=== PATIENT | male | born 2000 | race Caucasian/White ===

== ENCOUNTER 2024-06-15 20:06 | Inpatient (IN) | payer BC, SELFPAY ==
[2024-06-15] VITALS (35 sets, daily range): BP systolic 100–150; BP diastolic 53–93; PULSE 97–115; RESP 14–30; TEMP 36.6–37.1; O2SAT 92–100
--- NOTE | 2024-06-15 20:15 | DI.RAD_ITS ---
Exam(s) XR CHEST 1V IN DI DEPT EXAM: XR CHEST 1V IN DI DEPT CLINICAL HISTORY: DKA, eval PNA. TECHNIQUE: 2D digital imaging was performed. COMPARISON: No exams were available for comparison FINDINGS: Single AP portable view. Heart size is upper normal. The mediastinum is not widened. Lungs are clear. No infiltrates nor obvious pleural effusions. IMPRESSION: No acute pulmonary findings on this single AP portable view of the chest. DATA REPOSITORY: RADIATION DOSE DELIVERED:
--- NOTE | 2024-06-15 20:15 | DI.CT_ITS ---
Exam(s) CT ABDOMEN PELVIS W EXAM: CT ABDOMEN PELVIS W CLINICAL HISTORY: Eval pancreatitis TECHNIQUE: Imaging Protocol: Axial computed tomography images with coronal and sagittal reformatted images were created and reviewed. CONTRAST MATERIAL: Intravenous: Omnipaque 350 Contrast volume:100 mL Oral: No COMPARISON: No exams were available for comparison FINDINGS: ABDOMEN: Lung Bases: Normal where visualized. Liver: Normal density. No measurable mass. Portal, Superior Mesenteric, and Splenic Veins: Unremarkable. Gallbladder and Biliary Tract: No radiodense calculus or dilation. Pancreas: Normal density, no abnormal calcifications or inflammatory process. Spleen: Normal. Adrenals: No masses seen. Kidneys: Normal size, contour and axis. No radiodense stones or obstructive uropathy. No masses seen. Abdominal Aorta: Abdominal portion non-dilated. Bowel: There is wall thickening seen in the distal stomach which may represent gastritis. This may a lso be due to underdistention. There is no evidence of bowel obstruction. No evidence of appendicit is. Peritoneal Cavity: No ascites, collection or mesenteric inflammatory response. No free air. Lymph Nodes: Within normal limits. Bones: Within normal limits for the patient's age. Soft Tissues: Unremarkable. PELVIS: Bladder: Symmetric distention, no gross wall thickening. Reproductive Organs: Unremarkable as visualized. Lymph Nodes: Within normal limits. Bones: Within normal limits for the patient's age. IMPRESSION: 1. No CT evidence to suggest acute pancreatitis. The pancreas appears unremarkable. No peripancreat ic fluid collections are seen. 2. No CT evidence of cholelithiasis or biliary ductal dilatation. 3. Mild wall thickening seen in the distal stomach. This may be due to underdistention. Gastritis s hould also be considered. Please correlate clinically. RADIATION DOSE DELIVERED: 194.44mGy.cm Total DLP DATA REPOSITORY: All CT scans at this facility are submitted to the National Radiology Data Registry (NRDR) Dose Index Registry (DIR) with the [employer] ([employer]). RADIATION OPTIMIZATION: All CT scans at this facility use at least one of these dose optimization te chniques: automated exposure control; mA and/or kV adjustment per patient size (includes targeted exa ms where dose is matched to clinical indication); or iterative reconstruction.
--- NOTE | 2024-06-15 20:30 | ED.GENADUL_ITS ---
Discharge Plan Disposition Patient Disposition: Admit to [facility] Condition: Fair Discharge Details Chief Complaint: Abd Prob Clinical Impression: DKA (diabetic ketoacidosis), Acute alcoholic pancreatitis Primary Care Provider: Unknown,Unknown ED Provider: Susan Ocampo Home Meds and New Rx's Prescriptions: No Action insulin lispro [Humalog KwikPen Insulin] 100 unit/mL insulin pen 1 sliding scale dose subcut USEASDIRECTD albuterol sulfate 90 mcg/actuation aerosol powdr breath activated 1 inh inhalation Q6H escitalopram oxalate [Lexapro] 10 mg tablet 10 mg PO DAILY HPI General Mode of arrival: ambulatory . Date/Time Provider Initiated Documentation: 06/15/24 20:17 . Limitations to Documentation: no limitations . Information obtained by: patient, family and old records reviewed . HPI Narrative: HPI: This is a 23-year-old male patient with a past medical history significant for type 1 diabetes on an insulin pump with a history of DKA, history of alcohol use and alcoholic pancreatitis, presenting for evaluation of abdominal pain, nausea and vomiting, and a concern for DKA and dehydration. Patient reports that he drank several alcoholic beverages last night, states that he drinks occasionally but has not had an episode like this in the last several months. Today he started to feel unwell with epigastric abdominal pain, nonbloody emesis, and decreased p.o. intake. The patient reports that he has not made any adjustments to his insulin pump, states that this feels similar to previous episodes of pancreatitis and DKA. The patient has otherwise been in his normal state of health. He denies chest pain, shortness of breath, cough. Has not had diarrhea or dysuria. Exam: Gen: Awake and alert, appears acutely ill HEENT: Non-icteric sclera Neck: Supple, no meningismus. Mucous membranes are dry Lungs: No apparent respiratory distress, normal respiratory effort. Lung sounds are clear and equal bilaterally, tachypnea present CV: Appears well perfused, heart with tachycardic rate but regular rhythm Abdomen: Non-distended, soft, tender to palpation in the epigastric and periumbilical region without rigidity, rebound, or guarding this is a 23-year-old male patient presenting for evaluation of epigastric abdominal pain, MSK: Moves 4 extremities without apparent limitation in ROM Skin: Visualized skin without rashes, cyanosis. Neuro: Normal Gait, no obvious focal deficits or facial asymmetry. Speaks in full, clear sentences. Psych: Appropriate for situation. MDM: Vomiting, and dehydration. My differential includes but is not limited to DKA, euglycemic DKA, HHS. Considered pancreatitis, cholecystitis, gastritis, no history of physical exam evidence concerning for perforation, bowel obstruction, urinary tract infection. Metabolic and electrolyte derangement was considered, as well as kidney injury, liver dysfunction. Will provide the patient with 2 L of lactated Ringer's for rehydration, obtain a broad laboratory workup to include CBC, CMP, lipase, urinalysis, blood cultures, and obtain chest x-ray and CT of the abdomen and pelvis with contrast. I will provide the patient with medication for management of pain and nausea to include Dilaudid and Zofran. ED Course: I reviewed the patient's laboratory studies, which show a leukocytosis to 26 with hemoconcentration and a hemoglobin of 19.9, no thrombocytopenia. Chemistry panel with a mild REINA, no significant electrolyte derangements with the patient is noted to have an anion gap and decrease in his bicarb. Lipase is greater than 375, no associated liver enzyme abnormalities or bilirubin increase. Urinalysis noninfectious but with ketonuria and hematuria. VBG with mild acidosis to 7.2, pCO2 35. DKA protocol was initiated, with dextrose containing fluids given the patient's blood glucose less than 200. Insulin drip started and the patient's insulin pump was turned off. CT imaging was independently interpreted by myself, as well as the chest x-ray. Radiology read also reviewed, no acute abnormalities on the studies to account for the patient's symptoms, though his clinical examination and lipase is still concerning for alcoholic pancreatitis. The patient was admitted to the hospitalist service for ongoing management of his DKA and pancreatitis. Remained hemodynamically appropriate/improved while under my care, transferred from this department without incident. Susan Ocampo MD Related Data Home Medications ?Medication ?Instructions ?Recorded ?Confirmed albuterol sulfate 90 mcg/actuation 1 inh inhalation Q6H 06/15/24 06/15/24 breath activated powder inhaler escitalopram oxalate 10 mg tablet 10 mg PO DAILY 06/15/24 06/15/24 (Lexapro) insulin lispro 100 unit/mL 1 sliding scale dose subcut 06/15/24 06/15/24 subcutaneous pen (Humalog KwikPen USEASDIRECTD (U-100) Insulin) Allergies Allergy/AdvReac Type Severity Reaction Status Date / Time Sulfa (Sulfonamide Allergy Itching Verified 06/15/24 20:17 Antibiotics) General Stated Complaint: Abd Prob NIRMAL: 3 Course Vital Signs Vital signs: Vital Signs Temperature 37.1 C 06/15/24 20:12 Pulse 115 H 06/15/24 20:12 Respiratory Rate 16 06/15/24 20:12 Blood Pressure 133/85 06/15/24 20:12 Pulse Oximetry 99 06/15/24 20:12 Temperature 37.1 C 06/15/24 20:12 Pulse 115 H 06/15/24 20:12 Respiratory Rate 16 06/15/24 20:12 Respiratory Effort Normal 06/15/24 20:16 Blood Pressure 133/85 06/15/24 20:12 Pulse Oximetry 99 06/15/24 20:12 Pain Level 10 06/15/24 20:12 Lab/Test Results Lab/Test Results: 06/15/24 20:24 Blood Blood Culture - Pending 06/15/24 20:24 Blood Blood Culture - Pending Medical Decision Making Quality:SDOH Health Related Social Needs: No Data to Display Critical Care Time Critical Care Time Critical Care Time: Yes Total Critical Care Time: 40 Attestation: Upon my evaluation, this patient had a high probability of imminent or life- threatening deterioration due to DKA, which required my direct attention, intervention, and personal management. I have personally provided 40 minutes of critical care time exclusive of time spent on separately billable procedures. Time includes review of laboratory data, radiology results, discussion with consultants, and monitoring for potential decompensation. Interventions were performed as documented above. Susan Ocampo MD [facility] All Active Problems (Updated 06/15/24 @ 23:36 by Susan Ocampo MD) Acute alcoholic pancreatitis (Acute) DKA (diabetic ketoacidosis) (Acute) Social History Smoking/Tobacco Use Status: Current every day Tobacco Type: e-cigarettes Smoking risk assessment performed?: Yes Alcohol Intake: current Alcohol Intake frequency: a few times a week Drug use: Never Substance use type: does not use Do you feel safe at home: Yes Do you feel safe in your relationship?: Yes
[2024-06-15 20:31] LABS: Bilirubin Moderate (Negative); Blood Moderate (Negative); Clarity Clear (Clear); Glucose 100 mg/dL (Negative); Ketones 80 mg/dL (Negative); Leukocyte Esterase Negative (Negative); Nitrite Negative (Negative); Specific Gravity >= 1.030 (1.005-1.025); Urobilinogen 0.2 mg/dL (Up to 0.2); pH 5.5 (5-8)
[2024-06-15 20:38] LABS: Bacteria Few HPF (Negative); C & S Indicated? No; Casts 0-2 Hyaline LPF (Negative); Crystals Negative HPF (Negative); Epithelial Cells Few HPF (Negative); Mucus Negative (Negative); WBC Negative HPF (0-5)
[2024-06-15 20:53] LABS: Abs Immature Grans 0.64 10^3/uL (0.0-0.06); MCH 29.2 pg (27.0-33.0); MCHC 33.8 % (32.0-36.0); MCV 87 fL (80-95); RBC 6.81 10^6/uL (4.36-5.78); RDW 12.7 % (11.8-14.1); RDW-SD 38.8 fL
[2024-06-15] MEDS: Lactated Ringers 1,000 ML 2000 ML IV (21:00)
[2024-06-15] MEDS: HYDROmorphone 2 MG/ML SYR 0.5 MG IVP (21:09)
[2024-06-15] MEDS: Ondansetron 4 MG/2 ML VIAL IVP (21:10)
[2024-06-15 21:16] LABS: HCT 58.9 % (40.0-50.0); HGB 19.9 g/dL (13.5-17.5); Lipase > 375 U/L (16-77); WBC 26.88 10^3/uL (4.4-10.8)
[2024-06-15 21:17] LABS: ALT 33 U/L (16-63); AST 26 U/L (15-37); Albumin 5.3 g/dL (3.4-5.0); Alkaline Phosphatase 147 U/L (46-116); Anion Gap 31.2 mmol/L (3-11); BUN 28 mg/dL (7-18); Bilirubin, Total 0.62 mg/dL (0.2-1.0); CO2 12.8 mmol/L (21.0-32.0); CREATININE 1.6 mg/dL (0.70-1.30); Calcium 10.3 mg/dL (8.5-10.1); Chloride 95 mmol/L (98-107); Estimated GFR 62.48 (mL/min/1.73m2); Glucose 235 mg/dL (74-106); Magnesium 2.6 mg/dL (1.8-2.4); Potassium 5.1 mmol/L (3.5-5.1); Sodium 139 mmol/L (136-145); Total Protein 10.4 g/dL (6.4-8.2)
[2024-06-15 21:19] LABS: Absolute Lymphocyte Count 2.69 10^3/uL (1.2-3.4); Absolute Monocyte Count 1.08 10^3/uL (0.1-0.8); Absolute Neutrophil Count 22.85 10^3/uL (1.2-6.7)
[2024-06-15 21:20] LABS: Diff Comment Manual Differential; Myelocytes % 1; RBC Morphology Normal
[2024-06-15] MEDS: Omnipaque 350 MG/ML 100 ML BTL IJ (21:35)
[2024-06-15] MEDS: Normal Saline - Diluent 50 ML VIAL IV (21:52)
[2024-06-15] MEDS: Normal Saline Flush 10 ML SYR IVP (21:53)
[2024-06-15 22:19] LABS: BE (Venous) -14 mmol/L (-2-3); HCO3 (Venous) 14 mmol/L (23-28); O2 Sat (Venous) 88 %; TCO2 (Venous) 13 mmol/L (24-29); pCO2 (Venous) 34 mmHg (41-51); pH (Venous) 7.22 (7.31-7.41); pO2 (Venous) 54 mmHg
[2024-06-15] MEDS: PIPERACILLIN/TAZO 3.375 GM in Normal Saline 50 ML IVPB (22:38)
--- OUTSIDE RECORDS SUMMARY | 2024-06-15 22:53 | XMS_ITS | Summary of Care ---
Author Organization [facility] Address [address] [place] [address]- Care Team Providers Care Content Publisher Name Role Phone JOAQUÍN SIMON MD Primary Care Physician [phone] Encounter CHB_CSN [id number] Date(s): 01/21/20 - 01/21/[address] [address]- [facility] Encounter Diagnosis Type I diabetes mellitus uncontrolled(Discharge Diagnosis) - 01/21/20 Attending Physician: MARBIN ROCA, ALEXEI G Referring Physician: JOAQUÍN SIMON MD Allergies, Adverse Reactions, Alerts Substance Reaction Severity Status amoxicillin Rash Active penicillins Rash Active sulfa drugs Rash Active Immunizations Given and Recorded Vaccine Date Status Refusal Reason Influenza, injectable 06/23/19 Recorded Influenza, injectable 1 07/19/17 Recorded Influenza, injectable 07/24/16 Recorded Influenza, injectable 07/24/16 Recorded Influenza, injectable 2 07/08/15 Recorded Influenza, injectable 3 06/30/15 Recorded Influenza, injectable 07/02/14 Recorded 1Location History: PCP 2Location History: PCP 3Location History: PCP Medications Adderall 10 mg oral tablet Dose: 10 mg, Dose Amount: 1 tab, PO, QAM, Special Instructions: ADHD, Dispense Quantity: 30 tab, Refills: 0, Entered: 09/14/19 15:35:17 EST, [facility]/pharmacy #[id number] Start Date: 09/14/19 Stop Date: 10/28/19 Status: Discontinued Adderall 10 mg oral tablet Dose: 10 mg, Dose Amount: 1 tab, PO, QAM, Special Instructions: Please put 20 tab in a separate bottle to be administered by school nurse, Dispense Quantity: 30 tab, Refills: 0, Entered: 01/29/19 16:23:32 EDT Start Date: 01/29/19 Stop Date: 02/23/19 Status: Discontinued Adderall 10 mg oral tablet Dose: 10 mg, Dose Amount: 1 tab, PO, QAM, Take for 30 day, Dispense Quantity: 30 tab, Refills: 0, Entered: 02/23/19 16:12:54 EDT, Stop: 02/23/19 16:13:29 EDT Start Date: 02/23/19 Stop Date: 02/23/19 Status: Completed Adderall 10 mg oral tablet Dose: 10 mg, Dose Amount: 1 tab, PO, QAM, Special Instructions: Do not fill until March 25, 2019, Dispense Quantity: 30 tab, Refills: 0, Entered: 02/23/19 16:13:29 EDT Start Date: 02/23/19 Stop Date: 04/23/19 Status: Discontinued Adderall 10 mg oral tablet Dose: 10 mg, Dose Amount: 1 tab, PO, QAM, Special Instructions: ADHD, Dispense Quantity: 30 tab, Refills: 0, Entered: 07/06/19 11:37:00 EDT Start Date: 07/06/19 Stop Date: 09/14/19 Status: Discontinued Adderall 10 mg oral tablet Dose: 10 mg, Dose Amount: 1 tab, PO, QAM, Take for 30 day, Dispense Quantity: 30 tab, Refills: 0, Entered: 04/23/19 16:15:18 EDT, Stop: 04/23/19 16:16:04 EDT Start Date: 04/23/19 Stop Date: 04/23/19 Status: Completed Adderall 10 mg oral tablet Dose: 10 mg, Dose Amount: 1 tab, PO, QAM, Special Instructions: DO not fill until May 24, Dispense Quantity: 30 tab, Refills: 0, Entered: 04/23/19 16:16:04 EDT Start Date: 04/23/19 Stop Date: 08/03/19 Status: Discontinued Adderall 10 mg oral tablet Dose: 10 mg, Dose Amount: 1 tab, PO, QAM, Special Instructions: ADHD, Dispense Quantity: 30 tab, Refills: 0, Entered: 10/28/19 9:11:37 EST, [facility]/pharmacy #[id number] Start Date: 10/28/19 Stop Date: 11/27/19 Status: Ordered Adderall XR 10 mg oral capsule, extended release Dose: 10 mg, Dose Amount: 1 cap, PO, QAM, Dispense Quantity: 30 cap, Refills: 0, Entered: 11/20/18 16:03:23 EST Start Date: 11/20/18 Stop Date: 12/18/18 Status: Discontinued Adderall XR 20 mg oral capsule, extended release Dose: 20 mg, Dose Amount: 1 cap, PO, QAM, Special Instructions: ADHD, Dispense Quantity: 30 cap, Refills: 0, Entered: 09/14/19 15:35:18 EST, [facility]/pharmacy #[id number] Start Date: 09/14/19 Stop Date: 10/28/19 Status: Discontinued Adderall XR 20 mg oral capsule, extended release Dose: 20 mg, Dose Amount: 1 cap, PO, QAM, Dispense Quantity: 30 cap, Refills: 0, Entered: 01/29/19 16:17:03 EDT Start Date: 01/29/19 Stop Date: 02/23/19 Status: Discontinued Adderall XR 20 mg oral capsule, extended release Dose: 20 mg, Dose Amount: 1 cap, PO, QAM, Dispense Quantity: 30 cap, Refills: 0, Entered: 02/23/19 16:12:49 EDT, Stop: 02/23/19 16:13:53 EDT Start Date: 02/23/19 Stop Date: 02/23/19 Status: Completed Adderall XR 20 mg oral capsule, extended release Dose: 20 mg, Dose Amount: 1 cap, PO, QAM, Special Instructions: Do not fill until March 25, Dispense Quantity: 30 cap, Refills: 0, Entered: 02/23/19 16:13:53 EDT Start Date: 02/23/19 Stop Date: 04/23/19 Status: Discontinued Adderall XR 20 mg oral capsule, extended release Dose: 20 mg, Dose Amount: 1 cap, PO, QAM, Special Instructions: ADHD, Dispense Quantity: 30 cap, Refills: 0, Entered: 08/18/19 12:05:00 EST, [facility]/pharmacy #[id number] Start Date: 08/18/19 Stop Date: 09/14/19 Status: Discontinued Adderall XR 20 mg oral capsule, extended release Dose: 20 mg, Dose Amount: 1 cap, PO, QAM, Special Instructions: ADHD, Dispense Quantity: 30 cap, Refills: 0, Entered: 07/06/19 11:37:00 EDT Start Date: 07/06/19 Stop Date: 07/06/19 Status: Discontinued Adderall XR 20 mg oral capsule, extended release Dose: 20 mg, Dose Amount: 1 cap, PO, QAM, Take for 30 day, Special Instructions: ADHD, Dispense Quantity: 30 cap, Refills: 0, Entered: 07/06/19 12:58:47 EDT, Stop: 08/05/19 12:58:47 EST Start Date: 07/06/19 Stop Date: 08/18/19 Status: Completed Adderall XR 20 mg oral capsule, extended release Dose: 20 mg, Dose Amount: 1 cap, PO, QAM, Dispense Quantity: 30 cap, Refills: 0, Entered: 04/23/19 16:15:42 EDT, Stop: 04/23/19 16:16:10 EDT Start Date: 04/23/19 Stop Date: 04/23/19 Status: Completed Adderall XR 20 mg oral capsule, extended release Dose: 20 mg, Dose Amount: 1 cap, PO, QAM, Special Instructions: Do not fill until May 24, Dispense Quantity: 30 cap, Refills: 0, Entered: 04/23/19 16:16:10 EDT, Stop: 07/06/19 11:33:12 EDT Start Date: 04/23/19 Stop Date: 07/06/19 Status: Completed Adderall XR 20 mg oral capsule, extended release Dose: 20 mg, Dose Amount: 1 cap, PO, QAM, Special Instructions: ADHD, Dispense Quantity: 30 cap, Refills: 0, Entered: 01/06/20 15:03:00 EDT, [facility]/pharmacy #[id number] Start Date: 01/06/20 Stop Date: 02/05/20 Status: Ordered Adderall XR 20 mg oral capsule, extended release Dose: 20 mg, Dose Amount: 1 cap, PO, QAM, Take for 30 day, Special Instructions: ADHD, Dispense Quantity: 30 cap, Refills: 0, Entered: 10/28/19 9:11:41 EST, Stop: 11/11/19 18:00:21 EST, [facility]/pharmacy #[id number] Start Date: 2/5/20 Stop Date: 11/11/19 Status: Completed Adderall XR 20 mg oral capsule, extended release Dose: 20 mg, Dose Amount: 1 cap, PO, QAM, Dispense Quantity: 30 cap, Refills: 0, Entered: 12/18/18 13:44:12 EDT Start Date: 12/18/18 Stop Date: 01/29/19 Status: Discontinued Adderall XR 20 mg oral capsule, extended release Dose: 20 mg, Dose Amount: 1 cap, PO, QAM, Take for 30 day, Special Instructions: ADHD, Dispense Quantity: 30 cap, Refills: 0, Entered: 11/11/19 18:00:21 EST, Stop: 12/11/19 18:00:21 EDT, [facility]/pharmacy#[id number] Start Date: 11/11/19 Stop Date: 01/06/20 Status: Completed albuterol Entered: 09/29/12 15:58:34 EST, Therapy Acute Start Date: 09/29/12 Stop Date: 03/18/13 Status: Discontinued albuterol PRN as needed for wheezing, Entered: 05/13/14 16:20:37 EDT, Therapy Maintenance Start Date: 05/13/14 Stop Date: 04/21/18 Status: Discontinued albuterol CFC free 90 mcg/inh inhalation aerosol Dose: 180 mcg, Dose Amount: 2 puff, INH, Q4hr, PRN Respiratory Distress, Entered: 05/14/18 10:50:48EDT Start Date: 05/14/18 Status: Ordered Camden One Touch Ping insulin pump Camden One Touch Ping insulin pump Special Instructions: Use as directed to deliver continuous subcutaneous insulin infusion Dispense Quantity: 1 EA Refills: 0 Stop: 07/02/11 23:59:00 EDT See Instructions Start Date: 06/24/11 Stop Date: 07/02/11 Status: Completed Camden One Touch Ping insulin pump Camden One Touch Ping insulin pump Special Instructions: Use as directed to deliver continuous subcutaneous insulin infusion Dispense Quantity: 1 EA Refills: 0 Stop: 10/19/11 23:59:00 EST See Instructions Start Date: 10/11/11 Stop Date: 10/19/11 Status: Completed Camden One Touch Ping Insulin infusion catheters and reservoirs. Camden One Touch Ping Insulin infusion catheters and reservoirs. Special Instructions: Change with infusion set every 2-3 days Refills: 4 Stop: 07/02/11 23:59:00 EDT See Instructions Dispense Supply:3 month Start Date: 06/24/11 Stop Date: 07/02/11 Status: Completed Camden One Touch Ping Insulin infusion catheters and reservoirs. Camden One Touch Ping Insulin infusion catheters and reservoirs. Special Instructions: Change with infusion set every 2-3 days Refills: 4 Stop: 10/19/11 23:59:00 EST See Instructions Dispense Supply:3 month Start Date: 10/11/11 Stop Date: 10/19/11 Status: Completed Ativan 0.5 mg oral tablet Dose: 0.5 mg, Dose Amount: 1 tab, PO, BID, PRN Agitation, Take for 7 day, Dispense Quantity: 12 tab, Refills: 0, Entered: 09/08/18 16:44:48 EST, Stop: 09/15/18 16:44:48 EST Start Date: 09/08/18 Stop Date: 09/15/18 Status: Completed Ativan 0.5 mg oral tablet Dose: 0.5 mg, Dose Amount: 1 tab, PO, BID, PRN Agitation, Take for 7 day, Dispense Quantity: 12 tab, Refills: 0, Entered: 04/28/19 16:22:49 EDT, Stop: 05/05/19 16:22:49 EDT Start Date: 04/28/19 Stop Date: 05/05/19 Status: Completed Baqsimi 3 mg nasal glucagon Baqsimi 3 mg nasal glucagon See Instructions, Special Instructions: Use as directed for severe hypoglycemia, Dispense Quantity: 2 EA, Refills: 11, Entered: 05/18/19 12:35:00 EDT, [facility]/pharmacy #[id number] Start Date: 05/18/19 Stop Date: 07/03/19 Status: Discontinued Basaglar KwikPen 100 units/mL subcutaneous solution See Instructions, Special Instructions: Use as directed up to 50 units daily in case of pump failure, Dispense Quantity: 15 mL, Refills: 11, Entered: 02/06/18 9:29:00 EDT, [facility]/pharmacy #[id number] Start Date: 02/06/18 Stop Date: 05/14/18 Status: Discontinued Basaglar KwikPen 100 units/mL subcutaneous solution See Instructions, Special Instructions: Use as directed up to 66 units daily., Dispense Quantity: 15 mL, Refills: 11, Entered: 05/18/19 12:35:00 EDT, [facility]/pharmacy #[id number] Start Date: 05/18/19 Status: Ordered Basaglar KwikPen 100 units/mL subcutaneous solution See Instructions, Special Instructions: Up to 40 units daily SC prn pump failure, Dispense Quantity: 15 mL, Refills: 1, Entered: 01/02/19 16:50:51 EDT, [facility]/pharmacy #[id number] Start Date: 01/02/19 Stop Date: 07/03/19 Status: Discontinued Basaglar KwikPen 100 units/mL subcutaneous solution See Instructions, Special Instructions: Use as directed up to 50 units daily in case of pump failure, Dispense Quantity: 15 mL, Refills: 11, Entered: 05/17/17 16:42:19 EDT, Stop: 02/06/18 9:24:31 EDT, [facility]/pharmacy #[id number] Start Date: 05/17/17 Stop Date: 02/06/18 Status: Completed BD Glucose 5 g oral tablet, chewable See Instructions, PRN Hypoglycemia Symptoms, Special Instructions: 1 tab Chewed QID, Dispense Quantity: 2 bottle, Refills: 11, Entered: 01/03/12 16:03:36 EDT, Therapy Maintenance, [facility]/pharmacy #[id number] Start Date: 01/03/12 Stop Date: 12/04/12 Status: Discontinued BD Ultrafine II syringes 0.3 cc short needle BD Ultrafine II syringes 0.3 cc short needle Special Instructions: Use as directed 7 times per day and as needed Dispense Quantity: 200 EA Stop: 06/19/12 0:00:00 EDT Dispense as Written See Instructions Start Date: 06/19/11 Stop Date: 06/19/12 Status: Completed BD Ultrafine II syringes 0.3 cc short needle BD Ultrafine II syringes 0.3 cc short needle Special Instructions: Use as directed 7 times per day and as needed Dispense Quantity: 200 EA Stop: 04/28/11 23:59:00 EDT Dispense as Written See Instructions Start Date: 04/20/11 Stop Date: 04/28/11 Status: Completed cloNIDine Dose: 0.1 mg, PO, daily, Entered: 08/03/19 11:35:23 EST Start Date: 08/03/19 Stop Date: 09/14/19 Status: Discontinued cloNIDine 0.1 mg oral tablet Dose: 0.1 mg, Dose Amount: 1 tab, PO, BID, Take for 30 day, Dispense Quantity: 60 tab, Refills: 2, Entered: 09/14/19 15:35:23 EST, Stop: 11/11/19 17:59:01 EST, [facility]/pharmacy #[id number], 58.8 Start Date: 09/14/19 Stop Date: 11/11/19 Status: Completed cloNIDine 0.1 mg oral tablet Dose: 0.1 mg, Dose Amount: 1 tab, PO, BID, Dispense Quantity: 60 tab, Refills: 2, Entered: 01/30/1916:15:29 EDT, [facility]/pharmacy #[id number] Start Date: 01/29/19 Stop Date: 04/23/19 Status: Discontinued cloNIDine 0.1 mg oral tablet Dose: 0.1 mg, Dose Amount: 1 tab, PO, daily, Dispense Quantity: 30 tab, Refills: 2, Entered: 07/17/18 16:52:22 EDT, [facility]/pharmacy #[id number] Start Date: 07/17/18 Stop Date: 09/15/18 Status: Discontinued cloNIDine 0.1 mg oral tablet Dose: 0.1 mg, Dose Amount: 1 tab, PO, BID, Dispense Quantity: 60 tab, Refills: 2, Entered: 04/23/1916:17:09 EDT, [facility]/pharmacy #[id number] Start Date: 04/23/19 Stop Date: 08/03/19 Status: Discontinued cloNIDine 0.1 mg oral tablet Dose: 0.1 mg, Dose Amount: 1 tab, PO, BID, Dispense Quantity: 60 tab, Refills: 2, Entered: 09/15/1811:34:00 EST, [facility]/pharmacy #[id number] Start Date: 09/15/18 Stop Date: 01/29/19 Status: Discontinued cloNIDine 0.1 mg oral tablet Dose: 0.05 mg, Dose Amount: 0.5 tab, PO, BID, PRN Anxiety, Dispense Quantity: 7 tab, Refills: 0, Entered: 05/14/18 10:52:26 EDT, [facility]/pharmacy #[id number] Start Date: 05/14/18 Stop Date: 06/19/18 Status: Discontinued cloNIDine 0.1 mg oral tablet Dose: 0.1 mg, Dose Amount: 1 tab, PO, BID, Dispense Quantity: 60 tab, Refills: 2, Entered: 11/11/2016:59:01 EST, [id number] Start Date: 11/11/19 Stop Date: 01/06/20 Status: Discontinued cloNIDine 0.1 mg oral tablet Dose: 0.05 mg, Dose Amount: 0.5 tab, PO, daily, PRN Anxiety, Dispense Quantity: 30 tab, Refills: 2,Entered: 06/19/18 16:49:28 EDT, [facility]/pharmacy #[id number] Start Date: 06/19/18 Stop Date: 07/17/18 Status: Discontinued cloNIDine 0.1 mg/24 hr transdermal film, extended release See Instructions, Special Instructions: 1 patch TOP every FIVE DAYS, Dispense Quantity: 6 patch, Refills: 2, Entered: 01/06/20 15:03:00 EDT, [id number] Start Date: 01/06/20 Status: Ordered Concerta 36 mg/24 hr oral tablet, extended release Dose: 36 mg, PO, QAM, Dispense Quantity: 30 tab, Refills: 0, Entered: 11/20/18 15:54:54 EST Start Date: 11/20/18 Stop Date: 11/20/18 Status: Discontinued Concerta 36 mg/24 hr oral tablet, extended release Dose: 36 mg, PO, QAM, Take for 30 day, Dispense Quantity: 30 tab, Refills: 0, Entered: 09/22/18 15:13:54 EST, Stop: 10/16/18 15:20:15 EST Start Date: 09/22/18 Stop Date: 10/16/18 Status: Completed Concerta 36 mg/24 hr oral tablet, extended release Dose: 36 mg, PO, QAM, Dispense Quantity: 30 tab, Refills: 0, Entered: 10/16/18 15:20:15 EST Start Date: 10/16/18 Stop Date: 11/20/18 Status: Discontinued desmopressin 0.2 mg oral tablet Dose: 0.6 mg, Dose Amount: 3 tab, PO, bedtime, Dispense Quantity: 90 tab, Refills: 3, Entered: 03/18/13 15:51:38 EDT, Therapy Maintenance, [facility] #[id number] Start Date: 03/18/13 Stop Date: 05/14/13 Status: Discontinued DME - DEXCOM G6 Body Die Maker DME - DEXCOM G6 Body Die Maker Special Instructions: Use with DEXCOM G6 as directed. [facility] [id number] Dispense Quantity: 1 EA Refills: 0 Stop: 05/27/19 23:59:00 EDT See Instructions Start Date: 05/20/19 Stop Date: 05/27/19 Status: Completed DME - DEXCOM G6 Body Die Maker DME - DEXCOM G6 Body Die Maker Special Instructions: Use with DEXCOM G6 as directed. [facility] [id number] Dispense Quantity: 1 EA Refills: 0 Stop: 05/19/19 21:44:05 EDT See Instructions Start Date: 05/18/19 Stop Date: 05/20/19 Status: Completed DME - DEXCOM G6 Sensor 3 pack DME - DEXCOM G6 Sensor 3 pack Special Instructions: Replace 1 sensor every 10 days for continuous glucose monitoring. [facility] [id number] Dispense Quantity: 3 box Refills: 3 Stop: 05/27/19 23:59:00 EDTSee Instructions Start Date: 05/20/19 Stop Date: 05/27/19 Status: Completed DME - DEXCOM G6 Sensor 3 pack DME - DEXCOM G6 Sensor 3 pack Special Instructions: Replace 1 sensor every 10 days for continuous glucose monitoring. [facility] [id number] Dispense Quantity: 3 box Refills: 3 Stop: 05/19/19 21:43:47 EDTSee Instructions Start Date: 05/18/19 Stop Date: 05/20/19 Status: Completed DME - DEXCOM G6 Transmitter DME - DEXCOM G6 Transmitter Special Instructions: Change every 3 months as directed. [facility] [id number] Dispense Quantity: 1 EA Refills: 3 Stop: 05/27/19 23:59:00 EDT See Instructions Start Date: 05/20/19 Stop Date: 05/27/19 Status: Completed DME - DEXCOM G6 Transmitter DME - DEXCOM G6 Transmitter Special Instructions: Change every 3 months as directed. [facility] [id number] Dispense Quantity: 1 EA Refills: 3 Stop: 05/19/19 21:43:13 EDT See Instructions Start Date: 05/18/19 Stop Date: 05/20/19 Status: Completed DME - OneTouch Ultra Blue Blood Glucose Test Strips DME - OneTouch Ultra Blue Blood Glucose Test Strips Special Instructions: Check blood glucose up to10 times per day Dispense Quantity: 300 EA Refills: 11 Stop: 08/19/13 23:59:00 EST See Instructions Start Date: 08/11/13 Stop Date: 08/19/13 Status: Completed DME - OneTouch Ultra Blue Blood Glucose Test Strips DME - OneTouch Ultra Blue Blood Glucose Test Strips Special Instructions: Check blood glucose up to10 times per day Dispense Quantity: 300 EA Refills: 11 Stop: 10/21/15 23:59:00 EST See Instructions Start Date: 10/13/15 Stop Date: 10/21/15 Status: Completed DME - OneTouch Ultra Blue Blood Glucose Test Strips DME - OneTouch Ultra Blue Blood Glucose Test Strips Special Instructions: Check blood glucose up to10 times per day Dispense Quantity: 900 EA Refills: 3 Stop: 07/04/12 23:59:00 EDT Dispense as Written See Instructions Start Date: 06/26/12 Stop Date: 07/04/12 Status: Completed DME - OneTouch Ultra Blue Blood Glucose Test Strips DME - OneTouch Ultra Blue Blood Glucose Test Strips Special Instructions: Check blood glucose up to10 times per day Dispense Quantity: 900 EA Refills: 3 Stop: 06/18/17 23:59:00 EDT Dispense as Written See Instructions Start Date: 06/10/17 Stop Date: 06/18/17 Status: Completed DME - OneTouch Ultra Blue Blood Glucose Test Strips DME - OneTouch Ultra Blue Blood Glucose Test Strips Special Instructions: Check blood glucose up to10 times per day Dispense Quantity: 900 EA Refills: 3 Stop: 10/07/12 23:59:00 EST See Instructions Start Date: 09/29/12 Stop Date: 10/07/12 Status: Completed DME - OneTouch Ultra Blue Blood Glucose Test Strips DME - OneTouch Ultra Blue Blood Glucose Test Strips Special Instructions: Check blood glucose up to15 times per day Dispense Quantity: 1,350 EA Refills: 3 Stop: 05/26/19 23:59:00 EDT Dispense as Written See Instructions Start Date: 05/18/19 Stop Date: 05/26/19 Status: Completed DME - OneTouch Ultra Blue Blood Glucose Test Strips DME - OneTouch Ultra Blue Blood Glucose Test Strips Special Instructions: Check blood glucose up to7 times per day Dispense Quantity: 200 EA Refills: 11 Stop: 08/13/14 23:59:00 EST See Instructions Start Date: 08/05/14 Stop Date: 08/13/14 Status: Completed DME - OneTouch Ultra Blue Blood Glucose Test Strips DME - OneTouch Ultra Blue Blood Glucose Test Strips Special Instructions: Check blood glucose up to10 times per day Dispense Quantity: 900 EA Refills: 1 Stop: 10/06/16 23:59:00 EST See Instructions Start Date: 09/28/16 Stop Date: 10/06/16 Status: Completed DME - OneTouch Ultra Blue Blood Glucose Test Strips DME - OneTouch Ultra Blue Blood Glucose Test Strips Special Instructions: Check blood glucose up to15 times per day Dispense Quantity: 1,350 EA Refills: 3 Stop: 11/07/17 23:59:00 EST Dispense as Written See Instructions Start Date: 10/30/17 Stop Date: 11/07/17 Status: Completed DME - OneTouch Ultra Blue Blood Glucose Test Strips DME - OneTouch Ultra Blue Blood Glucose Test Strips Special Instructions: Check blood glucose up to10 times per day Dispense Quantity: 300 EA Refills: 11 Stop: 10/13/15 17:42:02 EST See Instructions Start Date: 11/11/14 Stop Date: 10/13/15 Status: Completed DME - OneTouch Ultra Blue Blood Glucose Test Strips DME - OneTouch Ultra Blue Blood Glucose Test Strips Special Instructions: Check blood glucose up to15 times per day Dispense Quantity: 1,350 EA Refills: 3 Stop: 05/18/19 11:25:13 EDT Dispense as Written See Instructions Start Date: 03/27/19 Stop Date: 05/18/19 Status: Completed DME - OneTouch Ultra Blue Blood Glucose Test Strips DME - OneTouch Ultra Blue Blood Glucose Test Strips Special Instructions: Check blood glucose up to7 times per day Dispense Quantity: 200 EA Refills: 11 See Instructions Start Date: 07/21/15 Stop Date: 10/13/15 Status: Discontinued DME - Precision Xtra Blood KETONE Test Strips DME - Precision Xtra Blood KETONE Test Strips Special Instructions: Check blood ketones when blood glucose over 250 mg/dL or for sick day management Dispense Quantity: 30 EA Refills: 11 Stop: 07/30/17 7:41:35 EST See Instructions Start Date: 10/13/15 Stop Date: 07/30/17 Status: Completed DME - Precision Xtra Blood KETONE Test Strips DME - Precision Xtra Blood KETONE Test Strips Special Instructions: Check blood ketones when blood glucose over 250 mg/dL or for sick day management Dispense Quantity: 30 EA Refills: 11 Stop: 02/11/13 23:59:00 EDT See Instructions Start Date: 02/03/13 Stop Date: 02/11/13 Status: Completed DME - Precision Xtra Blood KETONE Test Strips DME - Precision Xtra Blood KETONE Test Strips Special Instructions: Check blood ketones when blood glucose over 250 mg/dL or for sick day management Dispense Quantity: 30 EA Refills: 11 Stop: 04/11/12 23:59:00 EDT See Instructions Start Date: 04/03/12 Stop Date: 04/11/12 Status: Completed DME - Precision Xtra Blood KETONE Test Strips DME - Precision Xtra Blood KETONE Test Strips Special Instructions: Use as directed when BG >250mg/dL upon arising in the AM and when >300 mg/dL any other time of day and when doing sick day management. Dispense Quantity: 30 EA Refills: 11 Dispense a... Start Date: 05/18/19 Status: Ordered DME - Precision Xtra Blood KETONE Test Strips DME - Precision Xtra Blood KETONE Test Strips Special Instructions: Use as directed when BG >250mg/dL upon arising in the AM and when >300 mg/dL any other time of day and when doing sick day management. Dispense Quantity: 30 EA Refills: 11 Stop: 12/23... Start Date: 01/02/19 Stop Date: 01/10/19 Status: Completed DME - Precision Xtra Blood KETONE Test Strips DME - Precision Xtra Blood KETONE Test Strips Special Instructions: Check blood ketones when blood glucose over 250 mg/dL or for sick day management Dispense Quantity: 30 EA Refills: 11 Stop: 08/07/17 23:59:00 EST See Instructions Start Date: 07/30/17 Stop Date: 08/07/17 Status: Completed DME - Precision Xtra Blood KETONE Test Strips DME - Precision Xtra Blood KETONE Test Strips Special Instructions: Check blood ketones when blood glucose over 250 mg/dL or for sick day management Dispense Quantity: 30 EA Refills: 11 Stop: 11/19/14 23:59:00 EST See Instructions Start Date: 11/11/14 Stop Date: 11/19/14 Status: Completed DME - Precision Xtra Blood KETONE Test Strips DME - Precision Xtra Blood KETONE Test Strips Special Instructions: Check blood ketones when blood glucose over 250 mg/dL or for sick day management Dispense Quantity: 30 EA Refills: 11 Stop: 11/11/14 16:49:18 EST See Instructions Start Date: 11/12/13 Stop Date: 11/11/14 Status: Completed DME Aerochamber spacer (withOUT mask) Special Instructions: Use as directed to give inhaled asthma medications. Dispense Quantity: 1 EA Refills: 1 Stop: 08/10/19 23:59:00 EST See Instructions Start Date: 08/02/19 Stop Date: 08/10/19 Status: Completed DME Alcohol Swabs Special Instructions: Use as Directed up to 8 times/day Dispense Quantity: 250 EA Refills: 11 Stop:04/08/10 23:59:00 EDT See Instuctions: Start Date: 03/31/10 Stop Date: 04/08/10 Status: Completed DME Alcohol Swabs Special Instructions: See Instuctions: Use 10 times per day as instructed Dispense Quantity: 300 EARefills: 11 Stop: 01/02/13 0:01:00 EDT Dispense as Written See Instructions Start Date: 01/03/12 Stop Date: 01/02/13 Status: Completed DME Alcohol Swabs_ Special Instructions: Use as directed up to 10 times a day for checking blood glucose or giving insulin Dispense Quantity: 300 EA Refills: 11 Stop: 10/21/15 23:59:00 EST See Instructions Start Date: 10/13/15 Stop Date: 10/21/15 Status: Completed DME Alcohol Swabs_ Special Instructions: Use as directed up to 10 times a day for checking blood glucose or giving insulin Dispense Quantity: 900 EA Refills: 3 Stop: 10/07/12 23:59:00 EST See Instructions Start Date: 09/29/12 Stop Date: 10/07/12 Status: Completed DME Alcohol Swabs_ Special Instructions: Use as directed up to 10 times a day for checking blood glucose or giving insulin Dispense Quantity: 300 EA Refills: 11 Stop: 10/13/15 17:44:06 EST See Instructions Start Date: 11/11/14 Stop Date: 10/13/15 Status: Completed DME Alcohol Swabs_ Special Instructions: Use as directed up to 10 times a day for checking blood glucose or giving insulin Dispense Quantity: 300 EA Refills: 11 Stop: 02/19/14 23:59:00 EDT See Instructions Start Date: 02/11/14 Stop Date: 02/19/14 Status: Completed DME Glucometer - Precision Xtra Blood Glucose and Ketone monitoring system DME Glucometer - Precision Xtra Blood Glucose and Ketone monitoring system Special Instructions: Use to check blood glucose and ketones as directed. Pleas dispense 2 meters - one for home and one forschool. Dispense Quantity: 2 EA Refills: 11 Stop: 0... Start Date: 05/27/18 Stop Date: 06/04/18 Status: Completed DME Glucose meter - Precision Xtra Special Instructions: Dispense 1 meter Dispense Quantity: 1 EA Refills: 0 Stop: 04/08/10 23:59:00 EDT see instructions Start Date: 03/31/10 Stop Date: 04/08/10 Status: Completed DME Lancets - FreeStyle Special Instructions: Use as directed up to 10 times each day Dispense Quantity: 300 EA Refills: 11Stop: 04/08/10 23:59:00 EDT see instructions Start Date: 03/31/10 Stop Date: 04/08/10 Status: Completed DME Lancets - One Touch Ultra Soft DME Lancets - One Touch Ultra Soft Special Instructions: Use to check BG levels up to 10 times per day Dispense Quantity: 200 EA Refills: 11 Stop: 08/19/13 23:59:00 EST See Instructions Start Date: 08/11/13 Stop Date: 08/19/13 Status: Completed DME Lancets - One Touch Ultra Soft DME Lancets - One Touch Ultra Soft Special Instructions: Use to check BG levels up to 10 times per day Dispense Quantity: 300 EA Refills: 11 Stop: 10/12/16 14:16:34 EST Dispense as Written See Instructions Start Date: 10/13/15 Stop Date: 10/12/16 Status: Completed DME Lancets - One Touch Ultra Soft DME Lancets - One Touch Ultra Soft Special Instructions: Use to check BG levels up to 10 times per day Dispense Quantity: 900 EA Refills: 3 Stop: 10/07/12 23:59:00 EST See Instructions Start Date: 09/29/12 Stop Date: 10/07/12 Status: Completed DME Lancets - One Touch Ultra Soft DME Lancets - One Touch Ultra Soft Special Instructions: Use to check BG levels up to 10 times per day Dispense Quantity: 300 EA Refills: 11 Stop: 10/20/16 23:59:00 EST Dispense as Written See Instructions Start Date: 10/12/16 Stop Date: 10/20/16 Status: Completed DME Lancets - One Touch Ultra Soft DME Lancets - One Touch Ultra Soft Special Instructions: Use to check BG levels up to 10 times per day Dispense Quantity: 300 EA Refills: 11 Stop: 11/12/14 1:00:00 EST Dispense as Written See Instructions Start Date: 11/12/13 Stop Date: 11/12/14 Status: Completed DME [place] - BD Ultra-Fine Mandy Pen Needle (4 mm x 32G) DME [place] - BD Ultra-Fine Mandy Pen Needle (4 mm x 32G) Special Instructions: Use as directed up to 2 times/day to administer insulin via insulin pen Dispense Quantity: 100 EA Refills: 11 See Instructions Start Date: 02/06/18 Stop Date: 05/14/18 Status: Discontinued DME [place] - BD Ultra-Fine Mandy Pen Needle (4 mm x 32G) DME [place] - BD Ultra-Fine Mandy Pen Needle (4 mm x 32G) Special Instructions: Use as directed up to 6 times/day to administer insulin via insulin pen Dispense Quantity: 600 EA Refills: 3 Stop: 10/06/19 23:59:00 EST See Instructions, 62.3 Start Date: 09/28/19 Stop Date: 10/06/19 Status: Completed DME [place] - BD Ultra-Fine Mandy Pen Needle (4 mm x 32G) DME [place] - BD Ultra-Fine Mandy Pen Needle (4 mm x 32G) Special Instructions: Use as directed up to 2 times/day to administer insulin via insulin pen Dispense Quantity: 100 EA Refills: 11 Stop: 05/25/17 23:59:00 EDT See Instructions Start Date: 05/17/17 Stop Date: 05/25/17 Status: Completed DME Syringe, Insulin - BD Ultrafine II short needle 0.3mL Special Instructions: Use as Directed up to 8 times each day. Dispense Quantity: 200 Syringe Refills: 11 Stop: 04/08/10 23:59:00 EDT see instructions Start Date: 03/31/10 Stop Date: 04/08/10 Status: Completed DME Test Strips - Blood Ketone- Precision Xtra Special Instructions: Use if blood glucose is above 250 mg/dL or if pt is sick. Dispense Quantity: 20 EA Refills: 11 Stop: 04/08/10 23:59:00 EDT see instructions Start Date: 03/31/10 Stop Date: 04/08/10 Status: Completed DME Test Strips - Glucose- Precision Xtra Special Instructions: Use as directed up to 10 times each day. Dispense Quantity: 300 EA Refills: 11 Stop: 04/08/10 23:59:00 EDT see instructions Start Date: 03/31/10 Stop Date: 04/08/10 Status: Completed DME Test Strips - Glucose- Precision Xtra Special Instructions: Use as directed up to 10 times each day. Dispense Quantity: 300 EA Refills: 11 Stop: 04/08/10 23:59:00 EDT see instructions Start Date: 03/31/10 Stop Date: 04/08/10 Status: Completed DME Test Strips - Urine Ketone foil wrapped Special Instructions: Use if blood glucose is above 250 mg/dL or if pt is sick. Dispense Quantity: 20 EA Refills: 11 Stop: 04/08/10 23:59:00 EDT see instructions Start Date: 03/31/10 Stop Date: 04/08/10 Status: Completed famotidine 20 mg oral tablet Dose: 20 mg, Dose Amount: 1 tab, PO, BID, Dispense Quantity: 14 tab, Entered: 08/03/19 11:19:05 EST, [facility]/pharmacy #[id number] Start Date: 08/03/19 Stop Date: 08/10/19 Status: Ordered Fastclix lancet drums Fastclix lancet drums Special Instructions: us as directed up to 10x/day. Dispense Quantity: 50 EA Refills: 11 Stop: 08/13/14 23:59:00 EST See Instructions Start Date: 08/05/14 Stop Date: 08/13/14 Status: Completed Flovent HFA 110 mcg/inh inhalation aerosol Dose Amount: 2 puff, INH, BID, Special Instructions: Take as directed using aerochamber spacer. Rinse mouth and throat after each use., Dispense Quantity: 1 EA, Refills: 2, Entered: 08/02/19 15:49:24EST, [facility]/pharmacy #[id number] Start Date: 08/02/19 Status: Ordered Flovent HFA 110 mcg/inh inhalation aerosol Dose Amount: 2 puff, INH, BID, Dispense Quantity: 1 EA, Entered: 09/29/12 15:58:19 EST, Therapy Soft Stop Start Date: 09/29/12 Stop Date: 05/14/18 Status: Discontinued Flovent HFA 110 mcg/inh inhalation aerosol Dose: 220 mcg, Dose Amount: 2 puff, INH, BID, PRN Cold symptoms, Entered: 05/14/18 10:50:52 EDT Start Date: 05/14/18 Stop Date: 08/03/19 Status: Discontinued FLUoxetine PO, Entered: 11/15/17 15:12:06 EST Start Date: 11/15/17 Stop Date: 04/21/18 Status: Discontinued FreeStyle Lancets FreeStyle Lancets Special Instructions: Use as directed, check blood glucose 10 times a day Dispense Quantity: 250 EA Refills: 11 Stop: 04/20/11 23:59:00 EDT See Instructions Start Date: 04/12/11 Stop Date: 04/20/11 Status: Completed generic blood glucose Lancet generic blood glucose Lancet Special Instructions: Use as directed, check blood glucose 10 times a day Dispense Quantity: 300 EA Refills: 11 Stop: 11/21/11 23:59:00 EST See Instructions Start Date: 11/13/11 Stop Date: 11/21/11 Status: Completed Glucagon Emergency Kit for Low Blood Sugar 1 mg injection Dose: 1 mg, IM, OUT-PT as directed, Special Instructions: for unresponsive hypoglycemia, Dispense Quantity: 3 kit, Refills: 3, Entered: 12/24/16 19:14:00 EDT, Stop: 12/25/17 18:19:00 EDT, Dispense asWritten, [facility]/pharmacy #[id number] Start Date: 12/24/16 Stop Date: 02/04/18 Status: Completed Glucagon Emergency Kit for Low Blood Sugar 1 mg injection Dose: 1 mg, IM, OUT-PT as directed, Special Instructions: for unresponsive hypoglycemia, Dispense Quantity: 3 kit, Refills: 3, Entered: 05/18/19 12:35:00 EDT, Dispense as Written, [facility]/pharmacy #[id number] Start Date: 05/18/19 Status: Ordered Glucagon Emergency Kit for Low Blood Sugar 1 mg injection Dose: 1 mg, IM, OUT-PT as directed, Special Instructions: for unresponsive hypoglycemia, Dispense Quantity: 3 kit, Refills: 3, Entered: 02/04/18 16:07:00 EDT, Dispense as Written, [facility]/pharmacy #[id number] Start Date: 02/04/18 Stop Date: 05/14/18 Status: Discontinued Glucagon Emergency Kit for Low Blood Sugar 1 mg injection Dose: 1 mg, IM, OUT-PT as directed, Special Instructions: for unresponsive hypoglycemia, Dispense Quantity: 3 kit, Refills: 3, Entered: 02/01/19 15:52:17 EDT, Stop: 05/18/19 11:25:36 EDT, Dispense asWritten, [facility]/pharmacy #[id number] Start Date: 02/01/19 Stop Date: 05/18/19 Status: Completed Glucagon Emergency Kit recombinant 1mg injection Dose: 0.5 mg IM 1time PRN Other - See Order Comments, Therapy Acute, Dispense Quantity: 3 kit Refills: 3 Special Instructions: for treatment of unresponsive hypoglycemia Stop: 03/31/10 14:02:48 EDT Start Date: 03/31/10 Stop Date: 03/31/10 Status: Completed glucagon recombinant 1 mg injection See Instructions, Special Instructions: Use 1 mg to treat severe hypoglycemia., Dispense Quantity: 3 kit, Refills: 11, Entered: 10/13/15 17:40:18 EST, [facility]/pharmacy #[id number] Start Date: 10/13/15 Stop Date: 05/17/17 Status: Discontinued glucagon recombinant 1 mg injection See Instructions, Special Instructions: Use as directed to treat severe hypoglycemia. Do not fill until pt requests., Dispense Quantity: 3 kit, Refills: 2, Entered: 02/03/13 14:43:20 EDT, Stop: 11/12/13 16:53:26 EST, Therapy Hard Stop, [id number] Start Date: 02/03/13 Stop Date: 11/12/13 Status: Completed glucagon recombinant 1 mg injection See Instructions, Therapy Maintenance, Dispense Quantity: 2 kit Refills: 2 Special Instructions: Use as directed to treat severe hypoglycemia, [id number] Start Date: 04/12/11 Stop Date: 04/03/12 Status: Discontinued glucagon recombinant 1 mg injection See Instructions, Special Instructions: Use as directed to treat severe hypoglycemia. Do not fill until pt requests., Dispense Quantity: 3 kit, Refills: 2, Entered: 04/03/12 15:40:34 EDT, Stop: 02/03/13 14:43:20 EDT, Therapy Hard Stop Start Date: 04/03/12 Stop Date: 02/03/13 Status: Completed glucagon recombinant 1 mg injection See Instructions, Special Instructions: Use 1 mg to treat severe hypoglycemia. Do not fill until ptrequests., Dispense Quantity: 3 kit, Refills: 11, Entered: 11/11/14 16:48:13 EST, Stop: 10/13/15 17:40:17 EST, [facility]/pharmacy #[id number] Start Date: 11/11/14 Stop Date: 10/13/15 Status: Completed glucagon recombinant 1 mg injection See Instructions, Special Instructions: Use 1 mg to treat severe hypoglycemia. Do not fill until ptrequests., Dispense Quantity: 3 kit, Refills: 11, Entered: 11/12/13 16:53:26 EST, Stop: 11/11/14 16:48:13 EST, Therapy Hard Stop, [facility]/pharmacy #[id number] Start Date: 11/12/13 Stop Date: 11/11/14 Status: Completed glucose See instructions, Therapy Maintenance, Refills: 11 Special Instructions: May use 4g or 5 g tablets or gel as directed for hypoglycemia, Dispense Supply: 2 packet Start Date: 03/31/10 Stop Date: 12/04/12 Status: Discontinued glucose 4 g oral tablet, chewable Dose: 4 g, Dose Amount: 1 tab, Chewed, QID, PRN Hypoglycemia Symptoms, Dispense Quantity: 120 tab, Refills: 11, Entered: 10/13/15 17:41:07 EST, Stop: 12/27/16 8:50:29 EDT, [id number] Start Date: 10/13/15 Stop Date: 12/27/16 Status: Completed glucose 4 g oral tablet, chewable Dose: 12 g, Dose Amount: 3 tab, Chewed, QID, PRN Hypoglycemia Symptoms, Dispense Quantity: 2 bottle, Refills: 3, Entered: 09/29/12 15:51:00 EST, Stop: 11/12/13 16:52:39 EST, Therapy Hard Stop, [facility]/pharmacy #[id number] Start Date: 09/29/12 Stop Date: 11/12/13 Status: Completed glucose 4 g oral tablet, chewable Dose: 20 g, Dose Amount: 5 tab, Chewed, QID, PRN Other - See Order Comments, Entered: 05/14/18 10:50:59 EDT Start Date: 05/14/18 Stop Date: 07/03/19 Status: Discontinued glucose 4 g oral tablet, chewable Dose: 4 g, Dose Amount: 1 tab, Chewed, QID, PRN Hypoglycemia Symptoms, Dispense Quantity: 120 tab, Refills: 11, Entered: 11/11/14 16:48:35 EST, Stop: 10/13/15 17:41:07 EST, [facility]/pharmacy #[id number] Start Date: 11/11/14 Stop Date: 10/13/15 Status: Completed glucose 4 g oral tablet, chewable Dose: 12 g, Dose Amount: 3 tab, Chewed, QID, PRN Hypoglycemia Symptoms, Dispense Quantity: 120 tab,Refills: 11, Entered: 12/27/16 8:50:29 EDT, [facility]/pharmacy #[id number] Start Date: 12/27/16 Stop Date: 05/14/18 Status: Discontinued glucose 4 g oral tablet, chewable Dose: 12 g, Dose Amount: 3 tab, Chewed, QID, PRN Hypoglycemia Symptoms, Dispense Quantity: 2 bottle, Refills: 11, Entered: 11/12/13 16:52:39 EST, Stop: 11/11/14 16:48:35 EST, Therapy Hard Stop, [facility]/pharmacy #[id number] Start Date: 11/12/13 Stop Date: 11/11/14 Status: Completed HumaLOG 100 units/mL injectable solution See Instructions, Special Instructions: Use as directed up to 100 units/day, Dispense Quantity: 9 vial, Refills: 3, Entered: 08/28/18 12:43:00 EST, [id number] Start Date: 08/28/18 Status: Ordered HumaLOG 100 units/mL subcutaneous solution See Instructions, Special Instructions: Use as directed up to 100 units/day for insulin pump therapy, Dispense Quantity: 9 vial, Refills: 3, Entered: 08/13/17 10:52:00 EST, [id number] Start Date: 08/13/17 Stop Date: 05/14/18 Status: Discontinued Humalog 100 units/mL subcutaneous solution See Instructions, Special Instructions: Use as directed up to 70 units/day for insulin pump therapy, Dispense Quantity: 3 vial, Refills: 11, Entered: 10/13/15 17:41:36 EST, Stop: 10/12/16 14:17:06 EST, [id number] Start Date: 10/13/15 Stop Date: 10/12/16 Status: Completed Humalog 100 units/mL subcutaneous solution See Instructions, Therapy Maintenance, Dispense Quantity: 3 vial Refills: 11 Special Instructions: Use as directed up to 70 units/day for insulin pump therapy, [id number] Start Date: 06/05/11 Stop Date: 04/03/12 Status: Discontinued Humalog 100 units/mL subcutaneous solution See Instructions, Special Instructions: Use as directed up to 70 units/day for insulin pump therapy, Dispense Quantity: 3 vial, Refills: 11, Entered: 02/03/13 14:43:09 EDT, Stop: 11/12/13 16:56:14 EST, Therapy Hard Stop, [id number] Start Date: 02/03/13 Stop Date: 11/12/13 Status: Completed Humalog 100 units/mL subcutaneous solution See Instructions, Special Instructions: Use as directed up to 70 units/day for insulin pump therapy, Dispense Quantity: 3 vial, Refills: 11, Entered: 04/03/12 15:42:05 EDT, Stop: 02/03/13 14:43:09 EDT, Therapy Hard Stop Start Date: 04/03/12 Stop Date: 02/03/13 Status: Completed Humalog 100 units/mL subcutaneous solution See Instructions, Special Instructions: Use as directed up to 70 units/day for insulin pump therapy, Dispense Quantity: 3 vial, Refills: 11, Entered: 11/11/14 16:49:34 EST, Stop: 10/13/15 17:41:35 EST, [id number] Start Date: 11/11/14 Stop Date: 10/13/15 Status: Completed Humalog 100 units/mL subcutaneous solution See Instructions, Therapy Maintenance, Dispense Quantity: 2 vial Refills: 11 Special Instructions: Use as directed up to 50 units/day. Administer 15 minutes before meals/snacks. Start Date: 03/31/10 Stop Date: 10/11/11 Status: Discontinued HumaLOG 100 units/mL subcutaneous solution See Instructions, Special Instructions: Use as directed up to 70 units/day for insulin pump therapy, Dispense Quantity: 3 vial, Refills: 11, Entered: 10/12/16 15:41:00 EST, Stop: 08/13/17 10:39:03 EST, [id number] Start Date: 10/12/16 Stop Date: 08/13/17 Status: Completed Humalog 100 units/mL subcutaneous solution See Instructions, Special Instructions: Use as directed up to 70 units/day for insulin pump therapy, Dispense Quantity: 3 vial, Refills: 11, Entered: 11/12/13 16:56:14 EST, Stop: 11/11/14 16:49:34 EST, Therapy Hard Stop, [id number] Start Date: 11/12/13 Stop Date: 11/11/14 Status: Completed HumaLOG Cartridge 100 units/mL injectable solution See Instructions, Special Instructions: Subcutaneous use as directed up to 100 units per day, Dispense Quantity: 10 EA, Refills: 11, Entered: 05/18/19 12:35:00 EDT, [id number] Start Date: 05/18/19 Stop Date: 08/03/19 Status: Discontinued HumaLOG Cartridge 100 units/mL injectable solution See Instructions, Special Instructions: Subcutaneous use as directed up to 100 units per day, Dispense Quantity: 10 EA, Refills: 11, Entered: 09/28/19 17:28:00 EST, [id number] Start Date: 09/28/19 Status: Ordered Humalog Pen 100 units/mL subcutaneous solution See Instructions, Therapy Maintenance, Dispense Quantity: 6 mL Refills: 11 Special Instructions: Upto 20 units, [id number] Start Date: 02/08/11 Stop Date: 04/03/12 Status: Discontinued Humulin N 100 units/mL subcutaneous suspension See Instructions, Therapy Maintenance, Dispense Quantity: 2 vial Refills: 11 Special Instructions: Use as directed up to 50 units/day. Start Date: 03/31/10 Stop Date: 10/11/11 Status: Discontinued Humulin N Pen 100 units/mL subcutaneous suspension See Instructions, Therapy Maintenance, Dispense Quantity: 6 mL Refills: 11 Special Instructions: Upto 20 units, [id number] Start Date: 02/08/11 Stop Date: 10/11/11 Status: Discontinued InPen Cerna (Humalog) [facility] # [id number] InPen Cerna (Humalog) [facility] # [id number] Special Instructions: Use with Humalog U-100 cartridges. Contact health care provider for estela settings. Dispense 2 - 1 for home and 1 for school Dispense Quantity: 2 EA Refills: 0 Stop: 05/27/19 23:59:00 EDT S... Start Date: 05/20/19 Stop Date: 05/27/19 Status: Completed InPen Cerna (Humalog) [facility] # [id number] InPen Cerna (Humalog) [facility] # [id number] Special Instructions: Use with Humalog U-100 cartridges. Contact health care provider for estela settings. Dispense 2 - 1 for home and 1 for school Dispense Quantity: 2 EA Refills: 0 Stop: 05/19/19 21:44:26 EDT S... Start Date: 05/18/19 Stop Date: 05/20/19 Status: Completed InPen Cerna (Humalog) - [facility] # [id number] InPen Cerna (Humalog) [facility] # [id number] Special Instructions: Use with Humalog U-100 cartridges. Contact health care provider for estela settings. Dispense 2 - 1 for home and 1 for school Dispense Quantity: 2 EA Refills: 0 See Instructions Start Date: 09/28/19 Status: Ordered insulin glargine 100 units/mL subcutaneous solution Dose: 27 unit, Subcutaneous, daily, Entered: 05/14/18 10:51:08 EDT Start Date: 05/14/18 Stop Date: 01/02/19 Status: Discontinued insulin lispro 100 units/mL injectable solution Entered: 05/14/18 10:51:41 EDT Start Date: 05/14/18 Stop Date: 01/02/19 Status: Discontinued insulin lispro 100 units/mL injectable solution Entered: 05/14/18 10:51:48 EDT Start Date: 05/14/18 Stop Date: 01/02/19 Status: Discontinued Ketostix foil wrapped Ketostix foil wrapped Special Instructions: Use as directed to measure urine ketones when BG >250-300mg/dL 2 consecutive times; when ill, nauseous or vomiting Dispense Quantity: 30 EA Refills: 11 Stop: 04/28/11 23:59:00 EDT See Instructions Start Date: 04/20/11 Stop Date: 04/28/11 Status: Completed LaMICtal See Instructions, Special Instructions: PO BID, Entered: 02/04/18 8:51:45 EDT Start Date: 02/04/18 Stop Date: 04/21/18 Status: Discontinued LaMICtal ODT Patient Titration Kit orange oral tablet, disintegrating Dose Amount: 1 kit, PO, As Directed, Dispense Quantity: 1 kit, Refills: 0, Entered: 02/02/19 9:21:49 EDT, [facility]/pharmacy #[id number] Start Date: 02/02/19 Stop Date: 04/23/19 Status: Discontinued lamoTRIgine 100 mg oral tablet See Instructions, Special Instructions: Take 1 tablet in the morning and half a tablet at night, Dispense Quantity: 45 tab, Refills: 2, Entered: 04/15/18 16:36:17 EDT, [facility]/pharmacy #[id number] Start Date: 04/15/18 Stop Date: 05/14/18 Status: Discontinued lamoTRIgine 100 mg oral tablet Dose: 150 mg, Dose Amount: 1.5 tab, PO, daily, Dispense Quantity: 21 tab, Refills: 0, Entered: 05/14/18 10:52:00 EDT, [facility]/pharmacy #[id number] Start Date: 05/14/18 Stop Date: 06/19/18 Status: Discontinued lamoTRIgine 150 mg oral tablet Dose: 150 mg, Dose Amount: 1 tab, PO, daily, Dispense Quantity: 30 tab, Refills: 3, Entered: 02/02/19 9:19:24 EDT, [facility]/pharmacy #[id number] Start Date: 02/02/19 Stop Date: 02/02/19 Status: Discontinued lamoTRIgine 150 mg oral tablet Dose: 150 mg, Dose Amount: 1 tab, PO, daily, Take for 30 day, Dispense Quantity: 30 tab, Refills: 2, Entered: 09/14/19 15:35:39 EST, Stop: 11/11/19 17:58:23 EST, [facility]/pharmacy #[id number] Start Date: 09/14/19 Stop Date: 11/11/19 Status: Completed lamoTRIgine 150 mg oral tablet Dose: 150 mg, Dose Amount: 1 tab, PO, daily, Dispense Quantity: 30 tab, Refills: 3, Entered: 01/29/19 16:16:10 EDT, Stop: 02/02/19 9:19:24 EDT, [facility]/pharmacy #[id number] Start Date: 01/29/19 Stop Date: 02/02/19 Status: Completed lamoTRIgine 150 mg oral tablet Dose: 150 mg, Dose Amount: 1 tab, PO, daily, Dispense Quantity: 30 tab, Refills: 2, Entered: 02/23/19 16:17:43 EDT, [facility]/pharmacy #[id number] Start Date: 02/23/19 Stop Date: 04/23/19 Status: Discontinued lamoTRIgine 150 mg oral tablet Dose: 150 mg, Dose Amount: 1 tab, PO, daily, Dispense Quantity: 30 tab, Refills: 2, Entered: 04/23/19 16:17:03 EDT, [facility]/pharmacy #[id number] Start Date: 04/23/19 Stop Date: 09/14/19 Status: Discontinued lamoTRIgine 150 mg oral tablet Dose: 150 mg, Dose Amount: 1 tab, PO, daily, Dispense Quantity: 30 tab, Refills: 2, Entered: 11/11/19 17:58:23 EST, [facility]/pharmacy #[id number] Start Date: 11/11/19 Stop Date: 01/06/20 Status: Discontinued lamoTRIgine 150 mg oral tablet Dose: 150 mg, Dose Amount: 1 tab, PO, daily, Dispense Quantity: 30 tab, Refills: 3, Entered: 07/10/18 13:55:56 EDT, [facility]/pharmacy #[id number] Start Date: 07/10/18 Stop Date: 01/29/19 Status: Discontinued Lantus 100 units/mL subcutaneous solution See Instructions, Special Instructions: Use as directed up to 20 units each day in event of insulinpump failure. Do not fill til pt requests., Dispense Quantity: 1 vial, Refills: 11, Entered: 08/11/13 14:07:46 EST, Stop: 05/13/14 16:17:16 EDT, Therap... Start Date: 08/11/13 Stop Date: 05/13/14 Status: Completed Lantus 100 units/mL subcutaneous solution See Instructions, Special Instructions: Use as directed up to 20 units each day in event of insulinpump failure., Dispense Quantity: 1 vial, Refills: 11, Entered: 10/13/15 17:42:30 EST, Stop: 10/12/16 14:17:31 EST, [facility]/pharmacy #[id number] Start Date: 10/13/15 Stop Date: 10/12/16 Status: Completed Lantus 100 units/mL subcutaneous solution See Instructions, Special Instructions: Use as directed up to 20 units each day in event of insulinpump failure, Dispense Quantity: 1 vial, Refills: 11, Entered: 06/05/11 10:51:41 EDT, Stop: 09/29/12 15:49:10 EST, Therapy Hard Stop Start Date: 06/05/11 Stop Date: 09/29/12 Status: Completed Lantus 100 units/mL subcutaneous solution See Instructions, Special Instructions: Use as directed up to 20 units each day in event of insulinpump failure, Dispense Quantity: 1 vial, Refills: 11, Entered: 09/29/12 15:49:11 EST, Stop: 08/11/13 14:07:45 EST, Therapy Hard Stop Start Date: 09/29/12 Stop Date: 08/11/13 Status: Completed Lantus 100 units/mL subcutaneous solution See Instructions, Special Instructions: Use as directed up to 20 units each day in event of insulinpump failure. Do not fill til pt requests., Dispense Quantity: 1 vial, Refills: 11, Entered: 05/13/14 16:17:16 EDT, Stop: 11/11/14 16:52:17 EST, Therap... Start Date: 05/13/14 Stop Date: 11/11/14 Status: Completed Lantus 100 units/mL subcutaneous solution See Instructions, Special Instructions: Use as directed up to 20 units each day in event of insulinpump failure. Do not fill til pt requests., Dispense Quantity: 1 vial, Refills: 11, Entered: 11/11/14 16:52:18 EST, Stop: 10/13/15 17:42:29 EST, [facility]/ph... Start Date: 11/11/14 Stop Date: 10/13/15 Status: Completed Lantus 100 units/mL subcutaneous solution See Instructions, Special Instructions: Use as directed up to 20 units each day in event of insulinpump failure., Dispense Quantity: 1 vial, Refills: 11, Entered: 10/12/16 15:41:00 EST, [facility]/pharmacy#[id number] Start Date: 10/12/16 Stop Date: 05/17/17 Status: Discontinued LORazepam Dose: 0.5 mg, PO, BID, PRN as needed for anxiety, Special Instructions: as needed, Entered: 02/04/18 8:50:57 EDT Start Date: 02/04/18 Stop Date: 05/14/18 Status: Discontinued Maalox Advanced Regular Strength oral suspension Dose Amount: 15 mL, PO, TID, PRN as needed for indigestion, Take for 7 day, Dispense Quantity: 150 mL, Refills: 0, Entered: 08/03/19 11:18:02 EST, Stop: 08/10/19 11:18:02 EST, [facility]/pharmacy #[id number] Start Date: 08/03/19 Stop Date: 08/10/19 Status: Completed Metadate CD 10 mg/24 hr oral capsule, extended release Dose: 10 mg, Dose Amount: 1 cap, PO, QAM, Dispense Quantity: 30 cap, Refills: 0, Entered: 05/22/18 15:34:31 EDT Start Date: 05/22/18 Stop Date: 06/19/18 Status: Discontinued Metadate CD 10 mg/24 hr oral capsule, extended release Dose: 10 mg, Dose Amount: 1 cap, PO, QAM, Dispense Quantity: 30 cap, Refills: 0, Entered: 07/17/18 16:52:53 EDT Start Date: 07/17/18 Stop Date: 08/11/18 Status: Discontinued Metadate CD 10 mg/24 hr oral capsule, extended release Dose: 10 mg, Dose Amount: 1 cap, PO, QAM, Take for 14 day, Dispense Quantity: 14 cap, Refills: 0, Entered: 05/14/18 10:54:02 EDT, Stop: 05/22/18 15:34:31 EDT Start Date: 05/14/18 Stop Date: 05/22/18 Status: Completed Metadate CD 10 mg/24 hr oral capsule, extended release Dose: 10 mg, Dose Amount: 1 cap, PO, QAM, Dispense Quantity: 30 cap, Refills: 0, Entered: 06/19/18 16:49:19 EDT Start Date: 06/19/18 Stop Date: 07/17/18 Status: Discontinued Metadate CD 20 mg/24 hr oral capsule, extended release Dose: 20 mg, Dose Amount: 1 cap, PO, daily, Dispense Quantity: 30 cap, Refills: 0, Entered: 08/11/18 16:44:59 EST Start Date: 08/11/18 Stop Date: 09/15/18 Status: Discontinued Metadate CD 20 mg/24 hr oral capsule, extended release Dose: 20 mg, Dose Amount: 1 cap, PO, daily, Dispense Quantity: 30 cap, Refills: 0, Entered: 09/15/18 11:28:56 EST Start Date: 09/15/18 Stop Date: 10/16/18 Status: Discontinued MiraLax Dose: 17 g, Dose Amount: 1 EA, PO, daily, PRN Constipation, Entered: 05/14/18 10:52:57 EDT Start Date: 05/14/18 Status: Ordered One Touch Ultra Soft Lancets One Touch Ultra Soft Lancets Special Instructions: Use as directed up to 8 times per day as necessary Dispense Quantity: 200 EA Refills: 11 Stop: 11/21/11 23:59:00 EST See Instructions Start Date: 11/13/11 Stop Date: 11/21/11 Status: Completed OneTouch Ultra Test Strips OneTouch Ultra Test Strips Special Instructions: Use as Directed to check blood glucose 10times a day. Dispense Quantity: 300 EA Refills: 11 Stop: 06/27/11 23:59:00 EDT See Instructions Start Date: 06/19/11 Stop Date: 06/27/11 Status: Completed OneTouch Ultra Test Strips OneTouch Ultra Test Strips Special Instructions: Use as Directed to check blood glucose 10times a day. Dispense Quantity: 300 EA Refills: 11 Stop: 06/13/11 23:59:00 EDT See Instructions Start Date: 06/05/11 Stop Date: 06/13/11 Status: Completed Precision Xtra Blood Ketone test strips Precision Xtra Blood Ketone test strips Special Instructions: Use as directed to measure blood ketones when BG >250-300mg/dL 2 consecutive times; when ill, nauseous or vomiting Dispense Quantity: 30 EA Refills: 11 Stop: 04/20/11 23:59:00 EDT See Instr... Start Date: 04/12/11 Stop Date: 04/20/11 Status: Completed Precision Xtra Glucose test strips Precision Xtra Glucose test strips Special Instructions: Use as directed up to 8 times and prn. Dispense Quantity: 250 EA Refills: 11 Stop: 04/20/11 23:59:00 EDT See Instructions Start Date: 04/12/11 Stop Date: 04/20/11 Status: Completed ProAir HFA 90 mcg/inh inhalation aerosol Dose Amount: 2 puff, INH, Q4hr, PRN for cough or difficulty breathing, Entered: 04/21/18 2:34:39 EDT Start Date: 04/21/18 Stop Date: 05/14/18 Status: Discontinued Pulmicort Respules 0.5 mg/2 mL inhalation suspension See Instructions, PRN Respiratory Distress, Special Instructions: mL mg NEB BID, Entered: 11/11/14 16:17:53 EST, Therapy Maintenance Start Date: 11/11/14 Stop Date: 05/14/18 Status: Discontinued Ritalin 10 mg oral tablet Dose: 10 mg, Dose Amount: 1 tab, PO, daily, Special Instructions: daily at 3pm, Dispense Quantity: 30 tab, Refills: 0, Entered: 08/11/18 16:45:24 EST Start Date: 08/11/18 Stop Date: 09/15/18 Status: Discontinued Ritalin 10 mg oral tablet Dose: 10 mg, Dose Amount: 1 tab, PO, daily, Special Instructions: daily at 3pm, Dispense Quantity: 30 tab, Refills: 0, Entered: 09/15/18 11:28:57 EST Start Date: 09/15/18 Stop Date: 10/16/18 Status: Discontinued Ritalin 10 mg oral tablet Dose: 10 mg, Dose Amount: 1 tab, PO, daily, Special Instructions: daily at 3pm, Dispense Quantity: 30 tab, Refills: 0, Entered: 10/16/18 15:20:21 EST Start Date: 10/16/18 Stop Date: 11/20/18 Status: Discontinued Ritalin 5 mg oral tablet Dose: 5 mg, Dose Amount: 1 tab, PO, daily, Special Instructions: Administer after school at 3pm, Dispense Quantity: 30 tab, Refills: 0, Entered: 07/17/18 16:52:55 EDT Start Date: 07/17/18 Stop Date: 08/11/18 Status: Discontinued Ritalin 5 mg oral tablet Dose: 5 mg, Dose Amount: 1 tab, PO, daily, Special Instructions: Administer after school at 3pm, Dispense Quantity: 30 tab, Refills: 0, Entered: 06/19/18 16:50:20 EDT Start Date: 06/19/18 Stop Date: 07/17/18 Status: Discontinued ZyrTEC daily, Entered: 03/18/13 10:41:16 EDT, Therapy Maintenance Start Date: 03/18/13 Stop Date: 05/14/13 Status: Discontinued Problem List Condition Effective Dates Status Health Status Inform ant Long-term current use of insulin(Confirmed) 1 Resolved Palpitations(Confirmed) Active Type 1 diabetes mellitus(Confirmed) Resolved Type I diabetes mellitus uncontrolled(Confirmed) 2 Active 1Added by QCC 2Added by QCC
--- OUTSIDE RECORDS SUMMARY | 2024-06-15 22:53 | XMS_ITS | Summary of Care ---
Author Organization [facility] spital Address [address] [place] [address]- Care Team Providers Care Nutrition And Dietetics Instructor Name Role Phone JOAQUÍN SIMON MD Primary Care Physician Encounter [facility]_CSN [id number] Date(s): 05/24/22 - 05/24/[address] [address]- Encounter Diagnosis Type I diabetes mellitus uncontrolled(Discharge Diagnosis) - 05/23/22 Discharge Disposition: Discharge Attending Physician: ALEXEI ZAZUETA MD Referring Physician: JOAQUÍN SIMON MD Allergies, Adverse Reactions, Alerts Substance Reaction Severity Status amoxicillin Rash Active penicillin Active sulfa drugs Rash Active penicillins Rash Active Problem List Condition Effective Dates Status Health Status Inform ant Dehydration(Confirmed) Active Depression(Confirmed) Active Hyperglycemia(Confirmed) Active Long-term current use of insulin(Confirmed) 1 Resolved Palpitations(Confirmed) Active Type 1 diabetes mellitus(Confirmed) Resolved Type I diabetes mellitus uncontrolled(Confirmed) 2 Active 1Added by QCC 2Added by QCC
--- OUTSIDE RECORDS SUMMARY | 2024-06-15 22:53 | XMS_ITS | Summary of Care ---
Author Organization [facility] spital Address [address] [place] [address]- Care Team Providers Care Nursing Agency Manager Name Role Phone JOAQUÍN SIMON MD Primary Care Physician Encounter [facility]_CSN [id number] Date(s): 12/07/21 - 12/07/[address] [address]- Encounter Diagnosis Type I diabetes mellitus uncontrolled(Discharge Diagnosis) - 12/07/21 Attending Physician: MARBIN ROCA, ALEXEI G Referring Physician: JOAQUÍN SIMON MD Allergies, Adverse Reactions, Alerts Substance Reaction Severity Status amoxicillin Rash Active sulfa drugs Rash Active penicillin Active penicillins Rash Active Problem List Condition Effective Dates Status Health Status Inform ant Depression(Confirmed) Active Hyperglycemia(Confirmed) Active Long-term current use of insulin(Confirmed) 1 Resolved Palpitations(Confirmed) Active Type 1 diabetes mellitus(Confirmed) Resolved Type I diabetes mellitus uncontrolled(Confirmed) 2 Active 1Added by QCC 2Added by QCC
--- OUTSIDE RECORDS SUMMARY | 2024-06-15 22:53 | XMS_ITS | Summary of Care ---
Author Organization [facility] spital Address [address] [place] [address]- Care Team Providers Care Manager Concrete Name Role Phone JOAQUÍN SIMON MD Primary Care Physician Encounter [facility] [id number] Date(s): 09/29/20 - 09/29/[address] [address]- [facility] Encounter Diagnosis Type I diabetes mellitus uncontrolled(Discharge Diagnosis) - 09/28/20 Type 1 diabetes mellitus with hyperglycemia(Final) - Discharge Disposition: Discharge Attending Physician: ALEXEI ZAZUETA MD Referring Physician: JOAQUÍN SIMON MD Allergies, Adverse Reactions, Alerts Substance Reaction Severity Status amoxicillin Rash Active penicillins Rash Active sulfa drugs Rash Active Medications No Known Medications Problem List Condition Effective Dates Status Health Status Inform ant Depression(Confirmed) Active Diabetic ketoacidosis(Confirmed) Active Long-term current use of insulin(Confirmed) 1 Resolved Palpitations(Confirmed) Active Type 1 diabetes mellitus(Confirmed) Resolved Type I diabetes mellitus uncontrolled(Confirmed) 2 Active 1Added by QCC 2Added by C
--- OUTSIDE RECORDS SUMMARY | 2024-06-15 22:53 | XMS_ITS | Summary of Care ---
Author Organization [facility] spital Address [address] [place] [address]- Care Team Providers Care Infrastructure Tech Name Role Phone JOAQUÍN SIMON MD Primary Care Physician [phone] Encounter [facility]CSN [id number] Date(s): 07/05/22 - 07/05/22 [facility] [address] [place] [address]- Encounter Diagnosis Type 1 diabetes mellitus with hyperglycemia(Final) - care home (current) use of insulin(Final) - Discharge Disposition: Discharge Attending Physician: ALEXEI ZAZUETA MD Referring Physician: JOAQUÍN SIMON MD Allergies, Adverse Reactions, Alerts Substance Reaction Severity Status amoxicillin Rash Active penicillin Active sulfa drugs Rash Active penicillins Rash Active Medications DME Insulin Pump - Omnipod DASH System (NDC: [address]-64) DME Insulin Pump - Omnipod DASH System (NDC: [address]-99) Special Instructions: Use as directed with Omnipod DASH pods Dispense Quantity: 1 EA Refills: 0 Stop: 07/13/22 23:59:00 EDT See Instructions Start Date: 07/05/22 Stop Date: 07/13/22 Status: Ordered DME Omnipod DASH PODS. 5 pack of PODS (NDC: [address]-28) DME Omnipod DASH PODS. 5 pack of PODS (NDC: [address]-47) Special Instructions: Use one and changeevery 48 hours. Dispense Quantity: 45 EA Refills: 3 Stop: 07/13/22 23:59:00 EDT See Instructions Start Date: 07/05/22 Stop Date: 07/13/22 Status: Ordered Problem List Condition Effective Dates Status Health Status Inform ant Dehydration(Confirmed) Active Depression(Confirmed) Active Hyperglycemia(Confirmed) Active Long-term current use of insulin(Confirmed) 1 Resolved Palpitations(Confirmed) Active Type 1 diabetes mellitus(Confirmed) Resolved Type I diabetes mellitus uncontrolled(Confirmed) 2 Active 1Added by QCC 2Added by QCC
--- OUTSIDE RECORDS SUMMARY | 2024-06-15 22:53 | XMS_ITS | Summary of Care ---
Author Organization [facility] spital Address [address] [place] [address]- Care Team Providers Care Door Person Name Role Phone JOAQUÍN SIMON MD Primary Care Physician Encounter [facility]_CSN [id number] Date(s): 02/06/22 - 01/16/[address] [address]- Attending Physician: BETTY ALVARADO Referring Physician: JOAQUÍN SIMON MD Allergies, Adverse Reactions, Alerts Substance Reaction Severity Status amoxicillin Rash Active penicillin Active penicillins Rash Active sulfa drugs Rash Active Problem List Condition Effective Dates Status Health Status Inform ant Dehydration(Confirmed) Active Depression(Confirmed) Active Hyperglycemia(Confirmed) Active Long-term current use of insulin(Confirmed) 1 Resolved Palpitations(Confirmed) Active Type 1 diabetes mellitus(Confirmed) Resolved Type I diabetes mellitus uncontrolled(Confirmed) 2 Active 1Added by QCC 2Added by QCC
--- OUTSIDE RECORDS SUMMARY | 2024-06-15 22:53 | XMS_ITS | Summary of Care ---
Author Organization [facility] spital Address [address] [place] [address]- Care Team Providers Care Litharge Supervisor Name Role Phone JOAQUÍN SIMON MD Primary Care Physician Encounter [facility]_CSN [id number] Date(s): 02/02/22 - 02/02/[address] [address]- Encounter Diagnosis Type I diabetes mellitus uncontrolled(Discharge Diagnosis) - 02/02/22 Type 1 diabetes mellitus with hyperglycemia(Final) - Discharge Disposition: Discharge Attending Physician: MARBIN ROCA, ALEXEI Nieves Referring Physician: JOAQUÍN SIMON MD Allergies, Adverse Reactions, Alerts Substance Reaction Severity Status amoxicillin Rash Active penicillin Active sulfa drugs Rash Active penicillins Rash Active Medications No Known Medications Problem List Condition Effective Dates Status Health Status Inform ant Dehydration(Confirmed) Active Depression(Confirmed) Active Hyperglycemia(Confirmed) Active Long-term current use of insulin(Confirmed) 1 Resolved Palpitations(Confirmed) Active Type 1 diabetes mellitus(Confirmed) Resolved Type I diabetes mellitus uncontrolled(Confirmed) 2 Active 1Added by QCC 2Added by C
--- OUTSIDE RECORDS SUMMARY | 2024-06-15 22:53 | XMS_ITS | Summary of Care ---
Author Organization [facility] spital Address [address] [place] [address]- Care Team Providers Care Yarn Texturing Machine Operator Name Role Phone JOAQUÍN SIMON MD Primary Care Physician Encounter [facility]_CSN [id number] Date(s): 10/31/20 - 10/31/[address] [address]- [facility] Encounter Diagnosis Type 1 diabetes mellitus with hyperglycemia(Final) - ocean transportation intermediary (current) use of insulin(Final) - Discharge Disposition: [...]
--- OUTSIDE RECORDS SUMMARY | 2024-06-15 22:53 | XMS_ITS | Summary of Care ---
Author Organization [facility] spital Address [address] [place] [address]- Care Team Providers Care Process Owner Name Role Phone JOAQUÍN SIMON MD Primary Care Physician Encounter [facility]N [id number] Date(s): 02/28/20 - 02/29/[address] [address] Encounter Diagnosis Diabetic ketoacidosis(Discharge Diagnosis) - 02/28/20 Dehydration(Discharge Diagnosis) - 02/28/20 Discharge Disposition: Home Attending Physician: CLARITA GARDNER MD Admitting Physician: ROSANNA ROCHA MD Referring Physician: JOAQUÍN SIMON MD Allergies, Adverse Reactions, Alerts Substance Reaction Severity Status amoxicillin Rash Active penicillins Rash Active sulfa drugs Rash Active Medications Tresiba flex insulin pen (insulin degludec 200 units/mL) Tresiba flex insulin pen (insulin degludec 200 units/mL) See Instructions, Special Instructions: Use as directed subcutaneously up to 100 units/day., Dispense Quantity: 5 EA, Refills: 1, Entered: 02/29/20 15:50:00 EDT, [facility]/pharmacy #[id number] Start Date: 02/29/20 Status: Ordered Problem List Condition Effective Dates Status Health Status Inform ant Long-term current use of insulin(Confirmed) 1 Resolved Palpitations(Confirmed) Active Type 1 diabetes mellitus(Confirmed) Resolved Type I diabetes mellitus uncontrolled(Confirmed) 2 Active 1Added by QCC 2Added by QCC
--- OUTSIDE RECORDS SUMMARY | 2024-06-15 22:53 | XMS_ITS ---
Author Organization [facility] Address [address] [place] [address] Phone Care Team Providers Care Automobile Parts Assembler Name Role Phone Nicole ROCA, Pritesh Ramsey Unavailable [phone] Conditions or Problems No information available. Medications No information available. Medications Administered No information available. Allergies, Adverse Reactions, Alerts No information available. Results No information available. Plan of Care Type Date Detail Pending order Patient encounte r procedure Pending order Ofc Vst, Est Lev el IV Procedures No information available. Vital Signs Date Name Value Unit Description BMI (Body Mass Index) 19.73 kg/m2 Bod y Mass Index (Ratio) BP Diastolic 82 mm[Hg] blood pressu re, diastolic BP Systolic 130 mm[Hg] blood pressur e, systolic Heart Rate 95 /min pulse rate Height 70 [in_us] height E&M Respiratory Rate 15 /min respirat ory rate E&M Weight Measured 137 [lb_av] weight E& M Immunizations No information available. Advance Directives No information available.
--- OUTSIDE RECORDS SUMMARY | 2024-06-15 22:53 | XMS_ITS | Clinical Summary ---
Author Organization [facility] Address [address] [facility], [address] [place] [address] Care Team Providers Care Dry Box Operator Name Role Phone Bc Truong MD Primary Care Provider [phone] Social History Tobacco Use Types Packs/Day Years Used Date Smoking Tobacco: Never Assessed Sex and Gender Information Value Date Recorded Sex Assigned at Not on file Legal Sex Male 1:10 PM EDT Gender Identity Not on file Sexual Orientation Not on file Plan of Treatment Upcoming Encounters Date Type Department Care Team (Late st Contact Info) Description 07/24/2024 10:45 AM EDT Office Visit [facility] [address] [place] [address] Bc Truong MD [address] [place] [address] Insurance [employer] PPO MEDICAID PENDING SALE TO [facility] Care Teams Dry Box Operator Relationship Specialty Start Date End Date Bc Truong MD [address] [place] [address] PCP - General Internal Medicine 06/10/24
--- OUTSIDE RECORDS SUMMARY | 2024-06-15 22:53 | XMS_ITS | Summary of Care ---
Author Organization [facility] spital Address [address] [place] [address]- Care Team Providers Care Community Placement Worker Name Role Phone JOAQUÍN SIMON MD Primary Care Physician Encounter [facility]_CSN [id number] Date(s): 07/05/20 - 07/07/[address] [address]- [facility] Encounter Diagnosis Type I diabetes mellitus uncontrolled(Discharge Diagnosis) - 07/05/20 Diabetic ketoacidosis(Discharge Diagnosis) - 07/05/20 Dehydration(Discharge Diagnosis) - 07/05/20 Discharge Disposition: Home Attending Physician: KARLENE PARKER MD Admitting Physician: BLANKA MAYO MD Referring Physician: JOAQUÍN SIMON MD Allergies, Adverse Reactions, Alerts Substance Reaction Severity Status amoxicillin Rash Active penicillins Rash Active sulfa drugs Rash Active Medications ibuprofen 200 mg oral tablet Dose: 600 mg, Dose Amount: 3 tab, PO, Q6hr, PRN Pain: Anticip/Mild/Mod (Score 0- 6), Entered: 07/07/20 13:35:00 EDT Start Date: 07/07/20 Status: Ordered Problem List Condition Effective Dates Status Health Status Inform ant Long-term current use of insulin(Confirmed) 1 Resolved Palpitations(Confirmed) Active Type 1 diabetes mellitus(Confirmed) Resolved Type I diabetes mellitus uncontrolled(Confirmed) 2 Active 1Added by QCC 2Added by QCC
--- OUTSIDE RECORDS SUMMARY | 2024-06-15 22:53 | XMS_ITS | Summary of Care ---
Author Organization [facility] spital Address [address] [place] [address]- Care Team Providers Care Scaffolding Helper Name Role Phone JOAQUÍN SIMON MD Primary Care Physician Encounter [facility]_CSN [id number] Date(s): 01/05/22 - 01/05/[address] [address]- Discharge Disposition: Discharge Attending Physician: MARBIN ROCA, [...]
--- OUTSIDE RECORDS SUMMARY | 2024-06-15 22:53 | XMS_ITS | Clinical Summary ---
Author Organization [facility] Address [address] [place] [address] Phone Care Team Providers Care Machine Stripper Name Role Phone AutomaticallyONE, SignedONE Unavailable [phone] Conditions or Problems Problem Name Problem Code Onset Date Status Entry Date Provider Comment Standard Description Annotate TACHYCARDIA 5894973 (SNOMED CT) 11/19 Active 11/19 Pritesh Rivera MD Tachycardia CHEST PAIN 55328278 (SNOMED CT) 11/19 Active 11/19 Pritesh Rivera MD Chest pain DYSPNEA ON EXERTION 83863753 (SNOMED CT) 11/16 Active 11/16 Pritesh Rivear MD Dyspnea on exertion ABNORMAL EKG 509009793 (SNOMED CT) 11/16 Active 11/16 Bhavna Mulry Electrocardiog edison abnormal SOBOE (SHORTNESS OF BREATH ON EXERTION) 63900551 (SNOMED CT) 11/16 Inactive 11/16 Bhavna Mulry Dyspnea on exertion CHEST DISCOMFORT 995258682 (SNOMED CT) 11/16 Active 11/16 Bhavna Mulry Chest discomfort KETOACIDOSI S IN TYPE I DM 775547360 (SNOMED CT) 11/03 Active 11/05 Vicky Victoria MD Ketoacidosis due to type 1 diabetes mellitus SEROUS DETACHMENT OF RETINAL PIGMENT EPITHELIUM, RIGHT 66079779 (SNOMED CT) 02/08 Active 02/08 Clare Perez 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 EXPOSURE TO LASER RADIATION, INITIAL ENCOUNTER W90.2xxA (ICD-10-CM) 02/08 Active 02/08 Renuka Wang MD Exposure to laser radiation, initial encounter MACULAR PIGMENT EPITHELIAL RIP H35.729 (ICD-10-CM) 02/08 Inactive 02/08 Renuka Wang MD Serous detachment of retinal pigment epithelium, unspecified eye DIABETES MELLITUS, TYPE I 02979624 (SNOMED CT) Resolved Jerri Greco MD Type 1 diabetes mellitus DIABETES MELLITUS, TYPE 1 WITHOUT RETINOPATHY 60768581189 102 (SNOMED CT) 04/24 Active 04/24 Jerri Greco MD Diabetes mellitus type 1 without retinopathy DIABETES MELLITUS, TYPE I 38580602 (SNOMED CT) Removed Jerri Greco MD Type 1 diabetes mellitus Medications Medication Instructions Start Date Stop Date Generic Name NDC Provider TRESIBA FLEXTOUCH SOPN INSULIN DEGLUDEC SOPN 23774340536 Gerry Shelton MD ADDERALL TABS AMPHETAMINE -DEX TROAMPHETAMINE TABS 00353099587 Gerry Shelton MD CLONIDINE PTWK CLONIDINE PTWK 2943016722 6 Gerry Shelton MD LEXAPRO 10 MG TABS ESCITALOPRAM OXALATE 18385261622 Gerry Shelton MD ZYRTEC ALLERGY 10 MG TABS One by mouth once daily CETIRIZINE HCL 82361989083 Jerri Greco MD ALBUTEROL SULFATE (2.5 MG/3ML) 0.083% NEBU 1 treatment every 4 hours as needed for SOB or wheezing ALBUTEROL SULFATE 99844746067 Jerri Greco MD PULMICORT FLEXHALER 180 MCG/ACT AEPB 1 puff twice daily BUDESONIDE 17584435687 Jerri Greco MD HUMALOG 100 UNIT/ML SUBCUTANEOUS SOLUTION INSULIN LISPRO (HUMAN) 82296069586 Jerri Greco MD Medications Administered No information available. Allergies, Adverse Reactions, Alerts Allergy Name Reaction Description Start Date Severity Statu s Provider SULFA Critical Jerri hamilton MD PCN Critical Jerri hamilton MD Results Date Name Value Unit Range Flag Description Lab Report: ARTERIAL BLOOD G / LOC:EDADM O2 INSPIRED 21 % 21-100 fraction of inspired oxygen (FIO2) BASE EXCESS -21.7 mmol/L -2.0-2.0 L base exc ess, arterial blood HCO3 (ART) 5.7 mmol/L 22.0-26.0 L bicarbon ate, arterial blood METHB 0.2 % g/dL 0.0-1.0 methemoglobin , blood HBCO ARTER % 0.3 % 0.0-1.5 Carboxyh emoglobin/H emoglobin.total [Pure mass fraction] in Arterial blood OXYHEMOG % 97 % 92.0-99.0 oxyhemog lobin as percent of arterial blood hemoglobin O2SAT (ART) 97 % 92-99 oxygen sa turation, arterial blood PCO2 (ART) 18 mm[Hg] 35-45 LL carbon gris xide, partial pressure, arterial blood PH (ART) 7.11 7.35-7.45 LL pH, arteri al blood Lab Report: HEPATIC FUNCTION PANEL / LOC:CCU, BASIC METABOLIC PANEL / LO ... TRIGLYCERIDE 150 mg/dL 0-150 Triglyce ride [Mass/volume] in Serum or Plasma - mg/dL Lab Report: CBC NO DIFFERENT IAL / LOC:CCU, CBC WITH DIFFERENTIAL / LOC:C ... LIPASE SERUM 212 U/L 12-53 H lipase, serum Lab Report: SARS COV2, FLU A /B, RSV / LOC:ED RSV BY EIA NOT DETECTED NOT DETECT Re spiratory syncytial virus Ag [Presence] in Specimen by Immunoassay INFLUEN B AG NOT DETECTED NOT DETECT Influenza virus B Ag [Presence] in Specimen INFLUEN A AG NOT DETECTED NOT DETECT Influenza virus A Ag [Presence] in Specimen by Immunoassay Lab Report: CBC WITH DIFFERE NTIAL / LOC:ED, MANUAL DIFFERENTIAL / LOC:ED OVAL FEW(1-3)/fld ovalocyt es, blood POLYCHROM Few,ev oth fld polychromasia MYELOCYTE % 3 % 0-0 H myelocyte s as percent of blood leukocytes REACT LYMPH% 12 % 0-10 H reactive lymphocytes, blood, as percent of total leukocytes Lab Report: OSMOLALITY,SERUM / LOC:ED OSMOLAL BLD 320 mosm/kg 275-295 H osmolalit y, serum Lab Report: CBC WITH DIFFERE NTIAL / LOC:ED, MANUAL DIFFERENTIAL / LOC:ED PLATELT(EST) AGREE platelet count, estimate RBC MORPH NORMAL RBC morphol ogy TOXIC GRAN SLT toxic gran ulation, neutrophils, blood METAMYELO % 3 % 0-0 H metamyelo cytes as percent of blood leukocytes Lab Report: SARS COV 2, RT P CR / LOC:ED COVID-19 NOT DETECTED NOT DETECT SARS coronavirus 2 RNA [Presence] in Respiratory specimen by OUSMANE with probe detection Lab Report: COMPREHENSIVE ME TABOLIC PANEL / LOC:ED, TROPONIN HIGH SENSIT ... TROPONIN I 0.008 ng/mL Units converted. See lab report for original value. troponin I Lab Report: NT-PRO BNP / LOC :ED PBNP 194.6 0-125 H NT-pro BNP Lab Report: CBC WITH DIFFERE NTIAL / LOC:EDADM, MANUAL DIFFERENTIAL / LOC ... JAKOB CELLS MOD(4-6)/fld jakob cells, blood BASOABSOLMAN 0.0 10*3/MM3 {Cells}/ uL 0-0.30 basophils, absolute, manual EOSINPABSMAN 0.0 10*3/MM3 {Cells}/ uL 0-0.50 eosinophils, absolute, manual MONOCYTABMAN 0.3 10*3/MM3 {Cells}/ uL 0-0.8 monocytes, absolute, manual LYMPHSABSMAN 5.1 10*3/MM3 {Cells}/ uL 1.2-5.2 lymphocytes, absolute, manual NEUT CT MANU 24.5 10*3/mm3 1.8-8.1 H neutrop hil count, blood, manual PMN BANDS 1 % 0-12 neutrophils , band form as percent of blood leukocytes PMN SEGS 81 % 40-62 H neutrophils, segmented as percent of blood leukocytes Lab Report: HEPATIC FUNCTION PANEL / LOC:CCU, BASIC METABOLIC PANEL / LO ... BILI DIRECT 0.2 mg/dL 0.0-0.3 Bilirubin .direct [Mass/volume] in Serum or Plasma Lab Report: BASIC METABOLIC PANEL / LOC:CCU, PHOSPHOROUS / LOC:CCU, MAGN ... IONIZED CA_ 1.18 mmol/L 1.13-1.32 calcium , serum, ionized HCT ART BLD 39 % 39-55 hematocri t, arterial blood HB ARTER TOT 13.3 g/dL 14.0-16.4 L hemogl obin, arterial blood, total K+ ARTERIAL 4.0 mmol/L 3.5-5.3 potassium , arterial blood NA 137 MMOL/L meq/L 135-148 Sodium [Moles/volume] in Serum or Plasma Lab Report: CBC WITH DIFFERE NTIAL / LOC:ED MPV 10.2 fL 9.4-12.4 Platelet armando n volume [Entitic volume] in Blood by Richelle RDW 13.2 % 11.5-14.5 Erythrocyte distribution width [Ratio] by Automated count MCHC 33.9 G/DL % 31.0-35.5 MCHC [Mas s/volume] by Automated count MCH 28.0 pg 26.0-34.0 MCH [Entiti c mass] by Automated count MCV 82.6 fL 80.0-99.0 MCV [Entiti c volume] by Automated count BASOPH COUNT 0.1 10*3/mm3 0-0.3 Basophi ls [#/volume] in Blood by Manual count EOS COUNT 0.0 10*3/mm3 0-0.5 eosinophil count, blood MONOCYTE CNT 0.6 10*3/mm3 0.0-0.8 monocyt e count, blood LYMPH COUNT 1.9 10*3/mm3 1.2-5.2 lymphocy te count, blood NEUTRO COUNT 9.5 10*3/mm3 1.8-8.1 H neutrop hil count, blood IMM GRANU % 1.2 % 0-5 Immature granulocytes/100 leukocytes in Blood BASOPHIL % 0.7 % 0-3 Basophils/ 100 leukocytes in Blood by Manual count EOSINOPHIL % 0.1 % 0-6 Eosinoph ils/100 leukocytes in Blood by Manual count MONOCYTE % 4.7 % 0-11 Monocytes/ 100 leukocytes in Blood by Automated count LYMPHS % 15.3 % 27-40 L Lymphocytes/ 100 leukocytes in Blood by Automated count PMN % 78.0 % 40-62 H Neutrophils/1 00 leukocytes in Blood by Automated count PLATELETS 361 10*3/mm3 150-450 Platelets [#/volume] in Blood by Automated count HCT 54.3 % 41.0-53.0 H Hematocrit [Volume Fraction] of Blood by Automated count HGB 18.4 g/dL 13.5-17.5 H Hemoglobin [Mass/volume] in Blood RBC 6.57 10*6/mm3 4.50-5.90 H Erythrocyt es [#/volume] in Blood by Automated count WBC 12.1 10*3/mm3 4.5-11.0 H Leukocytes [#/volume] in Blood by Automated count Lab Report: COMPREHENSIVE ME TABOLIC PANEL / LOC:EDADM, PHOSPHOROUS / LOC ... TSH ULTRA 0.36 u[iU]/mL 0.55-4.78 L thyroid stimulating hormone (TSH), ultra sensitive ETHANOL BLD < 3 mg/dL % <3 ethanol blood PO4 4.7 mg/dL 2.4-5.1 Phosphate [Mass/volume] in Serum or Plasma SGPT (ALT) 14 U/L 7-40 Alanine aminotransferase [Enzymatic activity/volume] in Serum or Plasma SGOT (AST) 10 U/L 13-40 L Aspartate aminotransferase [Enzymatic activity/volume] in Serum or Plasma ALK PHOS 110 U/L 46-116 Alkaline phosphatase [Enzymatic activity/volume] in Blood BILI TOTAL 0.4 mg/dL 0.3-1.2 Bilirubin. total [Mass/volume] in Serum or Plasma A/G RATIO 1.8 Albumin/Buffy bulin [Mass Ratio] in Serum or Plasma GLOBULIN TOT 3.1 g/dL 2.3-4.0 Globulin [Mass/volume] in Serum ALBUMIN 5.6 g/dL 3.2-4.8 H Albumin [Mass/volume] in Serum or Plasma PROTEIN, TOT 8.7 g/dL 5.7-8.2 H Protein [Mass/volume] in Serum or Plasma Lab Report: BLOOD GAS,VENOUS / LOC:ED BE REX BLOOD -24.7 mmol/L base exc ess, venous blood HCO3 REX 4.3 mmol/L bicarbonate, venous blood CARBOXYHB % 1.2 (?) % 0.0-1.5 Carboxyhe moglobin/H emoglobin.total in Venous blood SATVENOUSO2 81 % 60-85 saturatio n venous oxygen PCO2 (REX)WB 17 mm[Hg] 40-50 LL carbon d ioxide, partial pressure, venous blood PH (REX) WB 7.03 7.32-7.42 LL ph, rex ous blood Lab Report: BASIC METABOLIC PANEL / LOC:CCU, MAGNESIUM / LOC:CCU MAGNESIUM 1.7 mg/dL 1.6-2.6 Magnesium [Moles/volume] in Serum or Plasma Lab Report: BASIC METABOLIC PANEL / LOC:CCU CALCIUM 9.1 mg/dL 8.7-10.4 Calcium [Moles/volume] in Serum or Plasma GFRC 101 (?) mL/min/1 .73m2 >90 Glomerular Filtration Rate Calculation CREATININE 1.08 mg/dL 0.70-1.30 Creatini ne [Mass/volume] in Serum or Plasma BUN 8 mg/dL 9-23 L Urea nitrogen [Mass/volume] in Serum or Plasma BG RANDOM 228 mg/dL 70-99 H Glucose [Mass/volume] in Blood ANION GAP 10 mEq/L 5-15 Anion gap 4 in Serum or Plasma CO2 TOTAL 19 MEQ/L mmol/L 20.0-31.0 L carbon d ioxide, serum, total CL SERUM 107 meq/L 99-113 Chloride [Moles/volume] in Serum or Plasma K SERUM 3.8 meq/L 3.5-5.5 Potassium [Moles/volume] in Serum or Plasma SODIUM 136 MEQ/L mmol/L 135-145 Sodium [Moles/volume] in Serum or Plasma Lab Report: URINALYSIS / LOC :CCU CAST HYAL U NEGATIVE NEGATIVE Hyaline casts, urine EPI CELL U NEGATIVE /Hpf NEGATIVE epithelial cells by microscopy, urine NORA SED UR NEGATIVE NEGATIVE amorpho us sediment, urine WBC ESTERASE NEGATIVE NEGATIVE leukoc yte (WBC) esterase, urine NITRITE UA NEGATIVE NEGATIVE Nitrite Urine UROBILINO UR 0.2 {Chung _U}/dL <=1.0 urobilinogen, urine PROTEIN UR 30 mg/dL NEGATIVE Protein [ Mass] in Urine collected for unspecified duration BLOOD UR NEGATIVE NEGATIVE BLOOD, URI NE (hematuria) KETONES UA >=160 mg/dL NEGATIVE Ketones [Mass/volume] in Urine by Test strip BILIRUBIN UR NEGATIVE NEGATIVE Biliru bin.total [Presence] in Urine by Test strip GLUCOSE UA >=1000 mg/dL NEGATIVE Glucose U rine SPEC GR URIN 1.020 1.005-1.025 Spec ific gravity of Urine by Test strip PH U QN 5.5 5.5 - 7.5 ph, urine, quantitative APPEARANCE U CLEAR CLEAR Appearan ce of Urine UA COLOR YELLOW YELLOW Color of Uri ne Lab Report: HEMOGLOBIN A1c / LOC:N6 EAG 292 mg/dL Glucose mean value [Mass/volume] in Blood Estimated from glycated hemoglobin HGBA1C 11.8 % <5.6 H Hemoglobin A1c/Hemoglobin, total in Blood - % Lab Report: GLUCOSE FOR POCT / LOC:N6 BG FINGER 352 70-100 H blood gluco se, finger stick Plan of Care Type Date Detail Referral ECA F/U - wks Pending order Patient encounte r procedure Pending order Ofc Vst, Est Lev el IV Pending order Patient encounte r procedure Pending order Echocardiogram Pending order Exercise Stress Test Pending order Ofc Vst, New Lev el V Pending order Return to Clinic Pending order Return to Clinic Pending order Return to Clinic Procedures Code Procedure Name Date Entry Date CPT-80201 Est Pt - Comprehensive Eye Exam 1 CPT-54957 Est Pt - Comprehensive Eye Exam 7 CPT-63937 Est Pt - Comprehensive Eye Exam 5 [id number] Patient encounter procedure CPT-61669 Est Pt - Comprehensive Eye Exam 3 RTC Return to Clinic [id number] Patient encounter procedure CPT-27569 OCT - Retinal CPT-49181 Est Pt - Comprehensive Eye Exam 1 RTC Return to Clinic [id number] Patient encounter procedure APRSCAN Scan and Archive Paper Record CPT-27719 OCT - Retinal RTC Return to Clinic APRSCAN Scan and Archive Paper Record CPT-17181 Est Pt - Comprehensive Eye Exam 9 RTC Return to Clinic [id number] Patient encounter procedure RTC Return to Clinic CPT-25716 Est Pt - Comprehensive Eye Exam 2 CPT-76048 Est Pt - Comprehensive Eye Exam 9 RTC Return to Clinic CPT-13379 New Pt - Comprehensive Eye Exam 9 RTC Return to Clinic Vital Signs Date Name Value Unit Description BMI (Body Mass Index) 19.73 kg/m2 Bod y Mass Index (Ratio) BP Diastolic 82 mm[Hg] blood pressu re, diastolic BP Systolic 130 mm[Hg] blood pressur e, systolic Heart Rate 95 /min pulse rate Height 70 [in_us] height E&M Respiratory Rate 15 /min respirat ory rate E&M Weight Measured 137 [lb_av] weight E& M O2 Inspired 21 % fraction of i nspired oxygen (FIO2) Immunizations No information available. Advance Directives No information available.
--- OUTSIDE RECORDS SUMMARY | 2024-06-15 22:53 | XMS_ITS | Summary of Care ---
Author Organization [facility] spital Address [address] [place] [address]- Care Team Providers Care Records Associate Name Role Phone JOAQUÍN SIMON MD Primary Care Physician [phone] Encounter [facility] [id number] Date(s): 07/26/23 - 07/26/23 [facility] [address] [place] [address]- Discharge Disposition: Discharge Attending Physician: ALEXEI ZAZUETA MD Allergies, Adverse Reactions, Alerts Substance Reaction Severity Status amoxicillin Rash Active penicillin Active penicillins Rash Active sulfa drugs Rash Active Problem List Condition Confirmation Course Effective Dates Status H ealth Status Informant Depression Confirmed Active Hyperglycemia Confirmed Active Long-term current use of insulin 1 Confirmed Resolved Palpitations Confirmed Active Type 1 diabetes mellitus Confirmed Resolved Type I diabetes mellitus uncontrolled 2 Confirmed Active 1Added by [facility] 2Added by [facility] Patient Care team information Personnel Name: JOAQUÍN SIMON MD Address: Address: [address] [place] [id number]
--- OUTSIDE RECORDS SUMMARY | 2024-06-15 22:54 | XMS_ITS | Summary of Care ---
Author Organization [facility] spital Address [address] [place] [address]- Care Team Providers Care Internet Application Developer Name Role Phone JOAQUÍN SIMON MD Primary Care Physician Encounter [facility]CSN [id number] Date(s): 03/05/24 - 03/05/[address] [address]- Discharge Disposition: Discharge Attending Physician: ALEXEI ZAZUETA [...] mellitus uncontrolled 2 Confirmed Active 1Added by [facility] 2Added by [facility] Patient Care team information Personnel Name: JOAQUÍN SIMON MD Address: Address: [address] [place] [id number]
--- OUTSIDE RECORDS SUMMARY | 2024-06-15 22:54 | XMS_ITS | Summary of Care ---
Author Organization [facility] spital Address [address] [place] [address]- Care Team Providers Care Senior Sales Compensation Analyst Name Role Phone JOAQUÍN SIMON MD Primary Care Physician [phone] Encounter [facility] [id number] Date(s): 04/13/21 - 04/13/[address] [address]- Encounter Diagnosis Type 1 diabetes mellitus with hyperglycemia(Final) - [facility] (current) use of insulin(Final) - Discharge Disposition: Discharge Attending Physician: ALEXEI ZAZUETA MD Referring Physician: JOAQUÍN SIMON MD Allergies, Adverse Reactions, Alerts Substance Reaction Severity Status amoxicillin Rash Active penicillins Rash Active sulfa drugs Rash Active Medications No Known Medications Problem List Condition Effective Dates Status Health Status Inform ant Depression(Confirmed) Active Diabetic ketoacidosis(Confirmed) Active Hyperglycemia(Confirmed) Active Ketosis(Confirmed) Active Long-term current use of insulin(Confirmed) 1 Resolved Palpitations(Confirmed) Active Type 1 diabetes mellitus(Confirmed) Resolved Type I diabetes mellitus uncontrolled(Confirmed) 2 Active 1Added by [facility] 2Added by C
--- OUTSIDE RECORDS SUMMARY | 2024-06-15 22:54 | XMS_ITS | Summary of Care ---
Author Organization [facility] spital Address [address] [place] [address]- Care Team Providers Care Lot Porter Name Role Phone AURORA ROCA, JOAQUÍN Hernandez Primary Care Physician [phone] Encounter [facility]N [id number] Date(s): 01/11/23 - 01/13/[address] [address]- Encounter Diagnosis DKA - diabetic ketoacidosis(Discharge Diagnosis) - 01/12/23 Discharge Disposition: Home Attending Physician: BJORN STERLING MD Admitting Physician: JEAN-PIERRE STUART MD Referring Physician: REFERRING , SELF REFERRED/NO Allergies, Adverse Reactions, Alerts Substance Reaction Severity [...] 2 Active 1Added by [facility] 2Added by [facility]
--- OUTSIDE RECORDS SUMMARY | 2024-06-15 22:54 | XMS_ITS | Summary of Care ---
Author Organization [facility] spital Address [address] [place] [address]- Care Team Providers Care Air Crew Supervisor Name Role Phone JOAQUÍN SIMON MD Primary Care Physician Encounter CHB_CSN [id number] Date(s): 01/28/20 - 01/28/[address] [address]- [facility] Encounter Diagnosis Type I diabetes mellitus uncontrolled(Discharge Diagnosis) - 01/27/20 Type 1 diabetes mellitus with hyperglycemia(Final) - [...] tab, Refills: 0, Entered: 09/14/19 15:35:17 EST, [facility]/pharmacy #[id number] Start Date: 09/14/19 Stop [...] 30 tab, Refills: 0, Entered: 10/28/19 9:11:37 [facility], [facility]/pharmacy #[id number] Start Date: 10/28/19 Stop [...] cap, Refills: 0, Entered: 09/14/19 15:35:18 EST, [facility]/pharmacy #[id number] Start Date: 09/14/19 Stop [...] cap, Refills: 0, Entered: 08/18/19 12:05:00 EST, [facility]/pharmacy #[id number] Start Date: 08/18/19 Stop Date: 09/14/19 [...] cap, Refills: 0, Entered: 01/06/20 15:03:00 EDT, [facility]/pharmacy #[id number] Start Date: 01/06/20 Stop Date: 02/05/20 Status: Ordered Adderall XR 20 mg oral capsule, extended release Dose: 20 mg, Dose Amount: 1 cap, PO, QAM, Take for 30 day, Special Instructions: ADHD, Dispense Quantity: 30 cap, Refills: 0, Entered: 10/28/19 9:11:41 EST, Stop: 11/11/19 18:00:21 EST, [facility]/pharmacy #[id number] Start Date: 10/28/19 Stop Date: 11/11/19 Status: Completed Adderall XR [...] 11/11/19 18:00:21 EST, Stop: 12/11/19 18:00:21 EDT, [facility]/pharmacy#[id number] Start Date: 11/11/19 Stop Date: [...] 05/14/18 10:50:48EDT Start Date: 05/14/18 Status: Ordered [place] One Touch Ping insulin pump [place] One Touch Ping insulin pump Special Instructions: Use as directed to deliver continuous subcutaneous insulin infusion Dispense Quantity: 1 EA Refills: 0 Stop: 07/02/11 23:59:00 EDT See Instructions Start Date: 06/24/11 Stop Date: 07/02/11 Status: Completed [place] One Touch Ping insulin pump [place] One Touch Ping insulin pump Special Instructions: Use as directed to deliver continuous subcutaneous insulin infusion Dispense Quantity: 1 EA Refills: 0 Stop: 10/19/11 23:59:00 EST See Instructions Start Date: 10/11/11 Stop Date: 10/19/11 Status: Completed [place] One Touch Ping Insulin infusion catheters and reservoirs. [place] One Touch Ping Insulin infusion catheters and reservoirs. Special Instructions: Change with infusion set every 2-3 days Refills: 4 Stop: 07/02/11 23:59:00 EDT See Instructions Dispense Supply:3 month Start Date: 06/24/11 Stop Date: 07/02/11 Status: Completed [place] One Touch Ping Insulin infusion catheters and reservoirs. [place] One Touch Ping Insulin infusion catheters and [...] mL, Refills: 11, Entered: 05/18/19 12:35:00 EDT, [facility]/pharmacy #[id number] Start Date: 05/18/19 Status: Ordered Basaglar KwikPen 100 units/mL subcutaneous solution See Instructions, Special Instructions: Up to 40 units daily SC prn pump failure, Dispense Quantity: 15 mL, Refills: 1, Entered: 01/02/19 16:50:51 EDT, [facility]/pharmacy #[id number] Start Date: 01/02/19 Stop Date: 07/03/19 Status: Discontinued Basaglar KwikPen 100 units/mL subcutaneous solution See Instructions, Special Instructions: Use as directed up to 50 units daily in case of pump failure, Dispense Quantity: 15 mL, Refills: 11, Entered: 05/17/17 16:42:19 EDT, Stop: 02/06/18 9:24:31 EDT, [facility]/pharmacy #[id number] Start Date: 05/17/17 Stop Date: 02/06/18 Status: Completed BD Glucose 5 g oral tablet, chewable See Instructions, PRN Hypoglycemia Symptoms, Special Instructions: 1 tab Chewed QID, Dispense Quantity: 2 bottle, Refills: 11, Entered: 01/03/12 16:03:36 EDT, Therapy Maintenance, [facility]/pharmacy #[id number] Start Date: 01/03/12 Stop [...] 09/14/19 15:35:23 EST, Stop: 11/11/19 17:59:01 EST, [facility]/pharmacy #[id number], 58.8 Start Date: 09/14/19 Stop Date: 11/11/19 Status: Completed cloNIDine 0.1 mg oral tablet Dose: 0.1 mg, Dose Amount: 1 tab, PO, BID, Dispense Quantity: 60 tab, Refills: 2, Entered: 01/30/1916:15:29 EDT, [facility]/pharmacy #[id number] Start Date: 01/29/19 Stop Date: 04/23/19 Status: Discontinued cloNIDine 0.1 mg oral tablet Dose: 0.1 mg, Dose Amount: 1 tab, PO, daily, Dispense Quantity: 30 tab, Refills: 2, Entered: 07/17/18 16:52:22 EDT, [facility]/pharmacy #[id number] Start Date: 07/17/18 Stop Date: 09/15/18 Status: Discontinued cloNIDine 0.1 mg oral tablet Dose: 0.1 mg, Dose Amount: 1 tab, PO, BID, Dispense Quantity: 60 tab, Refills: 2, Entered: 04/23/1916:17:09 EDT, [facility]/pharmacy #[id number] Start Date: 04/23/19 Stop Date: 08/03/19 Status: Discontinued cloNIDine 0.1 mg oral tablet Dose: 0.1 mg, Dose Amount: 1 tab, PO, BID, Dispense Quantity: 60 tab, Refills: 2, Entered: 09/15/1811:34:00 EST, [facility]/pharmacy #[id number] Start Date: 09/15/18 Stop Date: 01/29/19 Status: Discontinued cloNIDine 0.1 mg oral tablet Dose: 0.05 mg, Dose Amount: 0.5 tab, PO, BID, PRN Anxiety, Dispense Quantity: 7 tab, Refills: 0, Entered: 05/14/18 10:52:26 EDT, [facility]/pharmacy #[id number] Start Date: 05/14/18 Stop Date: 06/19/18 Status: Discontinued cloNIDine 0.1 mg oral tablet Dose: 0.1 mg, Dose Amount: 1 tab, PO, BID, Dispense Quantity: 60 tab, Refills: 2, Entered: 11/11/2016:59:01 EST, [facility]/pharmacy #[id number] Start Date: 11/11/19 Stop Date: 01/06/20 Status: Discontinued cloNIDine 0.1 mg oral tablet Dose: 0.05 mg, Dose Amount: 0.5 tab, PO, daily, PRN Anxiety, Dispense Quantity: 30 tab, Refills: 2,Entered: 06/19/18 16:49:28 EDT, [facility]/pharmacy #[id number] Start Date: 06/19/18 Stop Date: 07/17/18 Status: Discontinued cloNIDine 0.1 mg/24 hr transdermal film, extended release See Instructions, Special Instructions: 1 patch TOP every FIVE DAYS, Dispense Quantity: 6 patch, Refills: 2, Entered: 01/06/20 15:03:00 EDT, Stop: 01/27/20 16:48:00 EDT, [facility]/pharmacy #[id number], 62.3 Start Date: 01/06/20 Stop Date: 01/27/20 Status: Completed cloNIDine 0.2 mg/24 hr transdermal film, extended release See Instructions, Special Instructions: 1 patch TOP to be changed every FIVE days, Dispense Quantity: 6 patch, Refills: 1, Entered: 01/27/20 16:49:00 EDT, [facility]/pharmacy #[id number], 62.3 Start Date: 01/27/20 Status: Ordered Concerta 36 mg/24 hr oral [...] 3, Entered: 03/18/13 15:51:38 EDT, Therapy Maintenance, [facility]/pharmacy #[id number] Start Date: 03/18/13 Stop Date: 05/14/13 Status: Discontinued DME - DEXCOM G6 Clinical Care Manager DME - DEXCOM G6 Clinical Care Manager Special Instructions: Use with DEXCOM G6 as directed. [facility] [address]-31 Dispense Quantity: 1 EA Refills: 0 Stop: 05/27/19 23:59:00 EDT See Instructions Start Date: 05/20/19 Stop Date: 05/27/19 Status: Completed DME - DEXCOM G6 Clinical Care Manager DME - DEXCOM G6 Clinical Care Manager Special Instructions: Use with DEXCOM G6 as directed. [facility] [address]-20 Dispense Quantity: 1 EA Refills: 0 Stop: 05/19/19 21:44:05 EDT See Instructions Start Date: 05/18/19 Stop Date: 05/20/19 Status: Completed DME - DEXCOM G6 Sensor 3 pack DME - DEXCOM G6 Sensor 3 pack Special Instructions: Replace 1 sensor every 10 days for continuous glucose monitoring. [facility] [address]-56 Dispense Quantity: 3 box Refills: 3 Stop: 05/27/19 23:59:00 EDTSee Instructions Start Date: 05/20/19 Stop Date: 05/27/19 Status: Completed DME - DEXCOM G6 Sensor 3 pack DME - DEXCOM G6 Sensor 3 pack Special Instructions: Replace 1 sensor every 10 days for continuous glucose monitoring. [facility] [address]-37 Dispense Quantity: 3 box Refills: 3 Stop: 05/19/19 21:43:47 EDTSee Instructions Start Date: 05/18/19 Stop Date: 05/20/19 Status: Completed DME - DEXCOM G6 Transmitter DME - DEXCOM G6 Transmitter Special Instructions: Change every 3 months as directed. [facility] [id number] Dispense Quantity: 1 EA Refills: 3 Stop: 05/27/19 23:59:00 EDT See Instructions Start Date: 05/20/19 Stop Date: 05/27/19 Status: Completed DME - DEXCOM G6 Transmitter DME - DEXCOM G6 Transmitter Special Instructions: Change every 3 months as directed. [facility] [address]-03 Dispense Quantity: 1 EA Refills: 3 Stop: [...] Dispense Quantity: 30 EA Refills: 11 Stop: 04/2... Start Date: 01/02/19 Stop Date: 01/10/19 Status: [...] 11/12/13 Stop Date: 11/12/14 Status: Completed DME [place] - BD Ultra-Fine Manyd Pen Needle (4 mm x 32G) DME [place] - BD Ultra-Fine Mandy Pen Needle (4 mm x 32G) Special Instructions: Use as directed up to 2 times/day to administer insulin via insulin pen Dispense Quantity: 100 EA Refills: 11 See Instructions Start Date: 02/06/18 Stop Date: 05/14/18 Status: Discontinued DME [place] - BD Ultra-Fine [place] Pen Needle (4 mm x 32G) DME [place] - BD Ultra-Fine [place] Pen Needle (4 mm x 32G) Special Instructions: Use as directed up to 6 times/day to administer insulin via insulin pen Dispense Quantity: 600 EA Refills: 3 Stop: 10/06/19 23:59:00 EST See Instructions, 62.3 Start Date: 09/28/19 Stop Date: 10/06/19 Status: Completed DME [place] - BD Ultra-Fine [place] Pen Needle (4 mm x 32G) DME [place] - BD Ultra-Fine [place] Pen Needle (4 [...] Quantity: 14 tab, Entered: 08/03/19 11:19:05 EST, [facility]acy [facility][id number] Start Date: 08/03/19 Stop Date: 08/10/19 [...] 1 EA, Refills: 2, Entered: 08/02/19 15:49:24EST, [facility]/pharmacy #[id number] Start Date: 08/02/19 Status: [...] EDT, Stop: 12/25/17 18:19:00 EDT, Dispense asWritten, [id number] Start Date: 12/24/16 Stop Date: 02/04/18 [...] Entered: 02/04/18 16:07:00 EDT, Dispense as Written, [id number] Start Date: 02/04/18 Stop Date: 05/14/18 Status: Discontinued Glucagon Emergency Kit for Low Blood Sugar 1 mg injection Dose: 1 mg, IM, OUT-PT as directed, Special Instructions: for unresponsive hypoglycemia, Dispense Quantity: 3 kit, Refills: 3, Entered: 02/01/19 15:52:17 EDT, Stop: 05/18/19 11:25:36 EDT, Dispense asWritten, [id number] Start Date: 02/01/19 Stop Date: 05/18/19 [...] kit, Refills: 11, Entered: 10/13/15 17:40:18 EST, [id number] Start Date: 10/13/15 Stop Date: 05/17/17 [...] 11/11/14 16:48:13 EST, Stop: 10/13/15 17:40:17 EST, [id number] Start Date: 11/11/14 Stop Date: 10/13/15 Status: Completed glucagon recombinant 1 mg injection See Instructions, Special Instructions: Use 1 mg to treat severe hypoglycemia. Do not fill until ptrequests., Dispense Quantity: 3 kit, Refills: 11, Entered: 11/12/13 16:53:26 EST, Stop: 11/11/14 16:48:13 EST, Therapy Hard Stop, [id number] Start [...] 10/13/15 17:41:07 EST, Stop: 12/27/16 8:50:29 EDT, [facility]/pharmacy #[id number] Start Date: 10/13/15 Stop Date: 12/27/16 Status: Completed glucose 4 g oral tablet, chewable Dose: 12 g, Dose Amount: 3 tab, Chewed, QID, PRN Hypoglycemia Symptoms, Dispense Quantity: 2 bottle, Refills: 3, Entered: 09/29/12 15:51:00 EST, Stop: 11/12/13 16:52:39 EST, Therapy Hard Stop, [facility]/pharmacy #[id number] Start Date: 09/29/12 Stop [...] 11/11/14 16:48:35 EST, Stop: 10/13/15 17:41:07 EST, [facility]/pharmacy #[id number] Start Date: 11/11/14 Stop Date: 10/13/15 Status: Completed glucose 4 g oral tablet, chewable Dose: 12 g, Dose Amount: 3 tab, Chewed, QID, PRN Hypoglycemia Symptoms, Dispense Quantity: 120 tab,Refills: 11, Entered: 12/27/16 8:50:29 EDT, [facility]/pharmacy #[id number] Start Date: 12/27/16 Stop Date: 05/14/18 Status: Discontinued glucose 4 g oral tablet, chewable Dose: 12 g, Dose Amount: 3 tab, Chewed, QID, PRN Hypoglycemia Symptoms, Dispense Quantity: 2 bottle, Refills: 11, Entered: 11/12/13 16:52:39 EST, Stop: 11/11/14 16:48:35 EST, Therapy Hard Stop, [id number] Start Date: 11/12/13 Stop Date: 11/11/14 Status: Completed HumaLOG 100 units/mL injectable solution See Instructions, Special Instructions: Inject up to 100 units daily, dispense 3 vials/month or 9 vials every 3 months, Dispense Quantity: 9 EA, Refills: 3, Entered: 01/28/20 20:47:00 EDT, [id number], 62.3 Start Date: 01/28/20 Status: Ordered HumaLOG 100 units/mL injectable solution See Instructions, [...] EA, Refills: 11, Entered: 05/18/19 12:35:00 EDT, [facility]/pharmacy #[id number] Start Date: 05/18/19 Stop Date: 08/03/19 Status: Discontinued HumaLOG Cartridge 100 units/mL injectable solution See Instructions, Special Instructions: Subcutaneous use as directed up to 100 units per day, Dispense Quantity: 10 EA, Refills: 11, Entered: 09/28/19 17:28:00 EST, [facility]/pharmacy #[id number] Start Date: 09/28/19 Status: Ordered Humalog [...] Refills: 11 Special Instructions: Upto 20 units, [facility]/pharmacy #[id number] Start Date: 02/08/11 Stop Date: 10/11/11 Status: Discontinued InPen Cerna (Humalog) - [facility] # [id number] InPen Cerna (Humalog) - [facility] # [id number] Special Instructions: Use with Humalog U-100 cartridges. Contact health care provider for estela settings. Dispense 2 - 1 for home and 1 for school Dispense Quantity: 2 EA Refills: 0 Stop: 05/27/19 23:59:00 EDT S... Start Date: 05/20/19 Stop Date: 05/27/19 Status: Completed InPen Cerna (Humalog) - [facility] # [id number] InPen Cerna (Humalog) - [facility] # [id number] Special Instructions: Use with Humalog U-100 cartridges. Contact health care provider for estela settings. Dispense 2 - 1 for home and 1 for school Dispense Quantity: 2 EA Refills: 0 Stop: 05/19/19 21:44:26 EDT S... Start Date: 05/18/19 Stop Date: 05/20/19 Status: Completed InPen Cerna (Humalog) - [facility] # [id number] InPen Cerna (Humalog) [facility] # [id number] Special Instructions: Use with Humalog U-100 cartridges. [...] kit, Refills: 0, Entered: 02/02/19 9:21:49 EDT, [id number] Start Date: 02/02/19 Stop Date: 04/23/19 Status: Discontinued lamoTRIgine 100 mg oral tablet See Instructions, Special Instructions: Take 1 tablet in the morning and half a tablet at night, Dispense Quantity: 45 tab, Refills: 2, Entered: 04/15/18 16:36:17 EDT, [id number] Start Date: 04/15/18 Stop Date: 05/14/18 Status: Discontinued lamoTRIgine 100 mg oral tablet Dose: 150 mg, Dose Amount: 1.5 tab, PO, daily, Dispense Quantity: 21 tab, Refills: 0, Entered: 05/14/18 10:52:00 EDT, [facility]/pharmacy #[id number] Start Date: 05/14/18 Stop Date: 06/19/18 Status: Discontinued lamoTRIgine 150 mg oral tablet Dose: 150 mg, Dose Amount: 1 tab, PO, daily, Dispense Quantity: 30 tab, Refills: 3, Entered: 02/02/19 9:19:24 EDT, [facility]/pharmacy #[id number] Start Date: 02/02/19 Stop Date: 02/02/19 Status: Discontinued lamoTRIgine 150 mg oral tablet Dose: 150 mg, Dose Amount: 1 tab, PO, daily, Take for 30 day, Dispense Quantity: 30 tab, Refills: 2, Entered: 09/14/19 15:35:39 EST, Stop: 11/11/19 17:58:23 EST, [facility]/pharmacy #[id number] Start Date: 09/14/19 Stop Date: 11/11/19 Status: Completed lamoTRIgine 150 mg oral tablet Dose: 150 mg, Dose Amount: 1 tab, PO, daily, Dispense Quantity: 30 tab, Refills: 3, Entered: 01/29/19 16:16:10 EDT, Stop: 02/02/19 9:19:24 EDT, [facility]/pharmacy #[id number] Start Date: 01/29/19 Stop Date: 02/02/19 Status: Completed lamoTRIgine 150 mg oral tablet Dose: 150 mg, Dose Amount: 1 tab, PO, daily, Dispense Quantity: 30 tab, Refills: 2, Entered: 02/23/19 16:17:43 EDT, [facility]/pharmacy #[id number] Start Date: 02/23/19 Stop Date: 04/23/19 Status: Discontinued lamoTRIgine 150 mg oral tablet Dose: 150 mg, Dose Amount: 1 tab, PO, daily, Dispense Quantity: 30 tab, Refills: 2, Entered: 04/23/19 16:17:03 EDT, [facility]/pharmacy #[id number] Start Date: 04/23/19 Stop Date: 09/14/19 Status: Discontinued lamoTRIgine 150 mg oral tablet Dose: 150 mg, Dose Amount: 1 tab, PO, daily, Dispense Quantity: 30 tab, Refills: 2, Entered: 11/11/19 17:58:23 EST, [facility]/pharmacy #[id number] Start Date: 11/11/19 Stop Date: 01/06/20 Status: Discontinued lamoTRIgine 150 mg oral tablet Dose: 150 mg, Dose Amount: 1 tab, PO, daily, Dispense Quantity: 30 tab, Refills: 3, Entered: 07/10/18 13:55:56 EDT, [facility]/pharmacy #[id number] Start Date: 07/10/18 Stop [...] 10/13/15 17:42:30 EST, Stop: 10/12/16 14:17:31 EST, [facility]/pharmacy #[id number] Start Date: 10/13/15 Stop [...] 11/11/14 16:52:18 EST, Stop: 10/13/15 17:42:29 EST, [facility]... Start Date: 11/11/14 Stop Date: 10/13/15 Status: Completed Lantus 100 units/mL subcutaneous solution See Instructions, Special Instructions: Use as directed up to 20 units each day in event of insulinpump failure., Dispense Quantity: 1 vial, Refills: 11, Entered: 10/12/16 15:41:00 EST, [facility]/pharmacy#[id number] Start Date: 10/12/16 Stop Date: [...] 08/03/19 11:18:02 EST, Stop: 08/10/19 11:18:02 EST, [id number] Start Date: 08/03/19 Stop Date: 08/10/19 [...] 2 Active 1Added by [facility] 2Added by [facility]
--- OUTSIDE RECORDS SUMMARY | 2024-06-15 22:54 | XMS_ITS | Summary of Care ---
Author Organization [facility] sp[facility] Address [address] [place] [address]- Care Team Providers Care Waist Pleater Name Role Phone AURORA ROCA, JOAQUÍN Hernandez Primary Care Physician [phone] Encounter [facility]_CSN [id number] Date(s): 01/22/23 - 01/25/[address] [address]- Encounter Diagnosis DKA - diabetic ketoacidosis(Discharge Diagnosis) - 01/25/23 Type I diabetes mellitus uncontrolled(Discharge Diagnosis) - 01/25/23 Discharge Disposition: Home Attending Physician: CLARITA CAN MD Admitting Physician: MARÍA MOTA MD Referring Physician: ELDER CLANCY MD Allergies, Adverse Reactions, Alerts Substance Reaction Severity Status amoxicillin Rash Active penicillin Active penicillins Rash Active sulfa drugs Rash Active Medications DME - DEXCOM G6 Sensor 3 pack DME - DEXCOM G6 Sensor 3 pack Special Instructions: Replace 1 sensor every 10 days for continuous glucose monitoring. [facility] [address]-13 Dispense Quantity: 1 EA Refills: 11 Stop: 02/01/23 23:59:00 EDTSee Instructions Start Date: 01/24/23 Stop Date: 02/01/23 Status: Ordered DME - DEXCOM G6 Transmitter DME - DEXCOM G6 Transmitter Special Instructions: Change every 3 months as directed. [facility] [id number] Dispense Quantity: 1 EA Refills: 3 Stop: 02/01/23 23:59:00 EDT See Instructions Start Date: 01/24/23 Stop Date: 02/01/23 Status: Ordered Problem List Condition Effective Dates Status Health Status Inform ant Depression(Confirmed) Active Hyperglycemia(Confirmed) Active Long-term current use of insulin(Confirmed) 1 Resolved Palpitations(Confirmed) Active Type 1 diabetes mellitus(Confirmed) Resolved Type I diabetes mellitus uncontrolled(Confirmed) 2 Active 1Added by [facility] 2Added by [facility]
--- OUTSIDE RECORDS SUMMARY | 2024-06-15 22:54 | XMS_ITS | Summary of Care ---
Author Organization [facility] sp[facility] Address [address] [place] [address]- Care Team Providers Care Respiratory Care Program Director Name Role Phone JOAQUÍN SIMON MD Primary Care Physician Encounter [facility]_CSN [id number] Date(s): 09/21/21 - 09/21/[address] [address]- Encounter Diagnosis Type I diabetes mellitus uncontrolled(Discharge Diagnosis) - 09/20/21 Discharge Disposition: Discharge Attending Physician: ALEXEI ZAZUETA [...]
--- OUTSIDE RECORDS SUMMARY | 2024-06-15 22:54 | XMS_ITS | Summary of Care ---
Author Organization [facility] Address [address] [place] [address]- Care Team Providers Care Warehouse Supervisor Name Role Phone JOAQUÍN SIMON MD Primary Care Physician [phone] Encounter [facility]_CSN [id number] Date(s): 08/02/22 - 08/02/22 [facility] [address] [place] [address]- Encounter Diagnosis Type I diabetes mellitus uncontrolled(Discharge Diagnosis) - 08/02/22 Type 1 diabetes mellitus with hyperglycemia(Final) - Discharge Disposition: Discharge Attending Physician: ALEXEI ZAZUETA MD Referring Physician: JOAQUÍN SIMON MD Allergies, Adverse Reactions, Alerts Substance Reaction Severity Status amoxicillin Rash Active penicillin Active sulfa drugs Rash Active penicillins Rash Active Medications DME - FreeStyle Blanco 3 [place] DME - FreeStyle Blanco 3 [place] Special Instructions: Use as directed for continuous glucose monitoring with the FreeStyle Blanco sensors. Dispense Quantity: 1 EA Refills: 0 Stop: 08/10/22 23:59:00 ESTSee Instructions Start Date: 08/02/22 Stop Date: 08/10/22 Status: Ordered DME - FreeStyle Blanco 3 Sensors DME - FreeStyle Blanco 3 Sensors Special Instructions: Replace one sensor every 14 days. Please dispense 3 month supply if insurance allows, if not 1 month supply with 11 refills Dispense Quantity: 6 EA Refills: 3 Stop: 08/10/22 23:59:00 EST See Instru... Start Date: 08/02/22 Stop Date: 08/10/22 Status: Ordered Tresiba FlexTouch 100 units/mL subcutaneous solution See instructions, Special Instructions: Inject up to _60___ units/day subcutaneously as directed., Dispense Quantity: 6 EA, Refills: 11, Entered: 08/02/22 15:37:00 EST, [id number] Start Date: 08/02/22 Status: Ordered Problem List Condition Effective Dates Status Health Status Inform ant Dehydration(Confirmed) Active Depression(Confirmed) Active Hyperglycemia(Confirmed) Active Long-term current use of insulin(Confirmed) 1 Resolved Palpitations(Confirmed) Active Type 1 diabetes mellitus(Confirmed) Resolved Type I diabetes mellitus uncontrolled(Confirmed) 2 Active 1Added by [facility] 2Added by [facility]
--- OUTSIDE RECORDS SUMMARY | 2024-06-15 22:54 | XMS_ITS | Summary of Care ---
Author Organization [facility] Address [address] [place] [address]- Care Team Providers Care Chief Passenger Ship Steward/Stewardess Name Role Phone AURORA ROCA, JOAQUÍN Hernandez Primary Care Physician Encounter [facility]_CSN [id number] Date(s): 02/01/23 - 02/01/[address] [address]- Discharge Disposition: Discharge Attending Physician: MARBIN ROCA, ALEXEI G Allergies, Adverse Reactions, Alerts Substance Reaction Severity [...]
--- OUTSIDE RECORDS SUMMARY | 2024-06-15 22:54 | XMS_ITS | Summary of Care ---
Author Organization [facility] sp[facility] Address [address] [place] [address]- Care Team Providers Care Operators Teacher Name Role Phone JOAQUÍN SIMON MD Primary Care Physician [phone] Encounter [facility]_CSN [id number] Date(s): 02/09/21 - 12/29/[address] [address]- Attending Physician: ALEXEI ZAZUETA MD Referring Physician: [...]
--- OUTSIDE RECORDS SUMMARY | 2024-06-15 22:54 | XMS_ITS | Summary of Care ---
Author Organization [facility] spital Address [address] [place] [address]- Care Team Providers Care Experience Designer Name Role Phone JOAQUÍN SIMON MD Primary Care Physician Encounter [facility]_CSN [id number] Date(s): 08/08/23 - 08/08/23 [facility] [address] [place] [address]- Discharge Disposition: Discharge Attending Physician: ALEXEI ZAZUETA MD Allergies, Adverse Reactions, Alerts Substance Reaction Severity Status amoxicillin Rash Active penicillin Active penicillins Rash Active sulfa drugs Rash Active Medications DME - OneTouch Verio Blood Glucose Test Strips DME - OneTouch Verio Blood Glucose Test Strips Special Instructions: Check blood glucose up to 6 times per day Dispense Quantity: 200 EA Refills: 11 Stop: 08/16/23 23:59:00 EST See Instructions Start Date: 08/08/23 Stop Date: 08/16/23 Status: Ordered DME Glucometer - OneTouch Verio Flex Blood Glucose monitoring system DME Glucometer - OneTouch Verio Flex Blood Glucose monitoring system Special Instructions: Use to check blood glucose as directed Dispense Quantity: 1 EA Refills: 0 Stop: 08/16/23 23:59:00 EST See Instructions Start Date: 08/08/23 Stop Date: 08/16/23 Status: Ordered insulin lispro 100 units/mL injectable solution Dispense 10 mL vial, Subcutaneous, OUT-PT as directed, Special Instructions: Use as directed up to 75 units per day, Dispense Quantity: 3 EA, Refills: 11, Entered: 08/08/23 11:38:00 EST, [facility]/pharmacy#[id number] Start Date: 08/08/23 Status: Ordered Tresiba FlexTouch 100 units/mL subcutaneous solution See instructions, Special Instructions: Inject up to 60 units/day subcutaneously as directed., Dispense Quantity: 6 EA, Refills: 11, Entered: 08/08/23 11:38:00 EST, [facility]/pharmacy #[id number] Start Date: 08/08/23 Status: Ordered Problem List Condition Confirmation Course Effective Dates Status H ealth Status Informant Depression Confirmed Active Hyperglycemia Confirmed Active Long-term current use of insulin 1 Confirmed Resolved Palpitations Confirmed Active Type 1 diabetes mellitus Confirmed Resolved Type I diabetes mellitus uncontrolled 2 Confirmed Active 1Added by [facility] 2Added by [facility] Patient Care team information Personnel Name: AURORA ROCA, JOAQUÍN Hernandez Address: Address: [address] [place] [address]
--- OUTSIDE RECORDS SUMMARY | 2024-06-15 22:54 | XMS_ITS | Summary of Care ---
Author Organization [facility] spital Address [address] [place] [address]- Care Team Providers Care Optimization Engineer Name Role Phone JOAQUÍN SIMON MD Primary Care Physician Encounter [facility]_CSN [id number] Date(s): 02/01/22 - 01/02/[address] [address]- Attending Physician: MARBIN ROCA, ALEXEI Nieves Referring [...]
--- OUTSIDE RECORDS SUMMARY | 2024-06-15 22:54 | XMS_ITS | Summary of Care ---
Author Organization [facility] spital Address [address] [place] [address]- Care Team Providers Care Metal Cutter Name Role Phone JOAQUÍN SIMON MD Primary Care Physician [phone] Encounter [facility]CSN [id number] Date(s): 02/09/21 - 11/08/[address] [address]- [facility] Attending Physician: ALEXEI ZAZUETA MD Referring Physician: [...]
--- OUTSIDE RECORDS SUMMARY | 2024-06-15 22:54 | XMS_ITS | Summary of Care ---
Author Organization [facility] sp[facility] Address [address] [place] [address]- Care Team Providers Care Excel Expert Name Role Phone JOAQUÍN SIMON MD Primary Care Physician Encounter [facility]_CSN [id number] Date(s): 09/26/21 - 09/28/[address] [address]- Encounter Diagnosis Diabetic ketoacidosis(Discharge Diagnosis) - 09/26/21 COVID-19(Discharge Diagnosis) - 09/26/21 Discharge Disposition: Home Attending Physician: DIANA ROCA, MPH, PhD, BERTHA Ramsey Admitting Physician: HANK GRIFFIN MD Referring Physician: JOAQUÍN SIMON MD Allergies, Adverse Reactions, Alerts Substance Reaction Severity Status amoxicillin Rash Active penicillin Active penicillins Rash Active sulfa drugs Rash Active Medications insulin degludec 100 units/mL subcutaneous solution Dose: 44 unit, Subcutaneous, daily, Dispense Quantity: 5 EA, Refills: 6, Entered: 09/28/21 14:36:00EST, [facility]/pharmacy #[id number] Start Date: 09/28/21 Status: Ordered MiraLax oral powder for reconstitution See Instructions, PRN Constipation, Special Instructions: 1 capful PO daily, Entered: 09/26/21 23:14:00 EST, Indication: constipation for pts > 30 kg Start Date: 09/26/21 Status: Ordered Problem List Condition Effective Dates Status Health Status Inform ant Depression(Confirmed) Active Hyperglycemia(Confirmed) Active Long-term current use of insulin(Confirmed) 1 Resolved Palpitations(Confirmed) Active Type 1 diabetes mellitus(Confirmed) Resolved Type I diabetes mellitus uncontrolled(Confirmed) 2 Active 1Added by [facility] 2Added by [facility]
--- OUTSIDE RECORDS SUMMARY | 2024-06-15 22:54 | XMS_ITS | Summary of Care ---
Author Organization [facility] spital Address [address] [place] [address]- Care Team Providers Care Full Stack Web Developer Name Role Phone JOAQUÍN SIMON MD Primary Care Physician Encounter [facility]_CSN [id number] Date(s): 05/30/21 - 05/31/[address] [address]- Encounter Diagnosis Type I diabetes mellitus(Discharge Diagnosis) - 05/30/21 DKA - diabetic ketoacidosis(Discharge Diagnosis) - 05/30/21 Dehydration(Discharge Diagnosis) - 05/30/21 Discharge Disposition: Home Attending Physician: DEVAN HARTMAN MD Admitting Physician: DEVAN HARTMAN MD Referring Physician: JOAQUÍN SIMON MD Allergies, Adverse Reactions, Alerts Substance Reaction Severity Status amoxicillin Rash Active penicillin Active penicillins Rash Active sulfa drugs Rash Active Medications acetaminophen 500 mg oral tablet Dose: 500 mg, Dose Amount: 1 tab, PO, Q4hr, PRN Fever (Temp >/=38 degrees Celsius), Entered: 05/31/21 11:18:00 EDT Start Date: 05/31/21 Status: Ordered glucose 4 g oral tablet, chewable Dose: 20 g, Dose Amount: 5 tab, Chewed, QID, PRN Hypoglycemia Symptoms, Entered: 05/31/21 11:18:00 EDT Start Date: 05/31/21 Status: Ordered Problem List Condition Effective Dates Status Health Status Inform ant Depression(Confirmed) Active Hyperglycemia(Confirmed) Active Long-term current use of insulin(Confirmed) 1 Resolved Palpitations(Confirmed) Active Type 1 diabetes mellitus(Confirmed) Resolved Type I diabetes mellitus uncontrolled(Confirmed) 2 Active 1Added by [facility] 2Added by [facility]
--- OUTSIDE RECORDS SUMMARY | 2024-06-15 22:54 | XMS_ITS | Summary of Care ---
Author Organization [facility] spital Address [address] [place] [address]- Care Team Providers Care Practice Or Student Teacher Name Role Phone JOAQUÍN SIMON MD Primary Care Physician [phone] Encounter [facility]_CSN [id number] Date(s): 06/08/21 - 02/13/[address] [address]- Attending Physician: MARBIN ROCA, ALEXEI Nieves Referring Physician: JOAQUÍN SMION MD Allergies, Adverse Reactions, Alerts Substance Reaction [...]
--- OUTSIDE RECORDS SUMMARY | 2024-06-15 22:54 | XMS_ITS | Summary of Care ---
Author Organization [facility] spital Address [address] [place] [address]- Care Team Providers Care Tray Service Worker Name Role Phone JOAQUÍN SIMON MD Primary Care Physician [phone] Encounter [facility]_CSN [id number] Date(s): 04/06/21 - 04/06/[address] [address]- Encounter Diagnosis Type I diabetes mellitus uncontrolled(Discharge Diagnosis) - 04/05/21 Type 1 diabetes mellitus with hyperglycemia(Final) - Discharge Disposition: Discharge Attending Physician: ALEXEI ZAZUETA MD Referring Physician: JOAQUÍN SIMON MD Allergies, Adverse Reactions, Alerts Substance Reaction Severity Status amoxicillin Rash Active penicillins Rash Active sulfa drugs Rash Active Medications DME - BD Insulin Syringe 3/10 mL (30 unit) with Ultra-Fine Needle (6 mm x 31 G) DME - BD Insulin Syringe 3/10 mL (30 unit) with Ultra-Fine Needle (6 mm x 31 G) Special Instructions: Use as directed 3-6 times per day and as needed Dispense Quantity: 200 EA Refills: 11 Stop: 04/14/21 23:59:00 EDT See Instructions Start Date: 04/06/21 Stop Date: 04/14/21 Status: Ordered DME - Precision Xtra Blood KETONE Test Strips DME - Precision Xtra Blood KETONE Test Strips Special Instructions: Use as directed when BG >250mg/dL upon arising in the AM and when >300 mg/dL any other time of day and when doing sick day management. Dispense Quantity: 60 EA Refills: 11 Dispense a... Start Date: 04/06/21 Status: Ordered HumaLOG 100 units/mL injectable solution See Instructions, Special Instructions: Dispense 3 mL vial Subcutaneous inject up to 80 units/day, Dispense Quantity: 3 EA, Refills: 3, Entered: 04/06/21 17:01:00 EDT, [facility]/pharmacy #[id number] Start Date: 04/06/21 Status: Ordered Tresiba flex insulin pen (insulin degludec 200 units/mL) Tresiba flex insulin pen (insulin degludec 200 units/mL) See Instructions, Special Instructions: Use as directed subcutaneously 38 U/day., Dispense Quantity: 5 EA, Refills: 6, Entered: 04/06/21 16:59:00 EDT, [facility]/pharmacy #[id number] Start Date: 04/06/21 Status: Ordered Problem List Condition Effective Dates Status Health Status Inform ant Depression(Confirmed) Active Diabetic ketoacidosis(Confirmed) Active Hyperglycemia(Confirmed) Active Ketosis(Confirmed) Active Long-term current use of insulin(Confirmed) 1 Resolved Palpitations(Confirmed) Active Type 1 diabetes mellitus(Confirmed) Resolved Type I diabetes mellitus uncontrolled(Confirmed) 2 Active 1Added by [facility] 2Added by [facility]
--- OUTSIDE RECORDS SUMMARY | 2024-06-15 22:54 | XMS_ITS | Summary of Care ---
Author Organization [facility] spital Address [address] [place] [address]- Care Team Providers Care Leave Specialist Name Role Phone JOAQUÍN SIMON MD Primary Care Physician Encounter [facility]CSN [id number] Date(s): 03/31/21 - 03/31/[address] [address]- Encounter Diagnosis Type I diabetes mellitus uncontrolled(Discharge Diagnosis) - 03/31/21 Discharge Disposition: Discharge Attending Physician: ALEXEI ZAZUETA MD Referring Physician: ALEXEI ZAZUETA MD Allergies, Adverse Reactions, [...]
--- OUTSIDE RECORDS SUMMARY | 2024-06-15 22:54 | XMS_ITS | Summary of Care ---
Author Organization [facility] spital Address [address] [place] [address]- Care Team Providers Care Fire Management Specialist Name Role Phone JOAQUÍN SIMON MD Primary Care Physician Encounter [facility]_CSN [id number] Date(s): 11/06/23 - 11/06/[address] [address]- [place] Discharge Disposition: Discharge Attending Physician: MARBIN ROCA, ALEXEI Nieves Referring Physician: OSVALDO SARABIA MD Allergies, Adverse Reactions, Alerts Substance Reaction Severity Status amoxicillin Rash Active penicillin Active sulfa drugs Rash Active penicillins Rash Active Medications DME - Dexcom G7 Sensor 3 pack DME - Dexcom G7 Sensor 3 pack Special Instructions: Replace sensor every 10 days for continuous glucose monitoring. [facility] [id number] Dispense Quantity: 9 EA Refills: 3 See Instructions Start Date: 11/06/23 Status: Ordered Problem List Condition Confirmation Course Effective Dates Status H ealth Status Informant Depression Confirmed Active Hyperglycemia Confirmed Active Long-term current use of insulin 1 Confirmed Resolved Palpitations Confirmed Active Type 1 diabetes mellitus Confirmed Resolved Type I diabetes mellitus uncontrolled 2 Confirmed Active 1Added by [facility] 2Added by [facility] Patient Care team information Personnel Name: JOAQUÍN SIMON MD Address: Address: [address] [place] [id number]
--- OUTSIDE RECORDS SUMMARY | 2024-06-15 22:54 | XMS_ITS | Summary of Care ---
Author Organization [facility] spital Address [address] [place] [address]- Care Team Providers Care Scarf Gluer Name Role Phone JOAQUÍN SIMON MD Primary Care Physician Encounter [facility]_CSN [id number] Date(s): 12/27/20 - 12/28/[address] [address]- Encounter Diagnosis DKA - diabetic ketoacidosis(Discharge Diagnosis) - 12/27/20 Hyperglycemia(Discharge Diagnosis) - 12/27/20 Headache(Discharge Diagnosis) - 12/27/20 Type I diabetes mellitus uncontrolled(Discharge Diagnosis) - 12/28/20 Discharge Disposition: Home Attending Physician: JOSÉ LUIS ROCA, PhD, JOHNNY Ramsey Admitting Physician: JOSÉ LUIS ROCA, PhD, JOHNNY Ramsey Referring Physician: JOAQUÍN SIMON MD Allergies, Adverse [...]
--- OUTSIDE RECORDS SUMMARY | 2024-06-15 22:54 | XMS_ITS | Summary of Care ---
Author Organization [facility] spital Address [address] [place] [address]- Care Team Providers Care Travel Accommodations Rater Name Role Phone JOAQUÍN SIMON MD Primary Care Physician Encounter [facility]_CSN [id number] Date(s): 03/31/20 - 03/17/[address] [address]- [facility] Allergies, Adverse Reactions, Alerts Substance Reaction Severity Status amoxicillin Rash Active penicillins Rash Active sulfa drugs Rash Active Problem List Condition Effective Dates Status Health Status Inform ant Long-term current use of insulin(Confirmed) 1 Resolved Palpitations(Confirmed) Active Type 1 diabetes mellitus(Confirmed) Resolved Type I diabetes mellitus uncontrolled(Confirmed) 2 Active 1Added by [facility] 2Added by [facility]
--- OUTSIDE RECORDS SUMMARY | 2024-06-15 22:54 | XMS_ITS | Summary of Care ---
Author Organization [facility] spital Address [address] [place] [address]- Care Team Providers Care Brick Tester Name Role Phone AURORA ROCA, JOAQUÍN Hernandez Primary Care Physician Encounter [facility]_CSN [id number] Date(s): 06/27/20 - 06/27/[address] [address]- [facility] Encounter Diagnosis Hyperglycemia(Discharge Diagnosis) - 06/27/20 Type I diabetes mellitus poorly controlled(Discharge Diagnosis) - 06/27/20 Discharge Disposition: Home Attending Physician: DANTE DA SILVA MD Referring Physician: [facility] Allergies, Adverse Reactions, Alerts Substance Reaction Severity Status amoxicillin Rash Active penicillins Rash Active sulfa drugs Rash Active Problem List Condition Effective Dates Status Health Status Inform ant Long-term current use of insulin(Confirmed) 1 Resolved Palpitations(Confirmed) Active Type 1 diabetes mellitus(Confirmed) Resolved Type I diabetes mellitus uncontrolled(Confirmed) 2 Active 1Added by [facility] 2Added by [facility]
--- OUTSIDE RECORDS SUMMARY | 2024-06-15 22:54 | XMS_ITS | Summary of Care ---
Author Organization [facility] spital Address [address] [place] [address]- Care Team Providers Care Personal Fitness Trainer Name Role Phone JOAQUÍN SIMON MD Primary Care Physician Encounter [facility]_CSN [id number] Date(s): 05/12/20 - 05/12/[address] [address]- [facility] Encounter Diagnosis Type I diabetes mellitus uncontrolled(Discharge Diagnosis) - 05/11/20 Discharge Disposition: Discharge Attending Physician: MARBIN ROCA, [...]
--- OUTSIDE RECORDS SUMMARY | 2024-06-15 22:54 | XMS_ITS | Summary of Care ---
Author Organization [facility] spital Address [address] [place] [address]- Care Team Providers Care Certified Prosthetist Name Role Phone JOAQUÍN SIMON MD Primary Care Physician Encounter [facility]_CSN [id number] Date(s): 03/31/20 - 03/31/[address] [address]- [facility] Encounter Diagnosis Type 1 diabetes mellitus with hyperglycemia(Final) - Discharge Disposition: Discharge Attending Physician: CLARITA GARDNER MD Referring Physician: JOAQUÍN SIMON MD Allergies, Adverse Reactions, Alerts Substance Reaction Severity Status amoxicillin Rash Active penicillins Rash Active sulfa drugs Rash Active Medications DME - OneTouch Ultra Blue Blood Glucose Test Strips DME - OneTouch Ultra Blue Blood Glucose Test Strips Special Instructions: Check blood glucose up to10 times per day Dispense Quantity: 900 EA Refills: 3 Stop: 04/08/20 23:59:00 EDT Dispense as Written See Instructions Start Date: 03/31/20 Stop Date: 04/08/20 Status: Ordered DME - Precision Xtra Blood KETONE Test Strips DME - Precision Xtra Blood KETONE Test Strips Special Instructions: Use as directed when BG >250mg/dL upon arising in the AM and when >300 mg/dL any other time of day and when doing sick day management. Dispense Quantity: 30 EA Refills: 11 Stop: 03/23... Start Date: 03/31/20 Stop Date: 04/08/20 Status: Ordered Problem List Condition Effective Dates Status Health Status Inform ant Long-term current use of insulin(Confirmed) 1 Resolved Palpitations(Confirmed) Active Type 1 diabetes mellitus(Confirmed) Resolved Type I diabetes mellitus uncontrolled(Confirmed) 2 Active 1Added by [facility] 2Added by [facility]
--- OUTSIDE RECORDS SUMMARY | 2024-06-15 22:54 | XMS_ITS | Summary of Care ---
Author Organization [facility] spital Address [address] [place] [address]- Care Team Providers Care Strategic Advisor Name Role Phone JOAQUÍN SIMON MD Primary Care Physician Encounter [facility]_CSN [id number] Date(s): 01/09/24 - 01/09/24 [facility] [address] [place] [address]- Discharge Disposition: Discharge Attending Physician: MARBIN ROCA, [...] mellitus uncontrolled 2 Confirmed Active 1Added by [facility] 2Added by [facility] Patient Care team information Personnel Name: JOAQUÍN SIMON MD Address: Address: [address] [place] [id number]
--- OUTSIDE RECORDS SUMMARY | 2024-06-15 22:54 | XMS_ITS | Summary of Care ---
Author Organization [facility] spital Address [address] [place] [address]- Care Team Providers Care Director Of Claims Name Role Phone JOAQUÍN SIMON MD Primary Care Physician [phone] Encounter [facility]_CSN [id number] Date(s): 03/15/21 - 03/15/[address] [address]- Discharge Disposition: Discharge Attending Physician: MAYRA CROCKETT MD Referring Physician: JOAQUÍN SIMON MD Allergies, [...]
--- OUTSIDE RECORDS SUMMARY | 2024-06-15 22:54 | XMS_ITS | Summary of Care ---
Author Organization [facility] spital Address [address] [place] [address]- Care Team Providers Care Local Telephone Operator Name Role Phone JOAQUÍN SIMON MD Primary Care Physician [phone] Encounter [facility]_CSN [id number] Date(s): 02/15/21 - 02/15/[address] [address]- Discharge Disposition: Discharge Attending Physician: MAYRA CROCKETT [...]
--- NOTE | 2024-06-15 22:55 | DI.VRAD_ITS ---
PROCEDURE INFORMATION: Exam: XR Chest Exam date and time: 06/15/2024 8:42 PM Age: 23 years old Clinical indication: Shortness of breath; Patient HX: Dka, eval pna TECHNIQUE: Imaging protocol: Radiologic exam of the chest. Views: 1 view. COMPARISON: No relevant prior studies available. FINDINGS: Lungs: Unremarkable. No consolidation. Pleural spaces: Unremarkable. No pleural effusion. No pneumothorax. Heart/Mediastinum: Unremarkable. No cardiomegaly. Bones/joints: Unremarkable. IMPRESSION: No acute findings. Dictated and Authenticated by: Johnathan Rodriguez MD. Ordering:LESTER Barragan MD
--- OUTSIDE RECORDS SUMMARY | 2024-06-15 22:55 | XMS_ITS | Summary of Care ---
Author Organization [facility] spital Address [address] [place] [address]- Care Team Providers Care Cow Rider Name Role Phone JOAQUÍN SIMON MD Primary Care Physician [phone] Encounter [facility]_CSN [id number] Date(s): 02/16/21 - 02/16/[address] [address]- Encounter Diagnosis Type I diabetes mellitus uncontrolled(Discharge Diagnosis) - 02/15/21 Discharge Disposition: Discharge Attending Physician: ALEXEI ZAZUETA MD Referring Physician: JOAQUÍN SIMON MD Allergies, Adverse Reactions, Alerts Substance Reaction Severity Status amoxicillin Rash Active penicillins Rash Active sulfa drugs Rash Active Medications DME - BD Insulin Syringe 1/2 mL (50 unit) with Ultra-Fine Needle (6 mm x 31 G) DME - BD Insulin Syringe 1/2 mL (50 unit) with Ultra-Fine Needle (6 mm x 31 G) Special Instructions: Use as directed 3-6 times per day and as needed Dispense Quantity: 200 EA Refills: 11 Stop: 02/25/21 23:59:00 EDT See Instructions Start Date: 02/17/21 Stop Date: 02/25/21 Status: Ordered DME - OneTouch Ultra Blue Blood Glucose Test Strips DME - OneTouch Ultra Blue Blood Glucose Test Strips Special Instructions: Check blood glucose up to10 times per day Dispense Quantity: 300 EA Refills: 11 Stop: 02/25/21 23:59:00 EDT See Instructions Start Date: 02/17/21 Stop Date: 02/25/21 Status: Ordered DME - Precision Xtra Blood KETONE Test Strips DME - Precision Xtra Blood KETONE Test Strips Special Instructions: Use as directed when BG >250mg/dL upon arising in the AM and when >300 mg/dL any other time of day and when doing sick day management. Dispense Quantity: 60 EA Refills: 11 Dispense a... Start Date: 02/17/21 Status: Ordered Tresiba flex insulin pen (insulin degludec 200 units/mL) Tresiba flex insulin pen (insulin degludec 200 units/mL) See Instructions, Special Instructions: Use as directed subcutaneously 38 U/day., Dispense Quantity: 5 EA, Refills: 6, Entered: 02/17/21 0:01:00 EDT, [facility]/pharmacy #[id number] Start Date: 02/17/21 Status: Ordered Problem List Condition Effective Dates Status Health Status Inform ant Depression(Confirmed) Active Diabetic ketoacidosis(Confirmed) Active Long-term current use of insulin(Confirmed) 1 Resolved Palpitations(Confirmed) Active Type 1 diabetes mellitus(Confirmed) Resolved Type I diabetes mellitus uncontrolled(Confirmed) 2 Active 1Added by [facility] 2Added by [facility]
--- OUTSIDE RECORDS SUMMARY | 2024-06-15 22:55 | XMS_ITS | Summary of Care ---
Author Organization [facility] spital Address [address] [place] [address]- Care Team Providers Care Rubber Tester Name Role Phone JOAQUÍN SIMON MD Primary Care Physician [phone] Encounter [facility]_CSN [id number] Date(s): 10/31/20 - 10/31/[address] [address]- [facility] Attending Physician: ALEXEI ZAZUETA MD Referring [...]
--- OUTSIDE RECORDS SUMMARY | 2024-06-15 22:55 | XMS_ITS | Summary of Care ---
Author Organization [facility] spital Address [address] [place] [address]- Care Team Providers Care Siding Stapler Name Role Phone JOAQUÍN SIMON MD Primary Care Physician Encounter [facility]_CSN [id number] Date(s): 11/19/21 - 11/20/[address] [address]- Encounter Diagnosis Diabetic ketoacidosis(Discharge Diagnosis) - 11/20/21 Hyperglycemia(Discharge Diagnosis) - 11/20/21 Type I diabetes mellitus uncontrolled(Discharge Diagnosis) - 11/20/21 Discharge Disposition: Home Attending Physician: KISHA MERA MD Admitting Physician: PRASHANTH HAZEL MD Referring Physician: JOAQUÍN SIMON MD Allergies, [...]
--- OUTSIDE RECORDS SUMMARY | 2024-06-15 22:55 | XMS_ITS | Summary of Care ---
Author Organization [facility] spital Address [address] [place] [address]- Care Team Providers Care Queen Producer Name Role Phone JOAQÍUN SIMON MD Primary Care Physician [phone] Encounter [facility]_CSN [id number] Date(s): 10/04/23 - 10/04/[address] [address]- Discharge Disposition: Discharge Attending Physician: ALEXEI ZAZUETA MD Allergies, Adverse Reactions, Alerts Substance Reaction Severity Status amoxicillin Rash Active penicillin Active sulfa drugs Rash Active penicillins Rash Active Medications insulin lispro 100 units/mL injectable solution Dispense 10 mL vial, Subcutaneous, OUT-PT as directed, Special Instructions: Use as directed up to 75 units per day, Dispense Quantity: 3 EA, Refills: 11, Entered: 10/04/23 14:16:00 EST, [facility]/pharmacy#[id number] Start Date: 10/04/23 Status: Ordered Problem List Condition Confirmation Course Effective Dates Status H ealth Status Informant Depression Confirmed Active Hyperglycemia Confirmed Active Long-term current use of insulin 1 Confirmed Resolved Palpitations Confirmed Active Type 1 diabetes mellitus Confirmed Resolved Type I diabetes mellitus uncontrolled 2 Confirmed Active 1Added by [facility] 2Added by [facility] Patient Care team information Personnel Name: JOAQUÍN SIMON MD Address: Address: [address] [place] [address]
--- OUTSIDE RECORDS SUMMARY | 2024-06-15 22:55 | XMS_ITS | Summary of Care ---
Author Organization [facility] spital Address [address] [place] [address]- Care Team Providers Care Commercial Electrician Name Role Phone JOAQUÍN SIMON MD Primary Care Physician [phone] Encounter [facility]_CSN [id number] Date(s): 11/02/21 - 11/02/[address] [address]- Encounter Diagnosis Type I diabetes mellitus uncontrolled(Discharge Diagnosis) - 11/01/21 Attending Physician: MARBIN ROCA, ALEXEI G Referring [...]
--- OUTSIDE RECORDS SUMMARY | 2024-06-15 22:55 | XMS_ITS | Summary of Care ---
Author Organization [facility] Address [address] [place] [address]- Care Team Providers Care Franchise Specialist Name Role Phone JOAQUÍN SIMON MD Primary Care Physician Encounter [facility]_CSN [id number] Date(s): 01/21/20 - 01/14/[address] [address]- [facility] Allergies, Adverse Reactions, Alerts Substance Reaction Severity [...] tab, Refills: 0, Entered: 09/14/19 15:35:17 EST, [facility]/pharmacy #[id number] Start Date: 09/14/19 Stop Date: 10/28/19 [...] tab, Refills: 0, Entered: 10/28/19 9:11:37 EST, [facility]/pharmacy #[id number] Start Date: 10/28/19 Stop Date: 11/27/19 [...] cap, Refills: 0, Entered: 09/14/19 15:35:18 EST, [facility]/pharmacy #[id number] Start Date: 09/14/19 Stop Date: 10/28/19 [...] cap, Refills: 0, Entered: 08/18/19 12:05:00 EST, [facility]/pharmacy #[id number] Start Date: 08/18/19 Stop Date: 09/14/19 [...] cap, Refills: 0, Entered: 01/06/20 15:03:00 EDT, [facility]/pharmacy #[id number] Start Date: 01/06/20 Stop Date: 02/05/20 Status: Ordered Adderall XR 20 mg oral capsule, extended release Dose: 20 mg, Dose Amount: 1 cap, PO, QAM, Take for 30 day, Special Instructions: ADHD, Dispense Quantity: 30 cap, Refills: 0, Entered: 10/28/19 9:11:41 EST, Stop: 11/11/19 18:00:21 EST, [facility]/pharmacy #[id number] Start Date: 10/28/19 Stop Date: 11/11/19 [...] 11/11/19 18:00:21 EST, Stop: 12/11/19 18:00:21 EDT, [facility]/pharmacy#[id number] Start Date: 11/11/19 Stop Date: 01/06/20 Status: [...] 05/14/18 10:50:48EDT Start Date: 05/14/18 Status: Ordered Anson One Touch Ping insulin pump Anson One Touch Ping insulin pump Special Instructions: Use as directed to deliver continuous subcutaneous insulin infusion Dispense Quantity: 1 EA Refills: 0 Stop: 07/02/11 23:59:00 EDT See Instructions Start Date: 06/24/11 Stop Date: 07/02/11 Status: Completed Anson One Touch Ping insulin pump Anson One Touch Ping insulin pump Special Instructions: Use as directed to deliver continuous subcutaneous insulin infusion Dispense Quantity: 1 EA Refills: 0 Stop: 10/19/11 23:59:00 EST See Instructions Start Date: 10/11/11 Stop Date: 10/19/11 Status: Completed Anson One Touch Ping Insulin infusion catheters and reservoirs. Anson One Touch Ping Insulin infusion catheters and reservoirs. Special Instructions: Change with infusion set every 2-3 days Refills: 4 Stop: 07/02/11 23:59:00 EDT See Instructions Dispense Supply:3 month Start Date: 06/24/11 Stop Date: 07/02/11 Status: Completed Anson One Touch Ping Insulin infusion catheters and reservoirs. Anson One Touch Ping Insulin infusion catheters and [...] EA, Refills: 11, Entered: 05/18/19 12:35:00 EDT, [facility]/pharmacy #[id number] Start Date: 05/18/19 Stop Date: 07/03/19 Status: Discontinued Basaglar KwikPen 100 units/mL subcutaneous solution See Instructions, Special Instructions: Use as directed up to 50 units daily in case of pump failure, Dispense Quantity: 15 mL, Refills: 11, Entered: 02/06/18 9:29:00 EDT, [facility]/pharmacy #[id number] Start Date: 02/06/18 Stop Date: 05/14/18 Status: Discontinued Basaglar KwikPen 100 units/mL subcutaneous solution See Instructions, Special Instructions: Use as directed up to 66 units daily., Dispense Quantity: 15 mL, Refills: 11, Entered: 05/18/19 12:35:00 EDT, [facility]/pharmacy #[id number] Start Date: 05/18/19 Status: Ordered Basaglar KwikPen 100 units/mL subcutaneous solution See Instructions, Special Instructions: Up to 40 units daily SC prn pump failure, Dispense Quantity: 15 mL, Refills: 1, Entered: 01/02/19 16:50:51 EDT, [facility]/pharmacy #[id number] Start Date: 01/02/19 Stop Date: 07/03/19 Status: Discontinued Basaglar KwikPen 100 units/mL subcutaneous solution See Instructions, Special Instructions: Use as directed up to 50 units daily in case of pump failure, Dispense Quantity: 15 mL, Refills: 11, Entered: 05/17/17 16:42:19 EDT, Stop: 02/06/18 9:24:31 EDT, [facility]/pharmacy #[id number] Start Date: 05/17/17 Stop Date: 02/06/18 Status: Completed BD Glucose 5 g oral tablet, chewable See Instructions, PRN Hypoglycemia Symptoms, Special Instructions: 1 tab Chewed QID, Dispense Quantity: 2 bottle, Refills: 11, Entered: 01/03/12 16:03:36 EDT, Therapy Maintenance, [facility]/pharmacy #[id number] Start Date: 01/03/12 Stop Date: 12/04/12 [...] 09/14/19 15:35:23 EST, Stop: 11/11/19 17:59:01 EST, [facility]/pharmacy #[id number], 58.8 Start Date: 09/14/19 Stop Date: 11/11/19 Status: Completed cloNIDine 0.1 mg oral tablet Dose: 0.1 mg, Dose Amount: 1 tab, PO, BID, Dispense Quantity: 60 tab, Refills: 2, Entered: 01/30/1916:15:29 EDT, [facility]/pharmacy #[id number] Start Date: 01/29/19 Stop Date: 04/23/19 Status: Discontinued cloNIDine 0.1 mg oral tablet Dose: 0.1 mg, Dose Amount: 1 tab, PO, daily, Dispense Quantity: 30 tab, Refills: 2, Entered: 07/17/18 16:52:22 EDT, [facility]/pharmacy #[id number] Start Date: 07/17/18 Stop Date: 09/15/18 Status: Discontinued cloNIDine 0.1 mg oral tablet Dose: 0.1 mg, Dose Amount: 1 tab, PO, BID, Dispense Quantity: 60 tab, Refills: 2, Entered: 04/23/1916:17:09 EDT, [facility]/pharmacy #[id number] Start Date: 04/23/19 Stop Date: 08/03/19 Status: Discontinued cloNIDine 0.1 mg oral tablet Dose: 0.1 mg, Dose Amount: 1 tab, PO, BID, Dispense Quantity: 60 tab, Refills: 2, Entered: 09/15/1811:34:00 EST, [facility]/pharmacy #[id number] Start Date: 09/15/18 Stop Date: 01/29/19 Status: Discontinued cloNIDine 0.1 mg oral tablet Dose: 0.05 mg, Dose Amount: 0.5 tab, PO, BID, PRN Anxiety, Dispense Quantity: 7 tab, Refills: 0, Entered: 05/14/18 10:52:26 EDT, [facility]/pharmacy #[id number] Start Date: 05/14/18 Stop Date: 06/19/18 Status: Discontinued cloNIDine 0.1 mg oral tablet Dose: 0.1 mg, Dose Amount: 1 tab, PO, BID, Dispense Quantity: 60 tab, Refills: 2, Entered: 11/11/2016:59:01 EST, [facility]/pharmacy #[id number] Start Date: 11/11/19 Stop Date: 01/06/20 Status: Discontinued cloNIDine 0.1 mg oral tablet Dose: 0.05 mg, Dose Amount: 0.5 tab, PO, daily, PRN Anxiety, Dispense Quantity: 30 tab, Refills: 2,Entered: 06/19/18 16:49:28 EDT, [facility]/pharmacy #[id number] Start Date: 06/19/18 Stop Date: 07/17/18 Status: Discontinued cloNIDine 0.1 mg/24 hr transdermal film, extended release See Instructions, Special Instructions: 1 patch TOP every FIVE DAYS, Dispense Quantity: 6 patch, Refills: 2, Entered: 01/06/20 15:03:00 EDT, [facility]/pharmacy #[id number], 62.3 Start Date: 01/06/20 Status: Ordered [...] 3, Entered: 03/18/13 15:51:38 EDT, Therapy Maintenance, [facility]/pharmacy #[id number] Start Date: 03/18/13 Stop Date: 05/14/13 Status: Discontinued DME - DEXCOM G6 Dairy Husbandry Worker DME - DEXCOM G6 Dairy Husbandry Worker Special Instructions: Use with DEXCOM G6 as directed. [facility] [id number] Dispense Quantity: 1 EA Refills: 0 Stop: 05/27/19 23:59:00 EDT See Instructions Start Date: 05/20/19 Stop Date: 05/27/19 Status: Completed DME - DEXCOM G6 Dairy Husbandry Worker DME - DEXCOM G6 Dairy Husbandry Worker Special Instructions: Use with DEXCOM G6 as directed. [facility] [id number] Dispense Quantity: 1 EA Refills: 0 Stop: 05/19/19 21:44:05 EDT See Instructions Start Date: 05/18/19 Stop Date: 05/20/19 Status: Completed DME - DEXCOM G6 Sensor 3 pack DME - DEXCOM G6 Sensor 3 pack Special Instructions: Replace 1 sensor every 10 days for continuous glucose monitoring. [facility] [address]-28 Dispense Quantity: 3 box Refills: 3 Stop: 05/27/19 23:59:00 EDTSee Instructions Start Date: 05/20/19 Stop Date: 05/27/19 Status: Completed DME - DEXCOM G6 Sensor 3 pack DME - DEXCOM G6 Sensor 3 pack Special Instructions: Replace 1 sensor every 10 days for continuous glucose monitoring. [facility] [id number] Dispense Quantity: 3 box Refills: 3 Stop: 05/19/19 21:43:47 EDTSee Instructions Start Date: 05/18/19 Stop Date: 05/20/19 Status: Completed DME - DEXCOM G6 Transmitter DME - DEXCOM G6 Transmitter Special Instructions: Change every 3 months as directed. [facility] [id number] Dispense Quantity: 1 EA Refills: 3 Stop: 05/27/19 23:59:00 EDT See Instructions Start Date: 05/20/19 Stop Date: 05/27/19 Status: Completed DME - DEXCOM G6 Transmitter DME - DEXCOM G6 Transmitter Special Instructions: Change every 3 months as directed. [facility] [id number] Dispense Quantity: 1 EA Refills: 3 Stop: [...] 11/12/13 Stop Date: 11/12/14 Status: Completed DME Clifford - BD Ultra-Fine Mandy Pen Needle (4 mm x 32G) DME Clifford - BD Ultra-Fine Mandy Pen Needle (4 mm x 32G) Special Instructions: Use as directed up to 2 times/day to administer insulin via insulin pen Dispense Quantity: 100 EA Refills: 11 See Instructions Start Date: 02/06/18 Stop Date: 05/14/18 Status: Discontinued DME Clifford - BD Ultra-Fine Mandy Pen Needle (4 mm x 32G) DME Clifford - BD Ultra-Fine Mandy Pen Needle (4 mm x 32G) Special Instructions: Use as directed up to 6 times/day to administer insulin via insulin pen Dispense Quantity: 600 EA Refills: 3 Stop: 10/06/19 23:59:00 EST See Instructions, 62.3 Start Date: 09/28/19 Stop Date: 10/06/19 Status: Completed DME Clifford - BD Ultra-Fine Mandy Pen Needle (4 mm x 32G) DME Clifford - BD Ultra-Fine Mandy Pen Needle (4 [...] Quantity: 14 tab, Entered: 08/03/19 11:19:05 EST, [facility]/pharmacy #[id number] Start Date: 08/03/19 Stop Date: 08/10/19 [...] 1 EA, Refills: 2, Entered: 08/02/19 15:49:24EST, [facility]/pharmacy #[id number] Start Date: 08/02/19 Status: Ordered Flovent [...] EDT, Stop: 12/25/17 18:19:00 EDT, Dispense asWritten, [facility]/pharmacy #[id number] Start Date: 12/24/16 Stop Date: 02/04/18 Status: Completed Glucagon Emergency Kit for Low Blood Sugar 1 mg injection Dose: 1 mg, IM, OUT-PT as directed, Special Instructions: for unresponsive hypoglycemia, Dispense Quantity: 3 kit, Refills: 3, Entered: 05/18/19 12:35:00 EDT, Dispense as Written, [facility]/pharmacy #[id number] Start Date: 05/18/19 Status: Ordered Glucagon Emergency Kit for Low Blood Sugar 1 mg injection Dose: 1 mg, IM, OUT-PT as directed, Special Instructions: for unresponsive hypoglycemia, Dispense Quantity: 3 kit, Refills: 3, Entered: 02/04/18 16:07:00 EDT, Dispense as Written, [facility]/pharmacy #[id number] Start Date: 02/04/18 Stop Date: 05/14/18 Status: Discontinued Glucagon Emergency Kit for Low Blood Sugar 1 mg injection Dose: 1 mg, IM, OUT-PT as directed, Special Instructions: for unresponsive hypoglycemia, Dispense Quantity: 3 kit, Refills: 3, Entered: 02/01/19 15:52:17 EDT, Stop: 05/18/19 11:25:36 EDT, Dispense asWritten, [facility]/pharmacy #[id number] Start Date: 02/01/19 Stop Date: 05/18/19 [...] kit, Refills: 11, Entered: 10/13/15 17:40:18 EST, [facility]/pharmacy #[id number] Start Date: 10/13/15 Stop Date: 05/17/17 Status: Discontinued glucagon recombinant 1 mg injection See Instructions, Special Instructions: Use as directed to treat severe hypoglycemia. Do not fill until pt requests., Dispense Quantity: 3 kit, Refills: 2, Entered: 02/03/13 14:43:20 EDT, Stop: 11/12/13 16:53:26 EST, Therapy Hard Stop, [facility]/pharmacy #[id number] Start Date: 02/03/13 Stop Date: 11/12/13 Status: Completed glucagon recombinant 1 mg injection See Instructions, Therapy Maintenance, Dispense Quantity: 2 kit Refills: 2 Special Instructions: Use as directed to treat severe hypoglycemia, [facility]/pharmacy #[id number] Start Date: 04/12/11 Stop Date: 04/03/12 [...] Stop: 11/12/13 16:52:39 EST, Therapy Hard Stop, [facility]/pharmacy #[id number] Start Date: 09/29/12 Stop Date: 11/12/13 [...] 11/11/14 16:48:35 EST, Stop: 10/13/15 17:41:07 EST, [facility]/pharmacy #[id number] Start Date: 11/11/14 Stop Date: 10/13/15 Status: Completed glucose 4 g oral tablet, chewable Dose: 12 g, Dose Amount: 3 tab, Chewed, QID, PRN Hypoglycemia Symptoms, Dispense Quantity: 120 tab,Refills: 11, Entered: 12/27/16 8:50:29 EDT, [facility]/pharmacy #[id number] Start Date: 12/27/16 Stop Date: 05/14/18 Status: Discontinued glucose 4 g oral tablet, chewable Dose: 12 g, Dose Amount: 3 tab, Chewed, QID, PRN Hypoglycemia Symptoms, Dispense Quantity: 2 bottle, Refills: 11, Entered: 11/12/13 16:52:39 EST, Stop: 11/11/14 16:48:35 EST, Therapy Hard Stop, [facility]/pharmacy #[id number] Start Date: 11/12/13 Stop Date: 11/11/14 Status: Completed HumaLOG 100 units/mL injectable solution See Instructions, Special Instructions: Use as directed up to 100 units/day, Dispense Quantity: 9 vial, Refills: 3, Entered: 08/28/18 12:43:00 EST, [facility]/pharmacy #[id number] Start Date: 08/28/18 Status: Ordered HumaLOG [...] 10/11/11 Status: Discontinued InPen Cerna (Humalog) - [facility] # [id number] InPen Cerna (Humalog) - [facility] # [id number] Special Instructions: Use with Humalog U-100 cartridges. Contact health care provider for estela settings. Dispense 2 - 1 for home and 1 for school Dispense Quantity: 2 EA Refills: 0 Stop: 05/27/19 23:59:00 EDT S... Start Date: 05/20/19 Stop Date: 05/27/19 Status: Completed InPen Cerna (Humalog) - [facility] # [id number] InPen Cerna (Humalog) [facility] # [id number] Special Instructions: Use with Humalog U-100 cartridges. Contact health care provider for estela settings. Dispense 2 - 1 for home and 1 for school Dispense Quantity: 2 EA Refills: 0 Stop: 05/19/19 21:44:26 EDT S... Start Date: 05/18/19 Stop Date: 05/20/19 Status: Completed InPen Cerna (Humalog) - [facility] # [id number] InPen Cerna (Humalog) [facility] # [id number] Special Instructions: Use with Humalog U-100 cartridges. [...] kit, Refills: 0, Entered: 02/02/19 9:21:49 EDT, [facility]/pharmacy #[id number] Start Date: 02/02/19 Stop Date: 04/23/19 Status: Discontinued lamoTRIgine 100 mg oral tablet See Instructions, Special Instructions: Take 1 tablet in the morning and half a tablet at night, Dispense Quantity: 45 tab, Refills: 2, Entered: 04/15/18 16:36:17 EDT, [facility]/pharmacy #[id number] Start Date: 04/15/18 Stop Date: 05/14/18 Status: Discontinued lamoTRIgine 100 mg oral tablet Dose: 150 mg, Dose Amount: 1.5 tab, PO, daily, Dispense Quantity: 21 tab, Refills: 0, Entered: 05/14/18 10:52:00 EDT, [facility]/pharmacy #[id number] Start Date: 05/14/18 Stop Date: 06/19/18 Status: Discontinued lamoTRIgine 150 mg oral tablet Dose: 150 mg, Dose Amount: 1 tab, PO, daily, Dispense Quantity: 30 tab, Refills: 3, Entered: 02/02/19 9:19:24 EDT, [facility]/pharmacy #[id number] Start Date: 02/02/19 Stop Date: 02/02/19 Status: Discontinued lamoTRIgine 150 mg oral tablet Dose: 150 mg, Dose Amount: 1 tab, PO, daily, Take for 30 day, Dispense Quantity: 30 tab, Refills: 2, Entered: 09/14/19 15:35:39 EST, Stop: 11/11/19 17:58:23 EST, [facility]/pharmacy #[id number] Start Date: 09/14/19 Stop Date: 11/11/19 Status: Completed lamoTRIgine 150 mg oral tablet Dose: 150 mg, Dose Amount: 1 tab, PO, daily, Dispense Quantity: 30 tab, Refills: 3, Entered: 01/29/19 16:16:10 EDT, Stop: 02/02/19 9:19:24 EDT, [facility]/pharmacy #[id number] Start Date: 01/29/19 Stop Date: 02/02/19 Status: Completed lamoTRIgine 150 mg oral tablet Dose: 150 mg, Dose Amount: 1 tab, PO, daily, Dispense Quantity: 30 tab, Refills: 2, Entered: 02/23/19 16:17:43 EDT, [facility]/pharmacy #[id number] Start Date: 02/23/19 Stop Date: 04/23/19 Status: Discontinued lamoTRIgine 150 mg oral tablet Dose: 150 mg, Dose Amount: 1 tab, PO, daily, Dispense Quantity: 30 tab, Refills: 2, Entered: 04/23/19 16:17:03 EDT, [facility]/pharmacy #[id number] Start Date: 04/23/19 Stop Date: 09/14/19 Status: Discontinued lamoTRIgine 150 mg oral tablet Dose: 150 mg, Dose Amount: 1 tab, PO, daily, Dispense Quantity: 30 tab, Refills: 2, Entered: 11/11/19 17:58:23 EST, [facility]/pharmacy #[id number] Start Date: 11/11/19 Stop Date: 01/06/20 Status: Discontinued lamoTRIgine 150 mg oral tablet Dose: 150 mg, Dose Amount: 1 tab, PO, daily, Dispense Quantity: 30 tab, Refills: 3, Entered: 07/10/18 13:55:56 EDT, [facility]/pharmacy #[id number] Start Date: 07/10/18 Stop Date: 01/29/19 [...] 10/13/15 17:42:30 EST, Stop: 10/12/16 14:17:31 EST, [facility]/pharmacy #[id number] Start Date: 10/13/15 Stop [...] vial, Refills: 11, Entered: 10/12/16 15:41:00 EST, [facility]/pharmacy#0736 Start Date: 10/12/16 Stop Date: 05/17/17 Status: [...] 08/03/19 11:18:02 EST, Stop: 08/10/19 11:18:02 EST, [facility]/pharmacy #[id number] Start Date: 08/03/19 Stop Date: 08/10/19 [...]
--- OUTSIDE RECORDS SUMMARY | 2024-06-15 22:55 | XMS_ITS | Summary of Care ---
Author Organization [facility] Address [address] [place] [address]- Care Team Providers Care Mining And Quarrying Machinery Repairer Name Role Phone JOAQUÍN SIMON MD Primary Care Physician [phone] Encounter [facility]_CSN [id number] Date(s): 03/08/21 - 03/09/[address] [address]- Encounter Diagnosis Hyperglycemia(Discharge Diagnosis) - 03/09/21 Ketosis(Discharge Diagnosis) - 03/09/21 Type I diabetes mellitus uncontrolled(Discharge Diagnosis) - 03/09/21 Discharge Disposition: Home Attending Physician: NO ROCA, MPH, YAMILET Mcgee Referring Physician: JOAQUÍN SIMON MD Allergies, Adverse [...]
--- OUTSIDE RECORDS SUMMARY | 2024-06-15 22:55 | XMS_ITS | Summary of Care ---
Author Organization [facility] Address [address] [place] [address]- Care Team Providers Care Cardiac Exercise Physiologist Name Role Phone JOAQUÍN SIMON MD Primary Care Physician [phone] Encounter [facility]_CSN [id number] Date(s): 10/05/21 - 10/05/[address] [address]- Encounter Diagnosis Type 1 diabetes mellitus with hyperglycemia(Final) - buttermaker helper (current) use of insulin(Final) - Discharge Disposition: [...]
--- OUTSIDE RECORDS SUMMARY | 2024-06-15 22:55 | XMS_ITS | Summary of Care ---
Author Organization [facility] Address [address] [place] [address]- Care Team Providers Care Piano Bench Assembler Name Role Phone JOAQUÍN SIMON MD Primary Care Physician [phone] Encounter [facility]_CSN [id number] Date(s): 11/21/20 - 11/21/[address] [address] [facility] Encounter Diagnosis Hyperglycemia due to type 1 diabetes mellitus(Discharge Diagnosis) - 11/21/20 Vomiting(Discharge Diagnosis) - 11/21/20 Abdominal pain(Discharge Diagnosis) - 11/21/20 Discharge Disposition: Home Attending Physician: GHAZALA MARTINEZ MD Referring Physician: JOAQUÍN SIMON MD Allergies, [...] 2 Active 1Added by [facility] 2Added by [facility]
--- OUTSIDE RECORDS SUMMARY | 2024-06-15 22:55 | XMS_ITS | Summary of Care ---
Author Organization [facility] Address [address] [place] [address]- Care Team Providers Care Spinner Hand Name Role Phone JOAQUÍN SIMON MD Primary Care Physician Encounter [facility]_CSN [id number] Date(s): 03/08/21 - 03/08/[address] [address]- Encounter Diagnosis Type I diabetes mellitus uncontrolled(Discharge Diagnosis) - 03/08/21 Nocturnal enuresis(Final) - Discharge Disposition: Discharge Attending Physician: TESFAYE AYALA MD Referring Physician: JOAQUÍN SIMON MD Allergies, [...]
--- OUTSIDE RECORDS SUMMARY | 2024-06-15 22:55 | XMS_ITS | Summary of Care ---
Author Organization [facility] Address [address] [place] [address]- Care Team Providers Care Auto Camp Attendant Name Role Phone JOAQUÍN SIMON MD Primary Care Physician Encounter [facility]_CSN [id number] Date(s): 08/25/20 - 08/25/[address] [address]- [facility] Encounter Diagnosis Type 1 diabetes mellitus with hyperglycemia(Final) - Discharge Disposition: Discharge Attending Physician: MARBIN ROCA, ALEXEI G Referring Physician: JOAQUÍN SIMON MD Allergies, Adverse Reactions, Alerts Substance Reaction Severity Status amoxicillin Rash Active penicillins Rash Active sulfa drugs Rash Active Medications No Known Medications Problem List Condition Effective Dates Status Health Status Inform ant Diabetic ketoacidosis(Confirmed) Active Long-term current use of insulin(Confirmed) 1 Resolved Palpitations(Confirmed) Active Type 1 diabetes mellitus(Confirmed) Resolved Type I diabetes mellitus uncontrolled(Confirmed) 2 Active 1Added by [facility] 2Added by [facility]
--- OUTSIDE RECORDS SUMMARY | 2024-06-15 22:55 | XMS_ITS | Summary of Care ---
Author Organization [facility] Address [address] [place] [address]- Care Team Providers Care Mutual Fund Accountant Name Role Phone JOAQUÍN SIMON MD Primary Care Physician Encounter [facility]_CSN [id number] Date(s): 09/14/20 - 09/16/[address] [address]- [facility] Encounter Diagnosis DKA - diabetic ketoacidosis(Discharge Diagnosis) - 09/14/20 Dehydration(Discharge Diagnosis) - 09/14/20 Vomiting(Discharge Diagnosis) - 09/14/20 Metabolic acidosis(Discharge Diagnosis) - 09/14/20 Discharge Disposition: Home Attending Physician: DIANA ROCA, MPH, PhD, BERTHA Ramsey Admitting Physician: DIANA ROCA, MPH, PhD, BERTHA Ramsey Referring Physician: JOAQUÍN SIMON MD Allergies, Adverse Reactions, Alerts Substance Reaction Severity Status amoxicillin Rash Active penicillins Rash Active sulfa drugs Rash Active Medications InPen Cerna (Humalog) - [facility] # [id number] InPen Cerna (Humalog) - [facility] # [id number] Special Instructions: Use with Humalog U-100 cartridges. Contact health care provider for estela settings. Dispense 2 - 1 for home and 1 for school Dispense Quantity: 2 EA Refills: 0 See Instructions Start Date: 09/16/20 Status: Ordered Problem List Condition Effective Dates Status Health Status Inform ant Depression(Confirmed) Active Diabetic ketoacidosis(Confirmed) Active Long-term current use of insulin(Confirmed) 1 Resolved Palpitations(Confirmed) Active Type 1 diabetes mellitus(Confirmed) Resolved Type I diabetes mellitus uncontrolled(Confirmed) 2 Active 1Added by [facility] 2Added by [facility]
--- OUTSIDE RECORDS SUMMARY | 2024-06-15 22:55 | XMS_ITS | Summary of Care ---
Author Organization [facility] spital Address [address] [place] [address]- Care Team Providers Care Forestry Support Specialist Name Role Phone JOAQUÍN SIMON MD Primary Care Physician [phone] Encounter [facility]_CSN [id number] Date(s): 08/02/20 - 08/04/[address] [address]- [facility] Encounter Diagnosis Diabetic ketoacidosis(Discharge Diagnosis) - 08/02/20 Type I diabetes mellitus uncontrolled(Discharge Diagnosis) - 08/02/20 Vomiting(Discharge Diagnosis) - 08/02/20 Discharge Disposition: Home Attending Physician: JOSÉ LUIS ROCA, PhD, JOHNNY Ramsey Admitting Physician: DARRIN GILBERT MD Referring Physician: JOAQUÍN SIMON MD Allergies, Adverse Reactions, Alerts Substance Reaction Severity Status amoxicillin Rash Active penicillins Rash Active sulfa drugs Rash Active Medications DME Glucometer - OneTouch Ultra 2 Blood Glucose monitoring system DME Glucometer - OneTouch Ultra 2 Blood Glucose monitoring system Special Instructions: Use to check blood glucose as directed Dispense Quantity: 1 EA See Instructions Start Date: 08/04/20 Status: Ordered Problem List Condition Effective Dates Status Health Status Inform ant Diabetic ketoacidosis(Confirmed) Active Long-term current use of insulin(Confirmed) 1 Resolved Palpitations(Confirmed) Active Type 1 diabetes mellitus(Confirmed) Resolved Type I diabetes mellitus uncontrolled(Confirmed) 2 Active 1Added by [facility] 2Added by C
--- OUTSIDE RECORDS SUMMARY | 2024-06-15 22:55 | XMS_ITS | Summary of Care ---
Author Organization [facility] spital Address [address] [place] [address]- Care Team Providers Care Escrow Clerk Name Role Phone JOAQUÍN SIMON MD Primary Care Physician [phone] Encounter [facility]_CSN [id number] Date(s): 05/01/23 - 05/01/23 [facility] [address] [place] [address]- Discharge Disposition: Discharge Attending Physician: ALEXEI ZAZUETA MD Attending Physician: THU VU MD Allergies, Adverse Reactions, Alerts Substance Reaction [...] mellitus uncontrolled 2 Confirmed Active 1Added by [facility] 2Added by [facility] Patient Care team information Personnel Name: JOAQUÍN SIMON MD Address: Address: [address] [place] [address]
--- OUTSIDE RECORDS SUMMARY | 2024-06-15 22:55 | XMS_ITS | Summary of Care ---
Author Organization [facility] spital Address [address] [place] [address]- Care Team Providers Care Latin Dancer Name Role Phone AURORA ROCA, JOAQUÍN Hernandez Primary Care Physician Encounter [facility]_CSN [id number] Date(s): 05/17/21 - 05/18/[address] [address]- Encounter Diagnosis Diabetic ketoacidosis(Discharge Diagnosis) - 05/18/21 Discharge Disposition: Home Attending Physician: JOSÉ LUIS ROCA, PhD, OJHNNY Ramsey Admitting Physician: JOSÉ LUIS ROCA, PhD, JOHNNY Ramsey Referring Physician: [facility] Allergies, Adverse Reactions, Alerts Substance Reaction Severity Status amoxicillin Rash Active penicillins Rash Active sulfa drugs Rash Active Medications No Known Medications Problem List Condition Effective Dates Status Health Status Inform ant Depression(Confirmed) Active Hyperglycemia(Confirmed) Active Long-term current use of insulin(Confirmed) 1 Resolved Palpitations(Confirmed) Active Type 1 diabetes mellitus(Confirmed) Resolved Type I diabetes mellitus uncontrolled(Confirmed) 2 Active 1Added by [facility] 2Added by [facility]
--- OUTSIDE RECORDS SUMMARY | 2024-06-15 22:55 | XMS_ITS | Summary of Care ---
Author Organization [facility] spital Address [address] [place] [address]- Care Team Providers Care Field Sales Executive Name Role Phone JOAQUÍN SIMON MD Primary Care Physician [phone] Encounter [facility]_CSN [id number] Date(s): 06/16/20 - 06/16/[address] [address]- [facility] Encounter Diagnosis Type I diabetes mellitus uncontrolled(Discharge Diagnosis) - 06/15/20 Discharge Disposition: Discharge Attending Physician: ALEXEI ZAZUETA [...]
--- OUTSIDE RECORDS SUMMARY | 2024-06-15 22:55 | XMS_ITS | Summary of Care ---
Author Organization [facility] spital Address [address] [place] [address]- Care Team Providers Care Non Destructive Testing Inspector Name Role Phone JOAQUÍN SIMON MD Primary Care Physician [phone] Encounter [facility]_CSN [id number] Date(s): 12/15/20 - 12/15/[address] [address]- Encounter Diagnosis Type I diabetes mellitus uncontrolled(Discharge Diagnosis) - 12/14/20 Discharge Disposition: Discharge Attending Physician: ALEXEI ZAZUETA [...]
--- OUTSIDE RECORDS SUMMARY | 2024-06-15 22:55 | XMS_ITS | Summary of Care ---
Author Organization [facility] spital Address [address] [place] [address]- Care Team Providers Care Auto Slip Cover Installer Name Role Phone JOAQUÍN SIMON MD Primary Care Physician Encounter [facility]_CSN [id number] Date(s): 05/11/21 - 05/11/[address] [address]- Encounter Diagnosis supervisor intermediates (current) use of insulin(Final) - Type 1 diabetes mellitus with hyperglycemia(Final) - [...]
--- OUTSIDE RECORDS SUMMARY | 2024-06-15 22:55 | XMS_ITS | Summary of Care ---
Author Organization [facility] spital Address [address] [place] [address]- Care Team Providers Care Card Grinder Helper Name Role Phone JOAQUÍN SIMON MD Primary Care Physician Encounter [facility]_CSN [id number] Date(s): 07/28/20 - 07/28/[address] [address]- [facility] Encounter Diagnosis Type 1 diabetes mellitus [...]
--- OUTSIDE RECORDS SUMMARY | 2024-06-15 22:55 | XMS_ITS | Summary of Care ---
Author Organization [facility] spital Address [address] [place] [address]- Care Team Providers Care Director Part Name Role Phone JOAQUÍN SIMON MD Primary Care Physician Encounter [facility]_CSN [id number] Date(s): 01/01/22 - 01/03/[address] [address]- Encounter Diagnosis Vomiting(Discharge Diagnosis) - 01/01/22 Diabetic ketoacidosis(Discharge Diagnosis) - 01/01/22 Abdominal pain(Discharge Diagnosis) - 01/01/22 Dehydration(Discharge Diagnosis) - 01/02/22 Discharge Disposition: Home Attending Physician: JOSÉ LUIS ROCA, PhD, JOHNNY Ramsey Admitting Physician: JOSÉ LUIS ROCA, PhD, JOHNNY Ramsey Referring Physician: JOAQUÍN SIMON MD Allergies, Adverse Reactions, Alerts Substance Reaction Severity Status amoxicillin Rash Active penicillins Rash Active penicillin Active sulfa drugs Rash Active Medications glucose 4 g oral tablet, chewable Dose: 20 g, Dose Amount: 5 tab, Chewed, QID, PRN Hypoglycemia Symptoms, Dispense Quantity: 2 packet, Refills: 0, Entered: 01/03/22 19:09:00 EDT Start Date: 01/03/22 Status: Ordered Problem List Condition Effective Dates Status Health Status Inform ant Dehydration(Confirmed) Active Depression(Confirmed) Active Hyperglycemia(Confirmed) Active Long-term current use of insulin(Confirmed) 1 Resolved Palpitations(Confirmed) Active Type 1 diabetes mellitus(Confirmed) Resolved Type I diabetes mellitus uncontrolled(Confirmed) 2 Active 1Added by [facility] 2Added by [facility]
--- OUTSIDE RECORDS SUMMARY | 2024-06-15 22:55 | XMS_ITS | Summary of Care ---
Author Organization [facility] spital Address [address] [place] [address]- Care Team Providers Care Manager House Name Role Phone JOAQUÍN SIMON MD Primary Care Physician [phone] Encounter [facility]_CSN [id number] Date(s): 04/15/21 - 04/16/[address] [address]- Encounter Diagnosis Diabetic ketoacidosis(Discharge Diagnosis) - 04/16/21 Hyperglycemia(Discharge Diagnosis) - 04/16/21 Type I diabetes mellitus uncontrolled(Discharge Diagnosis) - 04/16/21 Ketosis(Discharge Diagnosis) - 04/16/21 Discharge Disposition: Home Attending Physician: SAM RAE MD Admitting Physician: VINH GOODMAN MD Referring Physician: JOAQUÍN SIMON MD Allergies, Adverse Reactions, Alerts Substance Reaction Severity Status amoxicillin Rash Active penicillins Rash Active sulfa drugs Rash Active Medications DME - Ketostix Urine Ketone Test Strips DME - Ketostix Urine Ketone Test Strips Special Instructions: Use as directed when BG >250 mg/dLupon arising in the AM and when >300 mg/dL any other time of day and when doing sick day management. Dispense Quantity: 2 EA Refills: 11 Stop: 04/24/21 23... Start Date: 04/16/21 Stop Date: 04/24/21 Status: Ordered Problem List Condition Effective Dates Status Health Status Inform ant Depression(Confirmed) Active Hyperglycemia(Confirmed) Active Long-term current use of insulin(Confirmed) 1 Resolved Palpitations(Confirmed) Active Type 1 diabetes mellitus(Confirmed) Resolved Type I diabetes mellitus uncontrolled(Confirmed) 2 Active 1Added by [facility] 2Added by [facility]
--- OUTSIDE RECORDS SUMMARY | 2024-06-15 22:55 | XMS_ITS | Summary of Care ---
Author Organization [facility] spital Address [address] [place] [address]- Care Team Providers Care Production Control Expediter Name Role Phone JOAQUÍN SIMON MD Primary Care Physician [phone] Encounter [facility]_CSN [id number] Date(s): 11/29/21 - 11/29/[address] [address]- Encounter Diagnosis snf (current) use of insulin(Final) - Type 1 [...]
--- OUTSIDE RECORDS SUMMARY | 2024-06-15 22:55 | XMS_ITS | Summary of Care ---
Author Organization [facility] spital Address [address] [place] [address]- Care Team Providers Care Master Coastal Waters Name Role Phone JOAQUÍN SIMON MD Primary Care Physician Encounter [facility]_CSN [id number] Date(s): 06/06/23 - 06/06/23 [facility] [address] [place] [address]- Encounter Diagnosis Type I diabetes mellitus uncontrolled(Discharge Diagnosis) - 06/06/23 Discharge Disposition: Discharge Attending Physician: ALEXEI ZAZUETA MD Allergies, Adverse Reactions, Alerts Substance Reaction Severity Status amoxicillin Rash Active penicillin Active sulfa drugs Rash Active penicillins Rash Active Medications DME - DEXCOM G6 Transmitter DME - DEXCOM G6 Transmitter Special Instructions: Change every 3 months as directed. [facility] [id number] Dispense Quantity: 1 EA Refills: 3 Stop: 06/14/23 23:59:00 EDT See Instructions Start Date: 06/06/23 Stop Date: 06/14/23 Status: Ordered gabapentin 600 mg oral tablet Dose: 600 mg, Dose Amount: 1 tab, PO, TID, Dispense Quantity: 90 tab, Refills: 5, Entered: 06/06/2315:34:00 EDT Start Date: 06/06/23 Status: Ordered Tylenol Extra Strength 500 mg oral tablet mg, tab, PO, Q6hr, Entered: 06/06/23 15:34:00 EDT Start Date: 06/06/23 Status: Ordered Problem List Condition Confirmation Course Effective Dates Status H ealth Status Informant Depression Confirmed Active Hyperglycemia Confirmed Active Long-term current use of insulin 1 Confirmed Resolved Palpitations Confirmed Active Type 1 diabetes mellitus Confirmed Resolved Type I diabetes mellitus uncontrolled 2 Confirmed Active 1Added by [facility] 2Added by [facility] Patient Care team information Personnel Name: JOAQUÍN SIMON MD Address: Address: [address] [place] [id number]
--- OUTSIDE RECORDS SUMMARY | 2024-06-15 22:55 | XMS_ITS | Summary of Care ---
Author Organization [facility] spital Address [address] [place] [address]- Care Team Providers Care Injector Assembler Name Role Phone JOAQUÍN SIMON MD Primary Care Physician Encounter [facility]_CSN [id number] Date(s): 01/02/21 - 01/02/[address] [address]- Encounter Diagnosis Type 1 diabetes mellitus with hyperglycemia(Final) - local intermodal truck driver (current) use of insulin(Final) - Discharge Disposition: Discharge Attending Physician: MARBIN [...]
--- OUTSIDE RECORDS SUMMARY | 2024-06-15 22:55 | XMS_ITS | Summary of Care ---
Author Organization [facility] spital Address [address] [place] [address]- Care Team Providers Care Community Leader Name Role Phone JOAQUÍN SIMON MD Primary Care Physician Encounter [facility]_CSN [id number] Date(s): 06/01/21 - 06/01/[address] [address]- Encounter Diagnosis Type I diabetes mellitus uncontrolled(Discharge Diagnosis) - 05/31/21 Type 1 diabetes mellitus with hyperglycemia(Final) - [...]
--- OUTSIDE RECORDS SUMMARY | 2024-06-15 22:55 | XMS_ITS | Summary of Care ---
Author Organization [facility] spital Address [address] [place] [address]- Care Team Providers Care Cook Camp Name Role Phone JOAQUÍN SIMON MD Primary Care Physician Encounter [facility]_CSN [id number] Date(s): 10/17/22 - 10/17/[address] [address]- Discharge Disposition: Discharge Attending Physician: ALEXEI ZAZUETA MD Referring Physician: JOAQUÍN SIMON MD Allergies, Adverse Reactions, Alerts Substance Reaction Severity Status amoxicillin Rash Active sulfa drugs Rash Active penicillin Active penicillins Rash Active Medications No Known Medications Problem List Condition Effective Dates Status Health Status Inform ant Dehydration(Confirmed) Active Depression(Confirmed) Active Hyperglycemia(Confirmed) Active Long-term current use of insulin(Confirmed) 1 Resolved Palpitations(Confirmed) Active Type 1 diabetes mellitus(Confirmed) Resolved Type I diabetes mellitus uncontrolled(Confirmed) 2 Active 1Added by [facility] 2Added by [facility]
--- OUTSIDE RECORDS SUMMARY | 2024-06-15 22:55 | XMS_ITS | Summary of Care ---
Author Organization [facility] spital Address [address] [place] [address]- Care Team Providers Care Interventional Cardiologist Name Role Phone AURORA ROCA, JOAQUÍN Hernandez Primary Care Physician [phone] Encounter [facility]_CSN [id number] Date(s): 10/11/22 - 10/11/[address] [address]- Encounter Diagnosis Type I diabetes mellitus uncontrolled(Discharge Diagnosis) - 10/10/22 Discharge Disposition: Discharge Attending Physician: MARBIN ROCA, ALEXEI Nieves Referring Physician: REFERRING , SELF REFERRED/NO Allergies, [...]
--- OUTSIDE RECORDS SUMMARY | 2024-06-15 22:55 | XMS_ITS | Summary of Care ---
Author Organization [facility] spital Address [address] [place] [address]- Care Team Providers Care Technical Coordinator Name Role Phone JOAQUÍN SIMON MD Primary Care Physician Encounter [facility]_CSN [id number] Date(s): 03/09/22 - 03/09/22 [facility] [address] [place] [address]- Encounter Diagnosis Type I diabetes mellitus uncontrolled(Discharge Diagnosis) - 03/09/22 Type 1 diabetes mellitus with hyperglycemia(Final) - intermediate designer (current) use of insulin(Final) - Discharge Disposition: Discharge Attending Physician: ALEXEI ZAZUETA MD Referring Physician: JOAQUÍN SIMON MD Allergies, Adverse Reactions, Alerts Substance Reaction Severity Status amoxicillin Rash Active sulfa drugs Rash Active penicillin Active penicillins Rash Active Medications DME - BD Insulin Syringe 3/10 mL (30 unit) with Ultra-Fine Needle (6 mm x 31 G) DME - BD Insulin Syringe 3/10 mL (30 unit) with Ultra-Fine Needle (6 mm x 31 G) Special Instructions: Use as directed 3-6 times per day and as needed Dispense Quantity: 200 EA Refills: 11 See Instructions Start Date: 03/09/22 Status: Ordered DME - Precision Xtra Blood KETONE Test Strips DME - Precision Xtra Blood KETONE Test Strips Special Instructions: Use as directed when BG >250mg/dL upon arising in the AM and when >300 mg/dL any other time of day and when doing sick day management. Dispense Quantity: 60 EA Refills: 11 Dispense a... Start Date: 03/09/22 Status: Ordered insulin lispro 100 units/mL injectable solution Dispense 10 mL vial, Subcutaneous, OUT-PT as directed, Special Instructions: Use as directed up to 50 units per day, Dispense Quantity: 2 EA, Refills: 11, Entered: 03/09/22 16:23:00 EDT, [facility]/pharmacy#[id number] Start Date: 03/09/22 Status: Ordered Problem List Condition Effective Dates Status Health Status Inform ant Dehydration(Confirmed) Active Depression(Confirmed) Active Hyperglycemia(Confirmed) Active Long-term current use of insulin(Confirmed) 1 Resolved Palpitations(Confirmed) Active Type 1 diabetes mellitus(Confirmed) Resolved Type I diabetes mellitus uncontrolled(Confirmed) 2 Active 1Added by [facility] 2Added by [facility]
--- NOTE | 2024-06-15 22:56 | DI.VRAD_ITS ---
PROCEDURE INFORMATION: Exam: CT Abdomen And Pelvis With Contrast Exam date and time: 06/15/2024 9:41 PM Age: 23 years old Clinical indication: Other: Abd pain; Patient HX: Eval pancreatitis TECHNIQUE: Imaging protocol: Computed tomography of the abdomen and pelvis with contrast. Radiation optimization: All CT scans at this facility use at least one of these dose optimization techniques: automated exposure control; mA and/or kV adjustment per patient size (includes targeted exams where dose is matched to clinical indication); or iterative reconstruction. Contrast material: OMNIPAQUE 350; Contrast volume: 100 ml; Contrast route: INTRAVENOUS (IV); COMPARISON: CR XR CHEST 1V IN DI DEPT 06/15/2024 8:42 PM FINDINGS: Liver: Normal. No mass. Gallbladder and biliary ducts: Normal. No calcified stones. No ductal dilation. Pancreas: Normal. No ductal dilation. Spleen: Normal. No splenomegaly. Adrenal glands: Normal. No mass. Kidneys and ureters: Normal. No hydronephrosis. Stomach and bowel: Unremarkable. No obstruction. No mucosal thickening. Appendix: No evidence of appendicitis. Intraperitoneal space: Unremarkable. No free air. No significant fluid collection. Vasculature: Unremarkable. No abdominal aortic aneurysm. Lymph nodes: Unremarkable. No enlarged lymph nodes. Urinary bladder: Unremarkable as visualized. Reproductive: Unremarkable as visualized. Bones/joints: Unremarkable. No acute fracture. Soft tissues: Unremarkable. IMPRESSION: No acute findings. Dictated and Authenticated by: Johnathan Rodriguez MD. Ordering:LESTER Barragan MD
--- OUTSIDE RECORDS SUMMARY | 2024-06-15 22:56 | XMS_ITS | Data Portability ---
Author Organization [facility] Address [address] [facility] [address] [place] [address] Care Team Providers Care Transportation Superintendent Name Role Phone TENZIN MORENO Primary Care Provider Assessment Encounter Date Assessment Date Assessment LastModified by Organization Details LastModified Time 03/18/2023 03/18/2023 ASSESSMENT Bilateral foot pain in the setting of a type 1 diabetes. PLAN I had a long discussion with Zeus today regarding his continued bilateral foot pain. Overall, his symptoms are neurologic in nature and recommend further Neurology consultation. He should continue with his local gas attendant for local foot care. Overall, there is evidence of any structural abnormalities in the bilateral feet, although she should continue to monitor for any issues in the future. At this point, there is no indication for surgical intervention. We will plan to see her back on an as-needed basis. He was in agreement with this plan. All questions were answered. [email or web address] Not available 03/19/2023 00:22:07 Plan of Treatment Reminders Order Date Submit Date Provider Last Modified By Organization Details Last Modified Time Details Appointments None recorded. Lab None recorded. Referral neurologist referral - Neurology consult for bilat toe pain/numbne ss 2022 023 [email or web address] Martha Bahena MD, [address], [facility] [address], [place], [address], 3 07:36:17 Procedures None recorded. Surgeries None recorded. Imaging None recorded. Medication Orders None recorded. Patient TargetsNo targets recorded. Patient InstructionsNo instructions recorded. Reason for Referral Neurologist Referral for Edward ralgia Neurology consult for bilat toe pain/numbness Referring Physician: Deniz Medrano, Orthopedic Surgery, Encounter Date: 03/18/2023 Procedures Surgical History Date Name Laterality Status Provider Name and Address Organization Details Recorded Time 08/09/2022 Other completed Guillermo Martinez [facility] 03/18/2023 10:10:18 Imaging Results None recorded. Procedure Notes None recorded. Medical Equipment None Reported. Allergies Allergen ID Allergen Name Allergen Category Reaction Reaction Severity Criticality Documentation Date Start Date Code Code System Note Provider Name and Address Organization Details Recorded Time 19280531 Medicinal product containin g penicilli n and acting as antibacte rial agent (product) medicatio n Not available Not available Not available 03/18/2023 40037 05 OMED Guillermo leung [facility] 3 10:09:35 19280601 Substance with sulfonami de structure and antibacte rial mechanism of action (substanc e) medicatio n Not available Not available Not available 03/18/2023 14611 8003 SNOMED Guillermo leung [facility] 3 10:09:35 Medications Name Sig Start Date Stop Date Status Note LastModified by Organization Details LastModified Time insulin aspar prot-insulin aspart 100 unit/mL (70-30) subcutaneous pen Inject by subcutaneou s route. active Not Available Not Available No t Available Vitals Date Recorded Body height Body mass index (BMI) Percentile per age and sex Body weight Provider Name and Address Organization Details Last Updated DateTime 03/18/2023 187.96 cm 9 % 97467.82 g Guillermo Martinez [facility] 03/18/2023 10:09:31 Social History Question Answer Notes LastModified by Organizat ion Details LastModified Time Tobacco Smoking Status Unknown If Ever Smoked Guillermo leung [facility] 03/18/2023 10:09:44 What Is Your Level Of Alcohol Consumption? Occasional Information not available 03/18/2023 Are You Currently Employed? Yes Information not available 03/18/2023 Do You Or Have You Ever Used E-cigarettes Or Vape? 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 Former Smokeless Tobacco User Information not available 03/18/2023 How Much Tobacco Do You Smoke? No Information not available 03/18/2023 How Many Years Have You Smoked Tobacco? 0 Information not available 03/18/2023 Sex: Unknown Functional Status None recorded. Mental Status None recorded. Family History Relationship Description Onset Age of this Age Resolved Age Notes LastModified by Organization Details LastModified Time Father No current problems or disability Not available 03/18 10:10:05 Mother No current problems or disability Not available 03/18 10:10:05 Medical History Condition Response Depression or Anxiety Y Diabetes Y Asthma / Shortness of Breath / Sleep Machine Builder ea (please specify) Y Past Encounters Encounter ID Performer Location Encounter Start Date Encounter Closed Date Diagnosis/Indication Diagnosis SNOMED-CT Code Diagnosis ICD10 Code [id number] DENIZ MEDRANO MD [address] [address] 03/18/2023 09:44:33 03/18/2023 11:20:22 Neuralgia 82012986 M79.2 Health Concerns Section Related Observation LastModified by Organization Detai ls LastModified Time None Recorded Concern Status LastModified by Organization Details LastModified Time None Recorded Advance Directives Directive None Recorded Payers Encounter Date Sequence Insurance Name Policy Number Policy Tavarez Covered Member ID Tavarez Member ID Guarantor Name 03/18/2023 2 [place] [facility]us Jay [id number] Zeus Jay 03/18/2023 1 [place] [place] [place] Dick Thompson [id number] Zeus Jay Notes Date Note Type Note Provider Name and Address Organization Details Recorded Time 03/18/2023 text/html HPI Notes: Zeus is a 22-year-old male being seen today in consultation for bilateral foot pain. He is here with mother today. She notes that he is a type 1 diabetic, treated with her doctor with insulin pump and has been treated with other medications prior. Since she does note overall increased blood sugar control, improved hemoglobin A1c with his insulin pump. However, she also notes a family history of forefoot deformities including in her mother who has severe hallux valgus deformity. Zeus notes that he has been experiencing pain in the bilateral feet for a year. He notes he was previously recommended to see Neurology for evaluation, but has not proceeded with this yet. He denies any specific injury to the feet themselves. He does see a gas attendant for foot care. He notes sensitivity in the feet bilaterally mainly in the distal forefoot. Denies any significant angular deformity to the feet or toes. He is here today for further evaluation discussion of additional treatment options. DENIZ MEDRANO MD [address] [place] [address], [phone], [facility] 03/25/2023 14:54:45
--- OUTSIDE RECORDS SUMMARY | 2024-06-15 22:56 | XMS_ITS | Encounter Summary ---
Author Organization [facility] Address [address] [address] Care Team Providers Care Edge Inker Uppers Name Role Phone Lucas Smiley MD Primary Care Provider [phone] Encounter Details Date Type Department Care Team (Late st Contact Info) Description 04/18/2023 Orders Only [facility] [address] [place] [phone] Asha Pickard MD [address] [place] [address] Encounter for screening for infections with a predominantly sexual mode of transmission Social History Tobacco Use Types Packs/Day Years Used Date Smoking Tobacco: Never Assessed Sex and Gender Information Value Date Recorded Sex Assigned at Not on file Gender Identity Not on file Sexual Orientation Not on file documented as of this encounter Plan of Treatment Scheduled Orders Name Type Priority Associated Diagnoses Orde r Schedule RPR, Quantitative Lab Routine Encounter for screening for infections with a predominantly sexual mode of transmission Expected: 04/18/2023 (Approximate), Expires: 04/18/2024 Hepatitis C antibody Lab Routine Encounter for screening for infections with a predominantly sexual mode of transmission Expected: 04/18/2023 (Approximate), Expires: 04/18/2024 documented as of this encounter Visit Diagnoses Diagnosis Encounter for screening for infections with a predominantly sexual mode of transmission documented in this encounter Care Teams Edge Inker Uppers Relationship Specialty Start Date End Date Lucas Smiley MD [address] [place] [address] PCP - General 10/27/21 documented as of this encounter
--- OUTSIDE RECORDS SUMMARY | 2024-06-15 22:56 | XMS_ITS | Patient Health Record ---
Author Organization [facility] Address [address] [place], [place] [address] Care Team Providers Care Chair Spring Assembler Name Role Phone Nikita Valladares Unavailable [phone] REASON FOR REFERRAL No Information PROBLEMS Problem Type ICD Code Onset Dates Problem Status W/U Status Risk SNOMED Code Notes Problem DKA (diabetic ketoacidoses) (E13.10) Active confirmed Diabetic ketoacidosis without coma (393775199) Problem Diabetic ketoacidosis without coma associated with type 1 diabetes mellitus (E10.10) Active confirmed [id number] PLAN OF TREATMENT No Information Insurance Providers Payer Name Payer Address Payer Phone Subscriber Number Group Number Insured Name Patient Relationship to Insured Coverage Start Date Coverage End Date Blue Cross Blue Shield [address] [place] [address] [phone] [id number] Zeus Thompson Self - patient is the insured Medicaid [address] [place] [address] [id number] Zeus Thompson Self - patient is the insured
--- OUTSIDE RECORDS SUMMARY | 2024-06-15 22:56 | XMS_ITS | Encounter Summary ---
Author Organization [facility] Address [address] [place] [address] [address] [place] [address] Care Team Providers Care Executive Pastry Chef Name Role Phone Unavailable Primary Care Provider Unavailabl e Reason for Visit * Referral (Routine) - Closed Specialty Diagnoses / Procedures Referred By Controny t Referred To Contact Speech Pathology / Speech Therapy Diagnoses Articulation disorder articulation disorder Procedures sp [facility] [address]/[place] [address] Chey Alejandre Ccc-Cofferdam Construction Supervisor [address] [place] [phone] Referral ID Status Reason Start Date Expiration Date V isits Requested Visits Authorized Closed Internal Specialty Services Required 01/03/2006 09/22/2006 8 8 Encounter Details Date Type Department Care Team (Late st Contact Info) Description 02/26/2006 3:00 PM EDT Office Visit [facility] [address] [place] [phone] Chey Alejandre Ccc-Cofferdam Construction Supervisor [address] [place] [phone] DYSFLUENCY (Primary Dx) Social History Tobacco Use Types Packs/Day Years Used Date Smoking Tobacco: Never Assessed Sex and Gender Information Value Date Recorded Sex Assigned at Not on file Gender Identity Not on file Sexual Orientation Not on file documented as of this encounter Progress Notes * 02/26/2006 3:00 PM EDTMo. Reported that he is more fluent at times; He continues to have difficulty and is dysfluent when stressed and trying to talk at same time withsister; Hard to manage communication competition between sibs; J. Able to take turns with min cue 90% of the time; Able to repeat sentence fluently 90% of the time; Gave mo.phone # of TRISTAN/Selina Lange for summer tx; Discussed no speech tx during summer and to check back in May. J. Able to re-tell story fluently with one sentence per page. Plan: story telling taking turns documented in this encounter Plan of Treatment Not on file documented as of this encounter Visit Diagnoses Diagnosis Dysfluency- Primary Other speech disturbance documented in this encounter
--- OUTSIDE RECORDS SUMMARY | 2024-06-15 22:56 | XMS_ITS | Encounter Summary ---
Author Organization [facility] Address [address] [place] [address] [address] [place] [address] Care Team Providers Care Funeral Service Licensee Name Role Phone Unavailable Primary Care Provider Unavailabl e Reason for Visit * Referral (Routine) - Closed Specialty Diagnoses / Procedures Referred By Controny t Referred To Contact Speech Pathology / Speech Therapy Diagnoses Articulation disorder articulation disorder Procedures sp [facility] [address] [facility] [address]/[place] [address] Chey Alejandre Ccc-Enterprise Infrastructure Architect [address] [place] [phone] Referral ID Status Reason Start Date Expiration Date V isits Requested Visits Authorized Closed Internal Specialty Services Required 01/03/2006 09/22/2006 8 8 Encounter Details Date Type Department Care Team (Late st Contact Info) Description 02/19/2006 3:00 PM EDT Office Visit [facility] [address] [place] [phone] Chey Alejandre Ccc-Enterprise Infrastructure Architect [address] [place] [phone] DYSFLUENCY (Primary Dx) Social History Tobacco Use Types Packs/Day Years Used Date Smoking Tobacco: Never Assessed Sex and Gender Information Value Date Recorded Sex Assigned at Not on file Gender Identity Not on file Sexual Orientation Not on file documented as of this encounter Progress Notes * 02/19/2006 3:00 PM EDTable to repeat sentence with fluency, good word order in 4/7 trials- need slow presentation for best performance; needs help to take turns during games with sister; communication competition- we discussed how to manage at dinner time and in the car; needs reminders to use words often here and at home; mo. reported better fluency overall, but hard time at neighborhood gathering with trying to tell story from the past. Plan: retelling stories; structured game for taking turns with pictures cue to take turns. documented in this encounter Plan of Treatment Not on file documented as of this encounter Visit Diagnoses Diagnosis Dysfluency- Primary Other speech disturbance documented in this encounter
--- OUTSIDE RECORDS SUMMARY | 2024-06-15 22:56 | XMS_ITS | Summary of Care ---
Author Organization [facility] Address [address] [place] [address]- Care Team Providers Care Legal Secretary Name Role Phone JOAQUÍN SIMON MD Primary Care Physician [phone] [facility]_CSN [id number] Date(s): 04/27/21 - 04/27/[address] [address]- Encounter Diagnosis Type I diabetes mellitus uncontrolled(Discharge Diagnosis) - 04/26/21 Discharge Disposition: Discharge Attending Physician: ALEXEI ZAZUETA [...]
--- OUTSIDE RECORDS SUMMARY | 2024-06-15 22:56 | XMS_ITS | Encounter Summary ---
Author Organization [facility] Address [address] [place] [address] [address] [place] [address] Care Team Providers Care Provider Service Representative Name Role Phone Unavailable Primary Care Provider Unavailabl e Reason for Visit * Referral (Routine) - Closed Specialty Diagnoses / Procedures Referred By Controny t Referred To Contact Speech Pathology / Speech Therapy Diagnoses Articulation disorder articulation disorder Procedures sp [facility] [address] [facility] [address]/[place] [address] Chey Alejandre Ccc-Automatic Dispenser Mechanic [address] [place] [phone] Referral ID Status Reason Start Date Expiration Date V isits Requested Visits Authorized Closed Internal Specialty Services Required 01/03/2006 09/22/2006 8 8 Encounter Details Date Type Department Care Team (Late st Contact Info) Description 01/03/2006 1:00 PM EDT Office Visit [facility] [address] [place] [phone] Chey Alejandre Ccc-Automatic Dispenser Mechanic [address] [place] [phone] DYSFLUENCY (Primary Dx) Social History Tobacco Use Types Packs/Day Years Used Date Smoking Tobacco: Never Assessed Sex and Gender Information Value Date Recorded Sex Assigned at Not on file Gender Identity Not on file Sexual Orientation Not on file documented as of this encounter Progress Notes * 01/03/2006 1:00 PM EDTSPEECH EVALUATION Zeus Noblefee, a 5 year 1 month old boy, was seen for a speech evaluation at the request of his social work program coordinator, Dr. Raj Cote. His parents accompanied Zeus to this evaluation and expressed concern around dysfluency. Family history is not significant for stuttering. His parents reported that his older sister was dysfluent between the ages of 3 and 3 1/2, but she outgrew it. Zeus's dysfluency seems more severe. Medical history is significant for asthma. Audiological evaluation revealed hearing to be adequate forspeech and language development. Zeus attends preschool 2 mornings per week. He enjoys school. His parents reported that he is having trouble learning his colors and numbers. Today both formal and informal speech diagnostic tasks were administered to assess speech intelligibility and the presence of dysfluencies, which includedthe Rouse Fristoe Test of Articulation. Zeus's parents reported that he started to be dysfluent 6 months ago and they became concerned around 3 months ago. He is more dysfluent when he is excited or stressed. He becomes frustrated at timeswhen he is not understood. Results of the Rouse Fristoe Test of Articulation indicated age appropriate skills. His speech intelligibility was good at the word level and in conversation. Some age-typical sound patterns were observed, such as F for voiceless TH and KW for KR. Notably, Zeus had difficulty naming some pictures. For example, he said getting fish out of the water for 'fishing' and getting over the fence for 'jumping'. It is not clear if this is due to word finding difficulties, so this should be monitored. Guerdas speech was characterized by repetition of words and syllables (X3), and prolongation (3-4 seconds) in the beginning and in the middle of sentences in connected speech. Facial tension was not evident. Secondary characteristics were not observed in conversation. He maintained eye contact during speech. Rate of speech was judged to be within normal limits. Volume was judged to be within the no rmal range. Pitch and intonation were judged to be age appropriate. Breath support for speech was judged to be good. He was dysfluent during 80% of his talking during the session. He was frequently dysfluent in the beginning of sentences, especially with wh-question words (why, where). Oral motor skills were found to be below age level expectations. He maintained a closed mouth posture at rest and did not pool saliva. He imitated tongue protrusion and depression, but had difficultywith elevation and lateralization. He refused to participate when challenged by these oral motor tasks. In summary, Zeus presents with moderate dysfluency which is suspected to be developmental in nature. Mild word finding difficulties are suspected and oral motor functioning is below expectations. Short term speech therapy is recommended, followed by monitoring. Suggestions were discussed and demonstrated to the family to facilitate speech development at home.Results and recommendations were reviewed with . and Mrs. Thompson who appeared to understand and be in agreement with them. A Release of Information Form was signed and a copy of this evaluation will be sent to the family. It was a pleasure meeting with Zeus today. I am available at [phone] if questions or concerns arise. documented in this encounter Plan of Treatment Not on file documented as of this encounter Visit Diagnoses Diagnosis Dysfluency- Primary Other speech disturbance documented in this encounter
--- OUTSIDE RECORDS SUMMARY | 2024-06-15 22:56 | XMS_ITS | Summary of Care ---
Author Organization [facility] Address [address] [place] [address]- Care Team Providers Care Policy Loan Calculator Name Role Phone JOAQUÍN SIMON MD Primary Care Physician Encounter [facility]_CSN [id number] Date(s): 03/10/20 - 03/10/[address] [address]- [facility] Encounter Diagnosis Type 1 diabetes mellitus with [...]
--- OUTSIDE RECORDS SUMMARY | 2024-06-15 22:56 | XMS_ITS | Clinical Summary ---
Author Organization [facility] Address [address] [address] Care Team Providers Care Hop Worker Name Role Phone Lucas Smiley MD Primary Care Provider [phone] Social History Tobacco Use Types Packs/Day Years Used Date Smoking Tobacco: Never Assessed Sex and Gender Information Value Date Recorded Sex Assigned at Not on file Gender Identity Not on file Sexual Orientation Not on file Plan of Treatment Not on file Care Teams Hop Worker Relationship Specialty Start Date End Date Lucas Smiley MD [address] [facility] [address] [place] [address] PCP - General 10/27/21
--- OUTSIDE RECORDS SUMMARY | 2024-06-15 22:56 | XMS_ITS | Encounter Summary ---
Author Organization [facility] Address [address] [place] [address] [address] [place] [address] Care Team Providers Care Mechanical Engineering Draftsperson Name Role Phone Unavailable Primary Care Provider Unavailabl e Reason for Visit * Referral (Routine) - Closed Specialty Diagnoses / Procedures Referred By Controny t Referred To Contact Speech Pathology / Speech Therapy Diagnoses Articulation disorder articulation disorder Procedures sp Raj [facility] [address] [facility] [address]/[place] [address] Chey Alejandre Ccc-Steam Pan Sponger [address] [place] [phone] Referral ID Status Reason Start Date Expiration Date V isits Requested Visits Authorized Closed Internal Specialty Services Required 01/03/2006 09/22/2006 8 8 Encounter Details Date Type Department Care Team (Late st Contact Info) Description 03/05/2006 3:00 PM EDT Office Visit [facility] [address] [place] [phone] Chey Alejandre Ccc-Steam Pan Sponger [address] [place] [phone] DYSFLUENCY (Primary Dx) Social History Tobacco Use Types Packs/Day Years Used Date Smoking Tobacco: Never Assessed Sex and Gender Information Value Date Recorded Sex Assigned at Not on file Gender Identity Not on file Sexual Orientation Not on file documented as of this encounter Progress Notes * 03/05/2006 3:00 PM EDTINITIAL THERAPY PLAN Zeus Thompson, a 5 year 4 month old boy, was referred to speech and language therapy by his catheterization laboratory technician. Zeus received therapy one time weekly at the [facility] with Chey Alejandre MS, CCC-MACHINE OPERATOR CANE CUTTER for a total of 6 sessions within the last 2 months. He made nice progress. The following is a discussion of his goals and progress: 1. Will repeat short sentences and phrases modeled during play with slow rate and smooth speech in 9/10 trials. Progress: Zeus was able to smoothly repeat his dysfluent short phrases or sentences when given a model 75% of the time. He sometimes needed the sentence to consist of simple syntax and grammar. 2. Will use a slow rate and even pace of speech in structured tasks on the conversation level 90% of the time with minimal cueing. Progress: Zeus was able to use a slow rate with an even pace in structured tasks on the conversation level 75% of the time with minimal to moderate cueing. 3. Will use comments rather than questions to initiate conversation or to maintain conversation when appropriate in 3/5 trials. Progress: Goal met. Zeus consistently used comments or statements to initiate conversation during the session. 4. Will produce target vocabulary words when given word finding cues 90% of the time. Progress: Word finding issues were not as prevalent during the sessions, so this goal was not addressed. Word finding abilities and vocabulary will be monitored. It is recommended that Zeus be discharged from weekly individual therapy. His mother attended each session and feels that she has tools to address his fluency and language issues at home. His sister attended the sessions and communication competition was addressed. Zeus's mother has concerns about his tendency to bring up unrelated topics and to be tangential. She has some good strategies to helphim remain on topic without being dismissive of his thoughts/ideas. It was observed that Zeus continues to have some language formulation issues related to word order and awkward sentence construction. This will be monitored via re- evaluation in the fall. Zeus's mother was given information about asmer fluency group at for preschoolers and she plans to call soon. A copy of this report will be shared with the family. If there are any questions, I can be reached at [phone]. documented in this encounter Plan of Treatment Not on file documented as of this encounter Visit Diagnoses Diagnosis Dysfluency- Primary Other speech disturbance documented in this encounter
--- OUTSIDE RECORDS SUMMARY | 2024-06-15 22:56 | XMS_ITS ---
Author Organization [facility] Address [address] [place], [place] [id number] Care Team Providers Care Clinical Orthoptist Name Role Phone Nikita Valladares Unavailable [phone] REASON FOR VISIT rosario bill Encounters Encounter Location Date Provider Diagnosis [facility] [address] [place], [place] [id number] 02/11/2023 Nikita Valladares PLAN OF TREATMENT No Information Progress Notes * Zeus THOMPSONDOB:2000 ( 23 yo M)Acc No.[id number]:02/11/2023 Patient:??Zeus THOMPSON :2000?Age:22 Y?Sex:Jorge clay [address] [place], [address] * * Date:??
--- OUTSIDE RECORDS SUMMARY | 2024-06-15 22:56 | XMS_ITS | Summary of Care ---
Author Organization [facility] Address [address] [place] [address]- Care Team Providers Care Screen Operator Name Role Phone JOAQUÍN SIMON MD Primary Care Physician [phone] Encounter [facility]_CSN [id number] Date(s): 07/26/23 - 07/26/23 [facility] [address] [place] [address]- Discharge Disposition: Discharge Attending Physician: BARBARA TEIXEIRA MD Attending Physician: ALEXEI ZAZUETA MD Allergies, Adverse [...] mellitus uncontrolled 2 Confirmed Active 1Added by [facility] 2Added by [facility] Patient Care team information Personnel Name: JOAQUÍN SIMON MD Address: Address: [address] [place] [address]
--- OUTSIDE RECORDS SUMMARY | 2024-06-15 22:56 | XMS_ITS | Summary of Care ---
Author Organization [facility] Address [address] [place] [address]- Care Team Providers Care Sales And Marketing Intern Name Role Phone JOAQUÍN SIMON MD Primary Care Physician [phone] Encounter [facility]_CSN [id number] Date(s): 03/09/22 - 03/09/[address] [address]- Encounter Diagnosis Type 1 diabetes mellitus with hyperglycemia(Final) - USP (current) use of insulin(Final) - Discharge Disposition: [...]
--- OUTSIDE RECORDS SUMMARY | 2024-06-15 22:56 | XMS_ITS | Encounter Summary ---
Author Organization [facility] Address [address] [place] [address] [address] Care Team Providers Care Programming Specialist Name Role Phone Neeraj Asha Walters Primary Care Provider [phone] Poc, Not Required Pcp Or Unavailable Unavail able Reason for Visit * Reason Comments Medical Records Encounter Details Date Type Department Care Team (Late st Contact Info) Description 10/02/[address] [phone] Maritza Quintero MD [address] [place] [address] 0Medical Records Social History Tobacco Use Types Packs/Day Years Used Date Smoking Tobacco: Never Assessed Sex and Gender Information Value Date Recorded Sex Assigned at Not on file Gender Identity Not on file Sexual Orientation Not on file documented as of this encounter Miscellaneous Notes * Telephone Encounter - Pam Sage - 10/02/2023 10:34 AM EST We received a notification form ethan who is the contracted group to send medical records for [facility]. Informed us that they are unable to send the requested records due to an issue with the request that has been detected. Buck Law of the fax told him he could also bring records with him to the appointment as an option. He understands and agrees with plans. documented in this encounter Plan of Treatment Not on file documented as of this encounter Visit Diagnoses Not on filedocumented in this encounter Care Teams Programming Specialist Relationship Specialty Start Date End Date Lecker, Asha Romeo [facility] [place] [address] PCP - General Pediatrics 06/11/23 Poc, Not Required Pcp Or PCP - Payer 06/11/23 documented as of this encounter
--- OUTSIDE RECORDS SUMMARY | 2024-06-15 22:56 | XMS_ITS | Encounter Summary ---
Author Organization [facility] Address [address] [place] [address] [address] Care Team Providers Care Forming Machine Tender Name Role Phone Unavailable Primary Care Provider Unavailabl e Encounter Details Date Type Department Care Team (Late st Contact Info) Description 02/05/2006 [facility] Speech Therapy [address] [place] [phone] Chey Alejandre [facility] Operator [address] [place] [phone] Social History Tobacco Use Types Packs/Day Years Used Date Smoking Tobacco: Never Assessed Sex and Gender Information Value Date Recorded Sex Assigned at Not on file Gender Identity Not on file Sexual Orientation Not on file documented as of this encounter Progress Notes * 02/05/2006 6:28 PM EDTDAILY NOTE Fuentes and sister in session together; better behavior for both kids as they had a clearer expectation of routine of the session; 1. singing songs- Fuentes and sister, Kirstin, used slow rate and smooth speech for 3 songs; singing withthem to set pace; 2. repeat phrases- Braulio. repeated phrases in 6/8 trials with smooth speech and slow rate; Mo. reported and I observed that Fuentes starts conversation with questions- and fluency is poor with questions; had him repeat statements rather than questions in play and he repeated in 7/10 trials; Mo. reported tangential subjects; not observed today; disc. that she should try to see how it was related, but also to discourage tangential talking and have him talk about subjects related to immediate experience. Fuentes needs nebulizer treatments X2 per day; chronic cough; allergies impacting him today with itchy eyes. Plan: see in 2 weeks and then see thru February for short term treatment; Asiya Bennett will look up resource for group tx. documented in this encounter Plan of Treatment Not on file documented as of this encounter Visit Diagnoses Not on filedocumented in this encounter
--- OUTSIDE RECORDS SUMMARY | 2024-06-15 22:56 | XMS_ITS | Referral Summary ---
Author Organization [facility] Address [address] [place] [address] [place] [address] Care Team Providers Care Key Ringer Name Role Phone Asha Pickard Primary Care Provider Poc, Not Required Pcp Or Unavailable Unavail able Active Problems Problem Noted Date Diagnosed Date Dysfluency 01/03/2006 Social History Tobacco Use Types Packs/Day Years Used Date Smoking Tobacco: Never Assessed Sex and Gender Information Value Date Recorded Sex Assigned at Not on file Gender Identity Not on file Sexual Orientation Not on file Plan of Treatment Not on file Care Teams Key Ringer Relationship Specialty Start Date End Date Asha Pickard [facility] [address] [facility] [address] [place] [address] PCP - General Pediatrics 06/11/23 Poc, Not Required Pcp Or PCP - Payer 06/11/23
--- OUTSIDE RECORDS SUMMARY | 2024-06-15 22:56 | XMS_ITS | Summary of Care ---
Author Organization [facility] Address [address] [place] [address]- Care Team Providers Care Corporate Recruiter Name Role Phone JOAQUÍN SIMON MD Primary Care Physician Encounter [facility]_CSN [id number] Date(s): 07/14/20 - 07/14/[address] [address]- [facility] Encounter Diagnosis Type I diabetes mellitus uncontrolled(Discharge Diagnosis) - 07/13/20 Discharge Disposition: Discharge Attending Physician: ALEXEI ZAZUETA [...]
--- OUTSIDE RECORDS SUMMARY | 2024-06-15 22:56 | XMS_ITS | Clinical Summary ---
Author Organization [facility] Address [address] [place] [address] [address] Care Team Providers Care Auto Motor Mechanic Name Role Phone Neeraj Asha Walters Primary Care Provider [phone] Poc, Not Required Pcp Or Unavailable Unavail able Active Problems Problem Noted Date Diagnosed Date Dysfluency 01/03/2006 Social History Tobacco Use Types Packs/Day Years Used Date Smoking Tobacco: Never Assessed Sex and Gender Information Value Date Recorded Sex Assigned at Not on file Gender Identity Not on file Sexual Orientation Not on file Plan of Treatment Health Maintenance Due Date Last Done Comments HPV VACCINE (1 - Male 3-dose series) 2017 HEP B INITIAL SCREENING 2020 HEP C SCREENING 2020 HIV SCREENING 2020 HEPATITIS B VACCINE (1 of 3 - 19+ 3-dose series) 2021 PERIODIC HEALTH REVIEW 2021 LIPID SCREENING 2022 DTAP/TDAP/TD VACCINE (1 - Tdap) 2023 COVID-19 Vaccine ( - 2022-24 season) 2024 FLU SEASONAL (#1) 05/24/2024 07/24/2022, 06/03/2020, 06/23/2019, Additional history exists HAEMOPHILUS INFLUENZA VACCINE Aged Out No longer eligible based on patient's age to complete this topic HEPATITIS A VACCINE Aged Out No longe r eligible based on patient's age to complete this topic MENINGOCOCCAL VACCINE (ACWY) Aged Out No longer eligible based on patient's age to complete this topic PNEUMOCOCCAL VACCINE(S) Aged Out No l onger eligible based on patient's age to complete this topic POLIO VACCINE Aged Out No longer elig audra based on patient's age to complete this topic Care Teams Auto Motor Mechanic Relationship Specialty Start Date End Date Asha Pickard [facility] [address] [address] PCP - General Pediatrics 06/11/23 Poc, Not Required Pcp Or PCP - Payer 06/11/23
--- OUTSIDE RECORDS SUMMARY | 2024-06-15 22:56 | XMS_ITS | Summary of Care ---
Author Organization [facility] Address [address] [place] [address]- Care Team Providers Care Java Solutions Architect Name Role Phone JOAQUÍN SIMON MD Primary Care Physician [phone] Encounter [facility]CSN [id number] Date(s): 06/14/22 - 06/14/[address] [address]- Encounter Diagnosis Type I diabetes mellitus uncontrolled(Discharge Diagnosis) - 06/13/22 Attending Physician: MARBIN ROCA, ALEXEI G Referring Physician: JOAQUÍN SIMON MD Allergies, Adverse Reactions, Alerts Substance Reaction Severity Status amoxicillin Rash Active penicillins Rash Active sulfa drugs Rash Active penicillin Active Problem List Condition Effective Dates Status Health Status Inform ant Dehydration(Confirmed) Active Depression(Confirmed) Active Hyperglycemia(Confirmed) Active Long-term current use of insulin(Confirmed) 1 Resolved Palpitations(Confirmed) Active Type 1 diabetes mellitus(Confirmed) Resolved Type I diabetes mellitus uncontrolled(Confirmed) 2 Active 1Added by [facility] 2Added by C
--- OUTSIDE RECORDS SUMMARY | 2024-06-15 22:56 | XMS_ITS | Encounter Summary ---
Author Organization [facility] Address [address] [place] [address] [address] [place] [address] Care Team Providers Care Grappler Name Role Phone Unavailable Primary Care Provider Unavailabl e Reason for Visit * Referral (Routine) - Closed Specialty Diagnoses / Procedures Referred By Controny t Referred To Contact Speech Pathology / Speech Therapy Diagnoses Articulation disorder articulation disorder Procedures sp Raj Winn [facility] [address] [facility] [address]/[place] [address] Chey Alejandre Ccc-Oracle Soa Architect [address] [place] [phone] Referral ID Status Reason Start Date Expiration Date V isits Requested Visits Authorized Closed Internal Specialty Services Required 01/03/2006 09/22/2006 8 8 Encounter Details Date Type Department Care Team (Late st Contact Info) Description 02/05/2006 3:00 PM EDT Office Visit [facility] [address] [place] [phone] Chey Alejandre Ccc-Oracle Soa Architect [address] [place] [phone] DYSFLUENCY (Primary Dx); SPEECH / LANGUAGE DELAY Social History Tobacco Use Types Packs/Day Years Used Date Smoking Tobacco: Never Assessed Sex and Gender Information Value Date Recorded Sex Assigned at Not on file Gender Identity Not on file Sexual Orientation Not on file documented as of this encounter Progress Notes * 02/05/2006 3:00 PM EDTINITIAL THERAPY PLAN Zeus Jya, a 5 year 3 month old boy, was referred to speech and language therapy by his watch and clock maker and repairer. Zeus is scheduled to receive therapy one time weekly at the [facility] with Chey Alejandre MS, CCC-SENIOR TREASURY CONSULTANT for short term treatment. The following goals were identified and are being addressed as follows: 1. Will repeat short sentences and phrases modeled during play with slow rate and smooth speech in 9/10 trials. 2. Will use a slow rate, even pace of speech in structured tasks on the conversation level 90% of the time with minimal cueing. 3. Will use comments rather than questions to initiate conversation or to maintain conversation when appropriate in 3/5 trials. 4. Will produce target vocabulary words when given word finding cues 90% of the time. A copy of this therapy plan will be shared with the family. If there are any questions, I can be reached at [phone]. documented in this encounter Plan of Treatment Not on file documented as of this encounter Visit Diagnoses Diagnosis Dysfluency- Primary Other speech disturbance Speech/language delay Other developmental speech or language disorder documented in this encounter
--- OUTSIDE RECORDS SUMMARY | 2024-06-15 22:56 | XMS_ITS | Encounter Summary ---
Author Organization [facility] Address [address] [place] [address] [address] [place] [address] Care Team Providers Care Band Splicer Name Role Phone Unavailable Primary Care Provider Unavailabl e Reason for Visit * Referral (Routine) - Closed Specialty Diagnoses / Procedures Referred By Controny t Referred To Contact Speech Pathology / Speech Therapy Diagnoses Articulation disorder articulation disorder Procedures sp Raj [facility] [address] [facility] [address]/[place] [address] Chey Alejandre Ccc-Repair Cameraman [address] [place] [phone] Referral ID Status Reason Start Date Expiration Date V isits Requested Visits Authorized Closed Internal Specialty Services Required 01/03/2006 09/22/2006 8 8 Encounter Details Date Type Department Care Team (Late st Contact Info) Description 01/29/2006 3:00 PM EDT Office Visit [facility] [address] [place] [phone] Chey Alejandre Ccc-Repair Cameraman [address] [place] [phone] DYSFLUENCY (Primary Dx) Social History Tobacco Use Types Packs/Day Years Used Date Smoking Tobacco: Never Assessed Sex and Gender Information Value Date Recorded Sex Assigned at Not on file Gender Identity Not on file Sexual Orientation Not on file documented as of this encounter Progress Notes * 01/29/2006 3:00 PM EDT1st session and 4 year old sister joined the session; mo. reported hard time with communication competition between sibs; J. is slightly impulsive during play and they tend to just grab toys- fighting follows; J. was able to imitate sentences with smooth speech X5/5 trials with face to face, slow rate and pacing cues; noted grammar and word finding issues. Plan: tx plan and length of treatment decide with mother. documented in this encounter Plan of Treatment Not on file documented as of this encounter Visit Diagnoses Diagnosis Dysfluency- Primary Other speech disturbance documented in this encounter
--- OUTSIDE RECORDS SUMMARY | 2024-06-15 22:56 | XMS_ITS | Summary of Care ---
Author Organization [facility] Address [address] [place] [address]- Care Team Providers Care Adjuster Name Role Phone JOAQUÍN SIMON MD Primary Care Physician [phone] Encounter [facility]_CSN [id number] Date(s): 01/09/24 - 01/09/[address] [address]- [place] Encounter Diagnosis Type I diabetes mellitus uncontrolled(Discharge Diagnosis) - 01/08/24 Discharge Disposition: Discharge Attending Physician: ALEXEI ZAZUETA MD Referring Physician: PROVIDER , UNABLE TO VERIFY Allergies, Adverse Reactions, Alerts Substance Reaction Severity Status amoxicillin Rash Active penicillins Rash Active sulfa drugs Rash Active penicillin Active Medications No Known Medications Problem List Condition Confirmation Course Effective Dates Status H ealth Status Informant Depression Confirmed Active Hyperglycemia Confirmed Active Long-term current use of insulin 1 Confirmed Resolved Palpitations Confirmed Active Type 1 diabetes mellitus Confirmed Resolved Type I diabetes mellitus uncontrolled 2 Confirmed Active 1Added by [facility] 2Added by [facility] Patient Care team information Personnel Name: JOAQUÍN SIMON MD Address: Address: [address] [place] [id number]
--- OUTSIDE RECORDS SUMMARY | 2024-06-15 22:56 | XMS_ITS | Encounter Summary ---
Author Organization [facility] Address [address] [place] [address] [address] [place] [address] Care Team Providers Care Hr Administrator Name Role Phone Unavailable Primary Care Provider Unavailabl e Reason for Visit * Referral (Routine) - Closed Specialty Diagnoses / Procedures Referred By Jessica t Referred To Contact Speech Pathology / Speech Therapy Diagnoses Articulation disorder articulation disorder Procedures sp Raj [facility] [address] [facility] [address]/[place] [address] Chey Alejandre Ccc-Gas Booster Engineer [address] [place] [phone] Referral ID Status Reason Start Date Expiration Date V isits Requested Visits Authorized Closed Internal Specialty Services Required 01/03/2006 09/22/2006 8 8 Encounter Details Date Type Department Care Team (Late st Contact Info) Description 07/05/2006 11:00 AM EDT Office Visit [facility] [address] [place] [phone] Chey Alejandre Ccc-Gas Booster Engineer [address] [place] [phone] DYSFLUENCY (Primary Dx); ARTICULATION DISORDER / DISTURBANCE; SPEECH / LANGUAGE DELAY Social History Tobacco Use Types Packs/Day Years Used Date Smoking Tobacco: Never Assessed Sex and Gender Information Value Date Recorded Sex Assigned at Not on file Gender Identity Not on file Sexual Orientation Not on file documented as of this encounter Progress Notes * 07/05/2006 11:00 AM EDTDiagnostic therapy session with grandmother; mother just started a new job and is unable to take time off; Reviewed, discussed and demonstrated: ~slow rate of talking as a model for Zeus; ~avoid too many questions and make comments instead; ~repeat stuttered sentences with slow rate and try to have him repeat smoothly; ~tap out syllables for multi syllable words and have him repeat; ~rephrase sentence when grammar is immature and try to have him repeat; Zeus's difficulties with speech fluency may be related to delayed language development, so a speechand language evaluation via the public school was requested by the parents; Zeus's dysfluency seems to be developmental as he mainly repeats the first word of a sentences, butsome prolongation is also observed; Zeus attends a [employer] school 5 days a week from 8 t 4:30 and is having some adjustment problems; mother is now in working chief compliance officer. Plan: Family will follow up as needed after and language testing via the public school. documented in this encounter Plan of Treatment Not on file documented as of this encounter Visit Diagnoses Diagnosis Dysfluency- Primary Other speech disturbance Articulation disorder Other developmental speech or language disorder Speech/language delay Other developmental speech or language disorder documented in this encounter
--- OUTSIDE RECORDS SUMMARY | 2024-06-15 22:56 | XMS_ITS | Summary of Care ---
Author Organization [facility] Address [address] [place] [address]- Care Team Providers Care Production Sampler Name Role Phone AURORA ROCA, JOAQUÍN Hernandez Primary Care Physician Encounter [facility]_CSN [id number] Date(s): 01/24/23 - 01/23/[address] [address]- Encounter Diagnosis Type I diabetes mellitus uncontrolled(Discharge Diagnosis) - 12/26/22 Attending Physician: MARBIN ROCA, ALEXEI G Allergies, [...]
--- OUTSIDE RECORDS SUMMARY | 2024-06-15 22:56 | XMS_ITS | Encounter Summary ---
Author Organization [facility] Address [address] [place] [address] [address] [place] [address] Care Team Providers Care Foundry Superintendant Name Role Phone Unavailable Primary Care Provider Unavailabl e Reason for Visit * Referral (Routine) - Closed Specialty Diagnoses / Procedures Referred By Controny t Referred To Contact Speech Pathology / Speech Therapy Diagnoses Articulation disorder articulation disorder Procedures sp Raj Winn [facility] [address] [facility] [address]/[place] [address] Chey Alejandre Ccc-Functional Director [address] [place] [phone] Referral ID Status Reason Start Date Expiration Date V isits Requested Visits Authorized Closed Internal Specialty Services Required 01/03/2006 09/22/2006 8 8 Encounter Details Date Type Department Care Team (Late st Contact Info) Description 06/07/2006 1:00 PM EDT Office Visit [facility] [address] [place] [phone] Chey Alejandre Ccc-Functional Director [address] [place] [phone] DYSFLUENCY (Primary Dx); ORAL MOTOR DISORDER / DISTURBANCE; ARTICULATION DISORDER / DISTURBANCE Social History Tobacco Use Types Packs/Day Years Used Date Smoking Tobacco: Never Assessed Sex and Gender Information Value Date Recorded Sex Assigned at Not on file Gender Identity Not on file Sexual Orientation Not on file documented as of this encounter Progress Notes * 06/07/2006 1:00 PM EDTSPEECH RE-EVALUATION Zeus Thompson, a 5 year 7 month old boy, was seen for a speech re-evaluation upon this clinician's recommendation. His mother accompanied Zeus to this evaluation and expressed renewed concerns around dysfluency. Zeus was evaluated by this clinician in December 2005. Results indicated moderate dysfluencywhich was suspected to be developmental in nature, in addition to, mild word finding difficulties and reduced oral motor functioning. He attended 5 sessions with this clinician in January and February of 2006 and was discharged because he met his goals. Monitoring was recommended. His mother reported that he did well with fluency until mid-summer, and then he regressed. Family history is not significant for stuttering. His parents reported that his older sister was dysfluent between the ages of 3 and 3 1/2, but she outgrew it. Zeus's dysfluency seems more severe. Medical history is significant for asthma. Audiological evaluation revealed hearing to be adequate forspeech and language development. Zeus attends a [employer] preschool 5 mornings per week. He enjoys school. His teachers have not yet commented about his speech and language skills, but it is early in the school year. Today both formal and informal speech diagnostic tasks were administered to assess speech intelligibility and the presence of dysfluencies, which includedthe Rouse Fristoe Test of Articulation. Results of the Rouse Fristoe Test of Articulation indicated age appropriate skills. He is able toproduce all sounds accurately, except for D for voiced TH, which is not expected at this age. His speech intelligibility was good at the word level. In conversation, Zeus continues to be intermittently imprecise and his speech is slurred. Two incidences of dysfluency were observed, both when he was formulating questions (What and Can I). It was characterized by repetition of syllables and words(X3), and one short prolongation (3-4 seconds) in the beginning of the sentence in connected speech. Facial tension was not evident. Secondary characteristics were not observed in conversation. He maintained eye contact during speech. Rate of speech was judged to be within normal limits. Volume was judged to be within the normal range. Pitch and intonation were judged to be age appropriate. Breath support for speech was judged to be good. Oral motor skills were found to be improved. He maintained a closed mouth posture at rest and did not pool saliva. He imitated tongue protrusion, depression, and lateralization, but continues to havedifficulty with elevation. He imitated a cheek puff, lip trill and tongue click readily. Zeus was able to smoothly alternate a pucker and smile. He imitated single syllables and multisyllable with reduced clearness and uneven rate at times. Language continues to be an area of concern. His labeling of pictures during the articulation testing improved, yet his mother reported continued language formulation problems. For example, he gives short or vague answers to questions about past events. Testing is recommended. In summary, Zeus presents with mild dysfluency which is suspected to be developmental in nature. Oral motor functioning has improved, but speech motor skills continue to be reduced. Language skills are suspected to be reduced for age. It is recommended that Zeus return for one to two more visits to develop a home program for fluencyand improved speech intelligibility. It is recommended that his parents request a full speech and language evaluation from the [facility]. Results and recommendations were reviewed with Mrs. Thompson who appeared to understand and be in agreement with them. It was a pleasure seeing Zeus and his mother again today. I look forward to the follow up visits. Jonas available at [phone] if questions or concerns arise. documented in this encounter Plan of Treatment Not on file documented as of this encounter Visit Diagnoses Diagnosis Dysfluency- Primary Other speech disturbance Oral motor dysfunction Dysphagia, oral phase Articulation disorder Other developmental speech or language disorder documented in this encounter
--- OUTSIDE RECORDS SUMMARY | 2024-06-15 22:56 | XMS_ITS | Encounter Summary ---
Author Organization [facility] Address [address] [address] Care Team Providers Care Bracelet Former Name Role Phone Lucas Smiley MD Primary Care Provider [phone] Encounter Details Date Type Department Care Team (Late st Contact Info) Description 04/18/2023 Orders Only [facility] [address] [place] [phone] Asha Pickard MD [address] [place] [address] Encounter for screening for infections with a predominantly sexual mode of transmission Social History Tobacco Use Types Packs/Day Years Used Date Smoking Tobacco: Never Assessed Sex and Gender Information Value Date Recorded Sex Assigned at Not on file Gender Identity Not on file Sexual Orientation Not on file documented as of this encounter Plan of Treatment Not on file documented as of this encounter Visit Diagnoses Diagnosis Encounter for screening for infections with a predominantly sexual mode of transmission documented in this encounter Care Teams Bracelet Former Relationship Specialty Start Date End Date Lucas Smiley MD [address] [place], [place] [phone] PCP - General 10/27/21 documented as of this encounter
--- OUTSIDE RECORDS SUMMARY | 2024-06-15 22:57 | XMS_ITS | Encounter Summary ---
Author Organization [facility] Address [phone] [facility] [place] [address] Care Team Providers Care Siebel Architect Name Role Phone Ondina Hunter MD Primary Care Provider + Encounter Details Date Type Department Care Team (Late st Contact Info) Description 04/07/2023 Starteed System Generated VIRTUAL DEPARTMENT Otf De Souza MD [address] [place] [id number] Social History Tobacco Use Types Packs/Day Years Used Date Smoking Tobacco: Never Smokeless Tobacco: Never Alcohol Use Standard Drinks/Week Comments Yes 0 (1 standard drink = 0.6 oz pur e alcohol) soc Education Answer Date Recorded Are you interested in more education? Not on clinton e 01/18/2023 Are you concerned about learning? Not on file 01/18/2023 No 01/18/2023 No 01/18/2023 Digital Access Answer Date Recorded No 02/14/2023 No 02/14/2023 No 02/14/2023 Reliable internet access at home? Not on file 02/14/2023 Device with a working camera? Not on file Sex and Gender Information Value Date Recorded Sex Assigned at Male 05/03/2023 3:24 AM EDT Gender Identity Not on file Sexual Orientation Not on file documented as of this encounter Plan of Treatment Pending Results Name Type Priority Associated Diagnoses Date /Time Venous Whole Blood Profile Lab Routine 04/07/2023 12:46 PM EDT documented as of this encounter Procedures Procedure Name Priority Date/Time Associated Diagnosis Comments PHOSPHORUS Routine 04/07/2023 12:46 PM EDT MAGNESIUM Routine 04/07/2023 12:46 PM EDT BASIC METABOLIC PANEL Routine 04/07/2023 12:46 PM EDT POCT GLUCOSE Routine 04/07/2023 11:52 AM EDT POCT GLUCOSE Routine 04/07/2023 11:23 AM EDT VENOUS WHOLE BLOOD PROFILE Routine 04/07/2023 8:07 AM EDT PHOSPHORUS Routine 04/07/2023 8:07 AM EDT MAGNESIUM Routine 04/07/2023 8:07 AM EDT BASIC METABOLIC PANEL Routine 04/07/2023 8:07 AM EDT POCT GLUCOSE Routine 04/07/2023 7:33 AM EDT VENOUS WHOLE BLOOD PROFILE Routine 04/07/2023 5:00 AM EDT CBC AND DIFFERENTIAL Routine 04/07/2023 5:00 AM EDT PHOSPHORUS Routine 04/07/2023 5:00 AM EDT MAGNESIUM Routine 04/07/2023 5:00 AM EDT BASIC METABOLIC PANEL Routine 04/07/2023 5:00 AM EDT PHOSPHOROUS Routine 04/07/2023 1:00 AM EDT VENOUS WHOLE BLOOD PROFILE Routine 04/07/2023 1:00 AM EDT PHOSPHORUS Routine 04/07/2023 1:00 AM EDT MAGNESIUM Routine 04/07/2023 1:00 AM EDT MAGNESIUM Routine 04/07/2023 1:00 AM EDT BASIC METABOLIC PANEL Routine 04/07/2023 1:00 AM EDT BASIC METABOLIC PANEL Routine 04/07/2023 1:00 AM EDT POCT GLUCOSE Routine 04/07/2023 12:01 AM EDT documented in this encounter Results * Magnesium (04/07/2023 12:46 PM EDT) Magnesium 1.6 1.6 - 2.6 mg/dL [facility] 04/07/2023 12:4 6 PM EDT 04/07/2023 1:03 PM EDT Otf De Souza MD LAB BLOOD ORDERABLES Performing Organization Address City/[facility]/ZIP Co de Phone Number [place] [address] [place] [address] * Phosphorus (04/07/2023 12:46 PM EDT) Phosphorous 3.3 2.4 - 5.1 mg/dL [facility] 04/07/2023 12:4 6 PM EDT 04/07/2023 1:03 PM EDT Otf De Souza MD LAB BLOOD ORDERABLES [facility] [address] [place] [address] * (ABNORMAL) Basic metabolic panel (04/07/2023 12:46 PM EDT) Sodium 137 135 - 145 mEq/L [facility] Potassium 4.1 3.5 - 5.5 mEq/L [facility] Chloride 104 99 - 113 mEq/L [facility] Carbon Dioxide 25 20.0 - 31.0 mEq/L [facility] Anion Gap 8 5 - 15 mEq/L [facility] Comment:PLEASE NOTE: NEW REF ERENCE RANGE Glucose 314(H) 70 - 99 mg/dL [facility] Comment: PLEASE NOTE: NEW REFERENCE RANGE Adult, Fasting Non-diabetic Reference Range Blood Urea Nitrogen 12 9 - 23 mg/dL [facility] Creatinine 1.07 0.70 - 1.30 mg/dL [facility] Comment:PLEASE NOTE: NEW REF ERENCE RANGE GFR Estimated (Calc) 102 >90 [facility] Comment: Reference: ?? > 90 ml/min/1.73 m2 ??Normal 60 -89 ml/min/1.73 m2 ??Indeterminate, relevance is ?multifactorial 16 -59 ml/min/1.73 m2 ??Suggest Kidney Disease ?? < 15 ml/min/1.73 m2 ??Suggest Kidney Failure Calcium 9.1 8.7 - 10.4 mg/dL [facility] Comment:PLEASE NOTE: NEW REF ERENCE RANGE 04/07/2023 12:4 6 PM EDT 04/07/2023 1:03 PM EDT Otf De Souza MD LAB BLOOD ORDERABLES Performing Organization Address [facility] Co de Phone Number [address] [address] * (ABNORMAL) POCT Glucose (04/07/2023 11:52 AM EDT) Glucose For POCT 264(H) 70 - 100 mg/dL [facility] 04/07/2023 11:5 2 AM EDT 04/07/2023 11:58 AM EDT Otf De Souza MD POINT OF CARE TEST O RDERABLES Performing Organization Address [facility] Co de Phone Number [facility] [address] [place] [address] * (ABNORMAL) POCT Glucose (04/07/2023 11:23 AM EDT) [facility] Glucose For POCT 246(H) 70 - 100 mg/dL [facility] 04/07/2023 11:2 3 AM EDT 04/07/2023 12:00 PM EDT Otf De Souza MD POINT OF CARE TEST O RDERABLES Performing Organization Address [facility] Co de Phone Number [facility] [address] [place] [address] * Magnesium (04/07/2023 8:07 AM EDT) [facility] Magnesium 1.7 1.6 - 2.6 mg/dL [facility] 04/07/2023 8:07 AM EDT 04/07/2023 8:22 AM EDT Otf De Souza MD LAB BLOOD ORDERABLES Performing Organization Address [facility] Co de Phone Number [facility] [address] [place] [address] * Phosphorus (04/07/2023 8:07 AM EDT) [facility] Phosphorous 3.2 2.4 - 5.1 mg/dL [facility] 04/07/2023 8:07 AM EDT 04/07/2023 8:22 AM EDT Otf De Souza MD LAB BLOOD ORDERABLES Performing Organization Address [facility] Co de Phone Number [address] [address] * (ABNORMAL) Basic metabolic panel (04/07/2023 8:07 AM EDT) [facility] Sodium 138 135 - 145 mEq/L [facility] Potassium 4.0 3.5 - 5.5 mEq/L [facility] Chloride 105 99 - 113 mEq/L [facility] Carbon Dioxide 25 20.0 - 31.0 mEq/L [facility] Anion Gap 8 5 - 15 mEq/L [facility] Comment:PLEASE NOTE: NEW REF ERENCE RANGE Glucose 244(H) 70 - 99 mg/dL [facility] Comment: PLEASE NOTE: NEW REFERENCE RANGE Adult, Fasting Non-diabetic Reference Range Blood Urea Nitrogen 12 9 - 23 mg/dL [facility] Creatinine 0.95 0.70 - 1.30 mg/dL [facility] Comment:PLEASE NOTE: NEW REF ERENCE RANGE GFR Estimated (Calc) 118 >90 [facility] Comment: Reference: ?? > 90 ml/min/1.73 m2 ??Normal 60 -89 ml/min/1.73 m2 ??Indeterminate, relevance is ?multifactorial 16 -59 ml/min/1.73 m2 ??Suggest Kidney Disease ?? < 15 ml/min/1.73 m2 ??Suggest Kidney Failure Calcium 9.0 8.7 - 10.4 mg/dL [facility] Comment:PLEASE NOTE: NEW REF ERENCE RANGE 04/07/2023 8:07 AM EDT 04/07/2023 8:22 AM EDT Otf De Souza MD LAB BLOOD ORDERABLES [facility] [address] [place] [address] * (ABNORMAL) Venous Whole Blood Profile (04/07/2023 8:07 AM EDT) Venous Blood Gas pH 7.40 7.32 - 7.42 [facility] Venous Bl Gas PCO2 35(L) 40 - 50 mmHg [facility] Venous Blood Gas PO2 46 30 - 50 mmHg [facility] Venous O2 % Saturation 86(H) 60 - 85 % [facility] Venous Oxyhemoglobin 85 61 - 85 % [facility] Venous Carboxyhemoglobin 1.8(H) 0.0 - 1.5 [facility] Venous Methemoglobin 0.1 0 - 1.5 % [facility] Blood Gas Sodium 137 135 - 148 mmol/L [facility] Blood Gas Potassium 4.0 3.5 - 5.3 mmol/L [facility] Blood Gas Chloride 103 98 - 106 mmol/L [facility] Blood Gas Total Hemoglobin 13.3(L) 14.0 - 16.4 g/dL [facility] Hematocrit, Blood Gas 39 39 - 55 % [facility] Venous Blood Gas Bicarbonate 21.4 mmol/L [facility] Venous Base Excess -2.7 mmol/L E [facility] Venous O2 Content 15.8 % vol EM [facility] Patient Temp 37.0 CELSIUS [facility] Barometric Pressure 760 mmHg [facility] Ionized Calcium(Venous) 1.18 1.13 - 1.32 mmol/L [facility] 04/07/2023 8:07 AM EDT 04/07/2023 8:18 AM EDT Otf De Souza MD LAB BLOOD ORDERABLES [facility] [address] [place] [address] * (ABNORMAL) POCT Glucose (04/07/2023 7:33 AM EDT) Glucose For POCT 221(H) 70 - 100 mg/dL [facility] 04/07/2023 7:33 AM EDT 04/07/2023 7:49 AM EDT Otf De Souza MD POINT OF CARE TEST O RDERABLES [facility] [address] [place] [address] * (ABNORMAL) CBC and differential (04/07/2023 5:00 AM EDT) WBC 11.0 4.5 - 11.0 10*3/mm3 [facility] RBC 4.63 4.50 - 5.90 10*6/mm3 [facility] Hemoglobin 13.3(L) 13.5 - 17.5 g/dL [facility] Hematocrit 38.4(L) 41.0 - 53.0 % [facility] Platelet 281 150 - 450 10*3/mm3 [facility] % Neutrophils 69.2(H) 40 - 62 % [facility] % Lymphocytes 24.7(L) 27 - 40 % [facility] % Monocytes 5.0 0 - 11 % [facility] % Eosinophils 0.5 0 - 6 % [facility] % Basophils 0.3 0 - 3 % [facility] % Immature Granulocytes 0.3 0 - 5 % [facility] Abs Neutrophils 7.6 1.8 - 8.1 10*3/mm3 [facility] Abs Lymph Count 2.7 1.2 - 5.2 10*3/mm3 [facility] Abs Monocytes 0.6 0.0 - 0.8 10*3/mm3 [facility] Abs Eosinophils 0.1 0 - 0.5 10*3/mm3 [facility] Abs Basophils 0.0 0 - 0.3 10*3/mm3 [facility] Abs Immature Granulocytes 0.0 0 - 0.5 10*3/mm3 [facility] MCV 82.9 80.0 - 99.0 fL [facility] MCH 28.7 26.0 - 34.0 pg [facility] MCHC 34.6 31.0 - 35.5 g/dL [facility] RDW 11.9 11.5 - 14.5 % [facility] MPV 9.5 9.4 - 12.4 fL [facility] % Nucleated RBC 0 0 % [facility] Abs Nucleated RBC 0.0 0 10*3/mm3 [facility] 04/07/2023 5:00 AM EDT 04/07/2023 5:17 AM EDT Unknown Unknown LAB BLOOD ORDERABLES [address] [address] * Magnesium (04/07/2023 5:00 AM EDT) Magnesium 1.8 1.6 - 2.6 mg/dL [facility] 04/07/2023 5:00 AM EDT 04/07/2023 5:17 AM EDT Otf De Souza MD LAB BLOOD ORDERABLES [address] [address] * Phosphorus (04/07/2023 5:00 AM EDT) Phosphorous 3.5 2.4 - 5.1 mg/dL [facility] 04/07/2023 5:00 AM EDT 04/07/2023 5:17 AM EDT Otf De Souza MD LAB BLOOD ORDERABLES [facility] [address] [facility] [place] [address] * (ABNORMAL) Basic metabolic panel (04/07/2023 5:00 AM EDT) [facility] Sodium 137 135 - 145 mEq/L [facility] Potassium 3.8 3.5 - 5.5 mEq/L [facility] Chloride 105 99 - 113 mEq/L [facility] Carbon Dioxide 24 20.0 - 31.0 mEq/L [facility] Anion Gap 8 5 - 15 mEq/L [facility] Comment:PLEASE NOTE: NEW REF ERENCE RANGE Glucose 297(H) 70 - 99 mg/dL [facility] Comment: PLEASE NOTE: NEW REFERENCE RANGE Adult, Fasting Non-diabetic Reference Range Blood Urea Nitrogen 14 9 - 23 mg/dL [facility] Creatinine 0.99 0.70 - 1.30 mg/dL [facility] Comment:PLEASE NOTE: NEW REF ERENCE RANGE GFR Estimated (Calc) 112 >90 [facility] Comment: Reference: ?? > 90 ml/min/1.73 m2 ??Normal 60 -89 ml/min/1.73 m2 ??Indeterminate, relevance is ?multifactorial 16 -59 ml/min/1.73 m2 ??Suggest Kidney Disease ?? < 15 ml/min/1.73 m2 ??Suggest Kidney Failure Calcium 8.8 8.7 - 10.4 mg/dL [facility] Comment:PLEASE NOTE: NEW REF ERENCE RANGE 04/07/2023 5:00 AM EDT 04/07/2023 5:17 AM EDT Otf De Souza MD LAB BLOOD ORDERABLES [facility] [address] [place] [address] * (ABNORMAL) Venous Whole Blood Profile (04/07/2023 5:00 AM EDT) Venous Blood Gas pH 7.33 7.32 - 7.42 [facility] Venous Bl Gas PCO2 37(L) 40 - 50 mmHg [facility] Venous Blood Gas PO2 56(H) 30 - 50 mmHg [facility] Venous O2 % Saturation 90(H) 60 - 85 % [facility] Venous Oxyhemoglobin 88(H) 61 - 85 % [facility] Venous Carboxyhemoglobin 1.7(H) 0.0 - 1.5 [facility] Venous Methemoglobin 0.0 0 - 1.5 % [facility] Blood Gas Sodium 137 135 - 148 mmol/L [facility] Blood Gas Potassium 3.9 3.5 - 5.3 mmol/L [facility] Blood Gas Chloride 102 98 - 106 mmol/L [facility] Blood Gas Total Hemoglobin 13.1(L) 14.0 - 16.4 g/dL [facility] Hematocrit, Blood Gas 39 39 - 55 % [facility] Venous Blood Gas Bicarbonate 19.1 mmol/L [facility] Venous Base Excess -6.3 mmol/L E [facility] Venous O2 Content 16.2 % vol EM [facility] Patient Temp 37.0 CELSIUS [facility] Barometric Pressure 760 mmHg [facility] Ionized Calcium(Venous) 1.21 1.13 - 1.32 mmol/L [facility] 04/07/2023 5:00 AM EDT 04/07/2023 5:17 AM EDT Otf De Souza MD LAB BLOOD ORDERABLES [facility] [address] [place] [address] * Magnesium (04/07/2023 1:00 AM EDT) Magnesium 2.0 1.5 - 2.5 mg/dL [facility] 04/07/2023 1:00 AM EDT 04/07/2023 1:10 AM EDT Otf De Souza MD LAB BLOOD ORDERABLES Performing Organization Address City/[facility]/ZIP Co de Phone Number [facility] [address] [place] [address] * Phosphorous (04/07/2023 1:00 AM EDT) Phosphorous 2.7 2.4 - 5.1 mg/dL [facility] 04/07/2023 1:00 AM EDT 04/07/2023 1:10 AM EDT Otf De Souza MD LAB BLOOD ORDERABLES Performing Organization Address [facility] Co al Phone Number [facility] [address] [place] [address] * (ABNORMAL) Basic metabolic panel (04/07/2023 1:00 AM EDT) Sodium 138 135 - 145 mEq/L [facility] Potassium 4.2 3.5 - 5.5 mEq/L [facility] Chloride 102 99 - 113 mEq/L [facility] Carbon Dioxide 20(L) 22 - 34 mEq/L [facility] Anion Gap 16(H) 2 - 13 mEq/L [facility] Glucose 328(H) 70 - 100 mg/dL [facility] Comment:Adult, Fasting Non-d iabetic Reference Range Blood Urea Nitrogen 20 9 - 23 mg/dL [facility] Creatinine 1.0 0.5 - 1.3 mg/dL [facility] GFR Estimated (Calc) 111 >90 [facility] Comment: Reference: ?? > 90 ml/min/1.73 m2 ??Normal 60 -89 ml/min/1.73 m2 ??Indeterminate, relevance is ?multifactorial 16 -59 ml/min/1.73 m2 ??Suggest Kidney Disease ?? < 15 ml/min/1.73 m2 ??Suggest Kidney Failure Calcium 8.6 8.3 - 10.6 mg/dL [facility] 04/07/2023 1:00 AM EDT 04/07/2023 1:10 AM EDT Otf De Souza MD LAB BLOOD ORDERABLES Performing Organization Address [facility]/ZIP Co de Phone Number [facility] [address] [place] [address] * Magnesium (04/07/2023 1:00 AM EDT) 04/07/2023 1:00 AM EDT 04/07/2023 1:10 AM EDT Narrative [facility] - 04/07/2023 2:18 AM EDT DT Otf De Souza MD LAB BLOOD ORDERABLES Performing Organization Address [facility]/ZIP Co de Phone Number [facility] [address] [place] [address] * Phosphorus (04/07/2023 1:00 AM EDT) 04/07/2023 1:00 AM EDT 04/07/2023 1:10 AM EDT Narrative [facility] - 04/07/2023 2:18 AM EDT DT Otf De Souza MD LAB BLOOD ORDERABLES Performing Organization Address [facility]/ZIP Co de Phone Number [facility] [address] [place] [address] * Basic metabolic panel (04/07/2023 1:00 AM EDT) 04/07/2023 1:00 AM EDT 04/07/2023 1:10 AM EDT [facility] - 04/07/2023 2:18 AM EDT DT Otf De Souza MD LAB BLOOD ORDERABLES Performing Organization Address [facility]/ZIP Co de Phone Number [facility] [address] [place] [address] * (ABNORMAL) Venous Whole Blood Profile (04/07/2023 1:00 AM EDT) Venous Blood Gas pH 7.35 7.32 - 7.42 [facility] Venous Bl Gas PCO2 34(L) 40 - 50 mmHg [facility] Venous Blood Gas PO2 50 30 - 50 mmHg [facility] Venous O2 % Saturation 88(H) 60 - 85 % [facility] Venous Oxyhemoglobin 86(H) 61 - 85 % [facility] Venous Carboxyhemoglobin 1.6(H) 0.0 - 1.5 [facility] Venous Methemoglobin 0.3 0 - 1.5 % [facility] Blood Gas Sodium 137 135 - 148 mmol/L [facility] Blood Gas Potassium 4.2 3.5 - 5.3 mmol/L [facility] Blood Gas Chloride 103 98 - 106 mmol/L [facility] Blood Gas Total Hemoglobin 13.0(L) 14.0 - 16.4 g/dL [facility] Hematocrit, Blood Gas 38(L) 39 - 55 % [facility] Venous Blood Gas Bicarbonate 18.6 mmol/L [facility] Venous Base Excess -6.2 mmol/L E [facility] Venous O2 Content 15.7 % vol EM [facility] Patient Temp 37.0 CELSIUS [facility] Barometric Pressure 760 mmHg [facility] Ionized Calcium(Venous) 1.21 1.13 - 1.32 mmol/L [facility] 04/07/2023 1:00 AM EDT 04/07/2023 1:18 AM EDT Otf De Souza MD LAB BLOOD ORDERABLES Performing Organization Address City/[facility]/ZIP Co de Phone Number [address] [address] * (ABNORMAL) POCT Glucose (04/07/2023 12:01 AM EDT) Glucose For POCT 323(H) 70 - 100 mg/dL [facility] 04/07/2023 12:0 1 AM EDT 04/07/2023 12:08 AM EDT Otf De Souza MD POINT OF CARE TEST O RDERABLES Performing Organization Address City/[facility]/ZIP Co de Phone Number [address] [place] [address] documented in this encounter Visit Diagnoses Not on filedocumented in this encounter Care Teams Siebel Architect Relationship Specialty Start Date End Date Ondina Hunter MD PCP - General Pediatrics 02/15/23 documented as of this encounter Additional Source Comments The information contained in this document represents components of the legal health record. It is not the complete legal health record.[facility]
--- OUTSIDE RECORDS SUMMARY | 2024-06-15 22:57 | XMS_ITS | Encounter Summary ---
Author Organization [facility] Address [phone] [place] [id number] Care Team Providers Care Floor Trader Name Role Phone Ondina Hunter MD Primary Care Provider + Encounter Details Date Type Department Care Team (Late st Contact Info) Description 05/13/2023 1:00 PM EDT Follow-Up [facility] [address] [place] [address] Cindy Angel MD 6 [facility] [address] [place] [id number] [email or web address] Diabetic peripheral neuropathy (Primary Dx) Social History Tobacco Use Types [...] with a working camera? Not on file 05 / Sex and Gender Information Value Date Recorded Sex Assigned at Male 05/03/2023 3:24 AM EDT Gender Identity Not on file Sexual Orientation Not on file documented as of this encounter Last Filed Vital Signs Vital Sign Reading Time Taken Comments Blood Pressure 125/82 05/13/2023 1:01 PM EDT Pulse 105 05/13/2023 1:01 PM EDT Temperature - - Respiratory Rate - - Oxygen Saturation 96% 05/13/2023 1:01 PM EDT Inhaled Oxygen Concentration - - Weight 61.7 kg (136 lb) 05/13/2023 1:01 PM EDT Height - - Body Mass Index 19.51 02/19/2023 8:21 AM EDT documented in this encounter Progress Notes * Cindy Angel MD - 05/13/2023 1:00 PM EDT NEUROLOGY CLINIC NOTE Clinic Visit Date: 05/13/2023 Patient Information: Zeus Thompson / [id number] / 2000 ? Chief Complaint: Neuropathy Summary of Prior Visits: Symptoms started around Sep, 2022, worse in the past four months. Burning, tingling and numbness inbilateral bottom and top of his feet, does not extend above the calves. Of note, patient have frequent admission for DKA and was recently discharged from hospital for DKA in setting of running out ofinsulin. As he started to try to control his DM, he have noticed weakness in his feet. No falls. Denied alcohol use, does use vape. Was prescribed gabapentin 200mg BID, which hasn't helped much. Interval History: Per prior phone notes, patient was started on nortriptyline and gabapentin was (self-increased by patient) to 600/300/600mg. Gabapentin was last increased to 600mg TID on 04/26/23. Patient was seen in ED 05/03 for intoxication with alcohol, elevated BS (300s). Patient stopped nortriptyline due to side effects. Neuropathy well controlled on gabapentin 600mg TID. Did not get labs done that was previously ordered. Review of Systems: Pertinent items are noted in HPI. Negative ROS otherwise. Past History:? ? Past Medical History: Diagnosis Date ??? Asthma ??? Diabetes mellitus ? No past surgical history on file. No family history on file. Social History Socioeconomic History ??? Marital status: Single Spouse name: Not on file ??? Number of children: Not on file ??? Years of education: Not on file ??? Highest education level: Not on file Occupational History ??? Not on file Tobacco Use ??? Smoking status: Never ??? Smokeless tobacco: Never Substance and Sexual Activity ??? Alcohol use: Yes Comment: soc ??? Drug use: Not on file Comment: NO ??? Sexual activity: Not on file Other Topics Concern ??? Not on file Social History Narrative ??? Not on file Medications:? No outpatient medications have been marked as taking for the 05/13/23 encounter (Appointment) with Cindy Angel MD. Allergies: Allergies Allergen Reactions ??? Penicillins Rash ??? Sulfa (Sulfonamide Antibiotics) Rash Examination: Vital signs: There were no vitals taken for this visit. Neurologic Exam: MENTAL STATUS: Fully alert and oriented and appropriately interactive. Speech fluent without paraphasic errors. Followed simple and complex commands without difficulty. Concentration, attention and memory were intact. CRANIAL NERVES II-XII: Visual rivas full to confrontation in each eye individually. Pupils equal and reactive to light. No ptosis. Extraocular movements intact without nystagmus or saccadic intrusion. Light-touch normal on face bilaterally. Face symmetric with normal forehead wrinkle, blink, smile and cheek puff. Hearing grossly normal to voice bilaterally. Palate elevates symmetrically. Tongue midline with protrusion. No dysarthria. Shoulder shrugs normal bilaterally. MOTOR: Normal bulk and tone, without bradykinesia, fasciculations, myoclonus or tremor. No pronatordrift or orbiting. Strength 5/5 throughout bilateral upper and lower extremities, with exception ofdorsal flexion of bilateral great toes which was 3/5. SENSATION: Diffusely intact to light touch. No extinction.? Moderately decreased to VB in bilateral toes, mildin ankles and knees. REFLEXES: Deep tendon reflexes normal and symmetric bilaterally at the triceps, biceps, brachioradialis, quadriceps and gastrocnemius/soleus. CEREBELLAR: Rapid alternating movements normal. No truncal ataxia.? GAIT/STANCE: Normal stance and stride. ? Data: Reviewed labs Impression: ?22 y.o. male with a history of T1DM (A1C 9.5) who presents for follow-up of neuropathy. Neuropathy likely secondary to DM, and this was discussed in detail with patient (patient declinedto obtain labs to rule out other potential etiology). Will continue with gabapentin 600mg TID givenadequate response. Cautioned him on risk of worsening neuropathy from concurrent alcohol use. - Continue gabapentin 600mg TID, patient declined refills at this time - RTC in 6-8 months I spent 34 minutes in reviewing medical records, labs and all available studies, seeing and counseling the patient and documenting in the medical record. Cindy Angel MD [facility] documented in this encounter Plan of Treatment Not on file documented as of this encounter Visit Diagnoses Diagnosis Diabetic peripheral neuropathy- Primary Type II or unspecified type diabetes mellitus with neurological manifestations, not stated as uncontrolled documented in this encounter Care Teams Floor Trader Relationship Specialty Start Date End Date Ondina Hunter MD PCP - General Pediatrics 02/15/23 documented as of this encounter Additional Source Comments The information contained in this document represents components of the legal health record. It is not the complete legal health record.[facility]
--- OUTSIDE RECORDS SUMMARY | 2024-06-15 22:57 | XMS_ITS | Encounter Summary ---
Author Organization [facility] Address [phone] Critical access hospital [employer] [place] [address] Care Team Providers Care Integrated Marketing Manager Name Role Phone Ondina Hunter MD Primary Care Provider + Reason for Visit * Reason Comments Alcohol Intoxication Encounter Details Date Type Department Care Team (Late st Contact Info) Description 05/03/2023 3:06 AM EDT - 05/03/2023 8:33 AM EDT Emergency [facility] [address] [place] [address] Pritesh Kim MD [address] [place] [address] Karishma Warner MD [address] [place] [address] [email or web address] Discharge Disposition: Home or Self Care Social History Tobacco Use Types Packs/Day Years [...] Sign Reading Time Taken Comments Blood Pressure 124/75 05/03/2023 7:30 AM EDT Pulse 96 05/03/2023 7:30 AM EDT Temperature 36.1 ??C (96.9 ??F) 05/03/2023 3:12 AM ED T Respiratory Rate 16 05/03/2023 7:00 AM EDT Oxygen Saturation 99% 05/03/2023 7:30 AM EDT Inhaled Oxygen Concentration - - Weight - - Height - - Body Mass Index - - documented in this encounter Discharge Instructions * Discharge Instructions* Karishma Warner MD - 05/03/2023 6:35 AM EDT Your Instructions For Alcohol Intoxication: Your well-being is very important to us and it is very important to us that you understand your plan. If anything in these instructions is not clear, you should ask your medical team right away. What is my diagnosis or problem? You have been diagnosed with alcohol intoxication. Based on the testing and physical exam performedhere today, there do not appear to be any complications at this time. We are generally concerned anytime someone ends up being evaluated in a healthcare facility on account of alcohol use and you should consider that you may have a problem with alcohol use. Using too much alcohol can be dangerous in both the short and shelter and we recommend that you discuss this with your doctor. What do I do next? You should take any medications as instructed and be seen in clinic as instructed by the physician and nursing staff. Often more than one doctor visit is necessary to fully check out a problem such as possible alcohol addiction and abuse. Your Follow Up Plan: Call your doctor to make an appointment in 1-2 days as needed. Be certain to mention that you were evaluated here today and that this appointment was recommended.Often clinics will have ???overbook?? appointments to be certain patients get good follow up on emergency department and urgent care visits. When should I be worried and call or return? You should call or return right away if you develop new symptoms or worsening symptoms. It is also reasonable to call your doctor or nurse line for any reason or concern. If you have worsening vomiting, cough, fever, or other problems you need to be checked again by medical personnel. Often it can take time for alcohol intoxication or drunkenness to improve, but generally it should if there are no complications. When in doubt, you should seek medical attention. * Attachments The following attachments cannot be sent through Care Everywhere. * Alcohol Intoxication: Acute (Bengali) documented in this encounter Medications at Time of Discharge Medication Sig Dispensed Refills Start Date End Date albuterol 90 mcg/actuation inhaler Inhale 2 puffs into the lungs every 6 (six) hours as needed. cetirizine (ZYRTEC) 10 MG tablet ZYRTEC ALLERGY 10 MG TABS DEXCOM G7 SENSOR Kelsie REPLACE SENSOR EVERY 10 DAYS FOR CONTINUOUS GLUCOSE MONITORING. [facility] [id number] 02/03/2023 insulin lispro (ADMELOG, HUMALOG) 100 unit/mL injection vial Inject under the skin. levoFLOXacin (LEVAQUIN) 750 MG tablet 04/07/2023 TRESIBA FLEXTOUCH U-100 injection pen 02/11/2023 gabapentin (NEURONTIN) 600 MG tablet Take 1 tablet (600 mg total) by mouth 3 (three) times a day. 90 tablet 3 04/26/2023 05/31/2023 nortriptyline (PAMELOR) 10 MG capsuleIndications:Here ditary and idiopathic peripheral neuropathy,Diabetic polyneuropathy associated with diabetes mellitus due to underlying condition Take 1 capsule (10 mg total) by mouth nightly at bedtime. 30 capsule 1 04/15/2023 05/31/2023 documented as of this encounter ED Notes * Pritesh Kim MD - 05/03/2023 4:59 AM EDT Chief Complaint Patient presents with ??? Alcohol Intoxication Zeus Thompson is a 22 y.o. male history of type 1 diabetes presents with concerns for alcohol intoxication. Reportedly drink between 6-7 beers tonight. EMS was called vomiting x 1 for EMS. No reports of trauma. Physical Exam: Patient Vitals for the past 24 hrs: BP Temp Temp src Pulse Resp SpO2 05/03/23 0445 (!) 137/92 -- -- 86 -- 100 % 05/03/23 0401 131/81 -- -- 86 -- 100 % 05/03/23 0330 123/71 -- -- 82 -- 100 % 05/03/23 0312 122/69 36.1 ??C (96.9 ??F) Axillary 86 20 100 % On exam, vitals are stable. Appears intoxicated. No head trauma no midline C- spine tenderness. Clear lungs regular rate and rhythm benign abdomen. Arouses to verbal stimuli moves all extremities. MDM/Course: 22-year-old male presents with alcohol intoxication. He is hemodynamically stable. He appears intoxicated arouses to voice no focal neurological deficits no signs of trauma. On my review EKG shows sinus rhythm rate 84 CT interval 168 QRS 104 QTc 486 likely J-point elevation otherwise no acute ischemic changes Results for orders placed or performed during the hospital encounter of 05/03/23 CBC and differential Specimen: Blood Result Value Ref Range WBC 9.60 4.0 - 11.0 K/uL RBC 5.53 4.32 - 5.72 M/uL HGB 15.7 13.5 - 17.5 g/dL HCT 43.6 38 - 50 % PLT 277 135 - 400 K/uL MCV 78.8 (L) 80 - 100 fL MCH 28.4 27 - 34 pg MCHC 36.0 31.5 - 36.5 g/dL RDW 12.2 11.9 - 14.8 % MPV 9.7 9.7 - 11.9 fl NRBC 0.00 0 /100 WBCs DIFF METHOD Manual NEUTS 37.2 % LYMPHS 46.0 % MONOS 7.1 % EOS 2.6 % BASOS 0.0 % REACTIVE LYMPHS 7.1 (H) 0 % ABSOLUTE NEUTS 3.57 1.8 - 8 K/uL ABSOLUTE LYMPHS 5.10 1.5 - 6.5 K/uL ABSOLUTE MONOS 0.68 0.1 - 0.9 K/uL ABSOLUTE EOS 0.25 0 - 0.4 K/uL ABSOLUTE BASOS 0.00 0 - 0.2 K/uL ANISO 1+ (*) None MICROCYTES 1+ (*) None OVALOCYTES 1+ (*) None LG PLATELETS PRESENT (*) None Basic metabolic panel Specimen: Blood Result Value Ref Range SODIUM 135 (L) 136 - 145 mmol/L CHLORIDE 98 95 - 106 mmol/L POTASSIUM 3.0 (L) 3.5 - 5.2 mmol/L CO2 18 (L) 20 - 31 mmol/L BUN 9 9 - 23 mg/dL CREATININE 0.57 0.50 - 1.30 mg/dL GLUCOSE 380 (H) 74 - 106 mg/dL CALCIUM 9.1 8.7 - 10.4 mg/dL EGFR >120 >60 mL/min/1.73m2 ANION GAP 19 (H) 3 - 17 mmol/L LFTs (hepatic panel) Specimen: Blood Result Value Ref Range ALBUMIN 4.8 3.5 - 4.8 g/dL TOTAL BILIRUBIN 0.3 0.0 - 1.0 mg/dL DIRECT BILIRUBIN <0.2 0 - 0.4 mg/dL ALKALINE PHOSPHATASE 80 27 - 129 U/L AST 12 6 - 40 U/L ALT 14 10 - 49 U/L TOTAL PROTEIN 7.4 5.7 - 8.2 g/dL GLOBULIN 2.6 1.9 - 4.1 g/dL Magnesium Specimen: Blood Result Value Ref Range MAGNESIUM 1.9 1.3 - 2.7 mg/dL Phosphorus Specimen: Blood Result Value Ref Range PHOSPHORUS 4.0 2.7 - 4.5 mg/dL Lipase Specimen: Blood Result Value Ref Range LIPASE 25 6 - 51 U/L Ketone bodies, serum Specimen: Blood Result Value Ref Range BETA HYDROXYBUTYRATE 0.7 (H) <0.3 mmol/L Venous blood gas Result Value Ref Range PH (UNCORRECTED) 7.25 (L) 7.35 - 7.45 PCO2 (UNCORRECTED) 42 41 - 55 mm[Hg] PO2 (UNCORRECTED) 47 42 - 54 mm[Hg] FRACT INSPIRED OXY UNSPEC. OXYGEN LITERS/MIN UNSPEC. SO2, venous 71 70 - 80 % BASE DEFICIT VENOUS 8.5 mmol/L Osmolality, serum Specimen: Blood Result Value Ref Range OSMOLALITY 340 (HH) 270 - 300 mOsm/kg water Ethanol, blood Specimen: Blood Result Value Ref Range ETHANOL 154 (H) <10 mg/dL POCT Glucose Result Value Ref Range Glucose 339 (*) 70 - 100 mg/dL POCT Glucose Result Value Ref Range Glucose, POCT 339 (H) 70 - 100 mg/dL No orders to display ED Medication from 05/03/2023 0259 to 05/03/2023 0459 Date/Time Order Dose Route Action Action by Comments 05/03/2023 0415 EDT lactated ringers IV Bolus 1,000 mL 1,000 mL Intravenous New Rick Sifuentes RN -- 05/03/2023 0404 EDT lactated ringers IV Bolus 1,000 mL 1,000 mL Intravenous New Bag Rick Bañuelos RN -- 05/03/2023 041 EDT potassium chloride in water (KCL) 10 mEq/100 mL IVPB premix 10 mEq Intravenous New Rick Sifuentes RN -- New Prescriptions No medications on file ED Course as of 05/05/23712May 03, 2023456 Patient's mental status improving. He is responsive to verbal stimuli and can follow commands.Denies recent trauma. No pain or nausea currently. [BP] 0618 Repeat BMP after fluids improved bicarb now normal anion gap 15. Glucose 239. [DH] ED Course User Index [BP] Johnson Collins PA-C [DH] Pritesh Kim MD Clinical Impressions as of 05/05/23712 Acute alcoholic intoxication with delirium Hyperglycemia No consults were ordered Final diagnoses: None Glucose remains elevated however anion gap closed bicarb normal after IV fluids doubt DKA. Hyperglycemia likely in the setting of alcohol consumption. No evidence of trauma on exam. At change of shift patient care transition to Dr. Warner dispo pending sober-reval, anticipate discharge home. Attestation: I personally saw the patient as part of a shared visit with the advanced practice practitioner. I performed a substantive portion of the visit including all aspects of the medical decision making as documented. Category 2 and 3: Independent Interpretation of Tests, Consideration of Tests, or External Discussion of Results: Labs: Laboratory studies were interpreted. ECG: EKG studies were independently interpreted. DISPOSITION/CONDITION Stable condition ?This note was created with [employer] software. I have read the note but there are often subtle changes that are difficult to identify. As a result, there may be errors within the document.Please contact me for clarification if necessary. Pritesh Kim MD Attending Physician [facility] Emergency Department Pritesh Kim MD 05/05/23 0715 * Johnson Collins PA-C - 05/03/2023 3:13 AM EDT History Chief Complaint Patient presents with ??? Alcohol Intoxication ED Triage Note Liam Clements, RN (Registered Nurse) Pt BIBA from home for alcohol intoxication. Per EMS: pt friends stated pt drank 6-7 beers tonight. Pt found hunched over toilet by EMS. Vomiting x1 for EMS. Pt alert to physical stimuli. Pt otherwiseunable to answer questions. Pt sat 97% on RA. ?? Pt T1DM - BS 376 for EMS History provided by: EMS personnel and medical records History limited by: Intoxication Narrative 22-year-old male, type I diabetic, presents for evaluation of altered mental status. Per EMS patient's friend stated that he was playing thereupon and drank 6-7 beers tonight. EMS found the patient hunched over the toilet. Patient Active Problem List Diagnosis ??? Type 1 diabetes mellitus ??? ADHD ??? REINA (acute kidney injury) ??? Depressive disorder ??? Diabetic ketoacidosis without coma associated with type 1 diabetes mellitus ??? Diabetic peripheral neuropathy ??? Dysfluency ??? Hyperglycemia ??? Hypertriglyceridemia ??? Mild persistent asthma without complication ??? Type 1 diabetes mellitus ??? Protein calorie malnutrition ??? Palpitations ??? Abnormal EKG ??? Chest discomfort ??? Chest pain ??? Dyspnea on exertion ??? Serous detachment of retinal pigment epithelium, right ??? Tachycardia Past Medical History: Diagnosis Date ??? Asthma ??? Diabetes mellitus No past surgical history on file. No family history on file. Social History Tobacco Use ??? Smoking status: Never ??? Smokeless tobacco: Never Substance Use Topics ??? Alcohol use: Yes Comment: soc Prior to Admission medications Medication Sig Start Date End Date Taking? Authorizing Provider albuterol 90 mcg/actuation inhaler Inhale 2 puffs into the lungs every 6 (six) hours as needed. Patient not taking: Reported on 04/09/2023 Elizabeth Quijano MD cetirizine (ZYRTEC) 10 MG tablet ZYRTEC ALLERGY 10 MG TABS Elizabeth Quijano MD DEXCOM G7 SENSOR Kelsie REPLACE SENSOR EVERY 10 DAYS FOR CONTINUOUS GLUCOSE MONITORING. [facility] [id number] 02/03/23 Elizabeth Quijano MD gabapentin (NEURONTIN) 600 MG tablet Take 1 tablet (600 mg total) by mouth 3 (three) times a day. 04/26/23 Cindy Angel MD insulin lispro (ADMELOG, HUMALOG) 100 unit/mL injection vial Inject under the skin. Elizabeth Quijano MD levoFLOXacin (LEVAQUIN) 750 MG tablet 04/07/23 Elizabeth Quijano MD nortriptyline (PAMELOR) 10 MG capsule Take 1 capsule (10 mg total) by mouth nightly at bedtime. 04/15/23 Martha Bahena MD TRESIBA FLEXTOUCH U-100 injection pen INJECT UP TO 60 UNITS/DAY SUBCUTANEOUSLY DIRECTED. Patient not taking: Reported on 04/09/2023 02/11/23 Elizabeth Quijano MD gabapentin (NEURONTIN) 100 MG capsule TAKE 1 CAPSULE BY MOUTH 2 TIMES PER DAY 04/04/23 04/09/23 Elizabeth Quijano MD gabapentin (NEURONTIN) 300 MG capsule Take 1 capsule (300 mg total) by mouth 3 (three) times a day.04/09/23 04/26/23 Cindy Angel MD Allergies Allergen Reactions ??? Penicillins Rash ??? Sulfa (Sulfonamide Antibiotics) Rash Review of Systems Unable to perform ROS: Mental status change Physical Exam Weight: 62.6 kg (138 lb) Height: 177.8 cm (5' 10) Temperature: 36.1 ??C (96.9 ??F) Heart Rate: 96 BP: 124/75 Respiratory Rate: 16 SpO2: 99 % Physical Exam Vitals and nursing note reviewed. Constitutional: General: He is in acute distress. Appearance: He is ill-appearing. He is not toxic-appearing. HENT: Head: Normocephalic and atraumatic. Right Ear: Hearing and external ear normal. Left Ear: Hearing and external ear normal. Nose: Nose normal. Mouth/Throat: Lips: [place]. No lesions. Mouth: Mucous membranes are moist. Pharynx: Oropharynx is clear. Eyes: General: Lids are normal. Vision grossly intact. Gaze aligned appropriately. Conjunctiva/sclera: Conjunctivae normal. Pupils: Pupils are equal, round, and reactive to light. Neck: Trachea: Phonation normal. Cardiovascular: Rate and Rhythm: Regular rhythm. Tachycardia present. Pulses: Normal pulses. Radial pulses are 2+ on the right side and 2+ on the left side. Heart sounds: Normal heart sounds. No murmur heard. No friction rub. No gallop. Pulmonary: Effort: Pulmonary effort is normal. No respiratory distress. Breath sounds: Normal breath sounds and air entry. No wheezing, rhonchi or rales. Abdominal: General: Bowel sounds are normal. There is no distension. Palpations: Abdomen is soft. Tenderness: There is no abdominal tenderness. There is no guarding or rebound. Musculoskeletal: Cervical back: Full passive range of motion without pain and neck supple. Right lower leg: No edema. Left lower leg: No edema. Skin: General: Skin is warm and dry. Capillary Refill: Capillary refill takes less than 2 seconds. Findings: No rash. Neurological: Mental Status: He is lethargic and disoriented. Psychiatric: Speech: He is noncommunicative. ED Course No consults were ordered If consults were ordered, refer to the consult documentation for additional information. Medications lactated ringers IV Bolus 1,000 mL (0 mL Intravenous Stopped 05/03/23 0625) lactated ringers IV Bolus 1,000 mL (0 mL Intravenous Stopped 05/03/23 0703) potassium chloride in water (KCL) 10 mEq/100 mL IVPB premix (0 mEq Intravenous Stopped 05/03/23 0534) Orders Placed This Encounter Procedures ??? CBC and differential ??? Basic metabolic panel ??? LFTs (hepatic panel) ??? Magnesium ??? Phosphorus ??? Lipase ??? Urinalysis w/reflex Urine Culture ??? Ketone bodies, serum ??? Venous blood gas ??? Osmolality, serum ??? Toxicology screen, urine ??? Ethanol, blood ??? Basic metabolic panel ??? Basic metabolic panel ??? POCT Glucose ??? POCT Glucose ??? ECG 12-LEAD Results for orders placed or performed during the hospital encounter of 05/03/23 CBC and differential Specimen: Blood Result Value Ref Range WBC 9.60 4.0 - 11.0 K/uL RBC 5.53 4.32 - 5.72 M/uL HGB 15.7 13.5 - 17.5 g/dL HCT 43.6 38 - 50 % PLT 277 135 - 400 K/uL MCV 78.8 (L) 80 - 100 fL MCH 28.4 27 - 34 pg MCHC 36.0 31.5 - 36.5 g/dL RDW 12.2 11.9 - 14.8 % MPV 9.7 9.7 - 11.9 fl NRBC 0.00 0 /100 WBCs DIFF METHOD Manual NEUTS 37.2 % LYMPHS 46.0 % MONOS 7.1 % EOS 2.6 % BASOS 0.0 % REACTIVE LYMPHS 7.1 (H) 0 % ABSOLUTE NEUTS 3.57 1.8 - 8 K/uL ABSOLUTE LYMPHS 5.10 1.5 - 6.5 K/uL ABSOLUTE MONOS 0.68 0.1 - 0.9 K/uL ABSOLUTE EOS 0.25 0 - 0.4 K/uL ABSOLUTE BASOS 0.00 0 - 0.2 K/uL ANISO 1+ (*) None MICROCYTES 1+ (*) None OVALOCYTES 1+ (*) None LG PLATELETS PRESENT (*) None Basic metabolic panel Specimen: Blood Result Value Ref Range SODIUM 135 (L) 136 - 145 mmol/L CHLORIDE 98 95 - 106 mmol/L POTASSIUM 3.0 (L) 3.5 - 5.2 mmol/L CO2 18 (L) 20 - 31 mmol/L BUN 9 9 - 23 mg/dL CREATININE 0.57 0.50 - 1.30 mg/dL GLUCOSE 380 (H) 74 - 106 mg/dL CALCIUM 9.1 8.7 - 10.4 mg/dL EGFR >120 >60 mL/min/1.73m2 ANION GAP 19 (H) 3 - 17 mmol/L LFTs (hepatic panel) Specimen: Blood Result Value Ref Range ALBUMIN 4.8 3.5 - 4.8 g/dL TOTAL BILIRUBIN 0.3 0.0 - 1.0 mg/dL DIRECT BILIRUBIN <0.2 0 - 0.4 mg/dL ALKALINE PHOSPHATASE 80 27 - 129 U/L AST 12 6 - 40 U/L ALT 14 10 - 49 U/L TOTAL PROTEIN 7.4 5.7 - 8.2 g/dL GLOBULIN 2.6 1.9 - 4.1 g/dL Magnesium Specimen: Blood Result Value Ref Range MAGNESIUM 1.9 1.3 - 2.7 mg/dL Phosphorus Specimen: Blood Result Value Ref Range PHOSPHORUS 4.0 2.7 - 4.5 mg/dL Lipase Specimen: Blood Result Value Ref Range LIPASE 25 6 - 51 U/L Urinalysis w/reflex Urine Culture Specimen: Urine Result Value Ref Range COLOR Yellow Yellow CLARITY Clear Clear SPECIFIC GRAVITY 1.017 1.001 - 1.030 BLOOD Negative Negative BILI Negative Negative KETONES Trace (*) Negative GLUCOSE 3+ (*) Negative URINE PROTEIN Negative Negative PH 5.0 5 - 8 Leukocyte esterase, ur Negative Negative NITRITE Negative Negative UROBILINOGEN Negative Negative RBC 0 0 - 2 /hpf WBC <1 0 - 9 /hpf BACTERIA NONE SEEN NONE SEEN /hpf SQUAMOUS CELLS 0 0 - 4 /hpf Ketone bodies, serum Specimen: Blood Result Value Ref Range BETA HYDROXYBUTYRATE 0.7 (H) <0.3 mmol/L Venous blood gas Result Value Ref Range PH (UNCORRECTED) 7.25 (L) 7.35 - 7.45 PCO2 (UNCORRECTED) 42 41 - 55 mm[Hg] PO2 (UNCORRECTED) 47 42 - 54 mm[Hg] FRACT INSPIRED OXY UNSPEC. OXYGEN LITERS/MIN UNSPEC. SO2, venous 71 70 - 80 % BASE DEFICIT VENOUS 8.5 mmol/L Osmolality, serum Specimen: Blood Result Value Ref Range OSMOLALITY 340 (HH) 270 - 300 mOsm/kg water Toxicology screen, urine Specimen: Urine Result Value Ref Range URINE BENZODIAZEPINE Negative Negative URINE COCAINE METAB Negative Negative URINE AMPHETAMINES Negative Negative URINE CANNABINOIDS Negative Negative URINE OPIATES Negative Negative URINE BARBITURATES Negative Negative URINE OXYCODONE Negative Negative UR TRICYCLICS Negative Negative URINE METHADONE Negative Negative URINE BUPRENORPHINE Negative Negative Fentanyl, urine Negative Negative Ethanol, blood Specimen: Blood Result Value Ref Range ETHANOL 154 (H) <10 mg/dL Basic metabolic panel Specimen: Blood Result Value Ref Range SODIUM 139 136 - 145 mmol/L CHLORIDE 103 95 - 106 mmol/L POTASSIUM 3.7 3.5 - 5.2 mmol/L CO2 21 20 - 31 mmol/L BUN 8 (L) 9 - 23 mg/dL CREATININE 0.65 0.50 - 1.30 mg/dL GLUCOSE 239 (H) 74 - 106 mg/dL CALCIUM 8.0 (L) 8.7 - 10.4 mg/dL EGFR >120 >60 mL/min/1.73m2 ANION GAP 15 3 - 17 mmol/L POCT Glucose Result Value Ref Range Glucose 339 (*) 70 - 100 mg/dL POCT Glucose Result Value Ref Range Glucose, POCT 339 (H) 70 - 100 mg/dL ECG 12-LEAD Result Value Ref Range Ventricular Rate EKG/MIN 83 BPM Atrial Rate [address] Interval 174 ms QRS Duration 100 ms QT Interval 408 ms QTC Interval 479 ms P [place] 71 degrees R Wave [place] 76 degrees T Wave [place] 18 degrees ED Course as of 05/08/23 1255 SatMay 03, 2023 0457 Patient's mental status improving. He is responsive to verbal stimuli and can follow commands.Denies recent trauma. No pain or nausea currently. [BP] 0618 Repeat BMP after fluids improved bicarb now normal anion gap 15. Glucose 239. [DH] ED Course User Index [BP] Johnson Collins PA-C [DH] Pritesh Kim MD Clinical Impressions as of 05/08/23 1255 Acute alcoholic intoxication with delirium Hyperglycemia Assessment and Plan: The patient presents with global dysfunction consistent with alcohol intoxication. Other causes of altered mental status were considered but deemed less likely in light of the patient's clinical presentation and exam findings. The patient remained for an extended period of time with close monitoring for complications until clinically sober. There is no evidence for more malignant etiologies for the patient's symptoms at this time. I discussed the possibility of more malignant covert etiologies with the patient. The patient understands this possibility and will follow up or call immediately with worsening symptoms. Blood work improving after IV fluids. No evidence of DKA. Differential Diagnosis includes but is not limited to: drug intoxication/withdrawal, Wernicke encephalopathy, other metabolic anomalies. I also consider the possibility of occult head injury or othertrauma in all possibly intoxicated patients. Category 1: Tests, Studies or Independent Historians: Independent Historian: Independent history was obtained by EMS. Prior Data Reviewed: Prior EKG was reviewed. Prior notes reviewed. Prior labs reviewed. Category 2 and 3: Independent Interpretation of Tests, Consideration of Tests, or External Discussion of Results: Labs: Laboratory studies were interpreted. ECG: EKG studies were independently interpreted. Rate: 83 Rhythm: sinus rhythm Other Finding(s): No evidence of acute ischemia or malignant arrhythmia Risks of Complications, Morbidity, or Mortality: Risks: Patient has recognized social determinants of health that may affect care. Necessity for prescription medication was discussed. Evaluation, assessment, plan and disposition discussed with Dr. Pritesh Kim, who has evaluated the patient and is in agreement with the plan. Johnson Collins PA-C 05/08/23 1256 * Liam Clements RN - 05/03/2023 3:07 AM EDT Pt BIBA from home for alcohol intoxication. Per EMS: pt friends stated pt drank 6-7 beers tonight. Pt found hunched over toilet by EMS. Vomiting x1 for EMS. Pt alert to physical stimuli. Pt otherwiseunable to answer questions. Pt sat 97% on RA. Pt T1DM - BS 376 for EMS documented in this encounter Plan of Treatment Not on file documented as of this encounter Procedures Procedure Name Priority Date/Time Associated Diagnosis Comments URINALYSIS W/REFLEX URINE CULTURE STAT 05/03/2023 5:56 AM EDT TOXICOLOGY SCREEN, URINE STAT 05/03/2023 5:56 AM EDT BASIC METABOLIC PANEL STAT 05/03/2023 5:28 AM EDT ECG 12-LEAD STAT 05/03/2023 4:28 AM EDT POCT GLUCOSE Routine 05/03/2023 3:12 AM EDT KETONE BODIES, SERUM STAT 05/03/2023 3:12 AM EDT ETHANOL, BLOOD STAT 05/03/2023 3:12 AM EDT LFTS (HEPATIC PANEL) STAT 05/03/2023 3:12 AM EDT CBC AND DIFFERENTIAL STAT 05/03/2023 3:12 AM EDT POCT GLUCOSE STAT 05/03/2023 3:12 AM EDT PHOSPHORUS STAT 05/03/2023 3:12 AM EDT OSMOLALITY, SERUM STAT 05/03/2023 3:1 2 AM EDT MAGNESIUM STAT 05/03/2023 3:12 AM EDT LIPASE STAT 05/03/2023 3:12 AM EDT VENOUS BLOOD GAS STAT 05/03/2023 3:12 AM EDT BASIC METABOLIC PANEL STAT 05/03/2023 3:12 AM EDT documented in this encounter Results * Toxicology screen, urine (05/03/2023 5:56 AM EDT) URINE BENZODIAZEPINE Negative Negative [facility] Comment: CUT OFF VALUE FOR POSITIVE RESULTS: 200 NG/ML Unconfirmed results, FOR MEDICAL SCREENING PURPOSES ONLY. URINE COCAINE METAB Negative Negative [facility] Comment: Cut off value for positive results: 300 ng/mL Unconfirmed results, FOR MEDICAL SCREENING PURPOSES ONLY. URINE AMPHETAMINES Negative Negative [facility] Comment: CUT OFF VALUE FOR POSITIVE RESULTS: 1000 NG/ML Unconfirmed results, FOR MEDICAL SCREENING PURPOSES ONLY. URINE CANNABINOIDS Negative Negative [facility] Comment: CUT OFF VALUE FOR POSITIVE RESULTS: 50 NG/ML Unconfirmed results, FOR MEDICAL SCREENING PURPOSES ONLY. URINE OPIATES Negative Negative [facility] Comment: Cut off value for positive results: 300 ng/mL Unconfirmed results, FOR MEDICAL SCREENING PURPOSES ONLY. URINE BARBITURATES Negative Negative [facility] Comment: CUT OFF VALUE FOR POSITIVE RESULTS: 200 NG/ML Unconfirmed results, FOR MEDICAL SCREENING PURPOSES ONLY. URINE OXYCODONE Negative Negative [facility] [place] [facility] Comment: CUT OFF VALUE FOR POSITIVE RESULTS: 100 NG/ML Unconfirmed results, FOR MEDICAL SCREENING PURPOSES ONLY. UR TRICYCLICS Negative Negative [facility] Comment: Cut off value for positive results: 300 ng/mL Unconfirmed results, FOR MEDICAL SCREENING PURPOSES ONLY. URINE METHADONE Negative Negative [facility] Comment: Cut off value for positive results: 300 ng/mL Unconfirmed results, FOR MEDICAL SCREENING PURPOSES ONLY. URINE BUPRENORPHINE Negative Negative [facility] Comment: Cut-off concentration for Urine Buprenorphine is 5 ng/mL. Unconfirmed results, FOR MEDICAL SCREENING PURPOSES ONLY. Fentanyl, urine Negative Negative [facility] Comment: Cut-off concentration for Urine Fentanyl is 2 ng/mL. Unconfirmed results, FOR MEDICAL SCREENING PURPOSES ONLY. Urine (Urine) 05/03/2023 5:5 6 AM EDT 05/03/2023 6:03 AM EDT Johnson Collins PA-C URINE ORDERABL ES Performing Organization Address [facility] de Phone Number [facility] [address] [place] [address] * (ABNORMAL) Urinalysis w/reflex Urine Culture (05/03/2023 5:56 AM EDT) COLOR Yellow Yellow [facility] CLARITY Clear Clear [facility] SPECIFIC GRAVITY 1.017 1.001 - 1.030 [facility] BLOOD Negative Negative [facility] BILI Negative Negative [facility] KETONES Trace(A) Negative [facility] GLUCOSE 3+(A) Negative [facility] URINE PROTEIN Negative Negative [facility] PH 5.0 5 - 8 [facility] Leukocyte esterase, ur Negative Negative [facility] NITRITE Negative Negative [facility] UROBILINOGEN Negative Negative [facility] RBC 0 0 - 2 /hpf [facility] WBC <1 0 - 9 /hpf [facility] BACTERIA NONE SEEN NONE SEEN /hpf [facility] SQUAMOUS CELLS 0 0 - 4 /hpf [facility] Urine (Urine) 05/03/2023 5:5 6 AM EDT 05/03/2023 11:26 AM EDT Johnson Collins PA-C URINE ORDERABL ES Performing Organization Address City/[facility] Co de Phone Number [facility] [address] [place] [address] * (ABNORMAL) Basic metabolic panel (05/03/2023 5:28 AM EDT) [facility] SODIUM 139 136 - 145 mmol/L [facility] Comment:Repeated and verifie d CHLORIDE 103 95 - 106 mmol/L [facility] Comment:Repeated and verifie d POTASSIUM 3.7 3.5 - 5.2 mmol/L [facility] Comment:Repeated and verifie d CO2 21 20 - 31 mmol/L [facility] BUN 8(L) 9 - 23 mg/dL [facility] CREATININE 0.65 0.50 - 1.30 mg/dL [facility] GLUCOSE 239(H) 74 - 106 mg/dL [facility] CALCIUM 8.0(L) 8.7 - 10.4 mg/dL [facility] EGFR >120 >60 mL/min/1.7 3m2 [facility] Comment:Estimated glomerular filtration rate calculated using the CKD-EPI refit equation. ANION GAP 15 3 - 17 mmol/L [facility] Blood 05/03/2023 5:28 AM EDT 05/03/2023 5:38 AM EDT Pritesh Kim MD LAB BLOOD ORDERABLES [facility] [address] [place] [address] * ECG 12-LEAD (05/03/2023 4:28 AM EDT) Ventricular Rate EKG/MIN 83 BPM [facility] Atrial Rate [address] [facility] [address] Interval 174 ms [facility] QRS Duration 100 ms [facility] QT Interval 408 ms [facility] QTC Interval 479 ms [facility] P [place] 71 degrees [facility] R Wave [place] 76 degrees [facility] T Wave [place] 18 degrees [facility] 05/03/2023 4:28 AM EDT Narrative [facility] - 05/03/2023 5:32 PM EDT NORMAL SINUS RHYTHM RSR' OR QR PATTERN IN V1 SUGGESTS RIGHT VENTRICULAR CONDUCTION DELAY BORDERLINE ECG NO PREVIOUS ECGS AVAILABLE Johnson Collins PA-C ECG ORDERABLES Performing Organization Address [facility] Co de Phone Number [facility] * (ABNORMAL) POCT Glucose (05/03/2023 3:12 AM EDT) Glucose, POCT 339(H) 70 - 100 mg/dL [facility] 05/03/2023 3:12 AM EDT 05/03/2023 3:17 AM EDT Pritesh Kim MD POINT OF CARE TEST O RDERABLES Performing Organization Address [facility] Co de Phone Number [facility] [address] [place] [address] * (ABNORMAL) Ethanol, blood (05/03/2023 3:12 AM EDT) ETHANOL 154(H) <10 mg/dL [facility] Blood 05/03/2023 3:12 AM EDT 05/03/2023 3:33 AM EDT Johnson Collins PA-C LAB BLOOD ORDE RABDORINA Performing Organization Address [facility] de Phone Number [facility] [address] [place] [address] * (ABNORMAL) Osmolality, serum (05/03/2023 3:12 AM EDT) OSMOLALITY 340(HH) 270 - 300 mOsm/kg water [facility] Comment: Repeated and verified Successful Call: [facility] called 05/03/2023 04:48 AM to [facility] ([place]) [place] [id number]. Read Back: Yes Blood 05/03/2023 3:12 AM EDT 05/03/2023 3:33 AM EDT Johnson Collins PA-C LAB BLOOD ORDE RABDORINA Performing Organization Address [facility] de Phone Number [facility] [address] [place] [address] * (ABNORMAL) Venous blood gas (05/03/2023 3:12 AM EDT) PH (UNCORRECTED) 7.25(L) 7.35 - 7.45 [facility] PCO2 (UNCORRECTED) 42 41 - 55 mm[Hg] [facility] PO2 (UNCORRECTED) 47 42 - 54 mm[Hg] [facility] FRACT INSPIRED OXY UNSPEC. [facility] OXYGEN LITERS/MIN UNSPEC. [facility] SO2, venous 71 70 - 80 % [facility] BASE DEFICIT VENOUS 8.5 mmol/L [facility] 05/03/2023 3:12 AM EDT 05/03/2023 3:37 AM EDT Johnson Collins PA-C LAB BLOOD GEORGE LEBLANC Performing Organization Address [facility] de Phone Number [facility] [address] [place] [address] * (ABNORMAL) Ketone bodies, serum (05/03/2023 3:12 AM EDT) BETA HYDROXYBUTYRATE 0.7(H) <0.3 mmol/L [facility] Blood 05/03/2023 3:12 AM EDT 05/03/2023 3:33 AM EDT Johnson Collins PA-C LAB BLOOD GEORGE LEBLANC Performing Organization Address [facility] de Phone Number [facility] [address] [place] [address] * Lipase (05/03/2023 3:12 AM EDT) LIPASE 25 6 - 51 U/L [facility] Blood 05/03/2023 3:12 AM EDT 05/03/2023 3:33 AM EDT Johnson Collins PA-C LAB BLOOD GEORGE LEBLANC Performing Organization Address [facility]/ZIP Co de Phone Number [facility] [address] [place] [address] * Phosphorus (05/03/2023 3:12 AM EDT) PHOSPHORUS 4.0 2.7 - 4.5 mg/dL [facility] Blood 05/03/2023 3:12 AM EDT 05/03/2023 3:33 AM EDT Johnson Collins PA-C LAB BLOOD ORDE DEANA Performing Organization Address City/[facility] Co de Phone Number [facility] [address] [place] [address] * Magnesium (05/03/2023 3:12 AM EDT) MAGNESIUM 1.9 1.3 - 2.7 mg/dL [facility] Blood 05/03/2023 3:12 AM EDT 05/03/2023 3:33 AM EDT Johnson Collins PA-C LAB BLOOD ORDE DEANA Performing Organization Address [facility] Co de Phone Number [facility] [address] [place] [address] * LFTs (hepatic panel) (05/03/2023 3:12 AM EDT) ALBUMIN 4.8 3.5 - 4.8 g/dL [facility] TOTAL BILIRUBIN 0.3 0.0 - 1.0 mg/dL [facility] DIRECT BILIRUBIN <0.2 0 - 0.4 mg/dL [facility] ALKALINE PHOSPHATASE 80 27 - 129 U/L [facility] AST 12 6 - 40 U/L [facility] ALT 14 10 - 49 U/L [facility] TOTAL PROTEIN 7.4 5.7 - 8.2 g/dL [facility] GLOBULIN 2.6 1.9 - 4.1 g/dL [facility] Blood 05/03/2023 3:12 AM EDT 05/03/2023 3:33 AM EDT Johnson Collins PA-C LAB BLOOD ORDE RABDORINA Performing Organization Address [facility] Co de Phone Number [facility] [address] [place] [address] * (ABNORMAL) Basic metabolic panel (05/03/2023 3:12 AM EDT) SODIUM 135(L) 136 - 145 mmol/L [facility] CHLORIDE 98 95 - 106 mmol/L [facility] POTASSIUM 3.0(L) 3.5 - 5.2 mmol/L [facility] CO2 18(L) 20 - 31 mmol/L [facility] BUN 9 9 - 23 mg/dL [facility] CREATININE 0.57 0.50 - 1.30 mg/dL [facility] GLUCOSE 380(H) 74 - 106 mg/dL [facility] CALCIUM 9.1 8.7 - 10.4 mg/dL [facility] EGFR >120 >60 mL/min/1.7 3m2 [facility] Comment:Estimated glomerular filtration rate calculated using the CKD-EPI refit equation. ANION GAP 19(H) 3 - 17 mmol/L [facility] Blood 05/03/2023 3:12 AM EDT 05/03/2023 3:33 AM EDT Johnson Collins PA-C LAB BLOOD GEORGE HAGANDORINA Performing Organization Address [facility] Co de Phone Number [facility] [address] [place] [address] * (ABNORMAL) CBC and differential (05/03/2023 3:12 AM EDT) WBC 9.60 4.0 - 11.0 K/uL [facility] RBC 5.53 4.32 - 5.72 M/uL [facility] HGB 15.7 13.5 - 17.5 g/dL [facility] HCT 43.6 38 - 50 % [facility] PLT 277 135 - 400 K/uL [facility] MCV 78.8(L) 80 - 100 fL [facility] MCH 28.4 27 - 34 pg [facility] MCHC 36.0 31.5 - 36.5 g/dL [facility] RDW 12.2 11.9 - 14.8 % [facility] MPV 9.7 9.7 - 11.9 fl [facility] NRBC 0.00 0 /100 WBCs [facility] DIFF METHOD Manual [facility] NEUTS 37.2 % [facility] LYMPHS 46.0 % [facility] MONOS 7.1 % [facility] EOS 2.6 % [facility] BASOS 0.0 % [facility] REACTIVE LYMPHS 7.1(H) 0 % [facility] ABSOLUTE NEUTS 3.57 1.8 - 8 K/uL [facility] ABSOLUTE LYMPHS 5.10 1.5 - 6.5 K/uL [facility] ABSOLUTE MONOS 0.68 0.1 - 0.9 K/uL [facility] ABSOLUTE EOS 0.25 0 - 0.4 K/uL [facility] ABSOLUTE BASOS 0.00 0 - 0.2 K/uL [facility] ANISO 1+(A) None [facility] MICROCYTES 1+(A) None [facility] OVALOCYTES 1+(A) None [facility] LG PLATELETS PRESENT(A) None [facility] Blood 05/03/2023 3:12 AM EDT 05/03/2023 3:34 AM EDT Johnson Collins PA-C [facility] Organization Address City/State/[facility] Co de Phone Number [address] [address] * (ABNORMAL) POCT Glucose (05/03/2023 3:12 AM EDT) Glucose 339(A) 70 - 100 mg/dL Johnson Collins PA-C POINT OF CARE TEST ORDERABLES documented in this encounter Visit Diagnoses Diagnosis Acute alcoholic intoxication with delirium- Primary Hyperglycemia Other abnormal glucose documented in this encounter Administered Medications Inactive Administered Medications - up to 3 most recent administrations Medication Order MAR Action Action Date Dose Rate Site lactated ringers IV Bolus 1,000 mL 1,000 mL, Intravenous, Administer over 30 Minutes, Once, On Sat05/03/23 at 0345, For 1 dose New Bag 05/03/2023 4:15 AM EDT 1,000 mL 2000 mL/hr lactated ringers IV Bolus 1,000 mL 1,000 mL, Intravenous, Administer over 30 Minutes, Once, On Sat05/03/23 at 0345, For 1 dose New Bag 05/03/2023 4:04 AM EDT 1,000 mL 2000 mL/hr potassium chloride in water (KCL) 10 mEq/100 mL IVPB premix 10 mEq, Intravenous, at 100 mL/hr, Once, On Sat05/03/23 at 0415, For 1 dose New Bag 05/03/2023 4:19 AM EDT 10 mEq 100 mL/hr sodium chloride (NS) 0.9 % syringe flush 3 mL 3 mL, Intravenous, As needed, line care, Starting on Sat05/03/23 at 0310, Per Institutional IV Line Care Policy. documented in this encounter Active and Recently Administered Medications Times are shown in EDT. Scheduled Medication Order 05/01/2023 05/02/2023 05/03/2023 lactated ringers IV Bolus 1,000 mL (COMPLETED) 1,000 mL, Intravenous, Administer over 30 Minutes, Once, On Sat05/03/23 at 0345, For 1 dose 0415 (New Bag - Prov ider: Rick Kan RN)0625 (Stopped - Provider: Rick Kan RN) lactated ringers IV Bolus 1,000 mL (COMPLETED) 1,000 mL, Intravenous, Administer over 30 Minutes, Once, On Sat05/03/23 at 0345, For 1 dose 0404 (New Bag - Prov ider: Rick Kan RN)0703 (Stopped - Provider: Rick Kan RN) potassium chloride in water (KCL) 10 mEq/100 mL IVPB premix (COMPLETED) 10 mEq, Intravenous, at 100 mL/hr, Once, On Sat05/03/23 at 0415, For 1 dose 0419 (New Bag - Prov ider: Rick Kan RN)0534 (Stopped - Provider: Rick Kan RN) PRN Medication Order 05/01/2023 05/02/2023 05/03/2023 sodium chloride (NS) 0.9 % syringe flush 3 mL 3 mL, Intravenous, As needed, line care, Starting on Sat05/03/23 at 0310, Per Institutional IV Line Care Policy. documented in this encounter Care Teams Integrated Marketing Manager Relationship Specialty Start Date End Date Ondina Hunter MD PCP - General Pediatrics 02/15/23 documented as of this encounter Additional Source Comments The information contained in this document represents components of the legal health record. It is not the complete legal health record.[facility]
--- OUTSIDE RECORDS SUMMARY | 2024-06-15 22:57 | XMS_ITS | Encounter Summary ---
Author Organization [facility] Address [phone] [facility] [place] [address] Care Team Providers Care Architectural Representative Name Role Phone Ondina [place] MD Primary Care Provider + Encounter Details Date Type Department Care Team (Late st Contact Info) Description 04/15/2023 Telephone [facility] Neurology [address] [facility] [address] [place] [address] Martha Bahena MD [address] [facility] [address] [place] [address] Social History Tobacco Use Types Packs/Day Years [...] as of this encounter Progress Notes * Martha Bahena MD - 04/15/2023 7:54 PM EDT He called back He has been in severe pain in spite of Gabapentin 300 mg TID He can not sleep I suggested to Try low dose of Nortryptiline at night for now. He feels he has even difficulty walking because of that. If he is getting weak He needs a neuro reevaluation. In Dr White's note he was having good reflexes And good strenght * Martha Bahena MD - 04/15/2023 7:[address] Angel he called That he was in pain. I called back, left message on voice mail to page me back C/o neuropathic pain documented in this encounter Plan of Treatment Not on file documented as of this encounter Visit Diagnoses Not on filedocumented in this encounter Care Teams Architectural Representative Relationship Specialty Start Date End Date Ondina [place] MD PCP - General Pediatrics 02/15/23 documented as of this encounter Additional Source Comments The information contained in this document represents components of the legal health record. It is not the complete legal health record.[facility]
--- OUTSIDE RECORDS SUMMARY | 2024-06-15 22:57 | XMS_ITS | Encounter Summary ---
Author Organization [facility] Address [phone] [facility] [employer] [place] [address] Care Team Providers Care Staking Technician Name Role Phone Ondina [place] MD Primary Care Provider + Encounter Details Date Type Department Care Team (Late st Contact Info) Description 06/04/2023 Telephone [facility] Neurology [address] [address] Victorino Lugo Social History Tobacco Use Types Packs/Day Years [...] as of this encounter Progress Notes * Victorino Lugo - 06/04/2023 12:21 PM EDT Needs Drs note stating that as long as they are an employee of [employer] that he might miss some days do to his diabetic neuropathy documented in this encounter Plan of Treatment Not on file documented as of this encounter Visit Diagnoses Not on filedocumented in this encounter Care Teams Staking Technician Relationship Specialty Start Date End Date Ondina [place] MD PCP - General Pediatrics 02/15/23 documented as of this encounter Additional Source Comments The information contained in this document represents components of the legal health record. It is not the complete legal health record.[facility]
--- OUTSIDE RECORDS SUMMARY | 2024-06-15 22:57 | XMS_ITS | Encounter Summary ---
Author Organization [facility] Address [phone] [employer] [place] [address] Care Team Providers Care Jewel Sawyer Name Role Phone Ondina [place] MD Primary Care Provider + Encounter Details Date Type Department Care Team (Late st Contact Info) Description 04/06/2023 [employer] Generated VIRTUAL DEPARTMENT Otf De Souza MD [address] [place] [id number] Social History Tobacco Use Types Packs/Day Years [...] Procedure Name Priority Date/Time Associated Diagnosis Comments POCT GLUCOSE Routine 04/06/2023 2:15 AM EDT documented in this encounter Results * (ABNORMAL) POCT Glucose (04/06/2023 2:15 AM EDT) Glucose For POCT > 500(Critic ally H) 70 - 100 mg/dL [facility] Comment:Results Verified 04/06/2023 2:15 AM EDT 04/06/2023 2:22 AM EDT Otf De Souza MD POINT OF CARE TEST O RDERABLES [facility] [address] [place] [address] [place] [address] documented in this encounter Visit Diagnoses Not on filedocumented in this encounter Care Teams Jewel Sawyer Relationship Specialty Start Date End Date Ondina [place] MD PCP - General Pediatrics 02/15/23 documented as of this encounter Additional Source Comments The information contained in this document represents components of the legal health record. It is not the complete legal health record.[facility]
--- OUTSIDE RECORDS SUMMARY | 2024-06-15 22:57 | XMS_ITS | Clinical Summary ---
Author Organization [facility] Address [phone] [place] [address] Care Team Providers Care Grading Clerk Name Role Phone Ondina [place] MD Primary Care Provider + Allergies Active Allergy Reactions Criticality Noted Date Comments Penicillins Rash 10/21/2013 Sulfa (Sulfonamide Antibiotics) Rash 09/24 Medications Medication Sig Dispensed Refills Start Date End Date Status DEXCOM G7 SENSOR Kelsie REPLACE SENSOR EVERY 10 DAYS FOR CONTINUOUS GLUCOSE MONITORING. [facility] [id number] 02/03/2023 Active cetirizine (ZYRTEC) 10 MG tablet ZYRTEC ALLERGY 10 MG TABS Active TRESIBA FLEXTOUCH U-100 injection pen 02/11/2023 Activ e insulin lispro (ADMELOG, HUMALOG) 100 unit/mL injection vial Inject under the skin. Active albuterol 90 mcg/actuation inhaler Inhale 2 puffs into the lungs every 6 (six) hours as needed. Active levoFLOXacin (LEVAQUIN) 750 MG tablet 04/07/2023 Active nortriptyline (PAMELOR) 10 MG capsuleIndications:He reditary and idiopathic peripheral neuropathy,Diabetic polyneuropathy associated with diabetes mellitus due to underlying condition TAKE 1 CAPSULE BY MOUTH NIGHTLY AT BEDTIME. 90 capsule 1 05/31/2023 Active gabapentin (NEURONTIN) 600 MG tablet Take 1 tablet (600 mg total) by mouth 3 (three) times a day. 90 tablet 3 05/31/2023 Active Active Problems Problem Noted Date Diagnosed Date Type 1 diabetes mellitus 02/15/2023 023 Overview: Added by [facility] Diabetic peripheral neuropathy 02/15/2023 0 02/15/2023 Hyperglycemia 02/15/2023 02/15/2023 Mild persistent asthma without complication 01/2202/15/2023 Palpitations 02/15/2023 02/15/2023 Chest pain 11/19/2022 04/05/2023 Tachycardia 11/19/2022 04/05/2023 Abnormal EKG 11/16/2022 04/05/2023 Chest discomfort 11/16/2022 04/05/2023 Dyspnea on exertion 11/16/2022 04/05/2023 ADHD 06/14/2022 02/15/2023 Diabetic ketoacidosis withou t coma associated with type 1 diabetes mellitus 01/17/2022 02/15/2023 REINA (acute kidney injury) 01/15/20222022 Hypertriglyceridemia 01/15/2022 02/15/2023 Depressive disorder 12/10/2021 02/15/2023 Protein calorie malnutrition 12/07/2021 Type 1 diabetes mellitus 08/24/2021 023 Serous detachment of retinal pigment epithelium, right 02/08/2017 04/05/2023 Dysfluency 01/03/2006 02/15/2023 Immunizations Name Administration Dates Next Due HPV9 01/27/2016,09/20/2015 Hepatitis A, ped/adol, 2 dose 04/10/2021, 020 Influenza Quadrivalent Preservative Free IM 05/24,07/03/2018,07/06/2017 Influenza Trivalent w/ Preservative IM 6,06/30/2015 Influenza, Unspecified Formulation 06/23/2019, Meningococcal B, OMV (MenB-4C) 05/10/2021,2020 Meningococcal MCV4P 04/03/2019 Tdap 04/26/2022 Social History Tobacco Use Types Packs/Day Years Used Date Smoking Tobacco: Never Smokeless Tobacco: Never Tobacco Cessation:Counseling Given: Not Answered Alcohol Use Standard Drinks/Week Comments Yes 0 [...] on file Sexual Orientation Not on file Last Filed Vital Signs Vital Sign Reading Time Taken Comments Blood Pressure 125/82 05/13/2023 1:01 PM EDT Pulse 105 05/13/2023 1:01 PM EDT Temperature 36.1 ??C (96.9 ??F) 05/03/2023 3:12 AM ED T Respiratory Rate 16 05/03/2023 7:00 AM EDT Oxygen Saturation 96% 05/13/2023 1:01 PM EDT Inhaled Oxygen Concentration - - Weight 61.7 kg (136 lb) 05/13/2023 1:01 PM EDT Height 177.8 cm (5' 10) 02/19/2023 8:21 AM EDT Body Mass Index 19.51 02/19/2023 8:21 AM EDT Plan of Treatment Health Maintenance Due Date Last Done Comments MMR VACCINES (1 of 1 - Standard series) 2003 PEDIATRIC ASTHMA CONTROL TEST (ACT) 2006 PNEUMOCOCCAL VACCINES (0-64 years) (1 of 2 - PCV) 2008 DEPRESSION SCREENING 2015 SMOKING Hx and SMOKELESS TOBACCO SCREENING 2015 HPV VACCINES (3 - Male 2-dose series) 04/20/2016 01/27/2016, 09/20/2015 HEPATITIS C SCREENING 2020 HIV ONE-TIME SCREENING (18-65 YEARS) 2020 HEPATITIS B VACCINES (1 of 3 - 19+ 3-dose series) 2021 COMBINED DTaP,Tdap,Td (2 - Td or Tdap) 05/24/2022 04/26/2022 URINE MICROALBUMIN/CREATININE RATIO 02/15/2023 LIPID PANEL 06/14/2023 06/14/2022, 05/25, 06/14/2022, Additional history exists HEMOGLOBIN A1C 07/07/2023 04/06/2023, 05/25, 06/15/2022, Additional history exists BLOOD PRESSURE 11/13/2023 05/13/2023 DIABETIC EYE EXAM 11/13/2023 11/13/2022, , 09/06/2020, Additional history exists INFLUENZA VACCINE (#1) 2024 , 06/23/2019, 07/03/2018, Additional history exists COVID-19 VACCINE ( season) 2024 Adult Td,Tdap Booster 04/26/2032 04/26/2022 MENINGOCOCCAL VACCINES (ACWY) Completed 04/03/2019 HEPATITIS A VACCINES Completed 04/10/2021, 04/07/20 20 HIB VACCINES Aged Out No longer eligi ble based on patient's age to complete this topic Medical Devices Not on file Procedures Procedure Name Priority Date/Time Associated Diagnosis Comments HEMOGLOBIN A1C Routine 04/06/2023 5:25 AM EDT UNMAPPED EXTERNAL LAB RESULT Routine 06/14/2022 6:48 PM EDT from Last 3 Months or Most Recently Relevant to Health Maintenance Results * Hemoglobin A1c (04/06/2023 5:25 AM EDT) Hemoglobin A1C 9.5 % [facility] Comment: HGBA1C REFERENCE RANGES: Normal: ? 4.0% - 5.6% Prediabetes: ??5.7% - 6.4% Diabetes: ? > or = to 6.5% Estimated Avg Glucose 226 mg/dL [facility] 04/06/2023 5:25 AM EDT 04/06/2023 5:29 AM EDT Otf De Souza MD LAB BLOOD ORDERABLES [facility] [address] [place] [address] from Last 3 Months or Most Recently Relevant to Health Maintenance Care Teams Grading Clerk Relationship Specialty Start Date End Date Ondina Hunter MD PCP - General Pediatrics 02/15/23 Additional Source Comments The information contained in this document represents components of the legal health record. It is not the complete legal health record.[facility]
--- OUTSIDE RECORDS SUMMARY | 2024-06-15 22:57 | XMS_ITS | Encounter Summary ---
Author Organization [facility] Address [phone] [facility] [place] [address] Care Team Providers Care Table Top Tile Setter Name Role Phone Ondina Hunter MD Primary Care Provider + Reason for Visit * Reason Comments Otitis Media Encounter Details Date Type Department Care Team (Latest Contact Info) Description 02/15/2023 3:30 PM EDT Office Visit [facility] Otolaryngology [address] [place] [id number] Lizbeth Bhardwaj MD [address] [place] [email or web address] Right acute otitis media (Primary Dx) Social History Tobacco Use Types [...] as of this encounter Progress Notes * Lizbeth Bhardwaj MD - 02/15/2023 3:30 PM EDT OTOLARYNGOLOGY NOTE PATIENT INFORMATION Name: Zeus Thompson [id number] [place] Date of : 2000 Date of service: 02/15/2023 REFERRING PROVIDER Lucas Smiley, * CHIEF COMPLAINT Chief Complaint Patient presents with ??? Otitis Media HISTORY OF PRESENT ILLNESS Zeus Thompson is a 22 y.o. year old male referred by Lucas Smiley, * for the evaluation of ear infection, right ear. Went to [place] ED told he had right sided mastoiditis as he had some tenderness behind the ear. On antibiotics and feeling much better, pain is gone but hearing is still blocked Notes he maybe had one other ear infection when younger but no h/o ear tube placement History of Type 1 Diabetes most recent HgbA1C was over 14 he is awaiting insulin pump as control has been difficulty PAST MEDICAL HISTORY Type 1 diabetes mellitus ADHD REINA (acute kidney injury) Depressive disorder Diabetic ketoacidosis without coma associated with type 1 diabetes mellitus Diabetic peripheral neuropathy Dysfluency Hyperglycemia Hypertriglyceridemia Mild persistent asthma without complication Type 1 diabetes mellitus Protein calorie malnutrition PAST SURGICAL HISTORY No past surgical history on file. MEDICATIONS No current [facility]-ordered outpatient medications on file. ALLERGIES Allergies Allergen Reactions ??? Penicillins Rash ??? Sulfa (Sulfonamide Antibiotics) Rash SOCIAL HISTORY Social History Tobacco Use ??? Smoking status: Not on file ??? Smokeless tobacco: Not on file Substance Use Topics ??? Alcohol use: Not on file FAMILY HISTORY No family history on file. ROS 8 point review of systems performed and negative unless noted in HPI PHYSICAL EXAM GENERAL APPEARANCE: well developed, well nourished patient in no acute distress. NEURO: Alert and oriented x3 EYES: Extraocular muscles movement symmetric and intact bilaterally VOICE: normal RESPIRATORY: normal, non labored respirations, no stridor or stertor FACIAL STRENGTH: normal and symmetric EARS: Right - pinna normal, no lesions or erythema. Canal clear. TM no erythema, there is a mucoid effusion. There is some reactive postauricular adenopathy no erythema, no tenderness or fluctuance; Left - pinna normal, no lesions or erythema. Canal clear. TM clear [place] right, BC=AC right, AC>BC left NOSE: Mucous membranes moist, no lesions, polyps, purulent discharge or bleeding ORAL CAVITY: buccal mucosa moist, no lesions. Tongue no lesions Hard palate normal, no masses. OROPHARYNX: Soft palate normal, no lesions, normal elevation Tonsils: 1+ NECK: Trachea midline No palpable lymphadenopathy No masses palpable SALIVARY: Parotid glands normal, no tenderness, swelling or masses Submandibular glands normal size and shape, no tenderness THYROID: No enlargement. No palpable nodules. IMAGIN02/13/23 CT head no contrast [facility] Mastoid and middle ear opacification, no evidence of bony coalescence, no subperiosteal collection seen LABS:CBC [facility] 02/13/23 WBC 17 with slight left shift ASSESSMENT & PLAN Zeus Thompson is a 22 y.o. year old male with right acute otitis media, concern for mastoiditis. On exam, he is improving well on current antibiotic regimen and has a residual middle ear effusion.No evidence of acute mastoiditis, imaging shows no coalescent mastoid process or concern for subperiosteal abscess. Diabetes is poorly controlled, insulin pump to be placed. Reviewed that effusion after acute OM can take several weeks to resolve. Advise gentle autoinsufflation. Should symptoms persist after several weeks, advised to return to office with audiogram and possible myringotomy. documented in this encounter Plan of Treatment Not on file documented as of this encounter Visit Diagnoses Diagnosis Right acute otitis media- Primary Unspecified otitis media documented in this encounter Care Teams Table Top Tile Setter Relationship Specialty Start Date End Date Ondina Hunter MD PCP - General Pediatrics 02/15/23 documented as of this encounter Additional Source Comments The information contained in this document represents components of the legal health record. It is not the complete legal health record.[facility]
--- OUTSIDE RECORDS SUMMARY | 2024-06-15 22:57 | XMS_ITS | Encounter Summary ---
Author Organization [facility] Address [phone] [place] [id number] Care Team Providers Care Muffler Tender Name Role Phone Ondina Hunter MD Primary Care Provider + Reason for Visit * Reason Onset Date Comments Medication Refill 04/25/2023 Encounter Details Date Type Department Care Team (Late st Contact Info) Description 04/25/2023 Refill [facility] Neurology [address] [place] [address] Cindy Angel MD [address] [facility] [address] [place] [address] [email or web address] Medication Refill Social History Tobacco Use Types Packs/Day Years [...] as of this encounter Progress Notes * Cindy Angel MD - 04/26/2023 5:47 PM EDT Called patient back. Patient taking 600mg/300/600mg of gabapentin per day. Will increase script to 600mg TID. Patient aware, no further refills until at least upcoming appointment. * Ele [place] - 04/25/2023 1:51 PM EDT Refill on Gabapentin documented in this encounter Plan of Treatment Not on file documented as of this encounter Visit Diagnoses Not on filedocumented in this encounter Care Teams Muffler Tender Relationship Specialty Start Date End Date Ondina Hunter MD PCP - General Pediatrics 02/15/23 documented as of this encounter Additional Source Comments The information contained in this document represents components of the legal health record. It is not the complete legal health record.[facility]
--- OUTSIDE RECORDS SUMMARY | 2024-06-15 22:57 | XMS_ITS | Encounter Summary ---
Author Organization [facility] Address [phone] [facility] [place] [address] Care Team Providers Care Rehab Physician Name Role Phone Ondina Hunter MD Primary Care Provider + Reason for Visit * Reason Comments Med Change Request Encounter Details Date Type Department Care Team (Late st Contact Info) Description 05/08/2023 [facility] Neurology [address] [facility] [address] [place] [address] Martha Bahena MD [address] [facility] [place] [address] Med Change Request Social History Tobacco Use Types Packs/Day Years [...] as of this encounter Progress Notes * Yamile Westfall DO - 05/31/2023 7:17 PM EDT Paged by answering service documented in this encounter Plan of Treatment Not on file documented as of this encounter Visit Diagnoses Diagnosis Hereditary and idiopathic peripheral neuropathy Unspecified hereditary and idiopathic peripheral neuropathy Diabetic polyneuropathy associated with diabetes mellitus due to underlying condition documented in this encounter Care Teams Rehab Physician Relationship Specialty Start Date End Date Ondina Hunter MD PCP - General Pediatrics 02/15/23 documented as of this encounter Additional Source Comments The information contained in this document represents components of the legal health record. It is not the complete legal health record.[facility]
--- OUTSIDE RECORDS SUMMARY | 2024-06-15 22:57 | XMS_ITS | Encounter Summary ---
Author Organization [facility] Address [phone] [facility] [place] [address] Care Team Providers Care Public Service Officer Name Role Phone Ondina Hunter MD Primary Care Provider + Encounter Details Date Type Department Care Team (Latest Contact Info) Description 04/15/2023 Orders Only [facility] Neurology [address] [facility] [address] [place] [address] Martha Bahena MD [address] [facility] [place] [address] Diabetic polyneuropathy associated with diabetes mellitus due to underlying condition (Primary Dx); Hereditary and idiopathic peripheral neuropathy Social History Tobacco Use Types Packs/Day Years [...] of this encounter Visit Diagnoses Diagnosis Diabetic polyneuropathy associated with diabetes mellitus due to underlying condition- Primary Hereditary and idiopathic peripheral neuropathy Unspecified hereditary and idiopathic peripheral neuropathy documented in this encounter Care Teams Public Service Officer Relationship Specialty Start Date End Date Ondina Hunter MD PCP - General Pediatrics 02/15/23 documented as of this encounter Additional Source Comments The information contained in this document represents components of the legal health record. It is not the complete legal health record.[facility]
--- OUTSIDE RECORDS SUMMARY | 2024-06-15 22:57 | XMS_ITS | Encounter Summary ---
Author Organization Located Within [facility] Address [phone] [place] [address] Care Team Providers Care Residential Counselor Name Role Phone Ondina Hunter MD Primary Care Provider + Encounter Details Date Type Department Care Team (Late st Contact Info) Description 04/06/2023 Pluralsight System Generated VIRTUAL DEPARTMENT Unknown, Unknown, Social History Tobacco Use Types Packs/Day Years [...] on file documented as of this encounter H&P Notes * Nilo Petit MD - 04/06/2023 2:03 AM EDT [facility] See Addendum HPI/ROS/History Admission Data Date of Admission Admission Date: 04/06/23 Physicians Attending Physician: NILO PETIT MD Primary Care Physician: TIFFANIE ROCA,TENZIN José Miguel ([phone]) Chief Complaint DKA History of Present Illness 22M c T1DM under very poor control (A1c >14%), non-compliance with insulin, frequent admissions for DKA, p/w DKA. Apparently pt has been on an insulin pump but ran out of insulin >24 hrs ago. BG 431 by EMS. VBG on arrival to ED: 6.95/227/bicarb 6. POC glucose >500. 1 L NS and 10 u insulin given, gtt being started. On my visit pt reports being tired. Denies pain, nausea, dyspnea. Denies drinking alcohol tonight. Denies drugs. Denies trauma. Denies active infection. Vague and inconsistent about insulin regimen. Names parents as designated decision makers if he's unable. Past Medical History Past Medical History T1DM Frequent DKA Neuropathy Asthma Home Medications Insulin Degludec (Tresiba Flextouch) 44 UNITS SC DAILY AT 7PM Albuterol-HFA Inhaler* (Ventolin-HFA Inhaler*) 2 PUFF INH Q4H PRN Shortness of Breath/Wheezing Insulin Lispro* (HumaLOG*) The medication list above Requires clarification Allergies Coded Allergies: Penicillins (rash, tolerated ceftriaxone and cephalexin 09/05/22) Sulfa Antibiotics (rash 09/03/22) Uncoded Allergies: Penicillins (Unknown 01/11/23) Sulfa Antibiotics (Unknown 01/11/23) Family History: Negative: Other (.). Social History Social History: Lives with parents. Drinks alcohol. Non-smoker. Denies drug use. Review of Systems Ten-system review of systems is negative except as outlined above in the HPI. Physical Exam Vital Signs 96.3 F, 110, 121/57, 100% RA Physical Exam (Text) Young man lying on stretcher Sleepy, wakes to voice and answers questions in short phrases. needs prodding to stay awake and engage Room air Pupils equal Dry MM Cor regular tachy Mild tachypnea, clear chest Abd soft No edema, diminished skin turgor, WWP Diagnostic Data Laboratory 04/06/23 0105: POC Glucose > 500 *H 04/06/23 0107: WBC 29.9 *H , RBC 5.93 H , Hgb 17.1, Hct 52.9, MCV 89.2, MCH 28.8, MCHC 32.3, RDW 11.8, Plt Count 459 H , MPV 10.8, Nucleated RBC % 0, Nucleated RBCs # 0.0 04/06/23 0107: Patient Temperature 37.0, Bicarbonate Actual 5.9, VBG pH 6.95 *L , VBG pCO2 at Pat Temp 27 L , VBG pO2 at Pat Temp 68 H , VBG O2 Sat (Андрей) 88 H , VBG Base Excess -25.4, VBG Oxyhemoglobin 86 H , VBG Carboxyhemoglobin 1.6 H , Methemoglobin 0.3, Barometric Pressure 760 Assessment & Plan Assessment #DKA, T1DM: Recurrent DKA due to insulin non-compliance. Most recently apparently on pump, ran out of insulin. Denies active infection. Severe acidosis with most of labs pending. Getting fluids and insulin. Will need ICU admission. Anticipate REINA and electrolyte abnormalities. -Admit to ICU -Volume resuscitate -Insulin gtt per DKA protocol -Close attention to K and other electrolytes -A1c in AM -Needs Endocrine consult called in AM (Dr. Ignacio) #Diabetic diet #SQH, PPI #Central access if inadequate PIVs #Full Code Care Time Critical Care Time (minutes) 60 (exclusive of procedures ) ADDENDUM: NILO PETIT MD on 04/06/23 at 0715 elevated WBC suspect reactive. monitor. defer abx. ESigned by: NILO PETIT MD(Pager:)on: 04/06/23@0217 Documentation Started: 04/06/23 @ 0203 Documentation time: 12.60 min CC OTHER PROVIDER: PRIMARY CARE: TIFFANIE ROCA,TENZIN LENTZ documented in this encounter Plan of Treatment Not on file documented as of this encounter Procedures Procedure Name Priority Date/Time Associated Diagnosis Comments VENOUS WHOLE BLOOD PROFILE Routine 04/06/2023 9:13 PM EDT PHOSPHORUS Routine 04/06/2023 9:00 PM EDT MAGNESIUM Routine 04/06/2023 9:00 PM EDT BASIC METABOLIC PANEL Routine 04/06/2023 9:00 PM EDT POCT GLUCOSE Routine 04/06/2023 8:34 PM EDT POCT GLUCOSE Routine 04/06/2023 7:40 PM EDT PHOSPHORUS Routine 04/06/2023 6:30 PM EDT MAGNESIUM Routine 04/06/2023 6:30 PM EDT BASIC METABOLIC PANEL Routine 04/06/2023 6:30 PM EDT POCT GLUCOSE Routine 04/06/2023 6:12 PM EDT POCT GLUCOSE Routine 04/06/2023 5:11 PM EDT CHEMISTRY COMMENT Routine 04/06/2023 5:0 0 PM EDT VENOUS WHOLE BLOOD PROFILE Routine 04/06/2023 5:00 PM EDT PHOSPHORUS Routine 04/06/2023 5:00 PM EDT MAGNESIUM Routine 04/06/2023 5:00 PM EDT BASIC METABOLIC PANEL Routine 04/06/2023 5:00 PM EDT POCT GLUCOSE Routine 04/06/2023 4:08 PM EDT POCT GLUCOSE Routine 04/06/2023 3:12 PM EDT POCT GLUCOSE Routine 04/06/2023 2:16 PM EDT POCT GLUCOSE Routine 04/06/2023 1:01 PM EDT VENOUS WHOLE BLOOD PROFILE Routine 04/06/2023 1:00 PM EDT PHOSPHORUS Routine 04/06/2023 1:00 PM EDT MAGNESIUM Routine 04/06/2023 1:00 PM EDT BASIC METABOLIC PANEL Routine 04/06/2023 1:00 PM EDT POCT GLUCOSE Routine 04/06/2023 12:00 PM EDT POCT GLUCOSE Routine 04/06/2023 11:04 AM EDT POCT GLUCOSE Routine 04/06/2023 10:16 AM EDT POCT GLUCOSE Routine 04/06/2023 9:01 AM EDT PHOSPHORUS Routine 04/06/2023 8:59 AM EDT MAGNESIUM Routine 04/06/2023 8:59 AM EDT BASIC METABOLIC PANEL Routine 04/06/2023 8:59 AM EDT POCT GLUCOSE Routine 04/06/2023 8:01 AM EDT POCT GLUCOSE Routine 04/06/2023 7:02 AM EDT POCT GLUCOSE Routine 04/06/2023 6:01 AM EDT HEPATIC FUNCTION PANEL Routine 04/06/2023 5:25 AM EDT VENOUS WHOLE BLOOD PROFILE Routine 04/06/2023 5:25 AM EDT SDIFF Routine 04/06/2023 5:25 AM EDT CBC AND DIFFERENTIAL Routine 04/06/2023 5:25 AM EDT PHOSPHORUS Routine 04/06/2023 5:25 AM EDT MAGNESIUM Routine 04/06/2023 5:25 AM EDT HEMOGLOBIN A1C Routine 04/06/2023 5:25 AM EDT BASIC METABOLIC PANEL Routine 04/06/2023 5:25 AM EDT POCT GLUCOSE Routine 04/06/2023 5:10 AM EDT POCT GLUCOSE Routine 04/06/2023 4:02 AM EDT POCT GLUCOSE Routine 04/06/2023 3:25 AM EDT documented in this encounter Results * (ABNORMAL) Venous Whole Blood Profile (04/06/2023 9:13 PM EDT) [facility] Venous Blood Gas pH 7.33 7.32 - 7.42 [facility] Venous Bl Gas PCO2 29(L) 40 - 50 mmHg [facility] Venous Blood Gas PO2 48 30 - 50 mmHg [facility] Venous O2 % Saturation 86(H) 60 - 85 % [facility] Venous Oxyhemoglobin 84 61 - 85 % [facility] Venous Carboxyhemoglobin 2.0(H) 0.0 - 1.5 [facility] Venous Methemoglobin 0.2 0 - 1.5 % [facility] Blood Gas Sodium 134(L) 135 - 148 mmol/L [facility] Blood Gas Potassium 4.3 3.5 - 5.3 mmol/L [facility] Blood Gas Chloride 102 98 - 106 mmol/L [facility] Blood Gas Total Hemoglobin 12.7(L) 14.0 - 16.4 g/dL [facility] Hematocrit, Blood Gas 37(L) 39 - 55 % [facility] Venous Blood Gas Bicarbonate 15.1 mmol/L [facility] Venous Base Excess -9.4 mmol/L [facility] Venous O2 Content 15.0 % vol EM [facility] Patient Temp 37.0 CELSIUS [facility] Barometric Pressure 760 mmHg [facility] Ionized Calcium(Venous) 1.21 1.13 - 1.32 mmol/L [facility] 04/06/2023 9:13 PM EDT 04/06/2023 9:13 PM EDT Nilo Petit MD LAB BLOOD ORDERABLES Performing Organization Address City/[facility]/ZIP Co de Phone Number [facility] [address] [place] [address] * Magnesium (04/06/2023 9:00 PM EDT) Pathologist [facility] Magnesium 1.8 1.6 - 2.6 mg/dL [facility] 04/06/2023 9:00 PM EDT 04/06/2023 9:20 PM EDT Nilo Petit MD LAB BLOOD ORDERABLES Performing Organization Address [facility] Co de Phone Number [facility] [address] [place] [address] * Phosphorus (04/06/2023 9:00 PM EDT) Pathologist [facility] Phosphorous 3.3 2.4 - 5.1 mg/dL [facility] 04/06/2023 9:00 PM EDT 04/06/2023 9:20 PM EDT Nilo Petit MD LAB BLOOD ORDERABLES Performing Organization Address [facility] Co de Phone Number [facility] [address] [place] [address] * (ABNORMAL) Basic metabolic panel (04/06/2023 9:00 PM EDT) Sodium 136 135 - 145 mEq/L [facility] Potassium 4.2 3.5 - 5.5 mEq/L [facility] Chloride 105 99 - 113 mEq/L [facility] Carbon Dioxide 18(L) 20.0 - 31.0 mEq/L [facility] Anion Gap 13 5 - 15 mEq/L [facility] Comment:PLEASE NOTE: NEW REF ERENCE RANGE Glucose 411(Critic ally H) 70 - 99 mg/dL [facility] Comment: PLEASE NOTE: NEW REFERENCE RANGE GAZKR CALLED ALL CRITICAL RESULTS AT [id number] 2154. ?? THE RESULTS WERE READ BACK AND VERIFIED BY: ??TELLO MIXON RN AT CCU Adult, Fasting Non-diabetic Reference Range Blood Urea Nitrogen 19 9 - 23 mg/dL [facility] Creatinine 1.13 0.70 - 1.30 mg/dL [facility] Comment:PLEASE NOTE: NEW REF ERENCE RANGE GFR Estimated (Calc) 95 >90 [facility] Comment: Reference: ?? > 90 ml/min/1.73 m2 ??Normal 60 -89 ml/min/1.73 m2 ??Indeterminate, relevance is ?multifactorial 16 -59 ml/min/1.73 m2 ??Suggest Kidney Disease ?? < 15 ml/min/1.73 m2 ??Suggest Kidney Failure Calcium 8.8 8.7 - 10.4 mg/dL [facility] Comment:PLEASE NOTE: NEW REF ERENCE RANGE 04/06/2023 9:00 PM EDT 04/06/2023 9:20 PM EDT Nilo Petit MD LAB BLOOD ORDERABLES Performing Organization Address [facility] Co de Phone Number [address] [address] * (ABNORMAL) POCT Glucose (04/06/2023 8:34 PM EDT) Glucose For POCT 372(H) 70 - 100 mg/dL [facility] 04/06/2023 8:34 PM EDT 04/06/2023 8:40 PM EDT Nilo Petit MD POINT OF CARE TEST O RDERABLES Performing Organization Address [facility] Co de Phone Number [facility] [address] [place] [address] * (ABNORMAL) POCT Glucose (04/06/2023 7:40 PM EDT) [facility] Glucose For POCT 369(H) 70 - 100 mg/dL [facility] 04/06/2023 7:40 PM EDT 04/06/2023 7:46 PM EDT Nilo Petit MD POINT OF CARE TEST O RDERABLES [facility] [address] [place] [address] * Magnesium (04/06/2023 6:30 PM EDT) [facility] Magnesium 1.8 1.6 - 2.6 mg/dL [facility] 04/06/2023 6:30 PM EDT 04/06/2023 6:40 PM EDT Nilo Petit MD LAB BLOOD ORDERABLES Performing Organization Address City/[facility]/ZIP Co de Phone Number [facility] [address] [place] [address] * Phosphorus (04/06/2023 6:30 PM EDT) [facility] Phosphorous 3.4 2.4 - 5.1 mg/dL [facility] 04/06/2023 6:30 PM EDT 04/06/2023 6:40 PM EDT Nilo Petit MD LAB BLOOD ORDERABLES Performing Organization Address [facility]/ZIP Co de Phone Number [facility] [address] [place] [address] * (ABNORMAL) Basic metabolic panel (04/06/2023 6:30 PM EDT) [facility] Sodium 135 135 - 145 mEq/L [facility] Potassium 4.3 3.5 - 5.5 mEq/L [facility] Chloride 107 99 - 113 mEq/L [facility] Carbon Dioxide 18(L) 20.0 - 31.0 mEq/L [facility] Anion Gap 10 5 - 15 mEq/L [facility] Comment:PLEASE NOTE: NEW REF ERENCE RANGE Glucose 360(H) 70 - 99 mg/dL [facility] Comment: PLEASE NOTE: NEW REFERENCE RANGE Adult, Fasting Non-diabetic Reference Range Blood Urea Nitrogen 19 9 - 23 mg/dL [facility] Creatinine 1.03 0.70 - 1.30 mg/dL [facility] Comment:PLEASE NOTE: NEW REF ERENCE RANGE GFR Estimated (Calc) 107 >90 [facility] Comment: Reference: ?? > 90 ml/min/1.73 m2 ??Normal 60 -89 ml/min/1.73 m2 ??Indeterminate, relevance is ?multifactorial 16 -59 ml/min/1.73 m2 ??Suggest Kidney Disease ?? < 15 ml/min/1.73 m2 ??Suggest Kidney Failure Calcium 8.5(L) 8.7 - 10.4 mg/dL [facility] Comment:PLEASE NOTE: NEW REF ERENCE RANGE 04/06/2023 6:30 PM EDT 04/06/2023 6:40 PM EDT Nilo Petit MD LAB BLOOD ORDERABLES Performing Organization Address [facility] Co de Phone Number [place] [address] [place] [address] * (ABNORMAL) POCT Glucose (04/06/2023 6:12 PM EDT) Glucose For POCT 315(H) 70 - 100 mg/dL [facility] 04/06/2023 6:12 PM EDT 04/06/2023 6:20 PM EDT Nilo Petit MD POINT OF CARE TEST O RDERABLES Performing Organization Address [facility] Co de Phone Number [facility] [address] [place] [facility] [address] * (ABNORMAL) POCT Glucose (04/06/2023 5:11 PM EDT) Glucose For POCT 303(H) 70 - 100 mg/dL [facility] 04/06/2023 5:11 PM EDT 04/06/2023 6:20 PM EDT Nilo Petit MD POINT OF CARE TEST O RDERABLES [facility] [address] [place] [address] * Chemistry Comment (04/06/2023 5:00 PM EDT) Comment-Community Relations Manager ry SPEC UNSATISFACTORY [facility] Comment:QUESTION CONTAMINATE D SPECIMEN. REDRAW REQUESTED 04/06/2023 5:00 PM EDT 04/06/2023 5:28 PM EDT Nilo Petit MD LAB BLOOD ORDERABLES Performing Organization Address [facility]/ZIP Co de Phone Number [facility] [address] [place] [address] * Magnesium (04/06/2023 5:00 PM EDT) 04/06/2023 5:00 PM EDT 04/06/2023 5:28 PM EDT [facility] - 04/06/2023 6:30 PM EDT CONTAMINATED SPECIMEN Nilo Petit MD LAB BLOOD ORDERABLES Performing Organization Address City/[facility]/ZIP Co de Phone Number [facility] [address] [place] [address] * Phosphorus (04/06/2023 5:00 PM EDT) 04/06/2023 5:00 PM EDT 04/06/2023 5:28 PM EDT [facility] - 04/06/2023 6:30 PM EDT CONTAMINATED SPECIMEN Nilo Petit MD LAB BLOOD ORDERABLES [facility] [address] [place] [address] * Basic metabolic panel (04/06/2023 5:00 PM EDT) 04/06/2023 5:00 PM EDT 04/06/2023 5:28 PM EDT Narrative [facility] - 04/06/2023 6:30 PM EDT CONTAMINATED SPECIMEN Nilo Petit MD LAB BLOOD ORDERABLES [facility] [address] [place] [address] * (ABNORMAL) Venous Whole Blood Profile (04/06/2023 5:00 PM EDT) Venous Blood Gas pH 7.38 7.32 - 7.42 [facility] Venous Bl Gas PCO2 22(L) 40 - 50 mmHg [facility] Venous Blood Gas PO2 47 30 - 50 mmHg [facility] Venous O2 % Saturation 88(H) 60 - 85 % [facility] Venous Oxyhemoglobin 87(H) 61 - 85 % [facility] Venous Carboxyhemoglobin 1.7(H) 0.0 - 1.5 [facility] Venous Methemoglobin 0.3 0 - 1.5 % [facility] Blood Gas Sodium 136 135 - 148 mmol/L [facility] Blood Gas Potassium 7.0(Crit ically H) 3.5 - 5.3 mmol/L [facility] Blood Gas Chloride 116(Crit ically H) 98 - 106 mmol/L [facility] Blood Gas Total Hemoglobin 11.0(L) 14.0 - 16.4 g/dL [facility] Hematocrit, Blood Gas 32(L) 39 - 55 % [facility] Venous Blood Gas Bicarbonate 12.8 mmol/L [facility] Venous Base Excess -10.6 mmol/L [facility] Venous O2 Content 13.4 % vol EM [facility] Patient Temp 37.0 CELSIUS [facility] Barometric Pressure 760 mmHg [facility] Ionized Calcium(Venous) 1.03(L) 1.13 - 1.32 mmol/L [facility] 04/06/2023 5:00 PM EDT 04/06/2023 5:20 PM EDT Nilo Petit MD LAB BLOOD ORDERABLES Performing Organization Address [facility]/ZIP Co de Phone Number [facility] [address] [place] [address] * (ABNORMAL) POCT Glucose (04/06/2023 4:08 PM EDT) Glucose For POCT 292(H) 70 - 100 mg/dL [facility] 04/06/2023 4:08 PM EDT 04/06/2023 4:16 PM EDT Nilo Petit MD POINT OF CARE TEST O RDERABLES Performing Organization Address [facility] Co de Phone Number [facility] [address] [place] [address] * (ABNORMAL) POCT Glucose (04/06/2023 3:12 PM EDT) Glucose For POCT 224(H) 70 - 100 mg/dL [facility] 04/06/2023 3:12 PM EDT 04/06/2023 3:19 PM EDT Nilo Petit MD POINT OF CARE TEST O RDERABLES Performing Organization Address [facility] Co de Phone Number [facility] [address] [place] [address] * (ABNORMAL) POCT Glucose (04/06/2023 2:16 PM EDT) Glucose For POCT 200(H) 70 - 100 mg/dL [facility] 04/06/2023 2:16 PM EDT 04/06/2023 2:23 PM EDT Nilo Petit MD POINT OF CARE TEST O RDERABLES Performing Organization Address [facility]/ZIP Co de Phone Number [facility] [address] [place] [address] * (ABNORMAL) POCT Glucose (04/06/2023 1:01 PM EDT) [facility] Glucose For POCT 226(H) 70 - 100 mg/dL [facility] 04/06/2023 1:01 PM EDT 04/06/2023 1:08 PM EDT Nilo Petit MD POINT OF CARE TEST O RDERABLES Performing Organization Address [facility] Co de Phone Number [facility] [address] [place] [address] * Magnesium (04/06/2023 1:00 PM EDT) [facility] Magnesium 1.8 1.6 - 2.6 mg/dL [facility] 04/06/2023 1:00 PM EDT 04/06/2023 1:13 PM EDT Nilo Petit MD LAB BLOOD ORDERABLES Performing Organization Address [facility]/[place] Co de Phone Number [facility] [address] [place] [address] * Phosphorus (04/06/2023 1:00 PM EDT) [facility] Phosphorous 4.0 2.4 - 5.1 mg/dL [facility] 04/06/2023 1:00 PM EDT 04/06/2023 1:13 PM EDT Nilo Petit MD LAB BLOOD ORDERABLES Performing Organization Address [facility] Co de Phone Number [facility] [address] [place] [address] * (ABNORMAL) Basic metabolic panel (04/06/2023 1:00 PM EDT) [facility] Sodium 137 135 - 145 mEq/L [facility] Potassium 4.4 3.5 - 5.5 mEq/L [facility] Chloride 108 99 - 113 mEq/L [facility] Carbon Dioxide 14(L) 20.0 - 31.0 mEq/L [facility] Anion Gap 15 5 - 15 mEq/L [facility] Comment:PLEASE NOTE: NEW REF ERENCE RANGE Glucose 250(H) 70 - 99 mg/dL [facility] Comment: PLEASE NOTE: NEW REFERENCE RANGE Adult, Fasting Non-diabetic Reference Range Blood Urea Nitrogen 23 9 - 23 mg/dL [facility] Creatinine 1.05 0.70 - 1.30 mg/dL [facility] Comment:PLEASE NOTE: NEW REF ERENCE RANGE GFR Estimated (Calc) 104 >90 [facility] Comment: Reference: ?? > 90 ml/min/1.73 m2 ??Normal 60 -89 ml/min/1.73 m2 ??Indeterminate, relevance is ?multifactorial 16 -59 ml/min/1.73 m2 ??Suggest Kidney Disease ?? < 15 ml/min/1.73 m2 ??Suggest Kidney Failure Calcium 8.5(L) 8.7 - 10.4 mg/dL [facility] Comment:PLEASE NOTE: NEW REF ERENCE RANGE 04/06/2023 1:00 PM EDT 04/06/2023 1:13 PM EDT Nilo Petit MD LAB BLOOD ORDERABLES [facility] [address] [place] [address] * (ABNORMAL) Venous Whole Blood Profile (04/06/2023 1:00 PM EDT) Venous Blood Gas pH 7.28(L) 7.32 - 7.42 [facility] Venous Bl Gas PCO2 28(L) 40 - 50 mmHg [facility] Venous Blood Gas PO2 62(H) 30 - 50 mmHg [facility] Venous O2 % Saturation 92(H) 60 - 85 % [facility] Venous Oxyhemoglobin 90(H) 61 - 85 % [facility] Venous Carboxyhemoglobin 1.8(H) 0.0 - 1.5 [facility] Venous Methemoglobin 0.1 0 - 1.5 % [facility] Blood Gas Sodium 137 135 - 148 mmol/L [facility] Blood Gas Potassium 4.4 3.5 - 5.3 mmol/L [facility] Blood Gas Chloride 107(H) 98 - 106 mmol/L [facility] Blood Gas Total Hemoglobin 13.2(L) 14.0 - 16.4 g/dL [facility] Hematocrit, Blood Gas 39 39 - 55 % [facility] Venous Blood Gas Bicarbonate 13.1 mmol/L [facility] Venous Base Excess -12.0 mmol/L [facility] Venous O2 Content 16.7 % vol EM [facility] Patient Temp 37.0 CELSIUS [facility] Barometric Pressure 760 mmHg [facility] Ionized Calcium(Venous) 1.20 1.13 - 1.32 mmol/L [facility] 04/06/2023 1:00 PM EDT 04/06/2023 1:09 PM EDT Nilo Petit MD LAB BLOOD ORDERABLES Performing Organization Address [facility] Co de Phone Number [address] [place] [address] * (ABNORMAL) POCT Glucose (04/06/2023 12:00 PM EDT) Glucose For POCT 225(H) 70 - 100 mg/dL [facility] 04/06/2023 12:0 0 PM EDT 04/06/2023 12:06 PM EDT Nilo Petit MD POINT OF CARE TEST O RDERASRIRAM Performing Organization Address [facility] Co de Phone Number [facility] [address] [facility] [place] [address] * (ABNORMAL) POCT Glucose (04/06/2023 11:04 AM EDT) Glucose For POCT 243(H) 70 - 100 mg/dL [facility] 04/06/2023 11:0 4 AM EDT 04/06/2023 11:30 AM EDT Nilo Petit MD POINT OF CARE TEST O RDERASRIRAM Performing Organization Address City/[facility]/ZIP Co de Phone Number [facility] [address] [place] [address] * (ABNORMAL) POCT Glucose (04/06/2023 10:16 AM EDT) Glucose For POCT 269(H) 70 - 100 mg/dL [facility] 04/06/2023 10:1 6 AM EDT 04/06/2023 10:22 AM EDT Nilo Petit MD POINT OF CARE TEST O RDERABLES Performing Organization Address [facility]/ZIP Co de Phone Number [facility] [address] [place] [address] * (ABNORMAL) POCT Glucose (04/06/2023 9:01 AM EDT) Glucose For POCT 287(H) 70 - 100 mg/dL [facility] 04/06/2023 9:01 AM EDT 04/06/2023 9:08 AM EDT Nilo Petit MD POINT OF CARE TEST O RDERABLES Performing Organization Address [facility] Co de Phone Number [facility] [address] [place] [address] * Magnesium (04/06/2023 8:59 AM EDT) Magnesium 1.9 1.6 - 2.6 mg/dL [facility] 04/06/2023 8:59 AM EDT 04/06/2023 9:05 AM EDT Nilo Petit MD LAB BLOOD ORDERABLES Performing Organization Address [facility]/ZIP Co de Phone Number [facility] [address] [place] [address] * Phosphorus (04/06/2023 8:59 AM EDT) Phosphorous 4.2 2.4 - 5.1 mg/dL [facility] 04/06/2023 8:59 AM EDT 04/06/2023 9:05 AM EDT Nilo Petit MD LAB BLOOD ORDERABLES [facility] [address] [place] [address] * (ABNORMAL) Basic metabolic panel (04/06/2023 8:59 AM EDT) Sodium 138 135 - 145 mEq/L [facility] Potassium 4.8 3.5 - 5.5 mEq/L [facility] Chloride 108 99 - 113 mEq/L [facility] Carbon Dioxide 12(L) 20.0 - 31.0 mEq/L [facility] Anion Gap 18(H) 5 - 15 mEq/L [facility] Comment:PLEASE NOTE: NEW REF ERENCE RANGE Glucose 305(H) 70 - 99 mg/dL [facility] Comment: PLEASE NOTE: NEW REFERENCE RANGE Adult, Fasting Non-diabetic Reference Range Blood Urea Nitrogen 24(H) 9 - 23 mg/dL [facility] Creatinine 1.16 0.70 - 1.30 mg/dL [facility] Comment:PLEASE NOTE: NEW REF ERENCE RANGE GFR Estimated (Calc) 92 >90 [facility] Comment: Reference: ?? > 90 ml/min/1.73 m2 ??Normal 60 -89 ml/min/1.73 m2 ??Indeterminate, relevance is ?multifactorial 16 -59 ml/min/1.73 m2 ??Suggest Kidney Disease ?? < 15 ml/min/1.73 m2 ??Suggest Kidney Failure Calcium 8.6(L) 8.7 - 10.4 mg/dL [facility] Comment:PLEASE NOTE: NEW REF ERENCE RANGE 04/06/2023 8:59 AM EDT 04/06/2023 9:05 AM EDT Nilo Petit MD LAB BLOOD ORDERABLES [facility] [address] [place] [address] * (ABNORMAL) POCT Glucose (04/06/2023 8:01 AM EDT) Glucose For POCT 295(H) 70 - 100 mg/dL [facility] [facility] 04/06/2023 8:01 AM EDT 04/06/2023 8:08 AM EDT Nilo Pteit MD POINT OF CARE TEST O SAIGE [facility] [address] [place] [address] * (ABNORMAL) POCT Glucose (04/06/2023 7:02 AM EDT) Glucose For POCT 316(H) 70 - 100 mg/dL [facility] 04/06/2023 7:02 AM EDT 04/06/2023 7:09 AM EDT Nilo Petit MD POINT OF CARE TEST O SAIGE Performing Organization Address [facility]/ZIP Co de Phone Number [facility] [address] [place] [address] * (ABNORMAL) POCT Glucose (04/06/2023 6:01 AM EDT) Glucose For POCT 422(Critic ally H) 70 - 100 mg/dL [facility] Comment:Provider Notified 04/06/2023 6:01 AM EDT 04/06/2023 6:07 AM EDT Nilo Petit MD POINT OF CARE TEST O SAIGE Performing Organization Address [facility]/ZIP Co de Phone Number [facility] [address] [place] [facility] [place] [address] * SDiff (04/06/2023 5:25 AM EDT) 04/06/2023 5:25 AM EDT 04/06/2023 5:29 AM EDT Nilo Petit MD LAB BLOOD ORDERABLES Performing Organization Address [facility]/ZIP Co de Phone Number [facility] [address] [place] [address] * Magnesium (04/06/2023 5:25 AM EDT) Magnesium 2.0 1.6 - 2.6 mg/dL [facility] 04/06/2023 5:25 AM EDT 04/06/2023 5:29 AM EDT Nilo Petit MD LAB BLOOD ORDERABLES Performing Organization Address [facility]/[place] Co de Phone Number [address] [address] * (ABNORMAL) Phosphorus (04/06/2023 5:25 AM EDT) Phosphorous 5.5(H) 2.4 - 5.1 mg/dL [facility] 04/06/2023 5:25 AM EDT 04/06/2023 5:29 AM EDT Nilo Petit MD LAB BLOOD ORDERABLES Performing Organization Address [facility]/[place] Co de Phone Number [address] [address] * (ABNORMAL) Basic metabolic panel (04/06/2023 5:25 AM EDT) Sodium 135 135 - 145 mEq/L [facility] Potassium 4.6 3.5 - 5.5 mEq/L [facility] Chloride 103 99 - 113 mEq/L [facility] Carbon Dioxide < 10(L) 20.0 - 31.0 mEq/L [facility] Anion Gap TNP 5 - 15 mEq/L [facility] Glucose 414(Critic ally H) 70 - 99 mg/dL [facility] Comment: PLEASE NOTE: NEW REFERENCE RANGE CONTA CALLED ALL CRITICAL RESULTS AT [id number]. ?? THE RESULTS WERE READ BACK AND VERIFIED BY: ??MADISON WATKINS @ CCU Adult, Fasting Non-diabetic Reference Range Blood Urea Nitrogen 27(H) 9 - 23 mg/dL [facility] Creatinine 1.36(H) 0.70 - 1.30 mg/dL [facility] Comment:PLEASE NOTE: NEW REF ERENCE RANGE GFR Estimated (Calc) 76 >90 [facility] Comment: Reference: ?? > 90 ml/min/1.73 m2 ??Normal 60 -89 ml/min/1.73 m2 ??Indeterminate, relevance is ?multifactorial 16 -59 ml/min/1.73 m2 ??Suggest Kidney Disease ?? < 15 ml/min/1.73 m2 ??Suggest Kidney Failure Calcium 8.2(L) 8.7 - 10.4 mg/dL [facility] Comment: PLEASE NOTE: NEW REFERENCE RANGE REVIEWED ALL DELTAS 04/06/2023 5:25 AM EDT 04/06/2023 5:29 AM EDT Nilo Petit MD LAB BLOOD ORDERABLES [facility] [address] [place] [id number] * (ABNORMAL) Hepatic function panel (04/06/2023 5:25 AM EDT) Total Protein 7.1 5.7 - 8.2 g/dL [facility] Albumin 4.4 3.2 - 4.8 gm/dL [facility] Comment:PLEASE NOTE: NEW REF ERENCE RANGE Globulin 2.7 2.3 - 4.0 g/dL [facility] Alb/Glob Ratio 1.6 [facility] Bilirubin,Total 0.4 0.3 - 1.2 mg/dL [facility] Bilirubin,Direct 0.2 0.0 - 0.3 mg/dl [facility] Alkaline Phosphatase 91 46 - 116 U/L [facility] Comment:PLEASE NOTE: NEW REF ERENCE RANGE AST(SGOT) < 8(L) 13 - 40 U/L [facility] ALT(SGPT) 10 7 - 40 U/L [facility] 04/06/2023 5:25 AM EDT 04/06/2023 5:29 AM EDT Nilo Petit MD LAB BLOOD ORDERABLES [facility] [address] [place] [address] * (ABNORMAL) CBC and differential (04/06/2023 5:25 AM EDT) WBC 28.6(Crit ically H) 4.5 - 11.0 10*3/mm3 [facility] RBC 5.07 4.50 - 5.90 10*6/mm3 [facility] Hemoglobin 14.7(Sigc hg) 13.5 - 17.5 g/dL [facility] Comment: Delta: 17.1 on 04/06/2023-0107 ALL CRITICAL RESULTS CALLED TO BRENDA MAYO RN AT CCU by RUTHANN,04/06/23:0658 Hematocrit 43.3(Sigc hg) 41.0 - 53.0 % [facility] Comment:Delta: 52.9 on 04/06 Platelet 380 150 - 450 10*3/mm3 [facility] % Neutrophils 73.4(H) 40 - 62 % [facility] % Lymphocytes 15.5(L) 27 - 40 % [facility] % Monocytes 8.3 0 - 11 % [facility] % Eosinophils 0.1 0 - 6 % [facility] % Basophils 0.3 0 - 3 % [facility] % Immature Granulocytes 2.4 0 - 5 % [facility] Abs Neutrophils 21.0(H) 1.8 - 8.1 10*3/mm3 [facility] Abs Lymph Count 4.4 1.2 - 5.2 10*3/mm3 [facility] Abs Monocytes 2.4(H) 0.0 - 0.8 10*3/mm3 [facility] Abs Eosinophils 0.0 0 - 0.5 10*3/mm3 [facility] Abs Basophils 0.1 0 - 0.3 10*3/mm3 [facility] Abs Immature Granulocytes 0.7(H) 0 - 0.5 10*3/mm3 [facility] MCV 85.4 80.0 - 99.0 fL [facility] MCH 29.0 26.0 - 34.0 pg [facility] MCHC 33.9 31.0 - 35.5 g/dL [facility] RDW 11.9 11.5 - 14.5 % [facility] MPV 10.1 9.4 - 12.4 [facility] % Nucleated RBC 0 0 % [facility] Abs Nucleated RBC 0.0 0 10*3/mm3 [facility] 04/06/2023 5:25 AM EDT 04/06/2023 5:29 AM EDT Nilo Petit MD LAB BLOOD ORDERABLES [facility] [address] [place] [address] * Hemoglobin A1c (04/06/2023 5:25 AM EDT) Hemoglobin A1C 9.5 % [facility] Comment: HGBA1C REFERENCE RANGES: Normal: ? 4.0% - 5.6% Prediabetes: ??5.7% - 6.4% Diabetes: ? > or = to 6.5% Estimated Avg Glucose 226 mg/dL [facility] 04/06/2023 5:25 AM EDT 04/06/2023 5:29 AM EDT Nilo Petit MD LAB BLOOD ORDERABLES Performing Organization Address City/[facility]/ZIP Co de Phone Number [facility] [address] [place] [address] * (ABNORMAL) Venous Whole Blood Profile (04/06/2023 5:25 AM EDT) Venous Blood Gas pH 7.14(Cri tically L) 7.32 - 7.42 [facility] Venous Bl Gas PCO2 22(L) 40 - 50 mmHg [facility] Venous Blood Gas PO2 70(H) 30 - 50 mmHg [facility] Venous O2 % Saturation 93(H) 60 - 85 % [facility] Venous Oxyhemoglobin 91(H) 61 - 85 % [facility] Venous Carboxyhemoglobin 1.9(H) 0.0 - 1.5 [facility] Venous Methemoglobin 0.1 0 - 1.5 % [facility] Blood Gas Sodium 138 135 - 148 mmol/L [facility] Blood Gas Potassium 4.7 3.5 - 5.3 mmol/L [facility] Blood Gas Chloride 102 98 - 106 mmol/L [facility] Blood Gas Total Hemoglobin 14.5 14.0 - 16.4 g/dL [facility] Hematocrit, Blood Gas 43 39 - 55 % [facility] Venous Blood Gas Bicarbonate 7.3 mmol/L [facility] Venous Base Excess -19.9 mmol/L E [facility] Venous O2 Content 18.5 % vol EM [facility] Patient Temp 37.0 CELSIUS [facility] Barometric Pressure 760 mmHg [facility] Ionized Calcium(Venous) 1.18 1.13 - 1.32 mmol/L [facility] 04/06/2023 5:25 AM EDT 04/06/2023 5:36 AM EDT Nilo Petit MD LAB BLOOD ORDERABLES [place] [address] [place] [address] * (ABNORMAL) POCT Glucose (04/06/2023 5:10 AM EDT) Glucose For POCT 438(Critic ally H) 70 - 100 mg/dL [facility] Comment:Provider Notified 04/06/2023 5:10 AM EDT 04/06/2023 7:09 AM EDT Nilo Petit MD POINT OF CARE TEST O RDERABLES [facility] [address] [place] [facility] [address] * (ABNORMAL) POCT Glucose (04/06/2023 4:02 AM EDT) Glucose For POCT 457(Critic ally H) 70 - 100 mg/dL [facility] Comment:Provider Notified 04/06/2023 4:02 AM EDT 04/06/2023 4:10 AM EDT Nilo Petit MD POINT OF CARE TEST O RDERABLES Performing Organization Address City/[facility]/ZIP Co de Phone Number [facility] [address] [place] [address] * (ABNORMAL) POCT Glucose (04/06/2023 3:25 AM EDT) Glucose For POCT > 500(Critic ally H) 70 - 100 mg/dL [facility] Comment:Results Verified 04/06/2023 3:25 AM EDT 04/06/2023 3:31 AM EDT Nilo Petit MD POINT OF CARE TEST O SAIGE Performing Organization Address [facility]/[place] Co de Phone Number [facility] [address] [place] [address] documented in this encounter Visit Diagnoses Not on filedocumented in this encounter Care Teams Residential Counselor Relationship Specialty Start Date End Date Ondina Hunter MD PCP - General Pediatrics 02/15/23 documented as of this encounter Additional Source Comments The information contained in this document represents components of the legal health record. It is not the complete legal health record.Located Within [facility]
--- OUTSIDE RECORDS SUMMARY | 2024-06-15 22:57 | XMS_ITS | Encounter Summary ---
Author Organization [facility] Address [phone] [facility] [place] [address] Care Team Providers Care Topper Press Operator Automatic Name Role Phone Ondina Hunter MD Primary Care Provider + Encounter Details Date Type Department Care Team (Late st Contact Info) Description 04/15/2023 Telephone [facility] Neurology [address] [facility] [address] [place] [address] Martha Bahena MD [address] [facility] [address] [place] [address] Social History Tobacco Use Types Packs/Day Years [...] Notes * Martha Bahena MD - 04/15/2023 7:19 PM EDT Pt paged me. He is in pain from diabetic neuropathy and has not been sleeping in the last couple ofdays . I called back Left message on voice mail to call me Back he was seen by Dr Angel . documented in this encounter Plan of Treatment Not on file documented as of this encounter Visit Diagnoses Not on filedocumented in this encounter Care Teams Topper Press Operator Automatic Relationship Specialty Start Date End Date Ondina Hunter MD PCP - General Pediatrics 02/15/23 documented as of this encounter Additional Source Comments The information contained in this document represents components of the legal health record. It is not the complete legal health record.[facility]
--- OUTSIDE RECORDS SUMMARY | 2024-06-15 22:57 | XMS_ITS | Encounter Summary ---
Author Organization [facility] Address [phone] [facility] [place] [address] Care Team Providers Care Calender Operator Helper Name Role Phone Ondina Hunter MD Primary Care Provider + Reason for Referral * Physical Therapy (Within 2 weeks) - Closed Specialty Diagnoses / Procedures Referred By Jessica mckinnon Referred To Contact Diagnoses Diabetic peripheral neuropathy Cindy Angel MD 6 [facility] [address] [place] [address] Email: [email or web address] [address] [place] [address] Referral ID Status Reason Start Date Expiration Date Visits Re quested Visits Authorized [id number] Closed 04/09/2023 04/09/2024 1 1 Reason for Visit * Reason Comments Peripheral Neuropathy Encounter Details Date Type Department Care Team (Late st Contact Info) Description 04/09/2023 9:00 AM EDT Office Visit [facility] Neurology [address] [place] [address] Cindy Angel MD 6 [email or web address] [facility] [address] [place] [address] [email or web address] Diabetic peripheral neuropathy (Primary Dx) Social History [...] Sign Reading Time Taken Comments Blood Pressure 150/92 04/09/2023 9:20 AM EDT Pulse 119 04/09/2023 9:20 AM EDT Temperature - - Respiratory Rate - - Oxygen Saturation 99% 04/09/2023 9:20 AM EDT Inhaled Oxygen Concentration - - Weight 62.6 kg (138 lb) 04/09/2023 9:20 AM EDT Height - - Body Mass Index 19.8 02/19/2023 8:21 AM EDT documented in this encounter Progress Notes * Cindy Angel MD - 04/09/2023 9:00 AM EDT NEUROLOGY CLINIC NOTE Clinic Visit Date: 04/09/2023 Patient Information: Zeus Thompson / [id number] / 2000 ? Chief Complaint: Neuropathy History Source: patient and outside medical record History of the Present Illness: Zeus Thompson is a 22 y.o. male with a history of T1DM (A1C 9.5) who presents for new patient evaluation of neuropathy. Symptoms started around Sep, 2022, worse in [...] gabapentin 200mg BID, which hasn't helped much. Review of Systems: Pertinent items are noted [...] History Narrative ??? Not on file Medications:? Outpatient Medications Marked as Taking for the 04/09/23 encounter (Office Visit) with Cindy Angel MD Medication Sig Dispense Refill Last Dispense ??? cetirizine (ZYRTEC) 10 MG tablet ZYRTEC ALLERGY 10 MG TABS Unknown (patient-reported) ??? DEXCOM G7 SENSOR Kelsie REPLACE SENSOR EVERY 10 DAYS FOR CONTINUOUS GLUCOSE MONITORING. [facility] [id number] Unknown (patient-reported) ??? insulin lispro (ADMELOG, HUMALOG) 100 unit/mL injection vial Inject under the skin. Unknown (patient-reported) ??? levoFLOXacin (LEVAQUIN) 750 MG tablet Unknown (patient-reported) ??? [DISCONTINUED] gabapentin (NEURONTIN) 100 MG capsule TAKE 1 CAPSULE BY MOUTH 2 TIMES PER DAY Unknown (patient-reported) Allergies: Allergies Allergen Reactions ??? Penicillins Rash ??? Sulfa (Sulfonamide Antibiotics) Rash Examination: Vital signs: BP (!) 150/92 Pulse (!) 119 Wt 62.6 kg (138 lb) SpO2 99% BMI 19.80 kg/m?? General: Alert and not distressed. Interactive. Head, eyes, ears, nose, and throat: Normocephalic/atraumatic. No scleral icterus. No conjunctival injection. Moist mucus membranes. Respiratory: Bilateral air entry. Clear. Cardiac: Regular rate and rhythm. Normal S1S2. No additional sounds. Abdomen: Soft. Non-tender. Bowel sounds present. Extremities: Warm and well perfused. No evidence of edema. No obvious musculoskeletal deformity. Skin: No rashes or bruising.? Neurologic Exam: MENTAL STATUS: Fully alert and [...] of T1DM (A1C 9.5) who presents for new patient evaluation of neuropathy. Neuropathy likely secondary to DM, and this was discussed in detail with patient. Will check labs to rule out other potential reversible etiologies. Fall precaution reviewed. Will referto PT given feet weakness and increase gabapentin, side effect profile reviewed. Encounter Diagnoses: The encounter diagnosis was Diabetic peripheral neuropathy. Recommendations: - Diagnostic testing and referrals ordered this visit: Orders Placed This Encounter Procedures ??? Vitamin B1 (Thiamin) Whole Bld ??? Vitamin B6 ??? Vitamin B12 ??? SPEP panel with immunofixation ??? Serum Protein Electrophoresis ??? Lyme (IgG/IgM) AB Screen w/ref ??? TSH ??? Ambulatory referral to External Physical Therapy - Medications ordered this visit: Medication Orders Placed This Encounter Medications ??? gabapentin (NEURONTIN) 300 MG capsule Sig: Take 1 capsule (300 mg total) by mouth 3 (three) times a day. Dispense: 90 capsule Refill: 6 - Neurology Clinic follow-up plan: 4-6 weeks I spent 50 minutes in reviewing medical records, labs and all available studies, seeing and counseling the patient and documenting in the medical record. Cindy Angel MD [facility] documented in this encounter Plan of Treatment Scheduled Orders Name Type Priority Associated Diagnoses Orde r Schedule Vitamin B1 (Thiamin) Whole Bld Lab Routine Diabetic peripheral neuropathy Expected: 04/09/2023, Expires: 04/09/2024 Vitamin B6 Lab Routine Diabetic peripheral neuropathy Expected: 04/09/2023, Expires: 04/09/2024 Vitamin B12 Lab Routine Diabetic peripheral neuropathy Expected: 04/09/2023, Expires: 04/09/2024 Serum Protein Electrophoresis Lab Routine Diabetic peripheral neuropathy Expected: 04/09/2023, Expires: 04/09/2024 Lyme (IgG/IgM) AB Screen w/ref Lab Routine Diabetic peripheral neuropathy Expected: 04/09/2023, Expires: 04/09/2024 TSH Lab Routine Diabetic peripheral neuropathy Expected: 04/09/2023, Expires: 04/09/2024 Scheduled Referrals Name Type Priority Associated Diagnoses Order Schedule Ambulatory referral to External Physical Therapy Outpatient Referral Routine Diabetic peripheral neuropathy Ordered: 04/09/2023 documented as of this encounter Visit Diagnoses Diagnosis Diabetic peripheral neuropathy- Primary Type II or unspecified type diabetes mellitus with neurological manifestations, not stated as uncontrolled documented in this encounter Care Teams Calender Operator Helper Relationship Specialty Start Date End Date Ondina Hunter MD PCP - General Pediatrics 02/15/23 documented as of this encounter Additional Source Comments The information contained in this document represents components of the legal health record. It is not the complete legal health record.[facility]
--- OUTSIDE RECORDS SUMMARY | 2024-06-15 22:57 | XMS_ITS | Encounter Summary ---
Author Organization [facility] Address [phone] [place] [address] Care Team Providers Care Brim Stretching Machine Operator Name Role Phone Ondina Hunter MD Primary Care Provider + Encounter Details Date Type Department Care Team (Late st Contact Info) Description 04/17/2023 Telephone [facility] Neurology [address] [place] [place] [address] [place] [address] Cindy Angel MD 6 [facility] [address] [place] [address] [email or web address] Social History Tobacco Use Types Packs/Day Years [...] Progress Notes * Cindy Angel MD - 04/17/2023 10:35 AM EDT Called patient back. Reporting new pain around his shins, worse with standing. Has upcoming PCP appointments. Otherwise, pain improving with nortryptyline 10mg qhs. documented in this encounter Plan of Treatment Not on file documented as of this encounter Visit Diagnoses Not on filedocumented in this encounter Care Teams Brim Stretching Machine Operator Relationship Specialty Start Date End Date Ondina Hunter MD PCP - General Pediatrics 02/15/23 documented as of this encounter Additional Source Comments The information contained in this document represents components of the legal health record. It is not the complete legal health record.[facility]
--- OUTSIDE RECORDS SUMMARY | 2024-06-15 22:57 | XMS_ITS | Encounter Summary ---
Author Organization [facility] Address [phone] [place] [address] Care Team Providers Care Peanut Grader Name Role Phone Ondina Hunter MD Primary Care Provider + Encounter Details Date Type Department Care Team (Late st Contact Info) Description 11/21/2023 [email or web address] Generated VIRTUAL DEPARTMENT Unknown, MD Patricio Social History Tobacco Use Types Packs/Day Years [...] on file documented as of this encounter ED Notes * Unknown, MD Patricio - 11/21/2023 6:06 PM EST [facility] EMERGENCY DEPARTMENT DISPOSITION SUMMARY This is a Summary Chart only For additional details, please see [employer]ING[employer] PCI ED Chart Viewer, the PulseCheck Option or Emergency Dept Scanned Forms. You may also contact Medical Records at [phone] / [phone]. [facility] MDM NOTES PHYSICIAN ROPEWALK ROPE MAKER MDM: 23-year-old male with type 1 diabetes presents to the emergency room for evaluation of right shoulder pain. Patient reports he was at work on Saturday when he lifted a heavy box. He reportedly felt pain in his shoulder after lifting his arm. He initially thought it was a muscle strain however the pain worsened on Saturday. He has not tried any Tylenol or Motrin. He had the weekend off and went back to work on Saturday. Earlier today his pain worsened as he feels that his arm continues to pop every time he lifts his arm. Weakness distal to the injury or any traumatic falls. Denies any prior issues with shoulder. Differentials include rotator cuff injury, calcific tendinitis. Patient had x-ray of shoulder, images interpreted by me. Images were unremarkable, no acute fracture, dislocation or calcific tendinitis noted. Patient does have full range of motion of shoulder but does report pain if he lifts his shoulder over 90 degrees. Suspect potential rotator cuff injury versus strain. Encouraged close follow-up with primary care provider and Ortho. Work note provided. Return precautions discussed. DISPOSITION PATIENT: Disposition Type: Discharge, Disposition: HOME. Patient departed from the Emergency Department. INSTRUCTION DISCHARGE: SHOULDER PAIN, [id number]. FOLLOWUP: MD Les, Thanh, PEDIATRIC ORTHOPEDICS, [address] [facility], [address], [facility] [address], , Follow up with Primary Specialist Call to schedule follow up appointment. SPECIAL: You are seen in the ER today for shoulder pain. Follow-up with Ortho. Use Tylenol Motrin as needed. PRESCRIPTION No recorded prescriptions Beal: CHRISTEN=JADE Abad, Laotnya BRICE=LINCOLN Wakefield, Debbie Name: Zeus Thompson : 2000 M23 MedRec: [id number] AcctNum: [id number] CC OTHER PROVIDER: PRIMARY CARE: TIFFANIE ROCA,TENZIN Valdez * Unknown, Patricio, - 11/21/2023 6:06 PM EST [facility] EMERGENCY DEPARTMENT RECORD CONCISE CHART WITHOUT LAB/RAD RESULTS This is a Summary Chart only For additional details, please see [employer] PCI ED Chart Viewer, the PulseCheck Option or Emergency Dept Scanned Forms. You may also contact Medical Records at [phone] / [phone]. [facility] HPI *GENERAL PRIMARY HISTORIAN: History provided by patient. HISTORY OF PRESENT ILLNESS: 23-year-old male with type 1 diabetes presents to the emergency room for evaluation of right shoulder pain. Patient reports he was at work on Saturday when he lifted a heavy box. He reportedly felt pain in his shoulder after lifting his arm. He initially thought it was a muscle strain however the pain worsened on Saturday. He has not tried any Tylenol or Motrin. He had the weekend off and went back to work on Saturday. Earlier today his pain worsened as he feels that his arm continues to pop every time he lifts his arm. Weakness distal to the injury or any traumatic falls. Denies any prior issues with shoulder. Differentials include rotator cuff injury, calcific tendinitis. MECHANISM OF INJURY: Known mechanism. LOCATION: Symptoms are localized, most severe to Right shoulder pain. TIME COURSE: Sudden onset of symptoms, 6, days ago, are intermittent, There has been no change in the patient's symptoms over time. RELIEVED BY: Nothing tried for relief. KNOWN ALLERGIES Penicillins: Reaction: Rash, Source: Patient Sulfa Antibiotics: Reaction: Rash, Source: Patient CURRENT MEDICATIONS HumaLOG U-100 Insulin: Patient Dose: DIRECTED.Entered brand: HumaLOG*. gabapentin: Patient Dose: 600 mg Oral TID.Entered brand: Neurontin*. ROS NOTES: All pertinent ROS elements documented in HPI, Pertinent review of systems completed and are negative except as eitherwise noted. CONSTITUTIONAL: Denies additional complaints related to the constitutional review of systems. RESPIRATORY: Denies additional complaints related to the respiratory system. GI: Denies additional complaints related to the gastrointestinal system. MUSCULOSKELETAL: Historian denies deformity, Historian denies fall, Historian reports injury, Historian denies myalgias. SKIN: Denies additional complaints related to the dermatologic system. NEUROLOGIC: Denies additional complaints related to the neurologic system. PAST MEDICAL HISTORY MEDICAL HISTORY: Past medical history includes diabetes, type Name: Zeus Thompson : 2000 M23 MedRec: [id number] AcctNum: [id number] [facility] 1 diabetes, uses insulin pump, diabetic ketoacidosis. SOCIAL HISTORY: Patient denies alcohol use, Patient denies drug use. NOTES: The provider has reviewed and agrees with the nurse's notes regarding past medical,surgical, family and social (Including smoking) histories. Except as otherwise noted. VITAL SIGNS VITAL SIGNS: BP: 117/75, Pulse: 84, Resp: 16, Temp: 98 (Oral), Pain: 6, O2 sat: 99 on (Room Air). PHYSICAL EXAM CONSTITUTIONAL: Vital Signs Reviewed, Patient afebrile, Pulse normal, Blood pressure normal, Respiratory rate normal, Patient appears non toxic, Patient alert and oriented to person, place and time, Nursing notes reviewed. HEAD: Head exam included findings of head atraumatic, normocephalic. EYES: Eye exam included findings of eyelids normal to inspection, Sclera normal, Conjunctiva normal. UPPER EXTREMITY: Upper extremity exam included findings of inspection normal, Range of motion normal, Motor strength normal, Sensation intact, Generalized tenderness over right shoulder with no focal area of tenderness. Full range of motion of shoulder but reports pain when movement is over 90 degrees in all directions. LOWER EXTREMITY: Lower extremity exam normal. NEURO: Neuro exam findings include patient oriented to person, place and time, Speech normal, Gait normal. SKIN: Skin exam included findings of skin warm, dry, and normal in color. ORDERS Shoulder, Right (min 2 V): Ordered by: JADE Abad Kaitlyn Ordered for: JADE Abad Kaitlyn Status: Done by: Zohaib Hyde Hailee Nov 21, 2023 19:00. Ortho- Sling: Ordered by: JADE Abad Kaitlyn Ordered for: JADE Abad Latonya Status: Done by: Naz Jerez Nov 21, 2023 19:45. MDM NOTES PHYSICIAN ROPEWALK ROPE MAKER MDM: 23-year-old male with type 1 diabetes presents to the emergency room for evaluation of right shoulder pain. Patient reports he was at work on Saturday when he lifted a heavy box. He reportedly felt pain in his shoulder after lifting his arm. He initially thought it was a muscle strain however the pain worsened on Saturday. He has not tried any Tylenol or Motrin. He had the weekend off and went back to work on Saturday. Earlier today his pain worsened as he feels that his arm continues to pop every time he lifts his arm. Weakness distal to the injury or any traumatic falls. Denies any prior issues with shoulder. Differentials include rotator cuff injury, calcific [facility] tendinitis. Patient had x-ray of shoulder, images interpreted by me. Images were unremarkable, no acute fracture, dislocation or calcific tendinitis noted. Patient does have full range of motion of shoulder but does report pain if he lifts his shoulder over 90 degrees. Suspect potential rotator cuff injury versus strain. Encouraged close follow-up with primary care provider and Ortho. Work note provided. Return precautions discussed. DIAGNOSIS FINAL: PRIMARY: Right shoulder pain. DISPOSITION PATIENT: Disposition Type: Discharge, Disposition: HOME. Patient departed from the Emergency Department. INSTRUCTION DISCHARGE: SHOULDER PAIN, [id number]. FOLLOWUP: MD Les, Thanh, PEDIATRIC ORTHOPEDICS, [address] [facility] [facility], [facility] [address], [facility] [address], , Follow up with Primary Specialist Call to schedule follow up appointment. SPECIAL: You are seen in the ER today for shoulder pain. Follow-up with Ortho. Use Tylenol Motrin as needed. PRESCRIPTION No recorded prescriptions ADMIN DIGITAL SIGNATURE: JADE Abad Kaitlyn. MD Serra Julie. Beal: CHRISTEN=JADE Abad Kaitlyn LUCD=LINCOLN [place], Debbie GOMEZ=LINCOLN Harrington, Courtney PARDO=MD Serra Julie CC OTHER PROVIDER: PRIMARY CARE: TIFFANIE ROCA,TENZIN Valdez documented in this encounter Plan of Treatment Not on file documented as of this encounter Visit Diagnoses Not on filedocumented in this encounter Care Teams Peanut Grader Relationship Specialty Start Date End Date Ondina Hunter MD PCP - General Pediatrics 02/15/23 documented as of this encounter Additional Source Comments The information contained in this document represents components of the legal health record. It is not the complete legal health record.[facility]
--- OUTSIDE RECORDS SUMMARY | 2024-06-15 22:57 | XMS_ITS | Encounter Summary ---
Author Organization [facility] Address [phone] [place] [address] Care Team Providers Care It Web Development Consultant Name Role Phone Ondina Hunter MD Primary Care Provider + Encounter Details Date Type Department Care Team (Late st Contact Info) Description 05/13/2023 Telephone [facility] Neurology [address] [place] [address] Cindy Angel MD 6 [facility] [address] [place] [address] [email or web address] Social History Tobacco Use Types Packs/Day Years [...] Notes * Cindy Angel MD - 05/13/2023 1:14 PM EDT Error documented in this encounter Plan of Treatment Not on file documented as of this encounter Visit Diagnoses Not on filedocumented in this encounter Care Teams It Web Development Consultant Relationship Specialty Start Date End Date Ondina Hunter MD PCP - General Pediatrics 02/15/23 documented as of this encounter Additional Source Comments The information contained in this document represents components of the legal health record. It is not the complete legal health record.[facility]
--- OUTSIDE RECORDS SUMMARY | 2024-06-15 22:57 | XMS_ITS | Encounter Summary ---
Author Organization [facility] Address [phone] [facility] [employer] [place] [address] Care Team Providers Care Cooler Servicer Name Role Phone Lucas Smiley MD Primary Care Provider + Reason for Visit * Reason Comments Medication Refill Encounter Details Date Type Department Care Team (Late st Contact Info) Description 02/08/2020 Refill [facility] Psychiatric Specialties [address] [place] [address] Aaron Vásquez MD Medication Refill Social History Tobacco Use Types [...] on filedocumented in this encounter Care Teams Cooler Servicer Relationship Specialty Start Date End Date Lucas Smiley MD [address] [place] [address] [email or web address] PCP - General 03/23/14 02/14/23 documented as of this encounter Additional Source Comments The information contained in this document represents components of the legal health record. It is not the complete legal health record.[facility]
--- OUTSIDE RECORDS SUMMARY | 2024-06-15 22:57 | XMS_ITS | Encounter Summary ---
Author Organization [facility] Address [phone] [facility] [address] [place] [address] Care Team Providers Care Matzo Forming Machine Operator Name Role Phone Ondina Hunter MD Primary Care Provider + Reason for Visit * Reason Onset Date Comments Medication Question 04/11/2023 Encounter Details Date Type Department Care Team (Late st Contact Info) Description 04/11/2023 Telephone [facility] Neurology [address] [place] [address] Milka Guardado [address] [place] [address] Medication Question Social History Tobacco Use Types Packs/Day Years [...] as of this encounter Progress Notes * Milka Guardado - 04/11/2023 8:22 AM EDT Requests new pain medication. Was given oxycodone & antibiotics in the ICU, still in pain. Has been taking levofloxacin, gabapentin, acetaminophen, & alpha-lipoic acid. documented in this encounter Plan of Treatment Not on file documented as of this encounter Visit Diagnoses Not on filedocumented in this encounter Care Teams Matzo Forming Machine Operator Relationship Specialty Start Date End Date Ondina Hunter MD PCP - General Pediatrics 02/15/23 documented as of this encounter Additional Source Comments The information contained in this document represents components of the legal health record. It is not the complete legal health record.[facility]
[2024-06-15] MEDS: INSULIN REGULAR IN 0.9 % NACL 100 UNIT/100 ML BAG IV (23:15)
[2024-06-15] MEDS: DEXTROSE 5%-0.45% SALINE 1,000 ML 165 ML IV (23:17)
[2024-06-15] MEDS: Normal Saline 100 ML (23:23)
[2024-06-15 23:24] LABS: Anion Gap 20.3 mmol/L (3-11); BUN 24 mg/dL (7-18); CO2 17.7 mmol/L (21.0-32.0); CREATININE 1.4 mg/dL (0.70-1.30); Calcium 8.8 mg/dL (8.5-10.1); Chloride 100 mmol/L (98-107); Estimated GFR 73.33 (mL/min/1.73m2); Glucose 173 mg/dL (74-106); Potassium 4.3 mmol/L (3.5-5.1); Sodium 138 mmol/L (136-145)
--- NOTE | 2024-06-15 23:43 | HPE_ITS ---
Date of service: 06/15/24 Time of Service: 23:43 Assessment and Plan Assessment and plan (1) DKA (diabetic ketoacidosis): Start date: 06/15/24 Status: Acute Assessment and plan: This is a 23-year-old gentleman from [place] visiting his girlfriend recent months who had binge drinking with alcohol and presents with acute DKA. This has happened in the past with the last hospitalization and also was associated with alcohol intake. Is elevated WBC will cover for possible infection with no focal source noted at this time. He did have blood cultures. There is no need for surgical consultation at this time. Patient is responding to the DKA protocol but will be continued with monitoring his electrolytes closely. His insulin pump has been discontinued. He is a full code. Qualifiers: Diabetes mellitus complication detail: without coma Diabetes mellitus type: type 1 Qualified Code(s): E10.10 - Type 1 diabetes mellitus with ketoacidosis without coma (2) Acute alcoholic pancreatitis: Start date: 06/15/24 Status: Acute Assessment and plan: Pain management with bowel rest. Follow-up clinically. Long-term patient should stop alcohol intake. He has had no previous alcohol withdrawal symptoms and CIWA protocol will not be answered at this time but considered. Did not appear to be a chronic alcoholic at this time. Qualifiers: Acute pancreatitis complication: no infection or necrosis Qualified Code(s): K85.20 - Alcohol induced acute pancreatitis without necrosis or infection (3) Asthma: Status: Chronic Assessment and plan: Continue intermittent albuterol HFA as needed. Qualifiers: Asthma severity: mild Asthma persistence: intermittent Asthma complication type: uncomplicated Qualified Code(s): J45.20 - Mild intermittent asthma, uncomplicated History of Present Illness History of Present Illness Chief Complaint: Abdominal pain with nausea and vomiting and altered mental status. Narrative: This is a 23-year-old gentleman who has had insulin-dependent diabetes with 7 years old and multiple layers of for DKA presenting to the ED with abdominal pain and nausea and vomiting as well as concerns for possible recurrent DKA and dehydration with poor intake. He did have several drinks of liquor when visiting local friends for possible purchasing of a truck. He is a daily and local lady for the last several months who knows how for only the last 6 months. He is from [place]. He does not drink alcohol daily and binge drinking has been a problem the past with his last hospitalization for acute pancreatitis and DKA according to his girlfriend. This was done in [place]. The patient was arousable for conversation but somewhat sedated but not comatose with his DKA presentation. His insulin pump was stopped and he was started on DKA protocol with some improvement of his status and less abdominal symptoms. He did respond to Dilaudid for abdominal pain. This will be continued. He offers no other history. He is a full code. Review of Systems Narrative: 13 point review of systems otherwise unrevealing or stable. Patient has not lost weight and is thin. PFSH All Active Problems (Updated 06/16/24 @ 06:25 by Pritesh Demarco) Asthma (Chronic) Acute alcoholic pancreatitis (Acute) DKA (diabetic ketoacidosis) (Acute) Social History Smoking/Tobacco Use Status: Current every day Tobacco Type: e-cigarettes Smoking risk assessment performed?: Yes Alcohol Intake: current Alcohol Intake frequency: a few times a week Drug use: Never Substance use type: does not use Do you feel safe at home: Yes Do you feel safe in your relationship?: Yes Meds Allergies and Home Medications Allergies Allergy/AdvReac Type Severity Reaction Status Date / Time Sulfa (Sulfonamide Allergy Itching Verified 06/15/24 20:17 Antibiotics) Home Medications ?Medication ?Instructions ?Recorded ?Confirmed ?Type albuterol sulfate 90 mcg/actuation 1 inh inhalation Q6H 06/15/24 06/15/24 History breath activated powder inhaler escitalopram oxalate 10 mg tablet 10 mg PO DAILY 06/15/24 06/15/24 History (Lexapro) insulin lispro 100 unit/mL 1 sliding scale dose subcut 06/15/24 06/15/24 History subcutaneous pen (Humalog KwikPen USEASDIRECTD (U-100) Insulin) Exam Narrative Exam Narrative: General: Patient is arousable and focused once awake, in moderate respiratory abdominal discomfort. He is alert and oriented to person and place. He is somewhat sedated with his Dilaudid. HEENT: Normocephalic, eyes with pupils equal and react to light symmetrically, extraocular movement intact and sclera anicteric. Oropharynx with dry mucosa and fair dentition. Neck: Supple without JVD. Back: Normal posture without CVA tenderness. Lungs: Clear to auscultation percussion with decreased expiratory effort upon demand. No focalizing rales or rhonchi. No expiratory wheeze. Abdomen: Scaphoid contour, soft with tenderness in the epigastrium and guarding without rebound. No palpable masses and no palpable hepatosplenomegaly. Bowel sounds positive all quadrants. Genitalia/rectal: Exam deferred. Extremity: No clubbing, cyanosis or pitting edema. Peripheral pulses intact. Skin: Normal color, cool and dry. Neuro: Cranial nerves II through XII gross intact, no focal motor deficits and no tremor. Psych: Flattened affect with depressed mood, good eye contact. No abnormal thought processes. Remote and recent memory not testable with patient sedated. Results Imaging Imaging Studies: Exam: XR Chest Exam date and time: 06/15/2024 8:42 PM Age: 23 years old Clinical indication: Shortness of breath; Patient HX: Dka, eval pna TECHNIQUE: Imaging protocol: Radiologic exam of the chest. Views: 1 view. COMPARISON: No relevant prior studies available. FINDINGS: Lungs: Unremarkable. No consolidation. Pleural spaces: Unremarkable. No pleural effusion. No pneumothorax. Heart/Mediastinum: Unremarkable. No cardiomegaly. Bones/joints: Unremarkable. IMPRESSION: No acute findings. Exam: CT Abdomen And Pelvis With Contrast Exam date and time: 06/15/2024 9:41 PM Age: 23 years old Clinical indication: Other: Abd pain; Patient HX: Eval pancreatitis TECHNIQUE: Imaging protocol: Computed tomography of the abdomen and pelvis with contrast. Radiation optimization: All CT scans at this facility use at least one of these dose optimization techniques: automated exposure control; mA and/or kV adjustment per patient size (includes targeted exams where dose is matched to clinical indication); or iterative reconstruction. Contrast material: OMNIPAQUE 350; Contrast volume: 100 ml; Contrast route: INTRAVENOUS (IV); COMPARISON: CR XR CHEST 1V IN DI DEPT 06/15/2024 8:42 PM FINDINGS: Liver: Normal. No mass. Gallbladder and biliary ducts: Normal. No calcified stones. No ductal dilation. Pancreas: Normal. No ductal dilation. Spleen: Normal. No splenomegaly. Adrenal glands: Normal. No mass. Kidneys and ureters: Normal. No hydronephrosis. Stomach and bowel: Unremarkable. No obstruction. No mucosal thickening. Appendix: No evidence of appendicitis. Intraperitoneal space: Unremarkable. No free air. No significant fluid collection. Vasculature: Unremarkable. No abdominal aortic aneurysm. Lymph nodes: Unremarkable. No enlarged lymph nodes. Urinary bladder: Unremarkable as visualized. Reproductive: Unremarkable as visualized. Bones/joints: Unremarkable. No acute fracture. Soft tissues: Unremarkable. IMPRESSION: No acute findings. Labs 06/16/24 05:38 06/16/24 04:17 Labs: Laboratory Results - last 24 hr 06/15/24 06/15/24 06/15/24 20:20 20:45 22:11 WBC 26.88 H* RBC 6.81 H Hgb 19.9 H* Hct 58.9 H* MCV 87 MCH 29.2 MCHC 33.8 RDW 12.7 Plt Count MPV Immature Gran % See Differential Neutrophils % 85.0 Lymphocytes % 10.0 Monocytes % 4.0 Eosinophils % 0.0 Basophils % 0.0 Myelocytes % 1 Nucleated RBC % 0.0 Absolute Neutrophils 22.85 H Absolute Lymphocytes 2.69 Absolute Monocytes 1.08 H Absolute Eosinophils 0.00 Absolute Basophils 0.00 RBC Morphology Normal VBG pH 7.22 L VBG pCO2 34 L VBG pO2 54 VBG HCO3 14 L VBG Total CO2 13 L VBG O2 Saturation 88 VBG Base Excess -14 L Sodium 139 Potassium 5.1 Chloride 95 L Carbon Dioxide 12.8 L Anion Gap 31.2 H BUN 28 H Creatinine 1.6 H Est GFR (CKD-EPI 2020) 62.48 Glucose 235 H Calcium 10.3 H Magnesium 2.6 H Total Bilirubin 0.62 AST 26 ALT 33 Alkaline Phosphatase 147 H Total Protein 10.4 H Albumin 5.3 H Lipase > 375 H Urine Color Yellow Urine Clarity Clear Urine pH 5.5 Ur Specific Windber >= 1.030 H Urine Protein >=300 H Urine Ketones 80 H Urine Blood Moderate H Urine Nitrite Negative Urine Bilirubin Moderate H Urine Urobilinogen 0.2 Ur Leukocyte Esterase Negative Urine RBC 5-10 H Urine WBC Negative Ur Epithelial Cells Few Urine Crystals Negative Urine Bacteria Few Urine Casts 0-2 Hyaline Urine Mucus Negative Ur Culture Indicated? No Urine Glucose 100 H 06/15/24 23:05 WBC RBC Hgb Hct MCV MCH MCHC RDW Plt Count MPV Immature Gran % Neutrophils % Lymphocytes % Monocytes % Eosinophils % Basophils % Myelocytes % Nucleated RBC % Absolute Neutrophils Absolute Lymphocytes Absolute Monocytes Absolute Eosinophils Absolute Basophils RBC Morphology VBG pH VBG pCO2 VBG pO2 VBG HCO3 VBG Total CO2 VBG O2 Saturation VBG Base Excess Sodium 138 Potassium 4.3 Chloride 100 Carbon Dioxide 17.7 L Anion Gap 20.3 H BUN 24 H Creatinine 1.4 H Est GFR (CKD-EPI 2020) 73.33 Glucose 173 H Calcium 8.8 Magnesium Total Bilirubin AST ALT Alkaline Phosphatase Total Protein Albumin Lipase Urine Color Urine Clarity Urine pH Ur Specific Windber Urine Protein Urine Ketones Urine Blood Urine Nitrite Urine Bilirubin Urine Urobilinogen Ur Leukocyte Esterase Urine RBC Urine WBC Ur Epithelial Cells Urine Crystals Urine Bacteria Urine Casts Urine Mucus Ur Culture Indicated? Urine Glucose Last Vital Signs Temp 36.6 C 06/15/24 21:28 Pulse 100 H 06/15/24 23:16 Resp 15 06/15/24 23:16 BP 117/64 06/15/24 23:16 Pulse Ox 94 06/15/24 23:16 Time Spent Time spent with Patient: >75 minutes Time was spent: preparing to see the patient(eg.review tests), obtaining and/or reviewing separately otained hiistory, ordering medications,tests, procedures, indepentently interpreting results, care coordination and other (Reviewed history and plan of care with girlfriend.)
[2024-06-16] VITALS (59 sets, daily range): BP systolic 113–145; BP diastolic 59–84; PULSE 76–116; RESP 13–30; TEMP 36.6–37.3; O2SAT 92–98
--- NOTE | 2024-06-16 00:55 | W.PCEDHO ---
Registration Status: Primary Language: Preferred Language: ED Information & Data Chief Complaint Abd Prob 06/15/24 20:33 Triage Note pt reports he feels he is in 06/15/24 20:12 DKA and has pancreatitis, has hx of both last meal/ insulin @ noon, BS currently 232. Feels thirsty abd pain , lethargy Most Recent Vital Signs Temperature 36.6 C 06/15/24 21:28 Temperature Source Temporal Artery Scan 06/15/24 21:28 Pulse 101 H 06/16/24 00:01 Pulse 102 H 06/16/24 00:01 Respiratory Rate 14 06/16/24 00:01 Respiratory Effort Normal 06/15/24 20:16 Blood Pressure 132/66 06/16/24 00:01 Blood Pressure Mean 81 06/16/24 00:01 Pulse Oximetry 93 06/16/24 00:01 Respiratory End-tidal CO2 29 06/16/24 00:01 Oxygen Delivery Method Room Air 06/15/24 21:28 Pain Level 6 06/15/24 21:28 Allergies Sulfa (Sulfonamide Antibiotics) Allergy (Verified 06/15/24 20:17) Itching Active Medications Generic Name Dose Route Start Last Admin Trade Name Freq PRN Reason Stop Dose Admin Dextrose/Sodium Chloride 1,000 mls @ 165 mls/hr 06/15/24 22:45 06/15/24 23:17 Dextrose 5%-0.45% Ns IV 165 mls/hr INFUSION PAPI Administration Insulin Human Regular 100 unit in 100 mls @ 2 mls/hr 06/15/24 22:45 06/15/24 23:15 Myxredlin IV 2 unit/hr INFUSION PAPI 2 mls/hr Administration Protocol 2 UNIT/HR Iohexol 100 ml 06/15/24 21:45 06/15/24 21:35 Omnipaque 350 Mg/Ml 100 Ml Btl IJ 07/15/24 23:59 100 ml DIRECTED PAPI Administration Sodium Chloride 0 ml 06/16/24 08:30 06/15/24 21:53 Normal Saline Flush 10 Ml Syr IVP 10 ml BID PAPI Administration Sodium Chloride 50 ml 06/15/24 22:00 06/15/24 21:52 Normal Saline - Diluent 50 Ml Vial IV 50 ml .FOR DI USE PAPI Administration IV IV Catheter Type [Left Peripheral IV Antecubital] IV Catheter Type [Right Peripheral IV Antecubital] IV Catheter Gauge [Left 18 Antecubital] IV Catheter Gauge [Right 20 Antecubital] Diagnostics 06/16/24 06/16/24 06/16/24 Range/Units 22:45 20:45 18:45 WBC (4.4-10.8) 10^3/uL RBC (4.36-5.78) 10^6/uL Hgb (13.5-17.5) g/dL Hct (40.0-50.0) % MCV (80-95) fL MCH (27.0-33.0) pg MCHC (32.0-36.0) % RDW (11.8-14.1) % Plt Count (130-400) 10^3/uL MPV (8.0-11.0) fL Immature Gran % Neutrophils % % Lymphocytes % % Monocytes % % Eosinophils % % Basophils % % Myelocytes % Nucleated RBC % (0.0-0.3) % Absolute Neutrophils (1.2-6.7) 10^3/uL Absolute Lymphocytes (1.2-3.4) 10^3/uL Absolute Monocytes (0.1-0.8) 10^3/uL Absolute Eosinophils (0.0-0.7) 10^3/uL Absolute Basophils (0.0-0.2) 10^3/uL RBC Morphology VBG pH (7.31-7.41) VBG pCO2 (41-51) mmHg VBG pO2 mmHg VBG HCO3 (23-28) mmol/L VBG Total CO2 (24-29) mmol/L VBG O2 Saturation % VBG Base Excess (-2-3) mmol/L Sodium Cancelled Cancelled Cancelled (136-145) mmol/L Potassium Cancelled Cancelled Cancelled (3.5-5.1) mmol/L Chloride Cancelled Cancelled Cancelled (98-107) mmol/L Carbon Dioxide Cancelled Cancelled Cancelled (21.0-32.0) mmol/L Anion Gap Cancelled Cancelled Cancelled (3-11) mmol/L BUN Cancelled Cancelled Cancelled (7-18) mg/dL Creatinine Cancelled Cancelled Cancelled (0.70-1.30) mg/dL Est GFR (CKD-EPI 2020) Cancelled Cancelled Cancelled (mL/min/1.73m2) Glucose Cancelled Cancelled Cancelled (74-106) mg/dL Calcium Cancelled Cancelled Cancelled (8.5-10.1) mg/dL Magnesium (1.8-2.4) mg/dL Total Bilirubin (0.2-1.0) mg/dL AST (15-37) U/L ALT (16-63) U/L Alkaline Phosphatase (46-116) U/L Total Protein (6.4-8.2) g/dL Albumin (3.4-5.0) g/dL Lipase (16-77) U/L Urine Color (Yellow) Urine Clarity (Clear) Urine pH (5-8) Ur Specific [place] (1.005-1.025) Urine Protein (Neg-Trace) mg/dL Urine Ketones (Negative) mg/dL Urine Blood (Negative) Urine Nitrite (Negative) Urine Bilirubin (Negative) Urine Urobilinogen (Up to 0.2) mg/dL Ur Leukocyte Esterase (Negative) Urine RBC (0-2) HPF Urine WBC (0-5) HPF Ur Epithelial Cells (Negative) HPF Urine Crystals (Negative) HPF Urine Bacteria (Negative) HPF Urine Casts (Negative) LPF Urine Mucus (Negative) Ur Culture Indicated? Urine Glucose (Negative) mg/dL Path Cons Comment 06/16/24 06/16/24 06/16/24 Range/Units 16:45 14:45 12:45 WBC (4.4-10.8) 10^3/uL RBC (4.36-5.78) 10^6/uL Hgb (13.5-17.5) g/dL Hct (40.0-50.0) % MCV (80-95) fL MCH (27.0-33.0) pg MCHC (32.0-36.0) % RDW (11.8-14.1) % Plt Count (130-400) 10^3/uL MPV (8.0-11.0) fL Immature Gran % Neutrophils % % Lymphocytes % % Monocytes % % Eosinophils % % Basophils % % Myelocytes % Nucleated RBC % (0.0-0.3) % Absolute Neutrophils (1.2-6.7) 10^3/uL Absolute Lymphocytes (1.2-3.4) 10^3/uL Absolute Monocytes (0.1-0.8) 10^3/uL Absolute Eosinophils (0.0-0.7) 10^3/uL Absolute Basophils (0.0-0.2) 10^3/uL RBC Morphology VBG pH (7.31-7.41) VBG pCO2 (41-51) mmHg VBG pO2 mmHg VBG HCO3 (23-28) mmol/L VBG Total CO2 (24-29) mmol/L VBG O2 Saturation % VBG Base Excess (-2-3) mmol/L Sodium Cancelled Cancelled Cancelled (136-145) mmol/L Potassium Cancelled Cancelled Cancelled (3.5-5.1) mmol/L Chloride Cancelled Cancelled Cancelled (98-107) mmol/L Carbon Dioxide Cancelled Cancelled Cancelled (21.0-32.0) mmol/L Anion Gap Cancelled Cancelled Cancelled (3-11) mmol/L BUN Cancelled Cancelled Cancelled (7-18) mg/dL Creatinine Cancelled Cancelled Cancelled (0.70-1.30) mg/dL Est GFR (CKD-EPI 2020) Cancelled Cancelled Cancelled (mL/min/1.73m2) Glucose Cancelled Cancelled Cancelled (74-106) mg/dL Calcium Cancelled Cancelled Cancelled (8.5-10.1) mg/dL Magnesium (1.8-2.4) mg/dL Total Bilirubin (0.2-1.0) mg/dL AST (15-37) U/L ALT (16-63) U/L Alkaline Phosphatase (46-116) U/L Total Protein (6.4-8.2) g/dL Albumin (3.4-5.0) g/dL Lipase (16-77) U/L Urine Color (Yellow) Urine Clarity (Clear) Urine pH (5-8) Ur Specific [place] (1.005-1.025) Urine Protein (Neg-Trace) mg/dL Urine Ketones (Negative) mg/dL Urine Blood (Negative) Urine Nitrite (Negative) Urine Bilirubin (Negative) Urine Urobilinogen (Up to 0.2) mg/dL Ur Leukocyte Esterase (Negative) Urine RBC (0-2) HPF Urine WBC (0-5) HPF Ur Epithelial Cells (Negative) HPF Urine Crystals (Negative) HPF Urine Bacteria (Negative) HPF Urine Casts (Negative) LPF Urine Mucus (Negative) Ur Culture Indicated? Urine Glucose (Negative) mg/dL Path Cons Comment 06/16/24 06/16/24 06/16/24 Range/Units 10:45 08:45 06:45 WBC (4.4-10.8) 10^3/uL RBC (4.36-5.78) 10^6/uL Hgb (13.5-17.5) g/dL Hct (40.0-50.0) % MCV (80-95) fL MCH (27.0-33.0) pg MCHC (32.0-36.0) % RDW (11.8-14.1) % Plt Count (130-400) 10^3/uL MPV (8.0-11.0) fL Immature Gran % Neutrophils % % Lymphocytes % % Monocytes % % Eosinophils % % Basophils % % Myelocytes % Nucleated RBC % (0.0-0.3) % Absolute Neutrophils (1.2-6.7) 10^3/uL Absolute Lymphocytes (1.2-3.4) 10^3/uL Absolute Monocytes (0.1-0.8) 10^3/uL Absolute Eosinophils (0.0-0.7) 10^3/uL Absolute Basophils (0.0-0.2) 10^3/uL RBC Morphology VBG pH (7.31-7.41) VBG pCO2 (41-51) mmHg VBG pO2 mmHg VBG HCO3 (23-28) mmol/L VBG Total CO2 (24-29) mmol/L VBG O2 Saturation % VBG Base Excess (-2-3) mmol/L Sodium Cancelled Cancelled Cancelled (136-145) mmol/L Potassium Cancelled Cancelled Cancelled (3.5-5.1) mmol/L Chloride Cancelled Cancelled Cancelled (98-107) mmol/L Carbon Dioxide Cancelled Cancelled Cancelled (21.0-32.0) mmol/L Anion Gap Cancelled Cancelled Cancelled (3-11) mmol/L BUN Cancelled Cancelled Cancelled (7-18) mg/dL Creatinine Cancelled Cancelled Cancelled (0.70-1.30) mg/dL Est GFR (CKD-EPI 2020) Cancelled Cancelled Cancelled (mL/min/1.73m2) Glucose Cancelled Cancelled Cancelled (74-106) mg/dL Calcium Cancelled Cancelled Cancelled (8.5-10.1) mg/dL Magnesium (1.8-2.4) mg/dL Total Bilirubin (0.2-1.0) mg/dL AST (15-37) U/L ALT (16-63) U/L Alkaline Phosphatase (46-116) U/L Total Protein (6.4-8.2) g/dL Albumin (3.4-5.0) g/dL Lipase (16-77) U/L Urine Color (Yellow) Urine Clarity (Clear) Urine pH (5-8) Ur Specific [place] (1.005-1.025) Urine Protein (Neg-Trace) mg/dL Urine Ketones (Negative) mg/dL Urine Blood (Negative) Urine Nitrite (Negative) Urine Bilirubin (Negative) Urine Urobilinogen (Up to 0.2) mg/dL Ur Leukocyte Esterase (Negative) Urine RBC (0-2) HPF Urine WBC (0-5) HPF Ur Epithelial Cells (Negative) HPF Urine Crystals (Negative) HPF Urine Bacteria (Negative) HPF Urine Casts (Negative) LPF Urine Mucus (Negative) Ur Culture Indicated? Urine Glucose (Negative) mg/dL Path Cons Comment 06/16/24 06/16/24 06/16/24 Range/Units 04:45 02:45 00:45 WBC (4.4-10.8) 10^3/uL RBC (4.36-5.78) 10^6/uL Hgb (13.5-17.5) g/dL Hct (40.0-50.0) % MCV (80-95) fL MCH (27.0-33.0) pg MCHC (32.0-36.0) % RDW (11.8-14.1) % Plt Count (130-400) 10^3/uL MPV (8.0-11.0) fL Immature Gran % Neutrophils % % Lymphocytes % % Monocytes % % Eosinophils % % Basophils % % Myelocytes % Nucleated RBC % (0.0-0.3) % Absolute Neutrophils (1.2-6.7) 10^3/uL Absolute Lymphocytes (1.2-3.4) 10^3/uL Absolute Monocytes (0.1-0.8) 10^3/uL Absolute Eosinophils (0.0-0.7) 10^3/uL Absolute Basophils (0.0-0.2) 10^3/uL RBC Morphology VBG pH (7.31-7.41) VBG pCO2 (41-51) mmHg VBG pO2 mmHg VBG HCO3 (23-28) mmol/L VBG Total CO2 (24-29) mmol/L VBG O2 Saturation % VBG Base Excess (-2-3) mmol/L Sodium Cancelled Cancelled Cancelled (136-145) mmol/L Potassium Cancelled Cancelled Cancelled (3.5-5.1) mmol/L Chloride Cancelled Cancelled Cancelled (98-107) mmol/L Carbon Dioxide Cancelled Cancelled Cancelled (21.0-32.0) mmol/L Anion Gap Cancelled Cancelled Cancelled (3-11) mmol/L BUN Cancelled Cancelled Cancelled (7-18) mg/dL Creatinine Cancelled Cancelled Cancelled (0.70-1.30) mg/dL Est GFR (CKD-EPI 2020) Cancelled Cancelled Cancelled (mL/min/1.73m2) Glucose Cancelled Cancelled Cancelled (74-106) mg/dL Calcium Cancelled Cancelled Cancelled (8.5-10.1) mg/dL Magnesium (1.8-2.4) mg/dL Total Bilirubin (0.2-1.0) mg/dL AST (15-37) U/L ALT (16-63) U/L Alkaline Phosphatase (46-116) U/L Total Protein (6.4-8.2) g/dL Albumin (3.4-5.0) g/dL Lipase (16-77) U/L Urine Color (Yellow) Urine Clarity (Clear) Urine pH (5-8) Ur Specific [place] (1.005-1.025) Urine Protein (Neg-Trace) mg/dL Urine Ketones (Negative) mg/dL Urine Blood (Negative) Urine Nitrite (Negative) Urine Bilirubin (Negative) Urine Urobilinogen (Up to 0.2) mg/dL Ur Leukocyte Esterase (Negative) Urine RBC (0-2) HPF Urine WBC (0-5) HPF Ur Epithelial Cells (Negative) HPF Urine Crystals (Negative) HPF Urine Bacteria (Negative) HPF Urine Casts (Negative) LPF Urine Mucus (Negative) Ur Culture Indicated? Urine Glucose (Negative) mg/dL Path Cons Comment 06/15/24 06/15/24 06/15/24 Range/Units 23:05 22:11 20:45 WBC 26.88 H* (4.4-10.8) 10^3/uL RBC 6.81 H (4.36-5.78) 10^6/uL Hgb 19.9 H* (13.5-17.5) g/dL Hct 58.9 H* (40.0-50.0) % MCV 87 (80-95) fL MCH 29.2 (27.0-33.0) pg MCHC 33.8 (32.0-36.0) % RDW 12.7 (11.8-14.1) % Plt Count (130-400) 10^3/uL MPV (8.0-11.0) fL Immature Gran % See Differential Neutrophils % 85.0 % Lymphocytes % 10.0 % Monocytes % 4.0 % Eosinophils % 0.0 % Basophils % 0.0 % Myelocytes % 1 Nucleated RBC % 0.0 (0.0-0.3) % Absolute Neutrophils 22.85 H (1.2-6.7) 10^3/uL Absolute Lymphocytes 2.69 (1.2-3.4) 10^3/uL Absolute Monocytes 1.08 H (0.1-0.8) 10^3/uL Absolute Eosinophils 0.00 (0.0-0.7) 10^3/uL Absolute Basophils 0.00 (0.0-0.2) 10^3/uL RBC Morphology Normal VBG pH 7.22 L (7.31-7.41) VBG pCO2 34 L (41-51) mmHg VBG pO2 54 mmHg VBG HCO3 14 L (23-28) mmol/L VBG Total CO2 13 L (24-29) mmol/L VBG O2 Saturation 88 % VBG Base Excess -14 L (-2-3) mmol/L Sodium 138 139 (136-145) mmol/L Potassium 4.3 5.1 (3.5-5.1) mmol/L Chloride 100 95 L (98-107) mmol/L Carbon Dioxide 17.7 L 12.8 L (21.0-32.0) mmol/L Anion Gap 20.3 H 31.2 H (3-11) mmol/L BUN 24 H 28 H (7-18) mg/dL Creatinine 1.4 H 1.6 H (0.70-1.30) mg/dL Est GFR (CKD-EPI 2020) 73.33 62.48 (mL/min/1.73m2) Glucose 173 H 235 H (74-106) mg/dL Calcium 8.8 10.3 H (8.5-10.1) mg/dL Magnesium 2.6 H (1.8-2.4) mg/dL Total Bilirubin 0.62 (0.2-1.0) mg/dL AST 26 (15-37) U/L ALT 33 (16-63) U/L Alkaline Phosphatase 147 H (46-116) U/L Total Protein 10.4 H (6.4-8.2) g/dL Albumin 5.3 H (3.4-5.0) g/dL Lipase > 375 H (16-77) U/L Urine Color (Yellow) Urine Clarity (Clear) Urine pH (5-8) Ur Specific [place] (1.005-1.025) Urine Protein (Neg-Trace) mg/dL Urine Ketones (Negative) mg/dL Urine Blood (Negative) Urine Nitrite (Negative) Urine Bilirubin (Negative) Urine Urobilinogen (Up to 0.2) mg/dL Ur Leukocyte Esterase (Negative) Urine RBC (0-2) HPF Urine WBC (0-5) HPF Ur Epithelial Cells (Negative) HPF Urine Crystals (Negative) HPF Urine Bacteria (Negative) HPF Urine Casts (Negative) LPF Urine Mucus (Negative) Ur Culture Indicated? Urine Glucose (Negative) mg/dL Path Cons Comment Pending 06/15/24 Range/Units 20:20 WBC (4.4-10.8) 10^3/uL RBC (4.36-5.78) 10^6/uL Hgb (13.5-17.5) g/dL Hct (40.0-50.0) % MCV (80-95) fL MCH (27.0-33.0) pg MCHC (32.0-36.0) % RDW (11.8-14.1) % Plt Count (130-400) 10^3/uL MPV (8.0-11.0) fL Immature Gran % Neutrophils % % Lymphocytes % % Monocytes % % Eosinophils % % Basophils % % Myelocytes % Nucleated RBC % (0.0-0.3) % Absolute Neutrophils (1.2-6.7) 10^3/uL Absolute Lymphocytes (1.2-3.4) 10^3/uL Absolute Monocytes (0.1-0.8) 10^3/uL Absolute Eosinophils (0.0-0.7) 10^3/uL Absolute Basophils (0.0-0.2) 10^3/uL RBC Morphology VBG pH (7.31-7.41) VBG pCO2 (41-51) mmHg VBG pO2 mmHg VBG HCO3 (23-28) mmol/L VBG Total CO2 (24-29) mmol/L VBG O2 Saturation % VBG Base Excess (-2-3) mmol/L Sodium (136-145) mmol/L Potassium (3.5-5.1) mmol/L Chloride (98-107) mmol/L Carbon Dioxide (21.0-32.0) mmol/L Anion Gap (3-11) mmol/L BUN (7-18) mg/dL Creatinine (0.70-1.30) mg/dL Est GFR (CKD-EPI 2020) (mL/min/1.73m2) Glucose (74-106) mg/dL Calcium (8.5-10.1) mg/dL Magnesium (1.8-2.4) mg/dL Total Bilirubin (0.2-1.0) mg/dL AST (15-37) U/L ALT (16-63) U/L Alkaline Phosphatase (46-116) U/L Total Protein (6.4-8.2) g/dL Albumin (3.4-5.0) g/dL Lipase (16-77) U/L Urine Color Yellow (Yellow) Urine Clarity Clear (Clear) Urine pH 5.5 (5-8) Ur Specific [place] >= 1.030 H (1.005-1.025) Urine Protein >=300 H (Neg-Trace) mg/dL Urine Ketones 80 H (Negative) mg/dL Urine Blood Moderate H (Negative) Urine Nitrite Negative (Negative) Urine Bilirubin Moderate H (Negative) Urine Urobilinogen 0.2 (Up to 0.2) mg/dL Ur Leukocyte Esterase Negative (Negative) Urine RBC 5-10 H (0-2) HPF Urine WBC Negative (0-5) HPF Ur Epithelial Cells Few (Negative) HPF Urine Crystals Negative (Negative) HPF Urine Bacteria Few (Negative) HPF Urine Casts 0-2 Hyaline (Negative) LPF Urine Mucus Negative (Negative) Ur Culture Indicated? No Urine Glucose 100 H (Negative) mg/dL Path Cons Comment 06/15/24 22:16 Blood Culture - Pending Blood 06/15/24 22:11 Blood Culture - Pending Blood [id number] Documentation Fingerstick Glucose Start: 06/15/24 20:23 Freq: .Stat Status: Active Protocol: Activity Type Activity Date Activity User E-sign Co-sign Detail Recorded Client Recorded Date Recorded By Document 06/15/24 22:23 BKG DAEMON(5) [id number] 06/15/24 22:23 BKG DAEMON(6) Fingerstick Glucose Start: 06/15/24 22:38 Freq: .Q1H Status: Active Protocol: Activity Type Activity Date Activity User E-sign Co-sign Detail Recorded Client Recorded Date Recorded By Document 06/15/24 23:58 BKG DAEMON(7) [id number] 06/15/24 23:59 BKG DAEMON(8) Intake and Output - 24 Hour Total 06/15/24 20:06 thru 06/15/24 23:20 Intake Total 1050 Balance 1050 Weight 70.307 kg Intake: IV 1050 Falls Risk Assessment History of Falls No History 06/15/24 21:28 Contributing Factors No Factors 06/15/24 21:28 Ambulatory Aids Independent 06/15/24 21:28 Tubes/Lines None 06/15/24 21:28 Gait Evaluation No gait disturbance 06/15/24 21:28 Fall Total Score 0 06/15/24 21:28 Level of Risk Standard/Low Risk 06/15/24 21:28 Problems (Last Reviewed 06/15/24 @ 23:43 by Pritesh Demarco) Acute alcoholic pancreatitis (Acute) DKA (diabetic ketoacidosis) (Acute) v v v v v v v v v Sending and/or Receiving Nurses: Please use comment section below to note any information pertinent to the patient hand-off not included above. Information / Comments: Report received from: Patrice Molina RN
[2024-06-16 02:41] LABS: Anion Gap 19.9 mmol/L (3-11); BUN 21 mg/dL (7-18); CO2 17.1 mmol/L (21.0-32.0); CREATININE 1.3 mg/dL (0.70-1.30); Calcium 8.9 mg/dL (8.5-10.1); Chloride 101 mmol/L (98-107); Estimated GFR 80.15 (mL/min/1.73m2); Glucose 207 mg/dL (74-106); Sodium 138 mmol/L (136-145)
[2024-06-16] MEDS: PIPERACILLIN/TAZO 3.375 GM in Normal Saline 50 ML IVPB ×4 (04:19→22:44)
[2024-06-16 04:36] LABS: Anion Gap 18.6 mmol/L (3-11); BUN 21 mg/dL (7-18); CO2 18.4 mmol/L (21.0-32.0); CREATININE 1.2 mg/dL (0.70-1.30); Calcium 8.6 mg/dL (8.5-10.1); Chloride 101 mmol/L (98-107); Estimated GFR 88.24 (mL/min/1.73m2); Glucose 227 mg/dL (74-106); Potassium 3.7 mmol/L (3.5-5.1); Sodium 138 mmol/L (136-145)
[2024-06-16] MEDS: POTASSIUM CHLORIDE/D5-0.45NACL 1,000 ML 165 MEQ IV ×4 (05:15→22:44)
[2024-06-16 06:10] LABS: HCT 43.2 % (40.0-50.0); HGB 15.4 g/dL (13.5-17.5); MCHC 35.6 % (32.0-36.0); MCV 84 fL (80-95); MPV 10.7 fL (8.0-11.0); Platelet Count 416 10^3/uL (130-400); RBC 5.13 10^6/uL (4.36-5.78); RDW 12.5 % (11.8-14.1); RDW-SD 37.9 fL; WBC 19.07 10^3/uL (4.4-10.8)
[2024-06-16 07:15] LABS: BUN 19 mg/dL (7-18); CREATININE 1.3 mg/dL (0.70-1.30); Calcium 8.8 mg/dL (8.5-10.1); Chloride 104 mmol/L (98-107); Estimated GFR 80.15 (mL/min/1.73m2); Glucose 190 mg/dL (74-106); Potassium 3.8 mmol/L (3.5-5.1); Sodium 139 mmol/L (136-145)
[2024-06-16 07:17] LABS: Magnesium 1.9 mg/dL (1.8-2.4); PHOSPHORUS 3.4 mg/dL (2.6-4.7)
[2024-06-16 08:54] LABS: Anion Gap 16.3 mmol/L (3-11); BUN 17 mg/dL (7-18); CO2 19.7 mmol/L (21.0-32.0); CREATININE 1.3 mg/dL (0.70-1.30); Calcium 8.7 mg/dL (8.5-10.1); Chloride 103 mmol/L (98-107); Estimated GFR 80.15 (mL/min/1.73m2); Glucose 166 mg/dL (74-106); Potassium 3.8 mmol/L (3.5-5.1); Sodium 139 mmol/L (136-145)
--- NOTE | 2024-06-16 09:50 | INITIAL_ITS ---
Date of service: 06/16/24 Time of Service: 09:50 Care Management Initial Assmt Initial Assessment Reason for Hospitalization: DKA, Acute alcoholic pancreatitis Functional Status/Living Situation Patient Presentation: Remains in ICU, responding to medical treatment per MD. Zeus was lying in bed, lethargic per RN report. He answered CM queries appropriately-a marked improvement per RN. He stated his girlfriend has been in to visit him and he is keeping his family in [place] updated. He shared no additional concerns at this time. CM following. Town of Residence: [place] Resides with: Other (Significant other-visiting his girlfriend in [place]) Significant Other/Family: Out of area (Resides in [place]-family local to him back home. ) Employment Status: Employed Instrumental Activities of Daily Living (ADLs): Independent Medications Medication Management: No Issues/Barriers identified Advance Directives Advance Directives: Do you have an Advance Directive: N 06/16/24 07:44 AD On File at [facility]: N 06/15/24 22:49 Date Asked 06/15/24 06/15/24 22:49 AD Date Reviewed COLST On File at [facility] COLST Date Scanned Code Status Resuscitation Status Full Code Insurance Coverage/Financial Issues Insurance: BC/BS Fed, [place] [facility] ED Coverage only Care Team Visit Care Team Role Provider Type Unknown Unknown Primary Care Provider STAFF PHYSICIAN Susan Ocampo MD Emergency Provider [facility] STAFF PHYSICIAN Pritesh Demarco Admit Provider NON-[facility] STAFF PHYSICIAN Attending Provider Discharge Transportation: Private vehicle Plan: Per RN, anion gap is closing and blood glucose is normalizing, Zeus continues to be closely monitored in the ICU at this time. Zeus will discharge back to the community when ready per [place], CM continues to follow. PFSH All Active Problems (Updated 06/16/24 @ 06:25 by Pritesh Demarco) Asthma (Chronic) Acute alcoholic pancreatitis (Acute) DKA (diabetic ketoacidosis) (Acute) Social History Smoking/Tobacco Use Status: Current every day Tobacco Type: e-cigarettes Smoking risk assessment performed?: Yes Alcohol Intake: current Alcohol Intake frequency: a few times a week Drug use: Never Substance use type: does not use Do you feel safe at home: Yes Do you feel safe in your relationship?: Yes SDOH(Care Management) Screening Will the Patient Participate in the Screening?: Unable to obtain Do you worry about having a steady place to live?: choose not to answer
--- NOTE | 2024-06-16 10:50 | W.PM.PROGNOT ---
Date of Service Date of service: 06/16/24 Time of Service: 10:50 Assessment and Plan Assessment and plan (1) DKA (diabetic ketoacidosis): Start date: 06/15/24 Status: Acute Assessment and plan: -patient found to be in DKA with AG of 31 and initial blood sugar of 235 -likely exacerbated by EtOH intoxication and pancreatitis -has been on DKA protocol with improvement of AG down to 16.3 -patient is awake and ready for PO intake, if able to tolerate PO intake will restart insulin pump and discontinue IV insulin drip Qualifiers: Diabetes mellitus complication detail: without coma Diabetes mellitus type: type 1 Qualified Code(s): E10.10 - Type 1 diabetes mellitus with ketoacidosis without coma (2) Acute alcoholic pancreatitis: Start date: 06/15/24 Status: Acute Assessment and plan: -Pain management with bowel rest. Qualifiers: Acute pancreatitis complication: no infection or necrosis Qualified Code(s): K85.20 - Alcohol induced acute pancreatitis without necrosis or infection (3) Asthma: Status: Chronic Assessment and plan: -Continue intermittent albuterol HFA as needed. Qualifiers: Asthma complication type: uncomplicated Asthma persistence: intermittent Asthma severity: mild Qualified Code(s): J45.20 - Mild intermittent asthma, uncomplicated Subjective Subjective Interval history since last seen: Patient states that he is feeling better this afternoon, is ready to eat and hopefully transition back to his insulin pump. Otherwise he has no other complaints or concerns at this time. Exam Narrative Exam Narrative: Well-appearing young gentleman lying in bed in no acute distress, ANO x 4, heart regular rate and rhythm, lungs clear to auscultation bilaterally, abdomen is soft, nontender, nondistended Objective Last Vital Signs Temp 99.0 F 06/16/24 02:00 Pulse 92 H 06/16/24 10:01 Resp 18 06/16/24 10:01 BP 134/78 06/16/24 10:01 Pulse Ox 95 06/16/24 10:01 Laboratory Results - last 24 hr 06/15/24 06/15/24 06/15/24 20:20 20:45 22:11 WBC 26.88 H* RBC 6.81 H Hgb 19.9 H* Hct 58.9 H* MCV 87 MCH 29.2 MCHC 33.8 RDW 12.7 Plt Count MPV Immature Gran % See Differential Neutrophils % 85.0 Lymphocytes % 10.0 Monocytes % 4.0 Eosinophils % 0.0 Basophils % 0.0 Myelocytes % 1 Nucleated RBC % 0.0 Absolute Neutrophils 22.85 H Absolute Lymphocytes 2.69 Absolute Monocytes 1.08 H Absolute Eosinophils 0.00 Absolute Basophils 0.00 RBC Morphology Normal VBG pH 7.22 L VBG pCO2 34 L VBG pO2 54 VBG HCO3 14 L VBG Total CO2 13 L VBG O2 Saturation 88 VBG Base Excess -14 L Sodium 139 Potassium 5.1 Chloride 95 L Carbon Dioxide 12.8 L Anion Gap 31.2 H BUN 28 H Creatinine 1.6 H Est GFR (CKD-EPI 2020) 62.48 Glucose 235 H Calcium 10.3 H Phosphorus Magnesium 2.6 H Total Bilirubin 0.62 AST 26 ALT 33 Alkaline Phosphatase 147 H Total Protein 10.4 H Albumin 5.3 H Lipase > 375 H Urine Color Yellow Urine Clarity Clear Urine pH 5.5 Ur Specific [place] >= 1.030 H Urine Protein >=300 H Urine Ketones 80 H Urine Blood Moderate H Urine Nitrite Negative Urine Bilirubin Moderate H Urine Urobilinogen 0.2 Ur Leukocyte Esterase Negative Urine RBC 5-10 H Urine WBC Negative Ur Epithelial Cells Few Urine Crystals Negative Urine Bacteria Few Urine Casts 0-2 Hyaline Urine Mucus Negative Ur Culture Indicated? No Urine Glucose 100 H 06/15/24 06/16/24 06/16/24 23:05 00:45 02:20 WBC RBC Hgb Hct MCV MCH MCHC RDW Plt Count MPV Immature Gran % Neutrophils % Lymphocytes % Monocytes % Eosinophils % Basophils % Myelocytes % Nucleated RBC % Absolute Neutrophils Absolute Lymphocytes Absolute Monocytes Absolute Eosinophils Absolute Basophils RBC Morphology VBG pH VBG pCO2 VBG pO2 VBG HCO3 VBG Total CO2 VBG O2 Saturation VBG Base Excess Sodium 138 Cancelled 138 Potassium 4.3 Cancelled 4.0 Chloride 100 Cancelled 101 Carbon Dioxide 17.7 L Cancelled 17.1 L Anion Gap 20.3 H Cancelled 19.9 H BUN 24 H Cancelled 21 H Creatinine 1.4 H Cancelled 1.3 Est GFR (CKD-EPI 2020) 73.33 Cancelled 80.15 Glucose 173 H Cancelled 207 H Calcium 8.8 Cancelled 8.9 Phosphorus Magnesium Total Bilirubin AST ALT Alkaline Phosphatase Total Protein Albumin Lipase Urine Color Urine Clarity Urine pH Ur Specific [place] Urine Protein Urine Ketones Urine Blood Urine Nitrite Urine Bilirubin Urine Urobilinogen Ur Leukocyte Esterase Urine RBC Urine WBC Ur Epithelial Cells Urine Crystals Urine Bacteria Urine Casts Urine Mucus Ur Culture Indicated? Urine Glucose 06/16/24 06/16/24 06/16/24 02:45 04:17 04:45 WBC RBC Hgb Hct MCV MCH MCHC RDW Plt Count MPV Immature Gran % Neutrophils % Lymphocytes % Monocytes % Eosinophils % Basophils % Myelocytes % Nucleated RBC % Absolute Neutrophils Absolute Lymphocytes Absolute Monocytes Absolute Eosinophils Absolute Basophils RBC Morphology VBG pH VBG pCO2 VBG pO2 VBG HCO3 VBG Total CO2 VBG O2 Saturation VBG Base Excess Sodium Cancelled 138 Cancelled Potassium Cancelled 3.7 Cancelled Chloride Cancelled 101 Cancelled Carbon Dioxide Cancelled 18.4 L Cancelled Anion Gap Cancelled 18.6 H Cancelled BUN Cancelled 21 H Cancelled Creatinine Cancelled 1.2 Cancelled Est GFR (CKD-EPI 2020) Cancelled 88.24 Cancelled Glucose Cancelled 227 H Cancelled Calcium Cancelled 8.6 Cancelled Phosphorus Magnesium Total Bilirubin AST ALT Alkaline Phosphatase Total Protein Albumin Lipase Urine Color Urine Clarity Urine pH Ur Specific [place] Urine Protein Urine Ketones Urine Blood Urine Nitrite Urine Bilirubin Urine Urobilinogen Ur Leukocyte Esterase Urine RBC Urine WBC Ur Epithelial Cells Urine Crystals Urine Bacteria Urine Casts Urine Mucus Ur Culture Indicated? Urine Glucose 06/16/24 06/16/24 06/16/24 05:38 06:32 06:45 WBC 19.07 H RBC 5.13 Hgb 15.4 D Hct 43.2 MCV 84 MCH 30.0 MCHC 35.6 RDW 12.5 Plt Count 416 H MPV 10.7 Immature Gran % Neutrophils % Lymphocytes % Monocytes % Eosinophils % Basophils % Myelocytes % Nucleated RBC % Absolute Neutrophils Absolute Lymphocytes Absolute Monocytes Absolute Eosinophils Absolute Basophils RBC Morphology VBG pH VBG pCO2 VBG pO2 VBG HCO3 VBG Total CO2 VBG O2 Saturation VBG Base Excess Sodium 139 Cancelled Potassium 3.8 Cancelled Chloride 104 Cancelled Carbon Dioxide 21.0 Cancelled Anion Gap 14.0 H Cancelled BUN 19 H Cancelled Creatinine 1.3 Cancelled Est GFR (CKD-EPI 2020) 80.15 Cancelled Glucose 190 H Cancelled Calcium 8.8 Cancelled Phosphorus Cancelled 3.4 Magnesium Cancelled 1.9 Total Bilirubin AST ALT Alkaline Phosphatase Total Protein Albumin Lipase Urine Color Urine Clarity Urine pH Ur Specific [place] Urine Protein Urine Ketones Urine Blood Urine Nitrite Urine Bilirubin Urine Urobilinogen Ur Leukocyte Esterase Urine RBC Urine WBC Ur Epithelial Cells Urine Crystals Urine Bacteria Urine Casts Urine Mucus Ur Culture Indicated? Urine Glucose 06/16/24 06/16/24 06/16/24 08:23 08:45 10:45 WBC RBC Hgb Hct MCV MCH MCHC RDW Plt Count MPV Immature Gran % Neutrophils % Lymphocytes % Monocytes % Eosinophils % Basophils % Myelocytes % Nucleated RBC % Absolute Neutrophils Absolute Lymphocytes Absolute Monocytes Absolute Eosinophils Absolute Basophils RBC Morphology VBG pH VBG pCO2 VBG pO2 VBG HCO3 VBG Total CO2 VBG O2 Saturation VBG Base Excess Sodium 139 Cancelled Cancelled Potassium 3.8 Cancelled Cancelled Chloride 103 Cancelled Cancelled Carbon Dioxide 19.7 L Cancelled Cancelled Anion Gap 16.3 H Cancelled Cancelled BUN 17 Cancelled Cancelled Creatinine 1.3 Cancelled Cancelled Est GFR (CKD-EPI 2020) 80.15 Cancelled Cancelled Glucose 166 H Cancelled Cancelled Calcium 8.7 Cancelled Cancelled Phosphorus Magnesium Total Bilirubin AST ALT Alkaline Phosphatase Total Protein Albumin Lipase Urine Color Urine Clarity Urine pH Ur Specific [place] Urine Protein Urine Ketones Urine Blood Urine Nitrite Urine Bilirubin Urine Urobilinogen Ur Leukocyte Esterase Urine RBC Urine WBC Ur Epithelial Cells Urine Crystals Urine Bacteria Urine Casts Urine Mucus Ur Culture Indicated? Urine Glucose 06/16/24 06/16/24 06/16/24 12:45 14:45 16:45 WBC RBC Hgb Hct MCV MCH MCHC RDW Plt Count MPV Immature Gran % Neutrophils % Lymphocytes % Monocytes % Eosinophils % Basophils % Myelocytes % Nucleated RBC % Absolute Neutrophils Absolute Lymphocytes Absolute Monocytes Absolute Eosinophils Absolute Basophils RBC Morphology VBG pH VBG pCO2 VBG pO2 VBG HCO3 VBG Total CO2 VBG O2 Saturation VBG Base Excess Sodium Cancelled Cancelled Cancelled Potassium Cancelled Cancelled Cancelled Chloride Cancelled Cancelled Cancelled Carbon Dioxide Cancelled Cancelled Cancelled Anion Gap Cancelled Cancelled Cancelled BUN Cancelled Cancelled Cancelled Creatinine Cancelled Cancelled Cancelled Est GFR (CKD-EPI 2020) Cancelled Cancelled Cancelled Glucose Cancelled Cancelled Cancelled Calcium Cancelled Cancelled Cancelled Phosphorus Magnesium Total Bilirubin AST ALT Alkaline Phosphatase Total Protein Albumin Lipase Urine Color Urine Clarity Urine pH Ur Specific [place] Urine Protein Urine Ketones Urine Blood Urine Nitrite Urine Bilirubin Urine Urobilinogen Ur Leukocyte Esterase Urine RBC Urine WBC Ur Epithelial Cells Urine Crystals Urine Bacteria Urine Casts Urine Mucus Ur Culture Indicated? Urine Glucose 06/16/24 06/16/24 06/16/24 18:45 20:45 22:45 WBC RBC Hgb Hct MCV MCH MCHC RDW Plt Count MPV Immature Gran % Neutrophils % Lymphocytes % Monocytes % Eosinophils % Basophils % Myelocytes % Nucleated RBC % Absolute Neutrophils Absolute Lymphocytes Absolute Monocytes Absolute Eosinophils Absolute Basophils RBC Morphology VBG pH VBG pCO2 VBG pO2 VBG HCO3 VBG Total CO2 VBG O2 Saturation VBG Base Excess Sodium Cancelled Cancelled Cancelled Potassium Cancelled Cancelled Cancelled Chloride Cancelled Cancelled Cancelled Carbon Dioxide Cancelled Cancelled Cancelled Anion Gap Cancelled Cancelled Cancelled BUN Cancelled Cancelled Cancelled Creatinine Cancelled Cancelled Cancelled Est GFR (CKD-EPI 2020) Cancelled Cancelled Cancelled Glucose Cancelled Cancelled Cancelled Calcium Cancelled Cancelled Cancelled Phosphorus Magnesium Total Bilirubin AST ALT Alkaline Phosphatase Total Protein Albumin Lipase Urine Color Urine Clarity Urine pH Ur Specific [place] Urine Protein Urine Ketones Urine Blood Urine Nitrite Urine Bilirubin Urine Urobilinogen Ur Leukocyte Esterase Urine RBC Urine WBC Ur Epithelial Cells Urine Crystals Urine Bacteria Urine Casts Urine Mucus Ur Culture Indicated? Urine Glucose Time Spent with Patient Time Spent with Patient: >50 minutes Time was spent: preparing to see the patient(eg.review tests), obtaining and/or reviewing separately otained hiistory, ordering medications,tests, procedures, referring, communicating with other health hourly caregiver, indepentently interpreting results, counseling the patient and care coordination
[2024-06-16 10:57] LABS: Anion Gap 13.6 mmol/L (3-11); BUN 18 mg/dL (7-18); CO2 21.4 mmol/L (21.0-32.0); CREATININE 1.2 mg/dL (0.70-1.30); Calcium 8.9 mg/dL (8.5-10.1); Chloride 103 mmol/L (98-107); Estimated GFR 88.24 (mL/min/1.73m2); Glucose 135 mg/dL (74-106); Potassium 3.9 mmol/L (3.5-5.1); Sodium 138 mmol/L (136-145)
[2024-06-16] MEDS: Enoxaparin 40 MG/0.4 ML SYR SC (11:20)
[2024-06-16] MEDS: Escitalopram 10 MG TAB PO (11:21)
[2024-06-16 12:44] LABS: Anion Gap 11.6 mmol/L (3-11); BUN 16 mg/dL (7-18); CO2 22.4 mmol/L (21.0-32.0); CREATININE 1.2 mg/dL (0.70-1.30); Calcium 8.7 mg/dL (8.5-10.1); Chloride 103 mmol/L (98-107); Estimated GFR 88.24 (mL/min/1.73m2); Glucose 116 mg/dL (74-106); Potassium 3.8 mmol/L (3.5-5.1); Sodium 137 mmol/L (136-145)
[2024-06-16 15:05] LABS: Anion Gap 9.5 mmol/L (3-11); BUN 15 mg/dL (7-18); CO2 23.5 mmol/L (21.0-32.0); CREATININE 1.2 mg/dL (0.70-1.30); Calcium 8.9 mg/dL (8.5-10.1); Chloride 104 mmol/L (98-107); Estimated GFR 88.24 (mL/min/1.73m2); Glucose 97 mg/dL (74-106); Potassium 3.8 mmol/L (3.5-5.1); Sodium 137 mmol/L (136-145)
--- NOTE | 2024-06-16 15:36 | PHA.REVIEW2 ---
Pharmacy Admission Review Admission Clinical Review Admission Pharmacy Review: Acute alcoholic pancreatitis (Acute) DKA (diabetic ketoacidosis) (Acute) Sulfa (Sulfonamide Antibiotics) Allergy (Verified 06/15/24 20:17) Itching Resuscitation Status Full Code Height 5 ft 6 in Weight 70.1 kg Pharmacy Admission Review Renal Dosing Renal Dosing: BUN Cancelled 06/16/24 22:45 Creatinine Cancelled 06/16/24 22:45 Medications needing adjustments: Reviewed (crcl = 96, no adjustments needed ) Anticoagulation Anticoagulation: Hgb 15.4 g/dL (13.5-17.5) D 06/16/24 05:38 Hct 43.2 % (40.0-50.0) 06/16/24 05:38 Plt Count 416 10^3/uL (130-400) H 06/16/24 05:38 Creatinine Cancelled 06/16/24 22:45 DVT Prophylaxis: Reviewed Medications: Enoxaparin (40 mg sc daily) Therapeutic Anticoagulation: N/A Opiate Usage Evaluate Pain Scale/Pains Meds: Reviewed (minimal use of hydromorphone (1 dose last night in ED)) Scheduled Bowel Reg ordered if on Opiates?: No (prn) Relevant Labs Relevant Labs: Sodium Cancelled 06/16/24 22:45 Potassium Cancelled 06/16/24 22:45 Chloride Cancelled 06/16/24 22:45 Phosphorus 3.4 mg/dL (2.6-4.7) 06/16/24 06:32 Magnesium 1.9 mg/dL (1.8-2.4) 06/16/24 06:32 Electrolytes, C-Reactive P, ESR: Reviewed (anion gap = 11.6 @ 1222 (from 31.2) ) DM Control DM Control: Reviewed Insulin Dosing, Diabetic Medication: DKA - insulin drip @ 3.5 units/hr (decreasing). Uses insulin pump @ home Cardiac Review BP, HR, EF%: Reviewed (WNL) QTc Review QTc: Not Reviewed (no EKG to review) IV to PO Switch IV Medications: Reviewed (IV insulin drip required at this point, will expect transition to subq insulin when pt is awake & tolerating PO, continue IV abx for now until able to take PO) Home Meds Home Med List reviewed: Not Reviewed (no external fill history to reference) Current Meds Current Medication Order Review: Reviewed Pharmacy Antibiotic Review Pharmacy Antibiotic Activity: Reviewed, no change (zosyn 3.375 q6h. WBC 19.97 (from 26.88), ?source - blood cultures pending)
[2024-06-16 18:49] LABS: Anion Gap 11.2 mmol/L (3-11); BUN 12 mg/dL (7-18); CO2 20.8 mmol/L (21.0-32.0); CREATININE 1.2 mg/dL (0.70-1.30); Calcium 8.4 mg/dL (8.5-10.1); Chloride 104 mmol/L (98-107); Estimated GFR 88.24 (mL/min/1.73m2); Glucose 256 mg/dL (74-106); Potassium 3.5 mmol/L (3.5-5.1); Sodium 136 mmol/L (136-145)
[2024-06-16] MEDS: INSULIN REGULAR IN 0.9 % NACL 100 UNIT/100 ML BAG 6.5 UNIT IV (19:57)
[2024-06-16] MEDS: Acetaminophen 325 MG TAB PO (19:58)
[2024-06-16 21:55] LABS: Anion Gap 7.9 mmol/L (3-11); BUN 12 mg/dL (7-18); CO2 24.1 mmol/L (21.0-32.0); CREATININE 1.3 mg/dL (0.70-1.30); Calcium 8.6 mg/dL (8.5-10.1); Chloride 102 mmol/L (98-107); Estimated GFR 80.15 (mL/min/1.73m2); Glucose 265 mg/dL (74-106); Potassium 3.3 mmol/L (3.5-5.1); Sodium 134 mmol/L (136-145)
[2024-06-16 23:58] LABS: Anion Gap 10.1 mmol/L (3-11); BUN 11 mg/dL (7-18); CO2 23.9 mmol/L (21.0-32.0); CREATININE 1.2 mg/dL (0.70-1.30); Calcium 8.6 mg/dL (8.5-10.1); Chloride 106 mmol/L (98-107); Estimated GFR 88.24 (mL/min/1.73m2); Glucose 182 mg/dL (74-106); Potassium 3.4 mmol/L (3.5-5.1); Sodium 140 mmol/L (136-145)
[2024-06-17] VITALS (16 sets, daily range): BP systolic 109–137; BP diastolic 70–79; PULSE 67–91; RESP 13–22; TEMP 36.1–37.1; O2SAT 97
[2024-06-17] MEDS: POTASSIUM CHLORIDE 10 MEQ/100 ML BAG 100 MEQ IVINF ×2 (01:46→02:09)
[2024-06-17 01:49] LABS: Anion Gap 10.4 mmol/L (3-11); BUN 10 mg/dL (7-18); CO2 21.6 mmol/L (21.0-32.0); CREATININE 1.1 mg/dL (0.70-1.30); Calcium 9.1 mg/dL (8.5-10.1); Chloride 106 mmol/L (98-107); Estimated GFR 97.95 (mL/min/1.73m2); Glucose 105 mg/dL (74-106); Potassium 4.3 mmol/L (3.5-5.1); Sodium 138 mmol/L (136-145)
[2024-06-17 03:59] LABS: Anion Gap 8.2 mmol/L (3-11); BUN 10 mg/dL (7-18); CO2 23.8 mmol/L (21.0-32.0); CREATININE 1.1 mg/dL (0.70-1.30); Calcium 8.5 mg/dL (8.5-10.1); Chloride 105 mmol/L (98-107); Estimated GFR 97.95 (mL/min/1.73m2); Glucose 178 mg/dL (74-106); Potassium 3.6 mmol/L (3.5-5.1); Sodium 137 mmol/L (136-145)
[2024-06-17] MEDS: PIPERACILLIN/TAZO 3.375 GM in Normal Saline 50 ML IVPB (04:18)
[2024-06-17 06:17] LABS: Anion Gap 8.4 mmol/L (3-11); BUN 9 mg/dL (7-18); CO2 23.6 mmol/L (21.0-32.0); Calcium 8.4 mg/dL (8.5-10.1); Chloride 106 mmol/L (98-107); Estimated GFR 109.81 (mL/min/1.73m2); Glucose 179 mg/dL (74-106); Potassium 3.6 mmol/L (3.5-5.1); Sodium 138 mmol/L (136-145)
[2024-06-17] MEDS: POTASSIUM CHLORIDE/D5-0.45NACL 1,000 ML 165 MEQ IV (06:45)
[2024-06-17 08:15] LABS: Anion Gap 7.1 mmol/L (3-11); BUN 8 mg/dL (7-18); CO2 23.9 mmol/L (21.0-32.0); CREATININE 0.9 mg/dL (0.70-1.30); Calcium 8.7 mg/dL (8.5-10.1); Chloride 105 mmol/L (98-107); Estimated GFR 124.61 (mL/min/1.73m2); Glucose 175 mg/dL (74-106); Potassium 3.8 mmol/L (3.5-5.1); Sodium 136 mmol/L (136-145)
[2024-06-17] MEDS: Escitalopram 10 MG TAB PO (08:25)
[2024-06-17 09:54] LABS: Anion Gap 9.1 mmol/L (3-11); BUN 6 mg/dL (7-18); CO2 23.9 mmol/L (21.0-32.0); Calcium 8.6 mg/dL (8.5-10.1); Chloride 106 mmol/L (98-107); Estimated GFR 109.81 (mL/min/1.73m2); Glucose 149 mg/dL (74-106); Potassium 3.9 mmol/L (3.5-5.1); Sodium 139 mmol/L (136-145)
[2024-06-17] MEDS: INSULIN REGULAR IN 0.9 % NACL 100 UNIT/100 ML BAG 5.5 UNIT IV (10:45)
--- NOTE | 2024-06-17 13:27 | W.PM.DS.N ---
Date of service: 06/17/24 Time of Service: 13:27 DS: Diagnosis Discharge Diagnosis (1) DKA (diabetic ketoacidosis): Status: Acute (2) Acute alcoholic pancreatitis: Status: Acute (3) Asthma: Status: Chronic (4) Type 1 diabetes mellitus: Status: Acute (5) Alcohol abuse: Status: Chronic Discharge Plan Disposition Patient Disposition: Home Condition: Good Discharge Details Reason For Visit: DKA, Acute alcoholic pancreatitis Admit Date/Time: 06/15/24 23:54 Admit Provider: Pritesh Demarco Attending Provider: Pritesh Demarco Primary Care Provider: Unknown,Unknown Hospital Course Hospital Course: 23 yo M with type 1 DM who was visiting from [place] who presented with abdominal pain and vomiting that developed after binge drinking sugary alcoholic beverages. His lipase was >375. He was treated with bowel rest and IV fluids along with insulin drip. Potassium was supplemented. His symptoms resolved and he was eating and drinking well on the day of discharge. The insulin drip was stopped and he was transitioned back on his pump prior to discharge. He was encouraged to avoid alcohol during his recovery and keep alcohol moderate in the future. He should follow up with his primary care in the next 2 weeks Home Meds and New Rx's Prescriptions: Continued albuterol sulfate 90 mcg/actuation aerosol powdr breath activated 1 inh inhalation Q6H escitalopram oxalate [Lexapro] 10 mg tablet 10 mg PO DAILY insulin lispro [Humalog U-100 Insulin] 100 unit/mL solution 1 sliding scale dose subcut DAILY Patient Comments: USE UP TO 75UNITS DIRECTED ONCE DAILY Discharge Instructions Instructions: Acute pancreatitis, Diabetic Ketoacidosis (DC) Additional Instructions: I would avoid alcohol in the next few weeks to let the pancreas recover. Eat a lower fat diet in the next few weeks to avoid stressing the pancreas. Keep alcohol moderate in the future. Once you have pancreatitis once, you are more likely to have it again and experience serious complications. Activity:: Activity as Tolerated Equipment/Supplies:: No Equipment Needed Diet:: Carb Counting Discharge Orders Discharge Orders: Discharge Order (Routine); Ordered 06/17/24 Ordered By: Thanh Gan DS: Summary Time Spent with Patient providing and/or coordinating discharge services: Greater than 30 minutes Status at Discharge Functional status at discharge: independent ambulation Overall status at discharge: patient is back to baseline Mental Status: mental status grossly normal Speech and Movement: speech and movement normal Mood: congruent mood Affect: normal affect Quality:SDOH Health Related Social Needs: No Data to Display Exam Narrative Exam Narrative: Well-appearing young gentleman sitting up, in no acute distress, ANO x 4, MMM w/o icterus, heart regular rate and rhythm, lungs clear to auscultation bilaterally, abdomen is soft, nontender, nondistended, extremities warm with no edema. Psych Mental Status: mental status grossly normal Speech and Movement: speech and movement normal Mood: congruent mood Affect: normal affect DS: Data Vitals/I&O Vitals and I&O: Vital Signs Temperature 36.1 C L 06/17/24 00:01 Temperature Source Temporal Artery Scan 06/16/24 22:15 Pulse 76 06/17/24 12:01 Pulse 74 06/17/24 12:01 Respiratory Rate 13 06/17/24 12:01 Respiratory Effort Normal, Non-Labored 06/16/24 02:00 Respiratory Depth Normal 06/16/24 02:00 Respiratory Pattern Normal 06/16/24 02:00 Blood Pressure 117/76 06/17/24 12:01 Blood Pressure Mean 89 06/17/24 12:01 Pulse Oximetry 97 06/16/24 15:00 Respiratory End-tidal CO2 16 06/16/24 01:33 Oxygen Delivery Method Room Air 06/16/24 22:15 Oxygen Flow Rate 0 06/16/24 22:15 Pain Level 0 06/16/24 22:15 Intake & Output 06/16/24 06/17/24 06/17/24 23:59 11:59 23:59 Intake Total 3107.567 / 5543.610 1436.233 / 2360.575 924.342 / 2360.575 Output Total 1750 / 1750 1600 / 2400 800 / 2400 Balance 1357.567 / 3793.610 -163.767 / -39.425 124.342 / -39.425 Weight 71.6 kg Intake: IV 2107.567 / 4143.610 1316.233 / 2240.575 924.342 / 2240.575 Oral 1000 / 1400 120 / 120 Output: Urine 1750 / 1750 1600 / 2400 800 / 2400 Other: Urine Color Yellow Yellow Yellow Urine Appearance Clear Clear Clear Urine Odor Normal None Voiding Methods Urinal Data Completed and Pending Labs on day of discharge: Labs from last 24 hours 06/17/24 06/17/24 06/17/24 09:36 07:46 05:45 Sodium 139 136 138 Potassium 3.9 3.8 3.6 Chloride 106 105 106 Carbon Dioxide 23.9 23.9 23.6 Anion Gap 9.1 7.1 8.4 BUN 6 L 8 9 Creatinine 1.0 0.9 1.0 Est GFR (CKD-EPI 2020) 109.81 124.61 109.81 Glucose 149 H 175 H 179 H Calcium 8.6 8.7 8.4 L Path Cons Comment 06/17/24 06/17/24 06/16/24 03:35 01:33 23:30 Sodium 137 138 140 Potassium 3.6 4.3 3.4 L Chloride 105 106 106 Carbon Dioxide 23.8 21.6 23.9 Anion Gap 8.2 10.4 10.1 BUN 10 10 11 Creatinine 1.1 1.1 1.2 Est GFR (CKD-EPI 2020) 97.95 97.95 88.24 Glucose 178 H 105 182 H Calcium 8.5 9.1 8.6 Path Cons Comment 06/16/24 06/16/24 06/16/24 22:15 21:30 18:20 Sodium Cancelled 134 L 136 Potassium Cancelled 3.3 L 3.5 Chloride Cancelled 102 104 Carbon Dioxide Cancelled 24.1 20.8 L Anion Gap Cancelled 7.9 11.2 H BUN Cancelled 12 12 Creatinine Cancelled 1.3 1.2 Est GFR (CKD-EPI 2020) Cancelled 80.15 88.24 Glucose Cancelled 265 H 256 H Calcium Cancelled 8.6 8.4 L Path Cons Comment 06/16/24 06/15/24 14:37 20:45 Sodium 137 Potassium 3.8 Chloride 104 Carbon Dioxide 23.5 Anion Gap 9.5 BUN 15 Creatinine 1.2 Est GFR (CKD-EPI 2020) 88.24 Glucose 97 Calcium 8.9 Path Cons Comment SEE COMMENT Preliminary micro results at discharge 06/15/24 22:16 Blood Culture - Preliminary Blood NO GROWTH 24 HOURS 06/15/24 22:11 Blood Culture - Preliminary Blood NO GROWTH 24 HOURS PFSH All Active Problems (Updated 06/17/24 @ 13:28 by Thanh Gan) Alcohol abuse (Chronic) Type 1 diabetes mellitus (Acute) Asthma (Chronic) Acute alcoholic pancreatitis (Acute) DKA (diabetic ketoacidosis) (Acute) Social History Smoking/Tobacco Use Status: Current every day Tobacco Type: e-cigarettes Smoking risk assessment performed?: Yes Alcohol Intake: current Alcohol Intake frequency: a few times a week Drug use: Never Substance use type: does not use Housing: house Do you feel safe at home: Yes Do you feel safe in your relationship?: Yes Time Spent with Patient Time Spent with Patient: 45-69 minutes Time was spent: preparing to see the patient(eg.review tests), obtaining and/or reviewing separately otained hiistory, ordering medications,tests, procedures, referring, communicating with other health medicare interviewer, indepentently interpreting results, counseling the patient and care coordination
--- NOTE | 2024-06-17 18:36 | PDOC.CMDIS ---
Date of service: 06/17/24 Time of Service: 18:58 Care Management Discharge SDOH Health Related Social Needs: No Data to Display
== END 2024-06-17 13:25 | disposition home or self-care (01) | DRG 637 ==
LOC: ER 06-16 00:10 → ICU 06-16 01:37
PROVIDERS: Family Medicine; Admitting Provider Family Medicine; Emergency Provider Emergency Medicine; Visit Provider Family Medicine
DX: E10.10 Type 1 diabetes mellitus with ketoacidosis without coma (principal); K85.20 Alcohol induced acute pancreatitis without necrosis or infection; J45.20 Mild intermittent asthma, uncomplicated; F10.10 Alcohol abuse, uncomplicated; Z96.41 Presence of insulin pump (external) (internal); F17.290 Nicotine dependence, other tobacco product, uncomplicated
CPT/HCPCS: 00123; 36415; 36416; 80048; 80053; 82805; 82962; 83690; 85027; 87040; 96361; 96365; 96366; 96375; 99291; J1650; 71045; 74177; 81003; 81015; 83735; 84100; 85025; 99223; 99233; 99239; J1170; J2405; J2543; J3480; J3490